=== PATIENT | male | born 1940 | race American Indian/Alaskan Native ===

== ENCOUNTER 2016-09-14 21:02 | Emergency (ER) | payer MEDICARE, MEDICAID, SELFPAY ==
[2016-09-14 21:27] VITALS: BP 178/99
[2016-09-14] MEDS ORDERED: Sodium Chloride 0.9% 10 ML Syringe FLUSH PRN (22:35)
--- NOTE | 2016-09-14 22:39 | EDM.PDOC ---
ED HPI Trauma - General Chief Complaint: Upper Extremity Injury/Pain Stated Complaint: HURT HAND Time Seen by Provider: 09/14/16 22:30 Source: Reports: Patient History Limitations: Reports: No limitations - History of Present Illness INITIAL COMMENTS - FREE TEXT/NARRATIVE: This 76 yo male patient reports to the ED with right hand swelling. The patient reports she hit his hand on a drawer this past Wednesday (4 days ago) and has noticed increased swelling and pain in his right hand since that time. The patient finally came in today due to his family forcing him to come in. Symptom Onset Date: 09/11/16 Occurred Where: home Method of Injury: direct blow Severity: moderate Pain/Injury Location: Reports: upper extremity, right Consciousness: Reports: no loss of consciousness Associated Symptoms: Reports: no other symptoms Allergies/ADRs: Allergies No Known Allergies Allergy (Verified 09/14/16 21:19) Home Medications: Ambulatory Orders Atenolol [Atenolol] 50 mg PO BID 07/09/15 [Confirmed 06/06/16] Gabapentin [Gabapentin] 900 mg PO TID 07/09/15 [Confirmed 06/06/16] Lisinopril 20 mg PO BID 07/09/15 [Confirmed 06/06/16] Tamsulosin [Flomax] 0.4 mg PO DAILY 07/09/15 [Confirmed 06/06/16] Fluticasone Propionate [Flonase] 1 spray INH BID PRN 08/08/15 [Confirmed ] amLODIPine [Norvasc] 5 mg PO DAILY 08/08/15 [Confirmed 06/06/16] oxyCODONE HCl/Acetaminophen [Percocet 5-325 mg Tablet] 1 tab PO BID PRN [Confirmed 06/06/16] Warfarin [Coumadin] 5 mg PO DAILY 03/17/16 [Confirmed 06/06/16] oxyCODONE ER [OxyCONTIN] 20 mg PO Q12HR 03/17/16 [Confirmed 06/06/16] Past Medical History HEENT History: Reports: Impaired vision Other HEENT History: Wears glasses. 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 Other Oncologic History: left arm Dermatologic History: Reports: Other (see below) Other Dermatologic History: Open wound both lower legs - Infectious Disease History Infectious Disease History: Reports: Other (see below) Other Infectious Disease History: Hepatitis when he was 13yrs old - Past Surgical History Cardiovascular Surgical History: Reports: AAA repair, Vascular surgery GI Surgical History: Reports: None Musculoskeletal Surgical History: Reports: Arthroscopic procedure, Shoulder surgery Social & Family History - Family History Family Medical History: Noncontributory - Tobacco Use Smoking Status *Q: Current Every Day Smoker Years of Tobacco use: 68 Packs/Tins Daily: 1 Used Tobacco, but Quit: No Second Hand Smoke Exposure: Yes - Caffeine Use Caffeine Use: Reports: Coffee - Recreational Drug Use Recreational Drug Use: No - Living Situation & Occupation Living situation: Reports: , with spouse Occupation: retired Review of Systems - Review of Systems Review Of Systems: ROS reveals no pertinent complaints other than HPI. Trauma Exam - Physical Exam Exam: See Below Exam Limited By: No limitations General Appearance: Reports: alert, WD/WN, mild distress Head: Reports: atraumatic, normocephalic Eyes: bilateral eye: EOMI, normal inspection, PERRL Ears: Reports: normal external exam, normal canal, hearing grossly normal, normal TMs Nose: Reports: normal inspection, normal mucousa, no blood Throat/Mouth: Reports: Normal inspection, Normal lips, Normal teeth, Normal gums , Normal oropharynx, Normal voice, No airway compromise Neck: Reports: non-tender, full range of motion, normal alignment, normal inspection Respiratory Exam: Reports: no respiratory distress, lungs clear, normal breath sounds Cardiovascular: Reports: normal peripheral pulses, regular rate, rhythm, no edema, no gallop, no JVD, no murmur, no rub GI/Abdominal: Reports: normal bowel sounds, soft, non tender, no organomegaly, no distention, no abnormal bruit, no mass (Male) Exam: Deferred Rectal (Males) Exam: Deferred Back: Reports: full range of motion, normal inspection, non-tender Extremities: Reports: pain with movement, tenderness (right forearm and hand) 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 ) - Nicole Coma Score Best Eye Response (Nicole): (4) open spontaneously Best Verbal Response (Nicole): (5) oriented Best Motor Response (Nicole): (6) obeys commands [place] Total: 15 Course - Vital Signs Last Recorded V/S: Last Vital Signs Temp 36.8 C 09/14/16 21:22 Pulse 72 09/14/16 21:22 Resp 18 09/14/16 21:22 BP 178/99 H 09/14/16 21:22 Pulse Ox 95 09/14/16 21:22 - Orders/Labs/Meds Orders: Active Orders 24 hr Category Date Time Status CULTURE BLOOD [BC] Stat Lab 09/14/16 22:43 Received CULTURE BLOOD [BC] Stat Lab 09/14/16 23:00 Results Sodium Chloride 0.9% [Saline Flush] Med 09/14/16 22:35 Active 10 ml FLUSH ASDIRECTED PRN Vancomycin 1.5 gm Med 09/14/16 22:41 Active Sodium Chloride 0.9% [Normal Saline] 500 ml IV ONETIME Blood Culture x2 Reflex Set [OM.PC] Stat Oth 09/14/16 22:29 Ordered Saline Lock Insert [OM.PC] Routine Oth 09/14/16 22:35 Ordered Medication Orders Vancomycin HCl 1.5 gm/ Sodium (Chloride) 500 mls @ 334 mls/hr IV ONETIME ONE Stop: 09/15/16 00:10 Last Admin: 09/14/16 23:11 Dose: 334 mls/hr Sodium Chloride (Saline Flush) 10 ml FLUSH ASDIRECTED PRN PRN Reason: Keep Vein Open Labs: Laboratory Tests 09/14/16 09/14/16 09/14/16 Range/Units 22:43 22:43 22:43 WBC 12.9 H (5.0-10.0) 10^3/uL RBC 3.84 L (4.6-6.2) 10^6/uL Hgb 11.4 L (14.0-18.0) g/dL Hct 35.3 L (40.0-54.0) % MCV 91.9 (80-100) fL MCH 29.7 (27.0-34.0) pg MCHC 32.3 L (33.0-35.0) g/dL Plt Count 187 (150-450) 10^3/uL Neut % (Auto) 79.7 H (42.2-75.2) % Lymph % (Auto) 9.0 L (20.5-50.1) % [place] % (Auto) 9.8 H (2-8) % Eos % (Auto) 1.3 (1.0-3.0) % Baso % (Auto) 0.2 (0.0-1.0) % Add Manual Diff Yes Neutrophils % (Manual) 80 % Band Neutrophils % 3 % Lymphocytes % (Manual) 11 % Monocytes % (Manual) 6 % Sodium 132 L (135-145) mmol/L Potassium 4.9 (3.6-5.0) mmol/L Chloride 101 (101-111) mmol/L Carbon Dioxide 20.0 L (21.0-31.0) mmol/L Anion Gap 15.9 BUN 39 H (7-18) mg/dL Creatinine 2.2 H (0.6-1.3) mg/dL Est Cr Clr Drug Dosing 29.96 mL/min Estimated GFR (MDRD) 29 BUN/Creatinine Ratio 17.72 Glucose 106 H (74-105) mg/dL Lactic Acid 1.5 (0.5-2.2) mmol/L Calcium 8.3 L (8.4-10.2) mg/dl Total Bilirubin 0.8 (0.2-1.0) mg/dL AST 37 (10-42) IU/L ALT 34 (10-60) IU/L Alkaline Phosphatase 129 H (42-121) IU/L Total Protein 8.3 H (6.7-8.2) g/dl Albumin 3.2 (3.2-5.5) g/dl Globulin 5.1 Albumin/Globulin Ratio 0.63 Meds: Medications Generic Name Dose Route Start Last Admin Trade Name Freq PRN Reason Stop Dose Admin Vancomycin HCl 1.5 gm/ Sodium 500 mls @ 334 mls/hr 09/14/16 22:41 09/14/16 23 :11 Chloride IV 09/15/16 00:10 334 mls/hr ONETIME ONE Administration Sodium Chloride 10 ml 09/14/16 22:35 Saline Flush FLUSH ASDIRECTED PRN Keep Vein Open Discontinued Medications Generic Name Dose Route Start Last Admin Trade Name Freq PRN Reason Stop Dose Admin Amoxicillin/Clavulanate Potassium 1 tab 09/15/16 00:03 Augmentin 500 Mg\125 Mg PO 09/15/16 00:04 ONETIME ONE - Re-Assessments/Exams Free Text/Narrative Re-Assessment/Exam: 09/14/16 23:30 Discussed the history, examination, x-ray, and lab results with Dr. Gong ( Hospitalist with [facility] Dr. Gong did visit the patient in the ED, offered the patient admission, and advised to start the patient on oral antibiotics (Augmentin and Bactrim) and follow-up with his clinic provider by the end of the week. 09/15/16 00:06 Departure - Departure Time of Disposition: 23:39 Disposition: Home, Self-Care 01 Condition: fair Clinical Impression: Cellulitis of right upper extremity Instructions: Cellulitis, Adult, [id number] Forms: ED Department Discharge Care Plan Goals: The patient was advised of the examination, x-ray and lab results during the visit. The patient was given an IV dose of Vancomycin in the ED. The patient was discharged with a script for Augmentin (500/125) to take 1 by mouth 2 times per day for 10 days and Bactrim (400/80) to take 1 by mouth 2 times per day for 10 days. The patient's arm was placed in a sling for support. If the patient has any additional symptoms or concerns, the patient should follow-up with his primary care facility or return to the emergency department. - My Orders Last 24 Hours: My Active Orders 09/14/16 22:29 Blood Culture x2 Reflex Set [OM.PC] Stat 09/14/16 22:35 Sodium Chloride 0.9% [Saline Flush] 10 ml FLUSH ASDIRECTED PRN Saline Lock Insert [OM.PC] Routine 09/14/16 22:41 Vancomycin 1.5 gm Sodium Chloride 0.9% [Normal Saline] 500 ml IV ONETIME 09/14/16 22:43 CULTURE BLOOD [BC] Stat 09/14/16 23:00 CULTURE BLOOD [BC] Stat - Assessment/Plan Last 24 Hours: My Active Orders 09/14/16 22:29 Blood Culture x2 Reflex Set [OM.PC] Stat 09/14/16 22:35 Sodium Chloride 0.9% [Saline Flush] 10 ml FLUSH ASDIRECTED PRN Saline Lock Insert [OM.PC] Routine 09/14/16 22:41 Vancomycin 1.5 gm Sodium Chloride 0.9% [Normal Saline] 500 ml IV ONETIME 09/14/16 22:43 CULTURE BLOOD [BC] Stat 09/14/16 23:00 CULTURE BLOOD [BC] Stat
[2016-09-14] MEDS ORDERED: Vancomycin 1.5 GM in Sodium Chloride 0.9% 500 ML IV ONE (22:41)
[2016-09-15] MEDS ORDERED: Amoxicillin/Clavulanate K 500-125 MG Tab PO ONE (00:03)
== END 2016-09-15 00:50 | disposition home or self-care (01) ==
LOC: DL.ED 21:02
DX: L03.113 Cellulitis of right upper limb (principal); I10 Essential (primary) hypertension; M19.90 Unspecified osteoarthritis, unspecified site; F17.210 Nicotine dependence, cigarettes, uncomplicated; Z86.2 Personal history of diseases of the blood and blood-forming organs and certain disorders involving the immune mechanism; Z95.1 Presence of aortocoronary bypass graft
CPT/HCPCS: 36415; 73060; 73090; 73120; 80053; 83605; 85025; 87040; 96365; 96366; 99284; A9270; J3370; J7040

== ENCOUNTER 2017-04-05 12:52 | Emergency (ER) | payer MEDICARE, MEDICAID ==
--- NOTE | 2017-04-05 12:51 | EDM.PDOC ---
ED HPI GENERAL MEDICAL PROBLEM - General Chief Complaint: Neuro Symptoms/Deficits Stated Complaint: IN BY AMBULANCE Time Seen by Provider: 04/05/17 12:49 Source of Information: Reports: Patient, EMS, EMS Notes Reviewed, RN, RN Notes Reviewed - History of Present Illness INITIAL COMMENTS - FREE TEXT/NARRATIVE: Pt presents to ER per [facility] with c/o left sided weakness. Patient states he began feeling weak and numb on the left side of his body around 1130 this morning. He states he had a feeling of weakness and heaviness of the entire left side. He states he has some weakness of the left arm from a previous surgery for cancer. He denies chest pain, sob, fever, chills, N/V/D. He states he has been out of his medications for some time, and has an appointment in the clinic with Dr. Laws tomorrow to have medications refilled. Onset: Today, Sudden Location: Reports: Upper Extremity, Left, Lower Extremity, Left Generalized Pain Score (Numeric/FACES): 5 - Related Data Allergies Allergy/AdvReac Type Severity Reaction Status Date / Time No Known Allergies Allergy Verified 04/05/17 12:57 Home Meds: Home Meds Atenolol [Atenolol] 50 mg PO BID 07/09/15 [History] Gabapentin [Gabapentin] 900 mg PO TID 07/09/15 [History] Lisinopril 20 mg PO BID 07/09/15 [History] Tamsulosin [Flomax] 0.4 mg PO DAILY 07/09/15 [History] Fluticasone Propionate [Flonase] 1 spray INH BID PRN 08/08/15 [History] amLODIPine [Norvasc] 5 mg PO DAILY 08/08/15 [History] oxyCODONE HCl/Acetaminophen [Percocet 5-325 mg Tablet] 1 tab PO BID PRN [History] Warfarin [Coumadin] 5 mg PO DAILY 03/17/16 [History] oxyCODONE ER [OxyCONTIN] 20 mg PO Q12HR 03/17/16 [History] Past Medical History HEENT History: Reports: Impaired Vision Other HEENT History: Wears glasses. 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 Other Oncologic History: left arm Dermatologic History: Reports: Other (See Below) Other Dermatologic History: Open wound both lower legs - Infectious Disease History Infectious Disease History: Reports: Other (See Below) Other Infectious Disease History: Hepatitis when he was 13yrs old - Past Surgical History Cardiovascular Surgical History: Reports: AAA Repair, Vascular Surgery Social & Family History - Family History Family Medical History: Noncontributory - Tobacco Use Smoking Status *Q: Current Every Day Smoker Years of Tobacco use: 68 Packs/Tins Daily: 1 Used Tobacco, but Quit: No Second Hand Smoke Exposure: Yes - Caffeine Use Caffeine Use: Reports: Coffee - Recreational Drug Use Recreational Drug Use: No - Living Situation & Occupation Living situation: Reports: , with Spouse Occupation: Retired ED ROS GENERAL - Review of Systems Review Of Systems: ROS reveals no pertinent complaints other than HPI. ED EXAM, NEURO - Physical Exam Exam: See Below Exam Limited By: No Limitations General Appearance: Alert, WD/WN, No Apparent Distress Eye Exam: Bilateral Eye: Normal Inspection Ears: Normal External Exam Nose: Normal Inspection Throat/Mouth: Normal Inspection, Normal Voice, No Airway Compromise Head Exam: Atraumatic, Normocephalic Neck: Normal Inspection, Supple, Non-Tender, Full Range of Motion Respiratory/Chest: No Respiratory Distress, Crackles (RLB) Cardiovascular: Normal Peripheral Pulses, Regular Rate, Rhythm, No Edema, No Gallop, No JVD, No Murmur, No Rub GI/Abdominal: Normal Bowel Sounds, Soft, Non-Tender, No Organomegaly, No Distention, No Abnormal Bruit, No Mass (Male) Exam: Deferred Rectal (Males) Exam: Deferred Neurological: Alert, Normal Mood/Affect, Normal Dorsiflexion, CN II-XII Intact, Normal Plantar Flexion, Normal Gait, No Motor/Sensory Deficits, Oriented x 3 Back Exam: Normal Inspection, Full Range of Motion Extremities: Normal Inspection, Normal Range of Motion, Non-Tender, No Pedal Edema, Normal Capillary Refill Psychiatric: Normal Affect, Normal Mood Skin Exam: Warm, Dry, Intact, Normal Color, No Rash EKG INTERPRETATION EKG Date: 04/05/17 Time: 13:01 Rhythm: Other (sinus bradycardia) Rate (Beats/Min): 51 [place]: Normal P-Wave: Present QRS: Normal ST-T: Normal QT: Normal Comparison: No Change EKG Interpretation Comments: PVC's noted Course - Vital Signs Last Recorded V/S: Last Vital Signs Temp 97.4 F 04/05/17 13:01 Pulse 50 L 04/05/17 13:01 Resp 16 04/05/17 13:01 BP 187/94 H 04/05/17 13:01 Pulse Ox 99 04/05/17 13:01 - Orders/Labs/Meds Orders: Active Orders 24 hr Category Date Time Status EKG Documentation Completion [] STAT Care 04/05/17 12:46 Active Peripheral IV Care [RC] . DIRECTED Care 04/05/17 12:46 Active Sodium Chloride 0.9% [Saline Flush] Med 04/05/17 12:45 Active 10 ml FLUSH ASDIRECTED PRN Peripheral IV Insertion Adult [OM.PC] Stat Oth 04/05/17 12:45 Ordered Medication Orders Sodium Chloride (Saline Flush) 10 ml FLUSH ASDIRECTED PRN PRN Reason: Keep Vein Open Last Admin: 04/05/17 13:18 Dose: 10 ml Labs: Laboratory Tests 04/05/17 04/05/17 04/05/17 Range/Units 12:57 12:57 12:57 WBC 6.5 (5.0-10.0) 10^3/uL RBC 4.29 L (4.6-6.2) 10^6/uL Hgb 13.3 L D (14.0-18.0) g/dL Hct 40.5 (40.0-54.0) % MCV 94.4 (80-100) fL MCH 31.0 (27.0-34.0) pg MCHC 32.8 L (33.0-35.0) g/dL Plt Count 149 L (150-450) 10^3/uL Neut % (Auto) 66.1 (42.2-75.2) % Lymph % (Auto) 19.3 L (20.5-50.1) % [place] % (Auto) 9.2 H (2-8) % Eos % (Auto) 4.8 H (1.0-3.0) % Baso % (Auto) 0.6 (0.0-1.0) % PT 12.6 H D (9.0-12.0) SEC INR 1.3 H (0.9-1.2) Sodium 137 (135-145) mmol/L Potassium 4.6 (3.6-5.0) mmol/L Chloride 104 (101-111) mmol/L Carbon Dioxide 23.0 (21.0-31.0) mmol/L Anion Gap 14.6 BUN 32 H (7-18) mg/dL Creatinine 2.1 H (0.6-1.3) mg/dL Est Cr Clr Drug Dosing 31.38 mL/min Estimated GFR (MDRD) 31 BUN/Creatinine Ratio 15.23 Glucose 108 H (74-105) mg/dL Calcium 8.5 (8.4-10.2) mg/dl Total Bilirubin 1.0 (0.2-1.0) mg/dL AST 20 (10-42) IU/L ALT 13 (10-60) IU/L Alkaline Phosphatase 86 (42-121) IU/L Troponin I < 0.02 (0.00-0.02) ng/ml Total Protein 7.7 (6.7-8.2) g/dl Albumin 4.0 (3.2-5.5) g/dl Globulin 3.7 Albumin/Globulin Ratio 1.08 Urine Color (YELLOW) Urine Appearance (CLEAR) Urine pH (5.0-9.0) Ur Specific [place] (1.005-1.030) Urine Protein (NEGATIVE) Urine Glucose (UA) (NEGATIVE) Urine Ketones (NEGATIVE) Urine Occult Blood (NEGATIVE) Urine Nitrite (NEGATIVE) Urine Bilirubin (NEGATIVE) Urine Urobilinogen (0.2-1.0) mg/dL Ur Leukocyte Esterase (NEGATIVE) Urine RBC /HPF Urine WBC (0-5/HPF) /HPF Ur Epithelial Cells /HPF Urine Bacteria (0-FEW/HPF) /HPF 04/05/17 Range/Units 13:13 WBC (5.0-10.0) 10^3/uL RBC (4.6-6.2) 10^6/uL Hgb (14.0-18.0) g/dL Hct (40.0-54.0) % MCV (80-100) fL MCH (27.0-34.0) pg MCHC (33.0-35.0) g/dL Plt Count (150-450) 10^3/uL Neut % (Auto) (42.2-75.2) % Lymph % (Auto) (20.5-50.1) % [place] % (Auto) (2-8) % Eos % (Auto) (1.0-3.0) % Baso % (Auto) (0.0-1.0) % PT (9.0-12.0) SEC INR (0.9-1.2) Sodium (135-145) mmol/L Potassium (3.6-5.0) mmol/L Chloride (101-111) mmol/L Carbon Dioxide (21.0-31.0) mmol/L Anion Gap BUN (7-18) mg/dL Creatinine (0.6-1.3) mg/dL Est Cr Clr Drug Dosing mL/min Estimated GFR (MDRD) BUN/Creatinine Ratio Glucose (74-105) mg/dL Calcium (8.4-10.2) mg/dl Total Bilirubin (0.2-1.0) mg/dL AST (10-42) IU/L ALT (10-60) IU/L Alkaline Phosphatase (42-121) IU/L Troponin I (0.00-0.02) ng/ml Total Protein (6.7-8.2) g/dl Albumin (3.2-5.5) g/dl Globulin Albumin/Globulin Ratio Urine Color Yellow (YELLOW) Urine Appearance Clear (CLEAR) Urine pH 6.5 (5.0-9.0) Ur Specific [place] 1.015 (1.005-1.030) Urine Protein 100 H (NEGATIVE) Urine Glucose (UA) Negative (NEGATIVE) Urine Ketones Negative (NEGATIVE) Urine Occult Blood Large H (NEGATIVE) Urine Nitrite Negative (NEGATIVE) Urine Bilirubin Negative (NEGATIVE) Urine Urobilinogen 0.2 (0.2-1.0) mg/dL Ur Leukocyte Esterase Negative (NEGATIVE) Urine RBC 10-20 H /HPF Urine WBC 0-5 (0-5/HPF) /HPF Ur Epithelial Cells Few /HPF Urine Bacteria Few (0-FEW/HPF) /HPF Meds: Medications Generic Name Dose Route Start Last Admin Trade Name Freq PRN Reason Stop Dose Admin Sodium Chloride 10 ml 04/05/17 12:45 04/05/17 13:18 Saline Flush FLUSH 10 ml ASDIRECTED PRN Administration Keep Vein Open Discontinued Medications Generic Name Dose Route Start Last Admin Trade Name Leny PRN Reason Stop Dose Admin Amlodipine Besylate 5 mg 04/05/17 13:52 Norvasc PO 04/05/17 13:53 ONETIME ONE Lisinopril 20 mg 04/05/17 13:43 Prinivil PO 04/05/17 13:44 ONETIME ONE - Radiology Interpretation Free Text/Narrative:: CT head w/o contrast: No acute findings See rad report CT Results Date: 04/05/17 - Re-Assessments/Exams Free Text/Narrative Re-Assessment/Exam: 04/05/17 12:50 [id number] call taken from [facility] regarding patient with left sided weakness, last noted to be normal at 1130. Pt was taken straight to CT upon arrival Departure - Departure Time of Disposition: 13:44 Disposition: Home, Self-Care 01 Condition: Fair Clinical Impression: Hypertension Qualifiers: Hypertension type: essential hypertension Qualified Code(s): I10 - Essential ( primary) hypertension - Discharge Information Instructions: Hypertension, [id number] Forms: ED Department Discharge Additional Instructions: Follow up with your primary care facility. You need to have your blood pressure medications refilled and begin taking. - My Orders Last 24 Hours: My Active Orders 04/05/17 12:45 Sodium Chloride 0.9% [Saline Flush] 10 ml FLUSH ASDIRECTED PRN Peripheral IV Insertion Adult [OM.PC] Stat 04/05/17 12:46 EKG Documentation Completion [RC] STAT Peripheral IV Care [RC] . DIRECTED - Assessment/Plan Last 24 Hours: My Active Orders 04/05/17 12:45 Sodium Chloride 0.9% [Saline Flush] 10 ml FLUSH ASDIRECTED PRN Peripheral IV Insertion Adult [OM.PC] Stat 04/05/17 12:46 EKG Documentation Completion [RC] STAT Peripheral IV Care [RC] . DIRECTED
[~2017-04-05 12:52] MED LIST: Sodium Chloride 0.9% 10 ML Syringe FLUSH PRN
--- NOTE | 2017-04-05 13:19 | CT ---
Clinical history: 76-year-old male acute stroke clinically. Scan technique: Volume acquisition of data emergency unenhanced CT scan of the head and brain obtaine d with the patient lying supine on the Siemens multi slice scanner [place], [place]. All data archived in the PAC system for storage and study (bone/brain windows). Interpretation: Abnormal. Severe but symmetric age-related cerebral cortical atrophy. *Multiple areas of decreased brain attenuation involving the periventricular white matter both cerebr al hemispheres i.e. multi-infarct ischemic disease (particular severe involvement left frontal and ri ght parietal lobes). No comparison studies. Note: No sign of acute intracerebral/intraventricular or subarachnoid bleed. No abnormal extracerebra l/and cranial epidural or subdural hematomas. Uniformly thick bony calvarium without sign of skull fr acture or underlying brain contusion. Symmetric clear pneumatization of the paranasal and mastoid sinuses. Nasal septum is straight in the midline. No supratentorial or posterior fossa mass lesion and no sign of hydrocephalus. Cerebellum and brainstem unremarkable for age.
[2017-04-05 13:25] LABS: CHLORIDE,CL 104 mmol/L (101-111); SODIUM,NA 137 mmol/L (135-145)
[2017-04-05] MEDS ORDERED: Lisinopril 20 MG Tab PO ONE (13:43)
[2017-04-05] MEDS ORDERED: amLODIPine 5 MG Tab PO ONE (13:52)
[2017-04-05 14:02] VITALS: BP 181/96
--- NOTE | 2017-04-06 11:13 | EKG ---
04/05/2017 - TIMUR GONZALEZ - TIME: 1301 hours. FINDINGS: EKG shows sinus bradycardia. There are multiple premature ventricular complexes. Borderline T-wave abnormality. [facility] /[id number]
== END 2017-04-05 14:07 | disposition home or self-care (01) ==
LOC: DL.ED 12:52
DX: I10 Essential (primary) hypertension (principal); F17.210 Nicotine dependence, cigarettes, uncomplicated; Z79.01 Long term (current) use of anticoagulants
CPT/HCPCS: 36415; 70450; 80053; 81001; 84484; 85025; 85610; 93005; 93010; 99285; A9270; J7050; 99284

== ENCOUNTER 2017-12-30 16:24 | Emergency (ER) | payer MEDICARE, MEDICAID ==
[2017-12-30 16:44] VITALS: BP 97/61
[2017-12-30] MEDS ORDERED: Sodium Chloride 0.9% 1,000 ML IV ONE (16:44)
[2017-12-30 17:22] LABS: ANION GAP 14.4; CHLORIDE,CL 109 mmol/L (101-111); SODIUM,NA 137 mmol/L (135-145)
[2017-12-30] MEDS ORDERED: HYDROmorphone 0.5 MG/0.5 ML Syringe IVPUSH ONE (17:45)
[2017-12-30] MEDS ORDERED: Ondansetron 4 MG/2 ML SDV IV ONE (17:48)
[2017-12-30] MEDS ORDERED: Piperacillin/Tazobactam 3.375 GM in Sodium Chloride 0.9% 100 ML IV ONE (17:48)
[2017-12-30] MEDS ORDERED: Ondansetron 4 MG/2 ML SDV ONE (17:49)
--- NOTE | 2017-12-30 17:58 | EDM.PDOC ---
ED HPI GENERAL MEDICAL PROBLEM - General Chief Complaint: Abdominal Pain Stated Complaint: [id number] SICK COLD Time Seen by Provider: 12/30/17 17:35 Source of Information: Reports: Patient History Limitations: Reports: No Limitations - History of Present Illness INITIAL COMMENTS - FREE TEXT/NARRATIVE: This 77 yo male patient was brought to the ED by his family due to a 2 day history of upper abdominal pain. The patient reports he was walking in [facility] prior to coming to the ED when he felt light headed. The patient reports his pain has gotten progressively worse over the past 2 days. The patient reports he has a history of hypertension. The patient reports he had a bypass about 1 year ago, but he quit his anticoagulants on his own. The patient has not taken anything to make his pain better or worse. Onset Date: 12/29/17 Duration: Constant, Getting Worse Location: Reports: Abdomen (upper abdomen) Quality: Reports: Ache, Sharp, Stabbing Severity: Moderate Improves with: Reports: None Worsens with: Reports: None Context: Reports: Other Associated Symptoms: Reports: No Other Symptoms Epigastric Pain Score (Numeric/FACES): 10 - Related Data Allergies Allergy/AdvReac Type Severity Reaction Status Date / Time No Known Allergies Allergy Verified 04/05/17 12:57 Home Meds: Home Meds Atenolol 50 mg PO BID 07/09/15 [History] Lisinopril 20 mg PO BID 07/09/15 [History] Tamsulosin [Flomax] 0.4 mg PO DAILY 07/09/15 [History] traMADol HCl [Tramadol HCl] 50 mg PO BID 12/30/17 [History] Past Medical History HEENT History: Reports: Impaired Vision Other HEENT History: Wears glasses. 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 Other Oncologic History: left arm Dermatologic History: Reports: Other (See Below) Other Dermatologic History: Open wound both lower legs - Infectious Disease History Infectious Disease History: Reports: Other (See Below) Other Infectious Disease History: Hepatitis when he was 13yrs old - Past Surgical History Cardiovascular Surgical History: Reports: AAA Repair, Vascular Surgery Social & Family History - Family History Family Medical History: Noncontributory - Tobacco Use Smoking Status *Q: Current Every Day Smoker Years of Tobacco use: 60 Packs/Tins Daily: 1 - Caffeine Use Caffeine Use: Reports: Coffee - Recreational Drug Use Recreational Drug Use: No - Living Situation & Occupation Living situation: Reports: , with Spouse Occupation: Retired ED ROS GENERAL - Review of Systems Review Of Systems: ROS reveals no pertinent complaints other than HPI. ED EXAM, GI/ABD - Physical Exam Exam: See Below Exam Limited By: No Limitations General Appearance: Alert, WD/WN, Severe Distress, Thin Eyes: Bilateral: Normal Appearance, EOMI Ears: Normal External Exam, Normal Canal, Hearing Grossly Normal, Normal TMs Nose: Normal Inspection, Normal Mucosa, No Blood Throat/Mouth: Normal Inspection, Normal Lips, Normal Teeth, Normal Gums, Normal Oropharynx, Normal Voice, No Airway Compromise Head: Atraumatic, Normocephalic Neck: Normal Inspection, Supple, Non-Tender, Full Range of Motion Respiratory/Chest: No Respiratory Distress, Lungs Clear, Normal Breath Sounds, No Accessory Muscle Use, Chest Non-Tender Cardiovascular: Normal Peripheral Pulses, Regular Rate, Rhythm, No Edema, No Gallop, No JVD, No Murmur, No Rub GI/Abdominal Exam: Guarding, Rigid, Tender (upper abdomen ) (Male) Exam: Deferred Rectal (Males) Exam: Deferred Back Exam: Normal Inspection, Full Range of Motion, NT Extremities: Normal Inspection, Normal Range of Motion, Non-Tender, Normal Capillary Refill, No Pedal Edema Neurological: Alert, Oriented, CN II-XII Intact, Normal Cognition, Normal Gait, Normal Reflexes, No Motor/Sensory Deficits Psychiatric: Normal Affect, Normal Mood Skin Exam: Warm, Dry, Intact, Normal Color, No Rash Lymphatic: No Adenopathy Course - Vital Signs Last Recorded V/S: Last Vital Signs Temp 36.4 C 12/30/17 16:42 Pulse 46 L 12/30/17 16:42 Resp 16 12/30/17 16:42 BP 97/61 12/30/17 16:42 Pulse Ox 97 12/30/17 16:42 - Orders/Labs/Meds Orders: Active Orders 24 hr Category Date Time Status EKG Documentation Completion [RC] URGENT Care 12/30/17 16:43 Ordered UA W/MICROSCOPIC [URIN] Stat Lab 12/30/17 16:43 Ordered Piperacillin/Tazobactam [Zosyn] 3.375 gm Med 12/30/17 17:48 Ordered Sodium Chloride 0.9% [Normal Saline] 100 ml IV ONETIME Sodium Chloride 0.9% [Normal Saline] 1,000 ml Med 12/30/17 16:44 Ordered IV .BOLUS Medication Orders Sodium Chloride (Normal Saline) 1,000 mls @ 250 mls/hr IV .BOLUS ONE Stop: 12/30/17 20:43 Last Admin: 12/30/17 17:10 Dose: 250 mls/hr Piperacillin Sod/Tazobactam (Sod 3.375 gm/ Sodium Chloride) 100 mls @ 200 mls/ hr IV ONETIME ONE Stop: 12/30/17 18:17 Labs: Laboratory Tests 12/30/17 12/30/17 12/30/17 Range/Units 16:39 16:40 16:40 WBC 11.7 H (5.0-10.0) 10^3/uL RBC 4.51 L (4.6-6.2) 10^6/uL Hgb 14.2 (14.0-18.0) g/dL Hct 43.1 (40.0-54.0) % MCV 95.6 (80-100) fL MCH 31.5 (27.0-34.0) pg MCHC 32.9 L (33.0-35.0) g/dL Plt Count 167 (150-450) 10^3/uL Neut % (Auto) 59.4 (42.2-75.2) % Lymph % (Auto) 33.1 (20.5-50.1) % [place] % (Auto) 5.1 (2-8) % Eos % (Auto) 2.3 (1.0-3.0) % Baso % (Auto) 0.1 (0.0-1.0) % PT (9.0-12.0) SEC INR (0.9-1.2) D-Dimer, Quantitative (0-400) ng/mL Sodium (135-145) mmol/L Potassium (3.6-5.0) mmol/L Chloride (101-111) mmol/L Carbon Dioxide (21.0-31.0) mmol/L Anion Gap BUN (7-18) mg/dL Creatinine (0.6-1.3) mg/dL Est Cr Clr Drug Dosing mL/min Estimated GFR (MDRD) BUN/Creatinine Ratio Glucose (74-105) mg/dL POC Glucose 128 H (83-110) mg/dl Lactic Acid (0.5-2.2) mmol/L Calcium (8.4-10.2) mg/dl Magnesium 2.2 (1.8-2.5) mg/dL Total Bilirubin (0.2-1.0) mg/dL AST (10-42) IU/L ALT (10-60) IU/L Alkaline Phosphatase (42-121) IU/L Ammonia (11-35) umol/L Troponin I (0.00-0.02) ng/ml Total Protein (6.7-8.2) g/dl Albumin (3.2-5.5) g/dl Globulin Albumin/Globulin Ratio Amylase 1008 H (28-100) U/L Lipase > 400 H (22-51) U/L 12/30/17 12/30/17 12/30/17 Range/Units 16:40 16:40 16:50 WBC (5.0-10.0) 10^3/uL RBC (4.6-6.2) 10^6/uL Hgb (14.0-18.0) g/dL Hct (40.0-54.0) % MCV (80-100) fL MCH (27.0-34.0) pg MCHC (33.0-35.0) g/dL Plt Count (150-450) 10^3/uL Neut % (Auto) (42.2-75.2) % Lymph % (Auto) (20.5-50.1) % [place] % (Auto) (2-8) % Eos % (Auto) (1.0-3.0) % Baso % (Auto) (0.0-1.0) % PT 10.3 (9.0-12.0) SEC INR 1.0 (0.9-1.2) D-Dimer, Quantitative > 5000 H (0-400) ng/mL Sodium 137 (135-145) mmol/L Potassium 4.4 (3.6-5.0) mmol/L Chloride 109 (101-111) mmol/L Carbon Dioxide 18.0 L (21.0-31.0) mmol/L Anion Gap 14.4 BUN 37 H (7-18) mg/dL Creatinine 2.4 H (0.6-1.3) mg/dL Est Cr Clr Drug Dosing 27.46 mL/min Estimated GFR (MDRD) 26 BUN/Creatinine Ratio 15.41 Glucose 151 H (74-105) mg/dL POC Glucose (83-110) mg/dl Lactic Acid (0.5-2.2) mmol/L Calcium 8.9 (8.4-10.2) mg/dl Magnesium (1.8-2.5) mg/dL Total Bilirubin 1.8 H (0.2-1.0) mg/dL AST 56 H (10-42) IU/L ALT 27 (10-60) IU/L Alkaline Phosphatase 94 (42-121) IU/L Ammonia 16 (11-35) umol/L Troponin I < 0.02 (0.00-0.02) ng/ml Total Protein 8.4 H (6.7-8.2) g/dl Albumin 4.4 (3.2-5.5) g/dl Globulin 4.0 Albumin/Globulin Ratio 1.10 Amylase (28-100) U/L Lipase (22-51) U/L 07/19/18 Range/Units 16:50 WBC (5.0-10.0) 10^3/uL RBC (4.6-6.2) 10^6/uL Hgb (14.0-18.0) g/dL Hct (40.0-54.0) % MCV (80-100) fL MCH (27.0-34.0) pg MCHC (33.0-35.0) g/dL Plt Count (150-450) 10^3/uL Neut % (Auto) (42.2-75.2) % Lymph % (Auto) (20.5-50.1) % [place] % (Auto) (2-8) % Eos % (Auto) (1.0-3.0) % Baso % (Auto) (0.0-1.0) % PT (9.0-12.0) SEC INR (0.9-1.2) D-Dimer, Quantitative (0-400) ng/mL Sodium (135-145) mmol/L Potassium (3.6-5.0) mmol/L Chloride (101-111) mmol/L Carbon Dioxide (21.0-31.0) mmol/L Anion Gap BUN (7-18) mg/dL Creatinine (0.6-1.3) mg/dL Est Cr Clr Drug Dosing mL/min Estimated GFR (MDRD) BUN/Creatinine Ratio Glucose (74-105) mg/dL POC Glucose (83-110) mg/dl Lactic Acid 1.5 (0.5-2.2) mmol/L Calcium (8.4-10.2) mg/dl Magnesium (1.8-2.5) mg/dL Total Bilirubin (0.2-1.0) mg/dL AST (10-42) IU/L ALT (10-60) IU/L Alkaline Phosphatase (42-121) IU/L Ammonia (11-35) umol/L Troponin I (0.00-0.02) ng/ml Total Protein (6.7-8.2) g/dl Albumin (3.2-5.5) g/dl Globulin Albumin/Globulin Ratio Amylase (28-100) U/L Lipase (22-51) U/L Meds: Medications Generic Name Dose Route Start Last Admin Trade Name Freq PRN Reason Stop Dose Admin Sodium Chloride 1,000 mls @ 250 mls/hr 12/30/17 16:44 12/30/17 17:10 Normal Saline IV 12/30/17 20:43 250 mls/hr .BOLUS ONE Administration Piperacillin Sod/Tazobactam 100 mls @ 200 mls/hr 12/30/17 17:48 Sod 3.375 gm/ Sodium Chloride IV 12/30/17 18:17 ONETIME ONE Discontinued Medications Generic Name Dose Route Start Last Admin Trade Name Freq PRN Reason Stop Dose Admin Hydromorphone HCl 0.5 mg 12/30/17 17:45 Dilaudid IVPUSH 12/30/17 17:46 ONETIME ONE Ondansetron HCl 4 mg 12/30/17 17:48 Zofran IV 12/30/17 17:49 ONETIME ONE Ondansetron HCl Confirm 12/30/17 17:49 Zofran Administered 12/30/17 17:50 Dose 4 mg .ROUTE .STK-MED ONE Departure - Departure Time of Disposition: 17:59 Disposition: DC/Tfer to Acute Hospital 02 Condition: Serious Clinical Impression: Elevated d-dimer, Elevated amylase and lipase Abdominal pain Qualifiers: Abdominal location: upper abdomen, unspecified Qualified Code(s): R10.10 - Upper abdominal pain, unspecified - Discharge Information *PRESCRIPTION DRUG MONITORING PROGRAM REVIEWED*: Not Applicable *COPY OF PRESCRIPTION DRUG MONITORING REPORT IN PATIENT [place]: Not Applicable Forms: Interfacility Transfer EMTALA Care Plan Goals: Discussed the examination, history and lab results with Dr. Ibanez (Hospitalist with [facility] in [place]). Dr. Ibanez accepted the patient for continued evaluation and further management. The patient will be transported by [facility]. - My Orders Last 24 Hours: My Active Orders 12/30/17 16:43 EKG Documentation Completion [RC] URGENT UA W/MICROSCOPIC [URIN] Stat 12/30/17 16:44 Sodium Chloride 0.9% [Normal Saline] 1,000 ml IV .BOLUS 12/30/17 17:48 Piperacillin/Tazobactam [Zosyn] 3.375 gm Sodium Chloride 0.9% [Normal Saline] 100 ml IV ONETIME - Assessment/Plan Last 24 Hours: My Active Orders 12/30/17 16:43 EKG Documentation Completion [RC] URGENT UA W/MICROSCOPIC [URIN] Stat 12/30/17 16:44 Sodium Chloride 0.9% [Normal Saline] 1,000 ml IV .BOLUS 12/30/17 17:48 Piperacillin/Tazobactam [Zosyn] 3.375 gm Sodium Chloride 0.9% [Normal Saline] 100 ml IV ONETIME
== END 2017-12-30 18:40 ==
LOC: DL.ED 16:24
DX: R10.10 Upper abdominal pain, unspecified (principal); R79.1 Abnormal coagulation profile; I25.810 Atherosclerosis of coronary artery bypass graft(s) without angina pectoris; I10 Essential (primary) hypertension; F17.210 Nicotine dependence, cigarettes, uncomplicated; R74.8 Abnormal levels of other serum enzymes; Z79.899 Other long term (current) drug therapy
CPT/HCPCS: 36415; 80053; 82140; 82150; 82962; 83605; 83690; 83735; 84484; 85025; 85379; 85610; 93005; 93010; 96361; 96365; 96375; 99285; J1170; J2405; J2543; J7030; J7050

== ENCOUNTER 2018-08-02 17:26 | Emergency (ER) | payer MEDICARE, MEDICAID ==
[2018-08-02 17:34] VITALS: BP 171/80
[2018-08-02] MEDS ORDERED: LORazepam 0.5 MG Tab PO ONE (17:43)
[2018-08-02 18:23] LABS: ANION GAP 13.2
[2018-08-02] MEDS ORDERED: methylPREDNISolone Sodium Succinate 125 MG/2 ML SDV IVPUSH ONE (19:07)
[2018-08-02] MEDS ORDERED: Doxycycline 100 MG Cap PO ONE (19:09)
--- NOTE | 2018-08-02 19:12 | EDM.PDOC ---
Scribed by Monik Addison 08/02/18 [id number] for Veronica Martínez NP ED HPI GENERAL MEDICAL PROBLEM - General Chief Complaint: Respiratory Problem Stated Complaint: ambulance Time Seen by Provider: 08/02/18 17:35 Source of Information: Reports: Patient, EMS, EMS Notes Reviewed, RN, RN Notes Reviewed History Limitations: Reports: No Limitations - History of Present Illness INITIAL COMMENTS - FREE TEXT/NARRATIVE: Patient presents to ER by [facility] with complaint of shortness of breath at rest. He has orthopnea toward afternoon when it begins. Tis started about 1 week ago. He gets anxious at those times. Denies chest pain. States chest feels tight right now. He has had no fever, chills, nausea, vomiting, diarrhea, weakness and body aches. Onset Date: 07/26/18 Duration: Constant Location: Reports: Chest Quality: Reports: Ache Severity: Moderate Improves with: Reports: None Worsens with: Reports: None Associated Symptoms: Reports: No Other Symptoms - Related Data Allergies Allergy/AdvReac Type Severity Reaction Status Date / Time No Known Allergies Allergy Verified 08/02/18 17:36 Home Meds: Home Meds Atenolol 50 mg PO BID 07/09/15 [History] Lisinopril 20 mg PO BID 07/09/15 [History] Tamsulosin [Flomax] 0.4 mg PO DAILY 07/09/15 [History] traMADol HCl [Tramadol HCl] 50 mg PO BID 12/30/17 [History] Past Medical History HEENT History: Reports: Impaired Vision Other HEENT History: Wears glasses. 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 Other Oncologic History: left arm Dermatologic History: Reports: Other (See Below) Other Dermatologic History: Open wound both lower legs - Infectious Disease History Infectious Disease History: Reports: Other (See Below) Other Infectious Disease History: Hepatitis when he was 13yrs old - Past Surgical History Cardiovascular Surgical History: Reports: AAA Repair, Vascular Surgery Social & Family History - Family History Family Medical History: Noncontributory - Caffeine Use Caffeine Use: Reports: Coffee - Living Situation & Occupation Living situation: Reports: , with Spouse Occupation: Retired ED ROS GENERAL - Review of Systems Review Of Systems: ROS reveals no pertinent complaints other than HPI. ED EXAM, GENERAL - Physical Exam Exam: See Below Exam Limited By: No Limitations General Appearance: Alert, WD/WN, No Apparent Distress Eye Exam: Bilateral Eye: EOMI, Normal Inspection, PERRL Ears: Normal External Exam, Normal Canal, Hearing Grossly Normal, Normal TMs Nose: Normal Inspection, Normal Mucosa, No Blood Throat/Mouth: Normal Inspection, Normal Lips, Normal Teeth, Normal Gums, Normal Oropharynx, Normal Voice, No Airway Compromise Head: Atraumatic, Normocephalic Neck: Normal Inspection, Supple, Non-Tender, Full Range of Motion Respiratory/Chest: Decreased Breath Sounds, Crackles (throughout) Cardiovascular: Normal Peripheral Pulses, Regular Rate, Rhythm, No Edema, No Gallop, No JVD, No Murmur, No Rub GI/Abdominal: Normal Bowel Sounds, Soft, Non-Tender, No Organomegaly, No Distention, No Abnormal Bruit, No Mass (Male) Exam: Deferred Rectal (Males) Exam: Deferred Back Exam: Normal Inspection, Full Range of Motion, NT Extremities: Normal Inspection, Normal Range of Motion, Non-Tender, Normal Capillary Refill, No Pedal Edema Neurological: Alert, Oriented, CN II-XII Intact, Normal Cognition, Normal Gait, Normal Reflexes, No Motor/Sensory Deficits Psychiatric: Normal Affect, Normal Mood Skin Exam: Warm, Dry, Intact, Normal Color, No Rash Lymphatic: No Adenopathy EKG INTERPRETATION EKG Date: 08/02/18 Time: 18:07 Rhythm: Other (sinus bradycardia) Rate (Beats/Min): 50 EKG Interpretation Comments: EKG shows nonspecific intraventricular conduction delay. Course - Vital Signs Last Recorded V/S: Last Vital Signs Temp 98.3 F 08/02/18 17:15 Pulse 56 L 08/02/18 17:15 Resp 16 08/02/18 17:15 BP 171/80 H 08/02/18 17:15 Pulse Ox 100 08/02/18 17:15 - Orders/Labs/Meds Orders: Active Orders 24 hr Category Date Time Status EKG Documentation Completion [RC] STAT Care 08/02/18 17:43 Active Chest 2V [CR] Urgent Exams 08/02/18 17:43 Taken B-TYPE NATRIURETIC PEPTIDE,BNP [CHEM] Stat Lab 08/02/18 17:52 Received Labs: Laboratory Tests 08/02/18 08/02/18 Range/Units 17:52 17:52 WBC 6.2 (5.0-10.0) 10^3/uL RBC 3.76 L (4.6-6.2) 10^6/uL Hgb 11.6 L D (14.0-18.0) g/dL Hct 36.3 L (40.0-54.0) % MCV 96.5 (80-100) fL MCH 30.9 (27.0-34.0) pg MCHC 32.0 L (33.0-35.0) g/dL Plt Count 122 L (150-450) 10^3/uL Neut % (Auto) 60.5 (42.2-75.2) % Lymph % (Auto) 25.3 (20.5-50.1) % [place] % (Auto) 9.5 H (2-8) % Eos % (Auto) 4.2 H (1.0-3.0) % Baso % (Auto) 0.5 (0.0-1.0) % Sodium 131 L (135-145) mmol/L Potassium 5.2 H (3.6-5.0) mmol/L Chloride 103 (101-111) mmol/L Carbon Dioxide 20.0 L (21.0-31.0) mmol/L Anion Gap 13.2 BUN 34 H (7-18) mg/dL Creatinine 1.8 H (0.6-1.3) mg/dL Est Cr Clr Drug Dosing 36.60 mL/min Estimated GFR (MDRD) 37 BUN/Creatinine Ratio 18.88 Glucose 109 H (74-105) mg/dL Calcium 8.5 (8.4-10.2) mg/dl Total Bilirubin 1.2 H (0.2-1.0) mg/dL AST 16 (10-42) IU/L ALT 7 L (10-60) IU/L Alkaline Phosphatase 66 (42-121) IU/L Total Protein 7.5 (6.7-8.2) g/dl Albumin 3.9 (3.2-5.5) g/dl Globulin 3.6 Albumin/Globulin Ratio 1.08 Meds: Medications Discontinued Medications Generic Name Dose Route Start Last Admin Trade Name Leny PRN Reason Stop Dose Admin Doxycycline Hyclate 100 mg 08/02/18 19:09 Vibramycin PO 08/02/18 19:10 ONETIME ONE Lorazepam 0.5 mg 08/02/18 17:43 08/02/18 18:04 Ativan PO 08/02/18 17:44 0.5 mg ONETIME ONE Administration Methylprednisolone Sodium Succinate 125 mg 08/02/18 19:07 Solu-Medrol IVPUSH 08/02/18 19:08 ONETIME ONE - Radiology Interpretation Free Text/Narrative:: Chest xray: FINDINGS: Lungs: Atelectatic changes within the lung bases. Pleural space: No pleural effusions or pneumothorax. Heart/Mediastinum: Unremarkable. No cardiomegaly. Vasculature: Ectatic changes/tortuosity of the thoracic aorta present. Bones/joints: Postoperative changes of the right shoulder. Chronic changes of the distal left clavicle present. The thoracic spine demonstrates mild degenerative changes at multiple levels. IMPRESSION: 1. No pleural effusions or pneumothorax. 2. Atelectatic changes within the lung bases. Thank you for allowing us to participate in the care of your patient. Dictated and Authenticated by: Navarro Tran DO See rad report Departure - Departure Time of Disposition: 19:04 Disposition: Home, Self-Care 01 Condition: Fair Clinical Impression: COPD exacerbation - Discharge Information *PRESCRIPTION DRUG MONITORING PROGRAM REVIEWED*: No *COPY OF PRESCRIPTION DRUG MONITORING REPORT IN PATIENT [place]: No Instructions: Chronic Obstructive Pulmonary Disease Exacerbation, [id number] , Steps to Quit Smoking, [id number], Shortness of Breath, Adult, [id number] , Cough, Adult, [id number], Chronic Obstructive Pulmonary Disease, Easy-to- Read, Upper Respiratory Infection, Adult, [id number] Forms: ED Department Discharge Additional Instructions: RX: Doxycycline, Prednisone Follow up with your primary care facility - My Orders Last 24 Hours: My Active Orders 08/02/18 17:43 EKG Documentation Completion [RC] STAT Chest 2V [CR] Urgent 08/02/18 17:52 B-TYPE NATRIURETIC PEPTIDE,BNP [CHEM] Stat - Assessment/Plan Last 24 Hours: My Active Orders 08/02/18 17:43 EKG Documentation Completion [RC] STAT Chest 2V [CR] Urgent 08/02/18 17:52 B-TYPE NATRIURETIC PEPTIDE,BNP [CHEM] Stat I have read and agree with the documentation that has been completed regarding this visit. By signing this record, I attest that the documentation was completed in my physical presence and is an accurate record of the encounter.
== END 2018-08-02 19:26 | disposition home or self-care (01) ==
LOC: DL.ED 17:26
DX: J44.1 Chronic obstructive pulmonary disease with (acute) exacerbation (principal); I12.9 Hypertensive chronic kidney disease with stage 1 through stage 4 chronic kidney disease, or unspecified chronic kidney disease; N18.9 Chronic kidney disease, unspecified; D50.9 Iron deficiency anemia, unspecified; Z79.899 Other long term (current) drug therapy
CPT/HCPCS: 36415; 71046; 80053; 83880; 85025; 93005; 96374; 99285; A9270-GY; J2930

== ENCOUNTER 2019-07-15 11:04 | Inpatient (IN) | payer MEDICARE, MEDICAID ==
[2019-07-15] MEDS ORDERED: Albuterol/Ipratropium 3.0-0.5 MG/3 ML Neb Soln ONE (11:22)
[2019-07-15] MEDS: Sodium Chloride 0.9% 10 ML Syringe FLUSH PRN (11:24)
[2019-07-15] MEDS ORDERED: methylPREDNISolone Sodium Succinate 125 MG/2 ML SDV IVPUSH ONE (11:32)
[2019-07-15] MEDS ORDERED: Albuterol/Ipratropium 3.0-0.5 MG/3 ML Neb Soln NEB ONE (11:32)
[2019-07-15] MEDS ORDERED: Piperacillin/Tazobactam 3.375 GM in Sodium Chloride 0.9% 100 ML IV ONE (11:34)
[2019-07-15] MEDS ORDERED: Sodium Chloride 0.9% 500 ML IV SCH (11:45)
[2019-07-15] MEDS ORDERED: Oseltamivir 75 MG Cap PO ONE (11:59)
--- NOTE | 2019-07-15 12:05 | EDM.PDOC ---
Scribed by Monik Addison 07/15/19 1114 for Gary Escalera MD ED HPI GENERAL MEDICAL PROBLEM - General Chief Complaint: General Stated Complaint: GENERAL Time Seen by Provider: 07/15/19 11:07 Source of Information: Reports: Patient, EMS, EMS Notes Reviewed, RN, RN Notes Reviewed History Limitations: Reports: No Limitations - History of Present Illness INITIAL COMMENTS - FREE TEXT/NARRATIVE: Patient presents to ER by [facility] with complaint of shortness of breath at home. Patient reports that he became ill about 2 days ago with fever, cough and shortness of breath. He states that the cough is productive of thick sputum but he does not know what color. He denies nausea, vomiting, chest pain or edema. He is a mcfp smoker with COPD. Onset: Sudden Duration: Day(s): (3) Location: Reports: Chest, Generalized Quality: Reports: Other (Denies pain) Severity: Severe Improves with: Reports: None Worsens with: Reports: Other (Coughing) Associated Symptoms: Reports: No Other Symptoms Right Leg Pain Score (Numeric/FACES): 5 - Related Data Allergies Allergy/AdvReac Type Severity Reaction Status Date / Time No Known Allergies Allergy Verified 05/29/19 15:25 Home Meds: Home Meds Lisinopril 20 mg PO DAILY 07/09/15 [History] atenoloL [Atenolol] 50 mg PO BID 07/09/15 [History] traMADol HCl [Tramadol HCl] 50 mg PO BID 12/30/17 [History] Finasteride 5 mg PO DAILY 12/28/18 [History] Gabapentin [Neurontin] 900 mg PO TID 12/28/18 [History] Tamsulosin [Flomax] 0.4 mg PO DAILY 12/28/18 [History] amLODIPine [Norvasc] 5 mg PO DAILY 12/28/18 [History] Apixaban [Eliquis] 5 mg PO BID 05/29/19 [History] Past Medical History HEENT History: Reports: Impaired Vision Other HEENT History: Wears glasses. 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 Dermatologic History: Reports: Other (See Below) Other Dermatologic History: Scarring to RLE - Infectious Disease History Infectious Disease History: Reports: Other (See Below) Other Infectious Disease History: Reports hepatitis as a child - Past Surgical History Cardiovascular Surgical History: Reports: AAA Repair, Vascular Surgery GI Surgical History: Reports: None Male Surgical History: Reports: None Social & Family History - Family History Family Medical History: Noncontributory - Tobacco Use Smoking Status *Q: Current Every Day Smoker Tobacco Use Within Last Twelve Months: Cigarettes - Caffeine Use Caffeine Use: Reports: Coffee - Living Situation & Occupation Living situation: Reports: , with Spouse Occupation: Retired ED ROS GENERAL - Review of Systems Review Of Systems: Comprehensive ROS is negative, except as noted in HPI. ED EXAM, GENERAL - Physical Exam Exam: See Below Exam Limited By: No Limitations General Appearance: Alert, No Apparent Distress, Other (Ill but non-toxic appearing) Eye Exam: Bilateral Eye: Normal Inspection Nose: Nasal Drainage (mild, clear) Throat/Mouth: Normal Lips, Normal Teeth, Normal Gums, Normal Oropharynx, Normal Voice, No Airway Compromise, Other (Dry oral mucosa) Head: Atraumatic, Normocephalic Neck: Normal Inspection, Supple, Non-Tender, Full Range of Motion. No: Lymphadenopathy (L), Lymphadenopathy (R) Respiratory/Chest: No Respiratory Distress, No Accessory Muscle Use, Decreased Breath Sounds, Crackles (Coarse breath sounds), Rhonchi (Rt base), Wheezing Cardiovascular: Regular Rate, Rhythm, Tachycardia GI/Abdominal: Normal Bowel Sounds, Soft, Non-Tender, No Organomegaly, No Distention, No Abnormal Bruit, No Mass Back Exam: Normal Inspection Extremities: Normal Inspection, Normal Range of Motion, Non-Tender Neurological: Alert, Oriented, CN II-XII Intact, Normal Cognition, No Motor/ Sensory Deficits Psychiatric: Anxious Skin Exam: Warm, Dry, Intact, No Rash Course - Vital Signs Last Recorded V/S: Last Vital Signs Temp 101.5 F H 07/15/19 11:10 Pulse 96 07/15/19 11:30 Resp 19 07/15/19 11:10 BP 152/83 H 07/15/19 11:10 Pulse Ox 94 L 07/15/19 11:10 - Orders/Labs/Meds Orders: Active Orders 24 hr Category Date Time Status Peripheral IV Care [RC] . DIRECTED Care 07/15/19 11:08 Active RT Aerosol Therapy [RC] ASDIRECTED Care 07/15/19 11:29 Active RT Aerosol Therapy [RC] ASDIRECTED Care 07/15/19 11:33 Active Chest 1V Frontal [CR] Stat Exams 07/15/19 11:07 Taken CULTURE BLOOD [BC] Stat Lab 07/15/19 11:14 Received CULTURE BLOOD [BC] Stat Lab 07/15/19 11:21 Received CULTURE STREP A CONFIRMATION [] Stat Lab 07/15/19 11:04 Results STREP SCRN A RAPID W CULT CONF [] Stat Lab 07/15/19 11:04 Results UA RFX MATEUSZ AND CULT IF INDIC [URIN] Stat Lab 07/15/19 11:08 Ordered Sodium Chloride 0.9% [Normal Saline] 500 ml Med 07/15/19 11:45 Active IV .BOLUS Sodium Chloride 0.9% [Saline Flush] Med 07/15/19 11:07 Active 10 ml FLUSH ASDIRECTED PRN Blood Culture x2 Reflex Set [OM.PC] Stat Oth 07/15/19 11:08 Ordered Peripheral IV Insertion Adult [OM.PC] Stat Oth 07/15/19 11:07 Ordered Medication Orders Sodium Chloride (Normal Saline) 500 mls @ 999 mls/hr IV .BOLUS SUZAN Sodium Chloride (Saline Flush) 10 ml FLUSH ASDIRECTED PRN PRN Reason: Keep Vein Open Last Admin: 07/15/19 11:24 Dose: 10 ml Labs: Laboratory Tests 07/15/19 07/15/19 07/15/19 Range/Units 11:14 11:14 11:14 WBC 9.0 (5.0-10.0) 10^3/uL RBC 4.02 L (4.6-6.2) 10^6/uL Hgb 12.3 L D (14.0-18.0) g/dL Hct 37.5 L (40.0-54.0) % MCV 93.3 D (80-100) fL MCH 30.6 (27.0-34.0) pg MCHC 32.8 L (33.0-35.0) g/dL Plt Count 126 L (150-450) 10^3/uL Neut % (Auto) 79.4 H (42.2-75.2) % Lymph % (Auto) 12.9 L (20.5-50.1) % [place] % (Auto) 6.6 (2-8) % Eos % (Auto) 1.0 (1.0-3.0) % Baso % (Auto) 0.1 (0.0-1.0) % Sodium 135 (135-145) mmol/L Potassium 4.0 (3.6-5.0) mmol/L Chloride 105 (101-111) mmol/L Carbon Dioxide 19.0 L (21.0-31.0) mmol/L Anion Gap 15.0 BUN 32 H (7-18) mg/dL Creatinine 2.4 H (0.6-1.3) mg/dL Est Cr Clr Drug Dosing 26.19 mL/min Estimated GFR (MDRD) 26 BUN/Creatinine Ratio 13.33 Glucose 120 H (74-105) mg/dL Lactic Acid 1.6 (0.5-2.0) mmol/L Calcium 7.9 L (8.4-10.2) mg/dl Total Bilirubin 1.4 H (0.2-1.0) mg/dL AST 17 (10-42) IU/L ALT 13 (10-60) IU/L Alkaline Phosphatase 95 (42-121) IU/L B-Natriuretic Peptide 99 (0-100) pg/ml Total Protein 8.1 (6.7-8.2) g/dl Albumin 3.6 (3.2-5.5) g/dl Globulin 4.5 Albumin/Globulin Ratio 0.80 Influenza B: POSITIVE. Influenza A: Negative. Rapid strep: Negative. Meds: Medications Generic Name Dose Route Start Last Admin Trade Name Freq PRN Reason Stop Dose Admin Sodium Chloride 500 mls @ 999 mls/hr 07/15/19 11:45 Normal Saline IV .BOLUS SUZAN Sodium Chloride 10 ml 07/15/19 11:07 07/15/19 11:24 Saline Flush FLUSH 10 ml ASDIRECTED PRN Administration Keep Vein Open Discontinued Medications Generic Name Dose Route Start Last Admin Trade Name Freq PRN Reason Stop Dose Admin Albuterol/Ipratropium Confirm 07/15/19 11:22 07/15/19 11:25 Duoneb 3.0-0.5 Mg/3 Ml Administered 07/15/19 11:23 3 ml Dose Administration 3 ml .ROUTE .STK-MED ONE Albuterol/Ipratropium 3 ml 07/15/19 11:32 Duoneb 3.0-0.5 Mg/3 Ml NEB 07/15/19 11:33 ONETIME ONE Piperacillin Sod/Tazobactam 100 mls @ 200 mls/hr 07/15/19 11:34 Sod 3.375 gm/ Sodium Chloride IV 07/15/19 12:03 ONETIME ONE Methylprednisolone Sodium Succinate 125 mg 07/15/19 11:32 Solu-Medrol IVPUSH 07/15/19 11:33 ONETIME ONE Oseltamivir Phosphate 75 mg 07/15/19 11:59 Tamiflu PO 07/15/19 12:00 ONETIME ONE - Radiology Interpretation Free Text/Narrative:: XR Chest: RLL infiltrate Departure - Departure Time of Disposition: 12:04 (admitted to Dr. Franks) Disposition: Admitted As Inpatient 67 Condition: Fair Clinical Impression: Influenza B, Acute exacerbation of chronic obstructive pulmonary disease (COPD) - Discharge Information *PRESCRIPTION DRUG MONITORING PROGRAM REVIEWED*: Not Applicable *COPY OF PRESCRIPTION DRUG MONITORING REPORT IN PATIENT [place]: Not Applicable Forms: ED Department Discharge Sepsis Event Note - Focused Exam Vital Signs: Vital Signs Temp Pulse Resp BP Pulse Ox 07/15/19 11:30 96 07/15/19 11:10 101.5 F H 100 19 152/83 H 94 L Date Exam was Performed: 07/15/19 Time Exam was Performed: 12:03 - My Orders Last 24 Hours: My Active Orders 07/15/19 11:04 CULTURE STREP A CONFIRMATION [RM] Stat STREP SCRN A RAPID W CULT CONF [RM] Stat 07/15/19 11:07 Chest 1V Frontal [CR] Stat Sodium Chloride 0.9% [Saline Flush] 10 ml FLUSH ASDIRECTED PRN Peripheral IV Insertion Adult [OM.PC] Stat 07/15/19 11:08 Peripheral IV Care [RC] . DIRECTED UA RFX MATEUSZ AND CULT IF INDIC [URIN] Stat Blood Culture x2 Reflex Set [OM.PC] Stat 07/15/19 11:14 CULTURE BLOOD [BC] Stat 07/15/19 11:21 CULTURE BLOOD [BC] Stat 07/15/19 11:29 RT Aerosol Therapy [RC] ASDIRECTED 07/15/19 11:33 RT Aerosol Therapy [RC] ASDIRECTED 07/15/19 11:45 Sodium Chloride 0.9% [Normal Saline] 500 ml IV .BOLUS - Assessment/Plan Last 24 Hours: My Active Orders 07/15/19 11:04 CULTURE STREP A CONFIRMATION [RM] Stat STREP SCRN A RAPID W CULT CONF [RM] Stat 07/15/19 11:07 Chest 1V Frontal [CR] Stat Sodium Chloride 0.9% [Saline Flush] 10 ml FLUSH ASDIRECTED PRN Peripheral IV Insertion Adult [OM.PC] Stat 07/15/19 11:08 Peripheral IV Care [RC] . DIRECTED UA RFX MATEUSZ AND CULT IF INDIC [URIN] Stat Blood Culture x2 Reflex Set [OM.PC] Stat 07/15/19 11:14 CULTURE BLOOD [BC] Stat 07/15/19 11:21 CULTURE BLOOD [BC] Stat 07/15/19 11:29 RT Aerosol Therapy [RC] ASDIRECTED 07/15/19 11:33 RT Aerosol Therapy [RC] ASDIRECTED 07/15/19 11:45 Sodium Chloride 0.9% [Normal Saline] 500 ml IV .BOLUS I have read and agree with the documentation that has been completed regarding this visit. By signing this record, I attest that the documentation was completed in my physical presence and is an accurate record of the encounter.
[2019-07-15] MEDS ORDERED: Acetaminophen 325 MG Tab PO PRN (12:42)
[2019-07-15] MEDS ORDERED: Ondansetron 4 MG Tab.DIS PO PRN (12:42)
[2019-07-15] MEDS ORDERED: Docusate Sodium 100 MG Cap PO PRN (12:42)
[2019-07-15] MEDS ORDERED: Sodium Chloride 0.9% 10 ML Syringe FLUSH PRN (12:42)
[2019-07-15] MEDS ORDERED: Albuterol 0.083% 2.5 MG/3 ML Neb Soln NEB PRN (13:03)
--- NOTE | 2019-07-15 13:05 | PCM.HP ---
H&P History of Present Illness - General Date of Service: 07/15/19 Admit Problem/Dx: Admission Diagnosis/Problem Admission Diagnosis/Problem Respiratory failure with hypoxia Source of Information: Patient History Limitations: Reports: No Limitations - History of Present Illness Initial Comments - Free Text/Narative: Leroy Greer is a 79y.o male with a medical history of tobacco use disorder, hypertension, BPH, anemia of chronic kidney disease, CKD stage III, chronic back pain, and peripheral artery disease, critical limb ischemia of RLE , who presented with shortness of breath, cough and fever. Patient developed cough productive of sputum associated with shortness of breath about 2 days ago. Since then, his breathing has progressively worsened and he is has also developed fever. He denies chest pain, nausea, emesis, abdominal pain. He presented to ED and was found to have fever of 101.5, tachycardia of 100, RR 22. He required up to 3L of O2 by NC. Labs were significant for Cr of 2.4, bicarb of 19. Influenza B PCR was positive. CXR showed new minimal bilateral infrahilar atelectasis vs pneumonia. Right Leg Pain Score (Numeric/FACES): 5 - Related Data Allergies/Adverse Reactions: Allergies Allergy/AdvReac Type Severity Reaction Status Date / Time No Known Allergies Allergy Verified 07/15/19 13:06 Home Medications: Home Meds Lisinopril 20 mg PO DAILY 07/09/15 [History] atenoloL [Atenolol] 50 mg PO BID 07/09/15 [History] traMADol HCl [Tramadol HCl] 50 mg PO BID PRN 12/30/17 [History] Finasteride 5 mg PO DAILY 12/28/18 [History] Gabapentin [Neurontin] 900 mg PO TID 12/28/18 [History] Tamsulosin [Flomax] 0.4 mg PO BID 12/28/18 [History] amLODIPine [Norvasc] 5 mg PO DAILY 12/28/18 [History] Apixaban [Eliquis] 5 mg PO BID 05/29/19 [History] Past Medical History HEENT History: Reports: Impaired Vision Other HEENT History: Wears glasses. Cardiovascular History: Reports: Aneurysm, Bypass, Hypertension, Stents Respiratory History: Reports: None Gastrointestinal History: Reports: Pancreatitis Genitourinary History: Reports: Prostate Disorder, Other (See Below) Other Genitourinary History: chronic kidney disease. 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 Dermatologic History: Reports: Other (See Below) Other Dermatologic History: Scarring to RLE - Infectious Disease History Infectious Disease History: Reports: Other (See Below) Other Infectious Disease History: Reports hepatitis as a child - Past Surgical History Cardiovascular Surgical History: Reports: AAA Repair, Vascular Surgery GI Surgical History: Reports: None Male Surgical History: Reports: None Social & Family History - Family History Family Medical History: Noncontributory - Tobacco Use Smoking Status *Q: Current Every Day Smoker Years of Tobacco use: 65 Packs/Tins Daily: 1 - Caffeine Use Caffeine Use: Reports: Coffee - Recreational Drug Use Recreational Drug Use: No - Living Situation & Occupation Living situation: Reports: , with Spouse Occupation: Retired H&P Review of Systems - Review of Systems: Review Of Systems: See Below General: Reports: Fever, Chills, Weakness HEENT: Reports: No Symptoms Pulmonary: Reports: Shortness of Breath, Wheezing, Cough, Sputum Cardiovascular: Reports: No Symptoms Gastrointestinal: Reports: No Symptoms Genitourinary: Reports: No Symptoms Musculoskeletal: Reports: No Symptoms Skin: Reports: No Symptoms Psychiatric: Reports: No Symptoms Exam - Exam Exam: See Below - Vital Signs Vital Signs: Last Vital Signs Temp 101.5 F H 07/15/19 11:10 Pulse 96 07/15/19 11:30 Resp 19 07/15/19 11:10 BP 152/83 H 07/15/19 11:10 Pulse Ox 94 L 07/15/19 11:10 Weight: 192 lb 4.8 oz - Exam Quality Assessment: Supplemental Oxygen General: Alert, Oriented, 4 HEENT: PERRLA, Hearing Intact, Mucosa Moist & [place], Nares Patent, Normal Nasal Septum, Posterior Pharynx Clear, Conjunctiva Clear, EOMI, EACs Clear, TMs Clear Neck: Supple, Trachea Midline, 2 Lungs: Crackles, Rhonchi, Wheezing Cardiovascular: Regular Rate, Regular Rhythm GI/Abdominal Exam: Normal Bowel Sounds, Soft, Non-Tender, No Organomegaly, No Distention, No Abnormal Bruit, No Mass, Pelvis Stable (Male) Exam: Deferred Rectal (Males) Exam: Deferred Back Exam: Normal Inspection, Full Range of Motion, NT Extremities: Normal Range of Motion, Non-Tender, No Pedal Edema Skin: Warm, Dry, Intact Neurological: Cranial Nerves Intact, Reflexes Equal Bilateral Neuro Extensive - Mental Status: Alert, Oriented x3, Normal Mood/Affect, Normal Cognition Neuro Extensive - Motor, Sensory, Reflexes: CN II-XII Intact Psychiatric: Alert, Normal Affect, Normal Mood - Patient Data Lab Results Last 24 hrs: Laboratory Results - last 24 hr 07/15/19 07/15/19 07/15/19 Range/Units 11:14 11:14 11:14 WBC 9.0 (5.0-10.0) 10^3/uL RBC 4.02 L (4.6-6.2) 10^6/uL Hgb 12.3 L D (14.0-18.0) g/dL Hct 37.5 L (40.0-54.0) % MCV 93.3 D (80-100) fL MCH 30.6 (27.0-34.0) pg MCHC 32.8 L (33.0-35.0) g/dL Plt Count 126 L (150-450) 10^3/uL Neut % (Auto) 79.4 H (42.2-75.2) % Lymph % (Auto) 12.9 L (20.5-50.1) % [place] % (Auto) 6.6 (2-8) % Eos % (Auto) 1.0 (1.0-3.0) % Baso % (Auto) 0.1 (0.0-1.0) % Sodium 135 (135-145) mmol/L Potassium 4.0 (3.6-5.0) mmol/L Chloride 105 (101-111) mmol/L Carbon Dioxide 19.0 L (21.0-31.0) mmol/L Anion Gap 15.0 BUN 32 H (7-18) mg/dL Creatinine 2.4 H (0.6-1.3) mg/dL Est Cr Clr Drug Dosing 26.19 mL/min Estimated GFR (MDRD) 26 BUN/Creatinine Ratio 13.33 Glucose 120 H (74-105) mg/dL Lactic Acid 1.6 (0.5-2.0) mmol/L Calcium 7.9 L (8.4-10.2) mg/dl Total Bilirubin 1.4 H (0.2-1.0) mg/dL AST 17 (10-42) IU/L ALT 13 (10-60) IU/L Alkaline Phosphatase 95 (42-121) IU/L B-Natriuretic Peptide 99 (0-100) pg/ml Total Protein 8.1 (6.7-8.2) g/dl Albumin 3.6 (3.2-5.5) g/dl Globulin 4.5 Albumin/Globulin Ratio 0.80 Result Diagrams: 07/15/19 11:14 07/15/19 11:14 Antoni Results Last 24 hrs: Microbiology 07/15/19 11:04 Influenza Type A Antigen Screen - Final Nasal, Unspecified NEGATIVE INFLUENZA A VIRUS AG REFERENCE RANGE: NEGATIVE Influenza Type B Antigen Screen - Final Positive Influenza B Ag 07/15/19 11:04 Group A Streptococcus Rapid Screen - Final Throat NEGATIVE STREP A SCREEN REFERENCE RANGE: NEGATIVE Problem List Initiated/Reviewed/Updated: Yes Orders Last 24hrs: Active Orders 24 hr Category Date Time Status Admission Diagnosis [ADT] Routine ADT 07/15/19 12:44 Ordered Patient Status [ADT] Routine ADT 07/15/19 12:42 Ordered Patient Status [ADT] Routine ADT 07/15/19 12:44 Active Bedrest Bathroom Privileges [RC] ASDIRECTED Care 07/15/19 12:42 Ordered Oxygen Therapy [RC] PRN Care 07/15/19 12:42 Ordered Peripheral IV Care [RC] . DIRECTED Care 07/15/19 11:08 Active RT Aerosol Therapy [RC] ASDIRECTED Care 07/15/19 11:29 Active RT Aerosol Therapy [RC] ASDIRECTED Care 07/15/19 11:33 Active RT Aerosol Therapy [RC] ASDIRECTED Care 07/15/19 13:01 Ordered RT Aerosol Therapy [RC] ASDIRECTED Care 07/15/19 13:04 Ordered Up ad Juliet [RC] ASDIRECTED Care 07/15/19 12:42 Ordered VTE/DVT Education [RC] PER UNIT ROUTINE Care 07/15/19 12:42 Ordered Vital Signs [RC] Q4H Care 07/15/19 12:42 Ordered Regular Diet [DIET] Diet 07/15/19 Lunch Ordered Chest 1V Frontal [CR] Stat Exams 07/15/19 11:07 Taken CULTURE BLOOD [BC] Stat Lab 07/15/19 11:14 Received CULTURE BLOOD [] Stat Lab 07/15/19 11:21 Received CULTURE STREP A CONFIRMATION [] Stat Lab 07/15/19 11:04 Results STREP SCRN A RAPID W CULT CONF [] Stat Lab 07/15/19 11:04 Results UA RFX ANTONI AND CULT IF INDIC [URIN] Stat Lab 07/15/19 11:08 Ordered Acetaminophen [Tylenol] Med 07/15/19 12:42 Ordered 650 mg PO Q4H PRN Acetaminophen/HYDROcodone [White 325-10 MG] Med 07/15/19 12:42 Ordered 0.5 tab PO Q4H PRN Albuterol [Proventil Neb Soln] Med 07/15/19 13:03 Ordered 2.5 mg NEB Q4HRRT PRN Albuterol/Ipratropium [DuoNeb 3.0-0.5 MG/3 ML] Med 07/15/19 15:00 Ordered 3 ml NEB Q4HRRT Apixaban [Eliquis] Med 07/15/19 21:00 Ordered 5 mg PO BID Azithromycin [Zithromax] 500 mg Med 07/15/19 13:00 Ordered Sodium Chloride 0.9% [Normal Saline (AdvBag)] 250 ml IV Q24H Docusate Sodium [Colace] Med 07/15/19 12:42 Ordered 100 mg PO BID PRN Finasteride [Proscar] Med 07/16/19 09:00 Ordered 5 mg PO DAILY Gabapentin [Neurontin] Med 07/15/19 14:00 Ordered 900 mg PO TID Ondansetron [Zofran ODT] Med 07/15/19 12:42 Ordered 4 mg PO Q4H PRN Oseltamivir [Tamiflu] Med 07/15/19 21:00 Ordered 75 mg PO BID Sodium Chloride 0.9% [Normal Saline] 500 ml Med 07/15/19 11:45 Active IV .BOLUS Sodium Chloride 0.9% [Saline Flush] Med 07/15/19 11:07 Active 10 ml FLUSH ASDIRECTED PRN Sodium Chloride 0.9% [Saline Flush] Med 07/15/19 12:42 Ordered 10 ml FLUSH ASDIRECTED PRN Tamsulosin [Flomax] Med 07/16/19 09:00 Ordered 0.4 mg PO DAILY Zolpidem [Ambien] Med 07/15/19 12:42 Ordered 5 mg PO BEDTIME PRN atenoloL [Tenormin] Med 07/15/19 21:00 Ordered 50 mg PO BID cefTRIAXone [Rocephin] 1 gm Med 07/15/19 13:15 Ordered Sodium Chloride 0.9% [Normal Saline] 50 ml IV Q24H methylPREDNISolone Sod Succ [Solu-MEDROL] Med 07/15/19 13:15 Ordered 125 mg IVPUSH Q6H traMADol [Ultram] Med 07/15/19 21:00 Ordered 50 mg PO BID Blood Culture x2 Reflex Set [OM.PC] Stat Oth 07/15/19 11:08 Ordered Peripheral IV Insertion Adult [OM.PC] Stat Oth 07/15/19 11:07 Ordered Saline Lock Insert [OM.PC] Routine Oth 07/15/19 12:42 Ordered Resuscitation Status Routine Resus Stat 07/15/19 12:42 Ordered Medication Orders Acetaminophen (Tylenol) 650 mg PO Q4H PRN PRN Reason: Pain (Mild 1-3)/fever Hydrocodone Bitart/Acetaminophen (White 325-10 Mg) 0.5 tab PO Q4H PRN PRN Reason: Pain (moderate 4-6) Albuterol (Proventil Neb Soln) 2.5 mg NEB Q4HRRT PRN PRN Reason: Shortness of Breath Albuterol/Ipratropium (Duoneb 3.0-0.5 Mg/3 Ml) 3 ml NEB Q4HRRT SUZAN Apixaban (Eliquis) 5 mg PO BID SUZAN Atenolol (Tenormin) 50 mg PO BID SUZAN Docusate Sodium (Colace) 100 mg PO BID PRN PRN Reason: Constipation Finasteride (Proscar) 5 mg PO DAILY SUZAN Gabapentin (Neurontin) 900 mg PO TID SUZAN Sodium Chloride (Normal Saline) 500 mls @ 999 mls/hr IV .BOLUS SUZAN Last Admin: 07/15/19 12:16 Dose: 999 mls/hr Azithromycin 500 mg/ Sodium (Chloride) 250 mls @ 250 mls/hr IV Q24H SUZAN Stop: 07/19/19 13:59 Ceftriaxone Sodium 1 gm/ (Sodium Chloride) 50 mls @ 50 mls/hr IV Q24H SUAZN Stop: 07/20/19 13:16 Methylprednisolone Sodium Succinate (Solu-Medrol) 125 mg IVPUSH Q6H SUZAN Ondansetron HCl (Zofran Odt) 4 mg PO Q4H PRN PRN Reason: nausea, able to take PO Oseltamivir Phosphate (Tamiflu) 75 mg PO BID SUZAN Stop: 07/20/19 21:01 Sodium Chloride (Saline Flush) 10 ml FLUSH ASDIRECTED PRN PRN Reason: Keep Vein Open Last Admin: 07/15/19 11:24 Dose: 10 ml Sodium Chloride (Saline Flush) 10 ml FLUSH ASDIRECTED PRN PRN Reason: Keep Vein Open Tamsulosin HCl (Flomax) 0.4 mg PO DAILY SUZAN Tramadol HCl (Ultram) 50 mg PO BID SUZAN Zolpidem Tartrate (Ambien) 5 mg PO BEDTIME PRN PRN Reason: Sleep Assessment/Plan Comment:: Acute hypoxic respiratory failure Influenza B virus pneumonia Probable bacterial pneumonia Patient presented with cough productive of sputum, shortness of breath, fever up to 101.5, tachycardia of 100, RR 22, hypoxia requiring 3L of O2 by NC. Influenza B PCR was positive. CXR showed new minimal bilateral infrahilar atelectasis vs pneumonia. - Tamiflu 75 mg BID x 5 days - Ceftriaxone and Azithromycin - Blood cultures pending - Sputum cultures pending - Droplet isolation Probable COPD exacerbation Patient having Sob, wheezing, cough and sputum production. - Start Solumedrol 125 mg QID - DuoNeb QID - Albuterol prn JILLIAN on CKD Cr 2.4 is up from baseline of 1.8-2.0. Likely due to ATN vs pre-renal. - Monitor with IVF Metabolic acidosis Bicarb of 19. - Monitor Hypertension - Resume home antihypertensives BPH - Resume home finasteride and tamsulosin PVD H/o Critical limb ischemia H/o DVT - Resume home Apixaban
[2019-07-15] MEDS ORDERED: Heparin Sodium 5,000 Units/ML Vial SUBCUT SCH (14:00)
[2019-07-15] MEDS: Gabapentin 300 MG Cap PO SCH ×2 (14:28→21:34)
[2019-07-15] MEDS: Azithromycin 500 MG in Sodium Chloride 0.9% 250 ML IV SCH (15:04)
[2019-07-15] MEDS: Albuterol/Ipratropium 3.0-0.5 MG/3 ML Neb Soln NEB SCH ×2 (15:18→20:42)
[2019-07-15] MEDS: cefTRIAXone 1 GM in Sodium Chloride 0.9% 50 ML IV SCH (17:04)
[2019-07-15] MEDS: methylPREDNISolone Sodium Succinate 125 MG/2 ML SDV IVPUSH SCH (18:02)
[2019-07-15] MEDS: Sodium Chloride 0.9% 1,000 ML IV SCH (21:00)
[2019-07-15] MEDS: Apixaban 5 MG Tab PO SCH (21:34)
[2019-07-15] MEDS: Atenolol 50 MG Tab PO SCH (21:35)
[2019-07-15] MEDS: Oseltamivir 30 MG Cap PO SCH (21:35)
[2019-07-15] MEDS: traMADol 50 MG Tab PO SCH (21:36)
[2019-07-16] MEDS: methylPREDNISolone Sodium Succinate 125 MG/2 ML SDV IVPUSH SCH ×6 (00:10→23:14)
[2019-07-16] MEDS: Albuterol/Ipratropium 3.0-0.5 MG/3 ML Neb Soln NEB SCH ×7 (00:14→23:13)
[2019-07-16] MEDS: Sodium Chloride 0.9% 1,000 ML IV SCH ×2 (05:41→15:29)
[2019-07-16] MEDS ORDERED: amLODIPine 5 MG Tab PO SCH (09:00)
[2019-07-16] MEDS ORDERED: Lisinopril 20 MG Tab PO SCH (09:00)
[2019-07-16] MEDS: Gabapentin 300 MG Cap PO SCH ×3 (09:00→20:51)
[2019-07-16] MEDS: Apixaban 5 MG Tab PO SCH ×2 (09:00→20:51)
[2019-07-16] MEDS: Tamsulosin 0.4 MG Cap.ER PO SCH (09:00)
[2019-07-16] MEDS: Atenolol 50 MG Tab PO SCH ×2 (09:01→20:52)
[2019-07-16] MEDS: traMADol 50 MG Tab PO SCH ×2 (09:01→20:52)
[2019-07-16] MEDS: Finasteride 5 MG Tab PO SCH (09:02)
[2019-07-16] MEDS: Azithromycin 500 MG in Sodium Chloride 0.9% 250 ML IV SCH (13:24)
[2019-07-16] MEDS: cefTRIAXone 1 GM in Sodium Chloride 0.9% 50 ML IV SCH (13:24)
[2019-07-16] MEDS: Acetaminophen/HYDROcodone 325-10 MG Tab PO PRN (17:15)
--- NOTE | 2019-07-16 17:35 | PCM.PN ---
- General Info Date of Service: 07/16/19 Admission Dx/Problem (Free Text): Admission Diagnosis/Problem Admission Diagnosis/Problem Respiratory failure with hypoxia Subjective Update: Patient seen and examined today. Still short of breath and coughing. Afebrile overnight. - Review of Systems General: Reports: No Symptoms HEENT: Reports: No Symptoms Pulmonary: Reports: Shortness of Breath, Cough, Sputum, Wheezing Cardiovascular: Reports: No Symptoms Gastrointestinal: Reports: No Symptoms Genitourinary: Reports: No Symptoms Musculoskeletal: Reports: No Symptoms Skin: Reports: No Symptoms Neurological: Reports: No Symptoms Psychiatric: Reports: No Symptoms - Patient Data Vitals - Most Recent: Last Vital Signs Temp 98.4 F 07/16/19 16:00 Pulse 91 07/16/19 16:00 Resp 20 07/16/19 16:00 BP 153/83 H 07/16/19 16:00 Pulse Ox 94 L 07/16/19 16:00 Weight - Most Recent: 192 lb 4.8 oz I&O - Last 24 Hours: Intake & Output 07/16/19 07/16/19 07/16/19 06:59 14:59 22:59 Intake Total 1100 1150 Balance 1100 1150 Lab Results Last 24 Hours: Laboratory Results - last 24 hr 07/16/19 07/16/19 07/16/19 Range/Units 06:14 06:14 11:00 WBC 9.3 (5.0-10.0) 10^3/uL RBC 3.46 L (4.6-6.2) 10^6/uL Hgb 10.5 L D (14.0-18.0) g/dL Hct 31.9 L (40.0-54.0) % MCV 92.2 (80-100) fL MCH 30.3 (27.0-34.0) pg MCHC 32.9 L (33.0-35.0) g/dL Plt Count 123 L (150-450) 10^3/uL Sodium 137 (135-145) mmol/L Potassium 4.0 (3.6-5.0) mmol/L Chloride 110 (101-111) mmol/L Carbon Dioxide 18.0 L (21.0-31.0) mmol/L Anion Gap 13.0 BUN 34 H (7-18) mg/dL Creatinine 1.8 H (0.6-1.3) mg/dL Est Cr Clr Drug Dosing 35.47 mL/min Estimated GFR (MDRD) 37 Glucose 225 H (74-105) mg/dL Calcium 7.8 L (8.4-10.2) mg/dl Urine Color Yellow (YELLOW) Urine Appearance Clear (CLEAR) Urine pH 5.5 (5.0-9.0) Ur Specific [place] 1.020 (1.005-1.030) Urine Protein 100 H (NEGATIVE) Urine Glucose (UA) 100 H (NEGATIVE) Urine Ketones Negative (NEGATIVE) Urine Occult Blood Moderate H (NEGATIVE) Urine Nitrite Negative (NEGATIVE) Urine Bilirubin Negative (NEGATIVE) Urine Urobilinogen 0.2 (0.2-1.0) mg/dL Ur Leukocyte Esterase Trace H (NEGATIVE) Urine RBC 5-10 H /HPF Urine WBC 0-5 (0-5/HPF) /HPF Ur Epithelial Cells Few (NOT SEEN) /HPF Amorphous Sediment Few (NOT SEEN) /HPF Urine Bacteria Few (0-FEW/HPF) /HPF Fine Granular Casts Rare H (NOT SEEN) /LPF Antoni Results Last 24 Hours: Microbiology 07/15/19 11:21 Aerobic Blood Culture - Preliminary Blood - Venous - Lab Draw NO GROWTH AFTER 1 DAY Anaerobic Blood Culture - Preliminary NO GROWTH AFTER 1 DAY 07/15/19 11:14 Aerobic Blood Culture - Preliminary Blood - Venous NO GROWTH AFTER 1 DAY Anaerobic Blood Culture - Preliminary NO GROWTH AFTER 1 DAY 07/15/19 11:04 Quick Strep Confirmation Culture - Final Throat NO GROUP A STREP ISOLATED REFERENCE RANGE: NEGATIVE Group A Streptococcus Rapid Screen - Final NEGATIVE STREP A SCREEN REFERENCE RANGE: NEGATIVE 07/15/19 11:04 Influenza Type A Antigen Screen - Final Nasal, Unspecified NEGATIVE INFLUENZA A VIRUS AG REFERENCE RANGE: NEGATIVE Influenza Type B Antigen Screen - Final Positive Influenza B Ag Med Orders - Current: Current Medications Acetaminophen (Tylenol) 650 mg PO Q4H PRN PRN Reason: Pain (Mild 1-3)/fever Last Admin: 07/15/19 14:28 Dose: 650 mg Hydrocodone Bitart/Acetaminophen ([place] 325-10 Mg) 0.5 tab PO Q4H PRN PRN Reason: Pain (moderate 4-6) Last Admin: 07/16/19 17:15 Dose: 0.5 tab Albuterol (Proventil Neb Soln) 2.5 mg NEB Q4HRRT PRN PRN Reason: Shortness of Breath Albuterol/Ipratropium (Duoneb 3.0-0.5 Mg/3 Ml) 3 ml NEB Q4HRRT [facility] Last Admin: 07/16/19 15:29 Dose: 3 ml Apixaban (Eliquis) 5 mg PO BID [facility] Last Admin: 07/16/19 09:00 Dose: 5 mg Atenolol (Tenormin) 50 mg PO BID [facility] Last Admin: 07/16/19 09:01 Dose: 50 mg Docusate Sodium (Colace) 100 mg PO BID PRN PRN Reason: Constipation Finasteride (Proscar) 5 mg PO DAILY [facility] Last Admin: 07/16/19 09:02 Dose: 5 mg Gabapentin (Neurontin) 900 mg PO TID [facility] Last Admin: 07/16/19 13:23 Dose: 900 mg Sodium Chloride (Normal Saline) 500 mls @ 999 mls/hr IV .BOLUS [facility] Last Admin: 07/15/19 12:16 Dose: 999 mls/hr Azithromycin 500 mg/ Sodium (Chloride) 250 mls @ 250 mls/hr IV Q24H [facility] Stop: 07/19/19 13:59 Last Infusion: 07/16/19 17:22 Dose: Infused Ceftriaxone Sodium 1 gm/ (Sodium Chloride) 50 mls @ 50 mls/hr IV Q24H [facility] Stop: 07/20/19 14:01 Last Admin: 07/16/19 13:24 Dose: 50 mls/hr Sodium Chloride (Normal Saline) 1,000 mls @ 125 mls/hr IV ASDIRECTED [facility] Last Admin: 07/16/19 15:29 Dose: 125 mls/hr Methylprednisolone Sodium Succinate (Solu-Medrol) 125 mg IVPUSH Q6H [facility] Last Admin: 07/16/19 17:16 Dose: 125 mg Ondansetron HCl (Zofran Odt) 4 mg PO Q4H PRN PRN Reason: nausea, able to take PO Oseltamivir Phosphate (Tamiflu) 30 mg PO BEDTIME [facility] Stop: 07/19/19 21:01 Last Admin: 07/15/19 21:35 Dose: 30 mg Sodium Chloride (Saline Flush) 10 ml FLUSH ASDIRECTED PRN PRN Reason: Keep Vein Open Last Admin: 07/15/19 11:24 Dose: 10 ml Sodium Chloride (Saline Flush) 10 ml FLUSH ASDIRECTED PRN PRN Reason: Keep Vein Open Tamsulosin HCl (Flomax) 0.4 mg PO DAILY [facility] Last Admin: 07/16/19 09:00 Dose: 0.4 mg Tramadol HCl (Ultram) 50 mg PO BID [facility] Last Admin: 07/16/19 09:01 Dose: 50 mg Zolpidem Tartrate (Ambien) 5 mg PO BEDTIME PRN PRN Reason: Sleep Discontinued Medications Albuterol/Ipratropium (Duoneb 3.0-0.5 Mg/3 Ml) Confirm Administered Dose 3 ml .ROUTE .STK-MED ONE Stop: 07/15/19 11:23 Last Admin: 07/15/19 11:25 Dose: 3 ml Albuterol/Ipratropium (Duoneb 3.0-0.5 Mg/3 Ml) 3 ml NEB ONETIME ONE Stop: 07/15/19 11:33 Last Admin: 07/15/19 12:16 Dose: 3 ml Amlodipine Besylate (Norvasc) 5 mg PO DAILY [facility] Heparin Sodium (Porcine) (Heparin Sodium) 5,000 units SUBCUT Q8HR [facility] Piperacillin Sod/Tazobactam (Sod 3.375 gm/ Sodium Chloride) 100 mls @ 200 mls/ hr IV ONETIME ONE Stop: 07/15/19 12:03 Last Admin: 07/15/19 12:16 Dose: 200 mls/hr Lisinopril (Prinivil) 20 mg PO DAILY [facility] Methylprednisolone Sodium Succinate (Solu-Medrol) 125 mg IVPUSH ONETIME ONE Stop: 07/15/19 11:33 Last Admin: 07/15/19 12:16 Dose: 125 mg Oseltamivir Phosphate (Tamiflu) 75 mg PO ONETIME ONE Stop: 07/15/19 12:00 Last Admin: 07/15/19 12:17 Dose: 75 mg Piperacillin Sod/Tazobactam Sod (Zosyn) Confirm Administered Dose 3.375 gm .ROUTE .STK-MED ONE Stop: 07/15/19 12:06 Last Admin: 07/15/19 12:21 Dose: Not Given - Exam General: Alert, Oriented HEENT: Pupils Equal, Pupils Reactive, EOMI, Mucous Membr. Moist/[place] Neck: Supple Lungs: Crackles, Wheezing Cardiovascular: Regular Rate, Regular Rhythm GI/Abdominal Exam: Normal Bowel Sounds, Soft, Non-Tender, No Organomegaly, No Distention, No Abnormal Bruit, No Mass, Pelvis Stable (Male) Exam: Deferred Back Exam: Normal Inspection, Full Range of Motion Extremities: Normal Inspection, Normal Range of Motion, Non-Tender, No Pedal Edema, Normal Capillary Refill Skin: Warm, Dry, Intact Neurological: No New Focal Deficit Psy/Mental Status: Alert, Normal Affect, Normal Mood Sepsis Event Note - Evaluation Sepsis Screening Result: No Definite Risk - Focused Exam Vital Signs: Vital Signs Temp Pulse Pulse Resp BP BP Pulse Ox 07/16/19 16:00 98.4 F 91 20 153/83 H 94 L 07/16/19 15:31 86 07/16/19 11:52 80 07/16/19 11:30 98.9 F 112 H 20 152/74 H 97 07/16/19 09:05 102 H 07/16/19 09:01 73 144/80 H 07/16/19 07:59 98.3 F 73 20 144/80 H 99 Pulse Ox Pulse Ox 07/16/19 16:00 07/16/19 15:31 97 07/16/19 11:52 07/16/19 11:30 07/16/19 09:05 98 07/16/19 09:01 07/16/19 07:59 Date Exam was Performed: 07/16/19 Time Exam was Performed: 17:31 - Problem List Review Problem List Initiated/Reviewed/Updated: Yes - My Orders Last 24 Hours: My Active Orders 07/15/19 18:00 methylPREDNISolone Sod Succ [Solu-MEDROL] 125 mg IVPUSH Q6H 07/15/19 20:30 Sodium Chloride 0.9% [Normal Saline] 1,000 ml IV ASDIRECTED 07/15/19 21:00 Apixaban [Eliquis] 5 mg PO BID Oseltamivir [Tamiflu] 30 mg PO BEDTIME atenoloL [Tenormin] 50 mg PO BID traMADol [Ultram] 50 mg PO BID 07/16/19 09:00 Finasteride [Proscar] 5 mg PO DAILY Tamsulosin [Flomax] 0.4 mg PO DAILY 07/16/19 11:48 Flutter Valve Therapy [RT Chest Physiotherapy] [RC] ASDIRECTED IS (RT) [RT Incentive Spirometry] [RC] ASDIRECTED - Plan Plan:: Acute hypoxic respiratory failure Influenza B virus pneumonia Probable bacterial pneumonia Patient presented with cough productive of sputum, shortness of breath, fever up to 101.5, tachycardia of 100, RR 22, hypoxia requiring 3L of O2 by NC. Influenza B PCR was positive. CXR showed new minimal bilateral infrahilar atelectasis vs pneumonia. - Continue Tamiflu 75 mg BID x 5 days - Continue Ceftriaxone and Azithromycin - Blood cultures pending - Sputum cultures pending - Continue droplet isolation Probable COPD exacerbation Patient having Sob, wheezing, cough and sputum production. - Continue Solumedrol 125 mg QID - Continue DuoNeb QID - Continue Albuterol prn JILLIAN on CKD Cr 2.4 is up from baseline of 1.8-2.0. Likely due to ATN vs pre-renal. - Creatinine returned to baseline of 1.8 with IVF Metabolic acidosis Bicarb of 18. - Monitor Hypertension - Continue home antihypertensives BPH - Continue home finasteride and tamsulosin PVD H/o Critical limb ischemia H/o DVT - Continue home Apixaban
[2019-07-16] MEDS: Oseltamivir 30 MG Cap PO SCH (20:52)
[2019-07-16] MEDS: Zolpidem 5 MG Tab PO PRN (23:29)
[2019-07-17] MEDS: Albuterol/Ipratropium 3.0-0.5 MG/3 ML Neb Soln NEB SCH ×6 (03:22→23:17)
[2019-07-17] MEDS: Sodium Chloride 0.9% 1,000 ML IV SCH (03:23)
[2019-07-17] MEDS: methylPREDNISolone Sodium Succinate 125 MG/2 ML SDV IVPUSH SCH ×5 (04:37→23:17)
[2019-07-17 06:56] LABS: ANION GAP 14.3
[2019-07-17] MEDS: Apixaban 5 MG Tab PO SCH ×2 (09:05→20:48)
[2019-07-17] MEDS: Gabapentin 300 MG Cap PO SCH ×3 (09:05→20:48)
[2019-07-17] MEDS: Finasteride 5 MG Tab PO SCH (09:05)
[2019-07-17] MEDS: traMADol 50 MG Tab PO SCH ×2 (09:05→20:48)
[2019-07-17] MEDS: Tamsulosin 0.4 MG Cap.ER PO SCH (09:07)
[2019-07-17] MEDS: Atenolol 50 MG Tab PO SCH ×2 (09:07→20:47)
[2019-07-17] MEDS: amLODIPine 5 MG Tab PO SCH (10:09)
[2019-07-17] MEDS ORDERED: Furosemide 20 MG/2 ML VIAL IVPUSH ONE (13:11)
--- NOTE | 2019-07-17 13:14 | PCM.PN ---
- General Info Date of Service: 07/17/19 Admission Dx/Problem (Free Text): Admission Diagnosis/Problem Admission Diagnosis/Problem Respiratory failure with hypoxia Subjective Update: Patient seen and examined today. Still, wheezy, short of breath and coughing. Afebrile overnight. - Review of Systems General: Reports: No Symptoms HEENT: Reports: No Symptoms Pulmonary: Reports: Shortness of Breath, Cough, Wheezing Cardiovascular: Reports: No Symptoms Gastrointestinal: Reports: No Symptoms Genitourinary: Reports: No Symptoms Musculoskeletal: Reports: Leg Pain Skin: Reports: No Symptoms Neurological: Reports: No Symptoms Psychiatric: Reports: No Symptoms - Patient Data Vitals - Most Recent: Last Vital Signs Temp 98.1 F 07/17/19 11:54 Pulse 89 07/17/19 11:54 Resp 18 07/17/19 11:54 BP 154/70 H 07/17/19 11:54 Pulse Ox 95 07/17/19 11:54 Weight - Most Recent: 192 lb 4.8 oz I&O - Last 24 Hours: Intake & Output 07/16/19 07/17/19 07/17/19 22:59 06:59 14:59 Intake Total 1150 2500 574 Output Total 850 Balance 1150 1650 574 Lab Results Last 24 Hours: Laboratory Results - last 24 hr 07/17/19 07/17/19 Range/Units 06:00 06:00 WBC 11.5 H (5.0-10.0) 10^3/uL RBC 3.34 L (4.6-6.2) 10^6/uL Hgb 10.0 L (14.0-18.0) g/dL Hct 30.9 L (40.0-54.0) % MCV 92.5 (80-100) fL MCH 29.9 (27.0-34.0) pg MCHC 32.4 L (33.0-35.0) g/dL Plt Count 142 L (150-450) 10^3/uL Neut % (Auto) 89.9 H (42.2-75.2) % Lymph % (Auto) 4.9 L (20.5-50.1) % [place] % (Auto) 5.1 (2-8) % Eos % (Auto) 0.0 L (1.0-3.0) % Baso % (Auto) 0.1 (0.0-1.0) % Sodium 135 (135-145) mmol/L Potassium 4.3 (3.6-5.0) mmol/L Chloride 107 (101-111) mmol/L Carbon Dioxide 18.0 L (21.0-31.0) mmol/L Anion Gap 14.3 BUN 40 H (7-18) mg/dL Creatinine 1.5 H (0.6-1.3) mg/dL Est Cr Clr Drug Dosing 42.57 mL/min Estimated GFR (MDRD) 45 Glucose 199 H (74-105) mg/dL Calcium 7.7 L (8.4-10.2) mg/dl Antoni Results Last 24 Hours: Microbiology 07/15/19 11:21 Aerobic Blood Culture - Preliminary Blood - Venous - Lab Draw NO GROWTH AFTER 2 DAYS Anaerobic Blood Culture - Preliminary NO GROWTH AFTER 2 DAYS 07/15/19 11:14 Aerobic Blood Culture - Preliminary Blood - Venous NO GROWTH AFTER 2 DAYS Anaerobic Blood Culture - Preliminary NO GROWTH AFTER 2 DAYS 07/16/19 11:00 Urine Culture - Preliminary Urine, Voided NO GROWTH AFTER 1 DAY 07/15/19 11:04 Quick Strep Confirmation Culture - Final Throat NO GROUP A STREP ISOLATED REFERENCE RANGE: NEGATIVE Group A Streptococcus Rapid Screen - Final NEGATIVE STREP A SCREEN REFERENCE RANGE: NEGATIVE Med Orders - Current: Current Medications Acetaminophen (Tylenol) 650 mg PO Q4H PRN PRN Reason: Pain (Mild 1-3)/fever Last Admin: 07/15/19 14:28 Dose: 650 mg Hydrocodone Bitart/Acetaminophen ([place] 325-10 Mg) 0.5 tab PO Q4H PRN PRN Reason: Pain (moderate 4-6) Last Admin: 07/16/19 17:15 Dose: 0.5 tab Albuterol (Proventil Neb Soln) 2.5 mg NEB Q4HRRT PRN PRN Reason: Shortness of Breath Albuterol/Ipratropium (Duoneb 3.0-0.5 Mg/3 Ml) 3 ml NEB Q4HRRT [facility] Last Admin: 07/17/19 07:25 Dose: 3 ml Amlodipine Besylate (Norvasc) 5 mg PO DAILY [facility] Last Admin: 07/17/19 10:09 Dose: 5 mg Apixaban (Eliquis) 5 mg PO BID [facility] Last Admin: 07/17/19 09:05 Dose: 5 mg Atenolol (Tenormin) 50 mg PO BID [facility] Last Admin: 07/17/19 09:07 Dose: 50 mg Docusate Sodium (Colace) 100 mg PO BID PRN PRN Reason: Constipation Finasteride (Proscar) 5 mg PO DAILY [facility] Last Admin: 07/17/19 09:05 Dose: 5 mg Gabapentin (Neurontin) 900 mg PO TID [facility] Last Admin: 07/17/19 09:05 Dose: 900 mg Sodium Chloride (Normal Saline) 500 mls @ 999 mls/hr IV .BOLUS [facility] Last Admin: 07/15/19 12:16 Dose: 999 mls/hr Azithromycin 500 mg/ Sodium (Chloride) 250 mls @ 250 mls/hr IV Q24H [facility] Stop: 07/19/19 13:59 Last Infusion: 07/16/19 17:22 Dose: Infused Sodium Chloride (Normal Saline) 1,000 mls @ 125 mls/hr IV ASDIRECTED [facility] Last Admin: 07/17/19 03:23 Dose: 125 mls/hr Ceftriaxone Sodium 1 gm/ (Sodium Chloride) 50 mls @ 50 mls/hr IV Q24H [facility] Stop: 07/20/19 14:01 Methylprednisolone Sodium Succinate (Solu-Medrol) 125 mg IVPUSH Q6H [facility] Last Admin: 07/17/19 05:31 Dose: 125 mg Ondansetron HCl (Zofran Odt) 4 mg PO Q4H PRN PRN Reason: nausea, able to take PO Oseltamivir Phosphate (Tamiflu) 30 mg PO BEDTIME [facility] Stop: 07/19/19 21:01 Last Admin: 07/16/19 20:52 Dose: 30 mg Sodium Chloride (Saline Flush) 10 ml FLUSH ASDIRECTED PRN PRN Reason: Keep Vein Open Last Admin: 07/15/19 11:24 Dose: 10 ml Sodium Chloride (Saline Flush) 10 ml FLUSH ASDIRECTED PRN PRN Reason: Keep Vein Open Tamsulosin HCl (Flomax) 0.4 mg PO DAILY [facility] Last Admin: 07/17/19 09:07 Dose: 0.4 mg Tramadol HCl (Ultram) 50 mg PO BID [facility] Last Admin: 07/17/19 09:05 Dose: 50 mg Zolpidem Tartrate (Ambien) 5 mg PO BEDTIME PRN PRN Reason: Sleep Last Admin: 07/16/19 23:29 Dose: 5 mg Discontinued Medications Albuterol/Ipratropium (Duoneb 3.0-0.5 Mg/3 Ml) Confirm Administered Dose 3 ml .ROUTE .STK-MED ONE Stop: 07/15/19 11:23 Last Admin: 07/15/19 11:25 Dose: 3 ml Albuterol/Ipratropium (Duoneb 3.0-0.5 Mg/3 Ml) 3 ml NEB ONETIME ONE Stop: 07/15/19 11:33 Last Admin: 07/15/19 12:16 Dose: 3 ml Amlodipine Besylate (Norvasc) 5 mg PO DAILY [facility] Heparin Sodium (Porcine) (Heparin Sodium) 5,000 units SUBCUT Q8HR [facility] Piperacillin Sod/Tazobactam (Sod 3.375 gm/ Sodium Chloride) 100 mls @ 200 mls/ hr IV ONETIME ONE Stop: 07/15/19 12:03 Last Admin: 07/15/19 12:16 Dose: 200 mls/hr Ceftriaxone Sodium 1 gm/ (Sodium Chloride) 50 mls @ 50 mls/hr IV Q24H [facility] Stop: 07/20/19 14:01 Last Admin: 07/16/19 13:24 Dose: 50 mls/hr Ceftriaxone Sodium 1 gm/ (Sodium Chloride) 50 mls @ 50 mls/hr IV Q24H [facility] Stop: 07/20/19 14:01 Lisinopril (Prinivil) 20 mg PO DAILY [facility] Methylprednisolone Sodium Succinate (Solu-Medrol) 125 mg IVPUSH ONETIME ONE Stop: 07/15/19 11:33 Last Admin: 07/15/19 12:16 Dose: 125 mg Oseltamivir Phosphate (Tamiflu) 75 mg PO ONETIME ONE Stop: 07/15/19 12:00 Last Admin: 07/15/19 12:17 Dose: 75 mg Piperacillin Sod/Tazobactam Sod (Zosyn) Confirm Administered Dose 3.375 gm .ROUTE .STK-MED ONE Stop: 07/15/19 12:06 Last Admin: 07/15/19 12:21 Dose: Not Given - Exam Quality Assessment: Supplemental Oxygen General: Alert, Oriented HEENT: Pupils Equal, Pupils Reactive, EOMI, Mucous Membr. Moist/[place] Neck: Supple Lungs: Crackles, Wheezing Cardiovascular: Regular Rate, Regular Rhythm GI/Abdominal Exam: Normal Bowel Sounds, Soft, Non-Tender, No Organomegaly, No Distention, No Abnormal Bruit, No Mass, Pelvis Stable (Male) Exam: Deferred Back Exam: Normal Inspection, Full Range of Motion Extremities: Normal Inspection, Normal Range of Motion, Non-Tender, No Pedal Edema, Normal Capillary Refill Skin: Warm, Dry, Intact Neurological: No New Focal Deficit Psy/Mental Status: Alert, Normal Affect, Normal Mood Sepsis Event Note - Evaluation Sepsis Screening Result: No Definite Risk - Focused Exam Vital Signs: Vital Signs Temp Pulse Pulse Resp BP BP Pulse Ox 07/17/19 11:54 98.1 F 89 18 154/70 H 95 07/17/19 10:09 147/84 H 07/17/19 09:07 76 169/90 H 07/17/19 07:46 97.9 F 76 18 169/90 H 96 07/17/19 07:25 67 07/17/19 03:27 98.1 F 76 20 153/93 H 100 Date Exam was Performed: 07/17/19 Time Exam was Performed: 13:11 - Problem List Review Problem List Initiated/Reviewed/Updated: Yes - My Orders Last 24 Hours: My Active Orders 07/17/19 09:15 amLODIPine [Norvasc] 5 mg PO DAILY 07/17/19 13:11 Furosemide [Lasix] 20 mg IVPUSH ONETIME ONE 07/17/19 14:00 cefTRIAXone [Rocephin] 1 gm Sodium Chloride 0.9% [Normal Saline] 50 ml IV Q24H - Plan Plan:: Acute hypoxic respiratory failure Influenza B virus pneumonia Probable bacterial pneumonia Patient presented with cough productive of sputum, shortness of breath, fever up to 101.5, tachycardia of 100, RR 22, hypoxia requiring 3L of O2 by NC. Influenza B PCR was positive. CXR showed new minimal bilateral infrahilar atelectasis vs pneumonia. - Continue Tamiflu 75 mg BID x 5 days - Continue Ceftriaxone and Azithromycin - Blood cultures NGTD - Sputum cultures pending - Continue droplet isolation Probable COPD exacerbation Patient having Sob, wheezing, cough and sputum production. - Continue Solumedrol 125 mg QID - Continue DuoNeb QID - Continue Albuterol prn JILLIAN on CKD Cr 2.4 is up from baseline of 1.8-2.0. Likely pre-renal. - Creatinine returned to baseline of 1.8 with IVF Metabolic acidosis Bicarb of 18. - Monitor Hypertension - Continue home antihypertensives BPH - Continue home finasteride and tamsulosin PVD H/o Critical limb ischemia H/o DVT - Continue home Apixaban
[2019-07-17] MEDS: Azithromycin 500 MG in Sodium Chloride 0.9% 250 ML IV SCH (13:44)
[2019-07-17] MEDS ORDERED: cefTRIAXone 1 GM in Sodium Chloride 0.9% 50 ML IV SCH ×4 (14:00)
[2019-07-17] MEDS: Oseltamivir 30 MG Cap PO SCH (20:47)
[2019-07-17] MEDS: Sodium Chloride 0.9% 10 ML Syringe FLUSH PRN ×2 (20:51→23:16)
[2019-07-17] MEDS: Zolpidem 5 MG Tab PO PRN (20:56)
[2019-07-18] MEDS: Albuterol/Ipratropium 3.0-0.5 MG/3 ML Neb Soln NEB SCH ×3 (03:24→12:59)
[2019-07-18] MEDS: Acetaminophen/HYDROcodone 325-10 MG Tab PO PRN ×2 (03:38→11:01)
[2019-07-18] MEDS: Sodium Chloride 0.9% 10 ML Syringe FLUSH PRN (06:03)
[2019-07-18] MEDS: methylPREDNISolone Sodium Succinate 125 MG/2 ML SDV IVPUSH SCH ×2 (06:04→12:59)
[2019-07-18 07:38] VITALS: BP 146/97; PULSE 76
[2019-07-18] MEDS: Tamsulosin 0.4 MG Cap.ER PO SCH (08:11)
[2019-07-18] MEDS: Gabapentin 300 MG Cap PO SCH (08:11)
[2019-07-18] MEDS: Apixaban 5 MG Tab PO SCH (08:11)
[2019-07-18] MEDS: Finasteride 5 MG Tab PO SCH (08:12)
[2019-07-18] MEDS: amLODIPine 5 MG Tab PO SCH (08:12)
[2019-07-18] MEDS: traMADol 50 MG Tab PO SCH (08:13)
[2019-07-18] MEDS: Atenolol 50 MG Tab PO SCH (08:13)
--- NOTE | 2019-07-18 10:50 | PCM.DCSUM1 ---
Discharge Summary - Hospital Course Free Text/Narrative:: Leroy Greer is a 79y.o male with a medical history of tobacco use disorder, hypertension, BPH, anemia of chronic kidney disease, CKD stage III, chronic back pain, COPD, and peripheral artery disease, critical limb ischemia of RLE, presented with cough productive of sputum, shortness of breath, and fever. He was found to have fever of 101.5, tachycardia of 100, RR 22. He required up to 3L of O2 by NC. Labs were significant for Cr of 2.4, bicarb of 19. Influenza B PCR was positive. CXR showed new minimal bilateral infrahilar atelectasis vs pneumonia. Patient received treatment with Tamiflu, Ceftriaxone, Azithromycin, Solumedrol and and Nebs with improvement of his respiratory status. His creatinine returned to baseline of 1.8 with IVF. Discharge diagnoses Acute hypoxic respiratory failure Influenza B virus pneumonia Probable bacterial pneumonia Probable COPD exacerbation JILLIAN on CKD Metabolic acidosis Hypertension BPH PVD H/o Critical limb ischemia H/o DVT - Discharge Data Discharge Date: 07/18/19 Discharge Disposition: Home, Self-Care 01 Condition: Good - Referral to Home Health Primary Care Physician: Mary Ames MD - Discharge Plan *PRESCRIPTION DRUG MONITORING PROGRAM REVIEWED*: Not Applicable *COPY OF PRESCRIPTION DRUG MONITORING REPORT IN PATIENT BH[place]AR: Not Applicable Prescriptions/Med Rec: Albuterol/Ipratropium [DuoNeb 3.0-0.5 MG/3 ML] 3 ml .XX QID PRN #3 neb PRN Reason: Shortness Of Breath amLODIPine [Norvasc] 5 mg PO DAILY #90 tablet levoFLOXacin [Levaquin] 500 mg PO DAILY 5 Days tab Oseltamivir Phosphate 30 mg PO BID #3 capsule predniSONE [Prednisone] 40 mg PO DAILY 3 Days #3 tablet Home Medications: Home Meds Lisinopril 20 mg PO DAILY 07/09/15 [History] atenoloL [Atenolol] 50 mg PO BID 07/09/15 [History] traMADol HCl [Tramadol HCl] 50 mg PO BID PRN 12/30/17 [History] Finasteride 5 mg PO DAILY 12/28/18 [History] Gabapentin [Neurontin] 900 mg PO TID 12/28/18 [History] Tamsulosin [Flomax] 0.4 mg PO BID 12/28/18 [History] amLODIPine [Norvasc] 5 mg PO DAILY 12/28/18 [History] Apixaban [Eliquis] 5 mg PO BID 05/29/19 [History] Albuterol/Ipratropium [DuoNeb 3.0-0.5 MG/3 ML] 3 ml .XX QID PRN #3 neb 07/18/19 [Rx] Oseltamivir Phosphate 30 mg PO BID #3 capsule 07/18/19 [Rx] amLODIPine [Norvasc] 5 mg PO DAILY #90 tablet 07/18/19 [Rx] levoFLOXacin [Levaquin] 500 mg PO DAILY 5 Days tab 07/18/19 [Rx] predniSONE [Prednisone] 40 mg PO DAILY 3 Days #3 tablet 07/18/19 [Rx] Patient Handouts: Influenza, Adult, [id number], Community-Acquired Pneumonia , Adult, [id number] Referrals: Mary Maza MD [Primary Care Provider] - - Discharge Summary/Plan Comment DC Time >30 min.: No - General Info Date of Service: 07/18/19 Admission Dx/Problem (Free Text: Admission Diagnosis/Problem Admission Diagnosis/Problem Respiratory failure with hypoxia Functional Status: Reports: Tolerating Diet, Ambulating - Review of Systems General: Reports: No Symptoms HEENT: Reports: No Symptoms Pulmonary: Reports: Cough. Denies: Shortness of Breath Cardiovascular: Reports: No Symptoms Gastrointestinal: Reports: No Symptoms Genitourinary: Reports: No Symptoms Musculoskeletal: Reports: No Symptoms Skin: Reports: No Symptoms Neurological: Reports: No Symptoms Psychiatric: Reports: No Symptoms - Patient Data Vitals - Most Recent: Last Vital Signs Temp 98.6 F 07/18/19 07:37 Pulse 76 07/18/19 08:13 Resp 20 07/18/19 07:37 BP 146/97 H 07/18/19 08:13 Pulse Ox 95 07/18/19 07:37 Weight - Most Recent: 192 lb 4.8 oz I&O - Last 24 hours: Intake & Output 07/17/19 07/18/19 07/18/19 22:59 06:59 14:59 Intake Total 0 650 Output Total 350 Balance 0 300 Lab Results - Last 24 hrs: Laboratory Results - last 24 hr 07/18/19 Range/Units 06:10 WBC 11.4 H (5.0-10.0) 10^3/uL RBC 3.47 L (4.6-6.2) 10^6/uL Hgb 10.5 L (14.0-18.0) g/dL Hct 31.7 L (40.0-54.0) % MCV 91.4 (80-100) fL MCH 30.3 (27.0-34.0) pg MCHC 33.1 (33.0-35.0) g/dL Plt Count 159 (150-450) 10^3/uL [id number] Results - Last 24 hrs: Microbiology 07/16/19 11:00 Urine Culture - Final Urine, Voided NO GROWTH AFTER 2 DAYS 07/15/19 11:21 Aerobic Blood Culture - Preliminary Blood - Venous - Lab Draw NO GROWTH AFTER 2 DAYS Anaerobic Blood Culture - Preliminary NO GROWTH AFTER 2 DAYS 07/15/19 11:14 Aerobic Blood Culture - Preliminary Blood - Venous NO GROWTH AFTER 2 DAYS Anaerobic Blood Culture - Preliminary NO GROWTH AFTER 2 DAYS Med Orders - Current: Current Medications Acetaminophen (Tylenol) 650 mg PO Q4H PRN PRN Reason: Pain (Mild 1-3)/fever Last Admin: 07/15/19 14:28 Dose: 650 mg Hydrocodone Bitart/Acetaminophen ([place] 325-10 Mg) 0.5 tab PO Q4H PRN PRN Reason: Pain (moderate 4-6) Last Admin: 07/18/19 03:38 Dose: 0.5 tab Albuterol (Proventil Neb Soln) 2.5 mg NEB Q4HRRT PRN PRN Reason: Shortness of Breath Albuterol/Ipratropium (Duoneb 3.0-0.5 Mg/3 Ml) 3 ml NEB Q4HRRT [facility] Last Admin: 07/18/19 08:11 Dose: 3 ml Amlodipine Besylate (Norvasc) 5 mg PO DAILY [facility] Last Admin: 07/18/19 08:12 Dose: 5 mg Apixaban (Eliquis) 5 mg PO BID [facility] Last Admin: 07/18/19 08:11 Dose: 5 mg Atenolol (Tenormin) 50 mg PO BID [facility] Last Admin: 07/18/19 08:13 Dose: 50 mg Docusate Sodium (Colace) 100 mg PO BID PRN PRN Reason: Constipation Finasteride (Proscar) 5 mg PO DAILY [facility] Last Admin: 07/18/19 08:12 Dose: 5 mg Gabapentin (Neurontin) 900 mg PO TID [facility] Last Admin: 07/18/19 08:11 Dose: 900 mg Azithromycin 500 mg/ Sodium (Chloride) 250 mls @ 250 mls/hr IV Q24H [facility] Stop: 07/19/19 13:59 Last Admin: 07/17/19 13:44 Dose: 125 mls/hr Ceftriaxone Sodium 1 gm/ (Sodium Chloride) 50 mls @ 50 mls/hr IV Q24H [facility] Stop: 07/20/19 14:01 Last Admin: 07/17/19 16:02 Dose: 50 mls/hr Methylprednisolone Sodium Succinate (Solu-Medrol) 125 mg IVPUSH Q6H [facility] Last Admin: 07/18/19 06:04 Dose: 125 mg Ondansetron HCl (Zofran Odt) 4 mg PO Q4H PRN PRN Reason: nausea, able to take PO Oseltamivir Phosphate (Tamiflu) 30 mg PO BEDTIME [facility] Stop: 07/19/19 21:01 Last Admin: 07/17/19 20:47 Dose: 30 mg Sodium Chloride (Saline Flush) 10 ml FLUSH ASDIRECTED PRN PRN Reason: Keep Vein Open Last Admin: 07/18/19 06:03 Dose: 10 ml Sodium Chloride (Saline Flush) 10 ml FLUSH ASDIRECTED PRN PRN Reason: Keep Vein Open Tamsulosin HCl (Flomax) 0.4 mg PO DAILY [facility] Last Admin: 07/18/19 08:11 Dose: 0.4 mg Tramadol HCl (Ultram) 50 mg PO BID [facility] Last Admin: 07/18/19 08:13 Dose: 50 mg Zolpidem Tartrate (Ambien) 5 mg PO BEDTIME PRN PRN Reason: Sleep Last Admin: 07/17/19 20:56 Dose: 5 mg Discontinued Medications Albuterol/Ipratropium (Duoneb 3.0-0.5 Mg/3 Ml) Confirm Administered Dose 3 ml .ROUTE .STK-MED ONE Stop: 07/15/19 11:23 Last Admin: 07/15/19 11:25 Dose: 3 ml Albuterol/Ipratropium (Duoneb 3.0-0.5 Mg/3 Ml) 3 ml NEB ONETIME ONE Stop: 07/15/19 11:33 Last Admin: 07/15/19 12:16 Dose: 3 ml Amlodipine Besylate (Norvasc) 5 mg PO DAILY [facility] Furosemide (Lasix) 20 mg IVPUSH ONETIME ONE Stop: 07/17/19 13:12 Last Admin: 07/17/19 13:44 Dose: 20 mg Heparin Sodium (Porcine) (Heparin Sodium) 5,000 units SUBCUT Q8HR [facility] Sodium Chloride (Normal Saline) 500 mls @ 999 mls/hr IV .BOLUS [facility] Last Admin: 07/15/19 12:16 Dose: 999 mls/hr Piperacillin Sod/Tazobactam (Sod 3.375 gm/ Sodium Chloride) 100 mls @ 200 mls/ hr IV ONETIME ONE Stop: 07/15/19 12:03 Last Admin: 07/15/19 12:16 Dose: 200 mls/hr Ceftriaxone Sodium 1 gm/ (Sodium Chloride) 50 mls @ 50 mls/hr IV Q24H [facility] Stop: 07/20/19 14:01 Last Admin: 07/16/19 13:24 Dose: 50 mls/hr Sodium Chloride (Normal Saline) 1,000 mls @ 125 mls/hr IV ASDIRECTED [facility] Last Admin: 07/17/19 03:23 Dose: 125 mls/hr Ceftriaxone Sodium 1 gm/ (Sodium Chloride) 50 mls @ 50 mls/hr IV Q24H [facility] Stop: 07/20/19 14:01 Lisinopril (Prinivil) 20 mg PO DAILY [facility] Methylprednisolone Sodium Succinate (Solu-Medrol) 125 mg IVPUSH ONETIME ONE Stop: 07/15/19 11:33 Last Admin: 07/15/19 12:16 Dose: 125 mg Oseltamivir Phosphate (Tamiflu) 75 mg PO ONETIME ONE Stop: 07/15/19 12:00 Last Admin: 07/15/19 12:17 Dose: 75 mg Piperacillin Sod/Tazobactam Sod (Zosyn) Confirm Administered Dose 3.375 gm .ROUTE .STK-MED ONE Stop: 07/15/19 12:06 Last Admin: 07/15/19 12:21 Dose: Not Given - Exam General: Reports: Alert, Oriented HEENT: Reports: Pupils Equal, Pupils Reactive, EOMI, Mucous Membr. Moist/[place] Neck: Reports: Supple Lungs: Reports: Clear to Auscultation, Normal Respiratory Effort Cardiovascular: Reports: Regular Rate, Regular Rhythm GI/Abdominal Exam: Normal Bowel Sounds, Soft, Non-Tender, No Organomegaly, No Distention, No Abnormal Bruit, No Mass, Pelvis Stable (Male) Exam: Deferred Rectal (Males) Exam: Deferred Back Exam: Reports: Normal Inspection, Full Range of Motion Extremities: Normal Inspection, Normal Range of Motion, Non-Tender, No Pedal Edema, Normal Capillary Refill Skin: Reports: Warm, Dry, Intact Neurological: Reports: No New Focal Deficit Psy/Mental Status: Reports: Alert, Normal Affect, Normal Mood
[2019-07-18] MEDS: Azithromycin 500 MG in Sodium Chloride 0.9% 250 ML IV SCH (12:59)
== END 2019-07-18 12:50 | disposition home or self-care (01) | DRG 193 ==
LOC: DL.ED 11:04 → UNDOADMIN 12:40 → DL.MS 12:40 → UNDOADMIN 12:44 → DL.MS 12:44
PROVIDERS: ADMIT Internal Medicine; ATTEND Internal Medicine
DX: J10.08 Influenza due to other identified influenza virus with other specified pneumonia (principal); J10.1 Influenza due to other identified influenza virus with other respiratory manifestations; J96.01 Acute respiratory failure with hypoxia; N17.9 Acute kidney failure, unspecified; E87.2 Acidosis; J44.1 Chronic obstructive pulmonary disease with (acute) exacerbation; N18.9 Chronic kidney disease, unspecified; J15.9 Unspecified bacterial pneumonia; F32.9 Major depressive disorder, single episode, unspecified; N40.0 Benign prostatic hyperplasia without lower urinary tract symptoms; Z85.830 Personal history of malignant neoplasm of bone; I73.9 Peripheral vascular disease, unspecified; G89.29 Other chronic pain; M54.9 Dorsalgia, unspecified; D63.1 Anemia in chronic kidney disease; H54.7 Unspecified visual loss; M19.90 Unspecified osteoarthritis, unspecified site; I12.9 Hypertensive chronic kidney disease with stage 1 through stage 4 chronic kidney disease, or unspecified chronic kidney disease; N18.3 Chronic kidney disease, stage 3 (moderate); F41.9 Anxiety disorder, unspecified; D50.9 Iron deficiency anemia, unspecified; F17.210 Nicotine dependence, cigarettes, uncomplicated; Z86.718 Personal history of other venous thrombosis and embolism; Z79.01 Long term (current) use of anticoagulants; Z79.899 Other long term (current) drug therapy; Z79.52 Long term (current) use of systemic steroids; Z79.890 Hormone replacement therapy; Z95.1 Presence of aortocoronary bypass graft; Z95.5 Presence of coronary angioplasty implant and graft
CPT/HCPCS: 36415; 71045; 80053; 83605; 83880; 85025; 87040 ×2; 87081; 87430; 87804 ×2; 94640; 96365; 96375; 99285; A9270; J2543; J2930; J7040; J7050; 80048; 81001; 85027; 87086; 94010; 94667; 99284; J0456; J0696; J1940; J7030; J7620-GY

== ENCOUNTER 2019-10-09 16:57 | Emergency (ER) | payer MEDICARE, MEDICAID ==
--- NOTE | 2019-10-09 17:45 | EDM.PDOC ---
<GriffinMayo Hieu - Last Filed: 10/09/19 17:41> ED HPI GENERAL MEDICAL PROBLEM - General Stated Complaint: AMBULANCE Time Seen by Provider: 10/09/19 19:10 Source of Information: Reports: EMS History Limitations: Reports: No Limitations - History of Present Illness INITIAL COMMENTS - FREE TEXT/NARRATIVE: This 79 yo male patient was brought to the ED by [facility] due to a cough, fever, shortness of breath and exhaustion. The patient reports his symptoms started about 1 week ago and have been getting worse. The patient has not been to the clinic for his current symptoms. EMS reports the patient's fever was 103 upon their arrival. The patient had a temp of 100.6 upon arrival in the ED. Onset Date: 10/02/19 Duration: Constant, Getting Worse Location: Reports: Chest Quality: Reports: Other Severity: Moderate Improves with: Reports: None Worsens with: Reports: None Context: Reports: Other Associated Symptoms: Reports: cough w sputum, Fever/Chills - Related Data Allergies Allergy/AdvReac Type Severity Reaction Status Date / Time No Known Allergies Allergy Verified 10/09/19 17:53 Home Meds: Home Meds Lisinopril 20 mg PO DAILY 07/09/15 [History] atenoloL [Atenolol] 50 mg PO BID 07/09/15 [History] traMADol HCl [Tramadol HCl] 50 mg PO BID PRN 12/30/17 [History] Finasteride 5 mg PO DAILY 12/28/18 [History] Gabapentin [Neurontin] 900 mg PO TID 12/28/18 [History] Tamsulosin [Flomax] 0.4 mg PO BID 12/28/18 [History] amLODIPine [Norvasc] 5 mg PO DAILY 12/28/18 [History] Apixaban [Eliquis] 5 mg PO BID 05/29/19 [History] Albuterol/Ipratropium [DuoNeb 3.0-0.5 MG/3 ML] 3 ml .XX QID PRN #3 neb 07/18/19 [Rx] Oseltamivir Phosphate 30 mg PO BID #3 capsule 07/18/19 [Rx] amLODIPine [Norvasc] 5 mg PO DAILY #90 tablet 07/18/19 [Rx] levoFLOXacin [Levaquin] 500 mg PO DAILY 5 Days tab 07/18/19 [Rx] predniSONE [Prednisone] 40 mg PO DAILY 3 Days #3 tablet 07/18/19 [Rx] Past Medical History HEENT History: Reports: Impaired Vision Other HEENT History: Wears glasses. Cardiovascular History: Reports: Aneurysm, Bypass, Hypertension, Stents Respiratory History: Reports: None Gastrointestinal History: Reports: Pancreatitis Genitourinary History: Reports: Prostate Disorder, Other (See Below) Other Genitourinary History: chronic kidney disease. 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 Dermatologic History: Reports: Other (See Below) Other Dermatologic History: Scarring to RLE - Infectious Disease History Infectious Disease History: Reports: Other (See Below) Other Infectious Disease History: Reports hepatitis as a child - Past Surgical History Cardiovascular Surgical History: Reports: AAA Repair, Vascular Surgery GI Surgical History: Reports: None Male Surgical History: Reports: None Social & Family History - Family History Family Medical History: Noncontributory - Caffeine Use Caffeine Use: Reports: Coffee - Living Situation & Occupation Living situation: Reports: , with Spouse Occupation: Retired ED ROS GENERAL - Review of Systems Review Of Systems: Comprehensive ROS is negative, except as noted in HPI. Course - Vital Signs Last Recorded V/S: Last Vital Signs Temp 100.6 F 10/09/19 17:50 Pulse 82 10/09/19 17:50 Resp 24 H 10/09/19 17:50 BP 148/75 H 10/09/19 17:50 Pulse Ox 95 10/09/19 17:50 - Orders/Labs/Meds Orders: Active Orders 24 hr Category Date Time Status Chest 2V [CR] Urgent Exams 10/09/19 17:15 Taken CULTURE STREP A CONFIRMATION [RM] Stat Lab 10/09/19 17:23 Results STREP SCRN A RAPID W CULT CONF [RM] Stat Lab 10/09/19 17:23 Results Isolation [COMM] Routine Oth 10/09/19 17:16 Active Labs: Laboratory Tests 10/09/19 10/09/19 10/09/19 Range/Units 17:23 17:23 17:23 WBC 10.1 H (5.0-10.0) 10^3/uL RBC 3.64 L (4.6-6.2) 10^6/uL Hgb 11.0 L (14.0-18.0) g/dL Hct 34.1 L (40.0-54.0) % MCV 93.7 (80-100) fL MCH 30.2 (27.0-34.0) pg MCHC 32.3 L (33.0-35.0) g/dL Plt Count 145 L (150-450) 10^3/uL Neut % (Auto) 77.0 H (42.2-75.2) % Lymph % (Auto) 11.8 L (20.5-50.1) % [place] % (Auto) 9.3 H (2-8) % Eos % (Auto) 1.7 (1.0-3.0) % Baso % (Auto) 0.2 (0.0-1.0) % Sodium 138 (136-145) mmol/L Potassium 4.6 (3.5-5.1) mmol/L Chloride 104 (98-107) mmol/L Carbon Dioxide 23 (21-32) mmol/L Anion Gap 15.6 H (7-13) mEq/L BUN 36 H (7-18) mg/dL Creatinine 2.06 H (0.70-1.30) mg/dL Est Cr Clr Drug Dosing 24.75 mL/min Estimated GFR (MDRD) 31 BUN/Creatinine Ratio 17.5 (No establ ref range) Glucose 126 H (74-99) mg/dL Lactic Acid 1.6 (0.4-2.0) mmol/L Calcium 7.6 L (8.5-10.1) mg/dL Total Bilirubin 0.6 (0.2-1.0) mg/dL AST 29 (15-37) U/L ALT 18 (16-63) U/L Alkaline Phosphatase 83 (46-116) U/L Total Protein 7.0 (6.4-8.2) g/dL Albumin 3.0 L (3.4-5.0) g/dL Globulin 4.0 Albumin/Globulin Ratio 0.75 SARS-CoV-2 RNA (RT-PCR) (NEGATIVE) 10/09/19 Range/Units 17:23 WBC (5.0-10.0) 10^3/uL RBC (4.6-6.2) 10^6/uL Hgb (14.0-18.0) g/dL Hct (40.0-54.0) % MCV (80-100) fL MCH (27.0-34.0) pg MCHC (33.0-35.0) g/dL Plt Count (150-450) 10^3/uL Neut % (Auto) (42.2-75.2) % Lymph % (Auto) (20.5-50.1) % [place] % (Auto) (2-8) % Eos % (Auto) (1.0-3.0) % Baso % (Auto) (0.0-1.0) % Sodium (136-145) mmol/L Potassium (3.5-5.1) mmol/L Chloride (98-107) mmol/L Carbon Dioxide (21-32) mmol/L Anion Gap (7-13) mEq/L BUN (7-18) mg/dL Creatinine (0.70-1.30) mg/dL Est Cr Clr Drug Dosing mL/min Estimated GFR (MDRD) BUN/Creatinine Ratio (No establ ref range) Glucose (74-99) mg/dL Lactic Acid (0.4-2.0) mmol/L Calcium (8.5-10.1) mg/dL Total Bilirubin (0.2-1.0) mg/dL AST (15-37) U/L ALT (16-63) U/L Alkaline Phosphatase (46-116) U/L Total Protein (6.4-8.2) g/dL Albumin (3.4-5.0) g/dL Globulin Albumin/Globulin Ratio SARS-CoV-2 RNA (RT-PCR) Negative (NEGATIVE) Meds: Medications Discontinued Medications Generic Name Dose Route Start Last Admin Trade Name Freq PRN Reason Stop Dose Admin Acetaminophen 650 mg 10/09/19 19:27 10/09/19 19:31 Tylenol PO 10/09/19 19:28 650 mg NOW ONE Administration Departure - Departure Disposition: Home, Self-Care 01 Clinical Impression: Influenza A - Discharge Information Instructions: Influenza, Adult, [id number] Forms: ED Department Discharge Additional Instructions: encourage fluids tylenol 650mg every 4-6 hours as needed for fever/ discomfort over counter cold medicine, per label instructions . If high blood pressure issues look for cold medications specifically "HB" for high blood pressure patients humidifier follow up if symptoms worsen Sepsis Event Note - Focused Exam Vital Signs: Vital Signs Temp Pulse Resp BP Pulse Ox 10/09/19 17:50 100.6 F 82 24 H 148/75 H 95 <Vandana Borrego - Last Filed: 10/09/19 23:50> ED EXAM, GENERAL - Physical Exam Exam: See Below Exam Limited By: No Limitations General Appearance: Alert, Lethargic (arouses easily to voice), Mild Distress Eye Exam: Bilateral Eye: EOMI Ears: Normal External Exam, Hearing Grossly Normal Nose: Normal Inspection Throat/Mouth: Normal Inspection Head: Atraumatic, Normocephalic Neck: Normal Inspection Respiratory/Chest: No Respiratory Distress, Lungs Clear, Wheezing (rare clears with cough or deep breathing) Cardiovascular: Normal Peripheral Pulses, Regular Rate, Rhythm GI/Abdominal: Normal Bowel Sounds Back Exam: Normal Inspection, Full Range of Motion Extremities: Normal Inspection, Normal Range of Motion Neurological: Alert, Oriented, CN II-XII Intact, Normal Cognition, Normal Gait, Normal Reflexes, No Motor/Sensory Deficits Psychiatric: Normal Affect Skin Exam: Warm, Dry, Intact Course - Orders/Labs/Meds Meds: Medications Discontinued Medications Generic Name Dose Route Start Last Admin Trade Name Leny PRN Reason Stop Dose Admin Acetaminophen 650 mg 10/09/19 19:27 10/09/19 19:31 Tylenol PO 10/09/19 19:28 650 mg NOW ONE Administration Departure - Departure Time of Disposition: 19:27 Condition: Good - Discharge Information *PRESCRIPTION DRUG MONITORING PROGRAM REVIEWED*: No *COPY OF PRESCRIPTION DRUG MONITORING REPORT IN PATIENT [place]: No Sepsis Event Note - Focused Exam Date Exam was Performed: 10/09/19 Time Exam was Performed: 23:48
[2019-10-09 17:53] VITALS: BP 148/75; PULSE 82
[2019-10-09 18:22] LABS: ANION GAP 15.6 mEq/L (7-13)
[2019-10-09] MEDS ORDERED: Acetaminophen 325 MG Tab PO ONE (19:27)
== END 2019-10-09 19:39 | disposition home or self-care (01) ==
LOC: DL.ED 16:57
DX: J10.1 Influenza due to other identified influenza virus with other respiratory manifestations (principal); F41.9 Anxiety disorder, unspecified; I12.9 Hypertensive chronic kidney disease with stage 1 through stage 4 chronic kidney disease, or unspecified chronic kidney disease; N18.9 Chronic kidney disease, unspecified; Z79.01 Long term (current) use of anticoagulants; Z79.899 Other long term (current) drug therapy
CPT/HCPCS: 36415; 71046; 80053; 83605; 85025; 87081; 87430; 87804; 99282; 99285; A9270; U0002

== ENCOUNTER 2020-01-19 19:58 | Emergency (ER) | payer MEDICARE, MEDICAID, OTHER ==
--- NOTE | 2020-01-19 20:22 | EDM.PDOC ---
ED HPI GENERAL MEDICAL PROBLEM - General Chief Complaint: Neuro Symptoms/Deficits Stated Complaint: [facility] Time Seen by Provider: 01/19/20 20:10 Source of Information: Reports: Patient History Limitations: Reports: No Limitations - History of Present Illness INITIAL COMMENTS - FREE TEXT/NARRATIVE: ED via [facility] with altered mental status last known well 1829. found by family, lethargic and confused, sppech seemed slurred on arrival, does not follow command, , had been last seen in area of bedroom near medications. Patient responds to pain - Related Data Allergies Allergy/AdvReac Type Severity Reaction Status Date / Time No Known Allergies Allergy Verified 01/19/20 20:07 Home Meds: Home Meds atenoloL [Atenolol] 50 mg PO DAILY 07/09/15 [History] Finasteride 5 mg PO DAILY 12/28/18 [History] Tamsulosin [Flomax] 0.4 mg PO BID 12/28/18 [History] Apixaban [Eliquis] 5 mg PO BID 05/29/19 [History] Albuterol/Ipratropium [DuoNeb 3.0-0.5 MG/3 ML] 3 ml .XX QID PRN #3 neb 07/18/19 [Rx] amLODIPine [Norvasc] 5 mg PO DAILY #90 tablet 07/18/19 [Rx] Clopidogrel Bisulfate [Clopidogrel] 75 mg PO DAILY 01/19/20 [History] DULoxetine [Cymbalta] 40 mg PO DAILY 01/19/20 [History] diphenhydrAMINE HCL [Benadryl Allergy] 25 mg PO Q6H PRN 01/19/20 [History] hydrALAZINE [Apresoline] 50 mg PO QID 01/19/20 [History] Past Medical History HEENT History: Reports: Impaired Vision Other HEENT History: Wears glasses. Cardiovascular History: Reports: Aneurysm, Bypass, Hypertension, Stents Respiratory History: Reports: None Gastrointestinal History: Reports: Pancreatitis Genitourinary History: Reports: Prostate Disorder, Other (See Below) Other Genitourinary History: chronic kidney disease. 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 Dermatologic History: Reports: Other (See Below) Other Dermatologic History: Scarring to RLE - Infectious Disease History Infectious Disease History: Reports: Other (See Below) Other Infectious Disease History: Reports hepatitis as a child - Past Surgical History Cardiovascular Surgical History: Reports: AAA Repair, Vascular Surgery GI Surgical History: Reports: None Male Surgical History: Reports: None Social & Family History - Family History Family Medical History: Noncontributory - Caffeine Use Caffeine Use: Reports: Coffee - Living Situation & Occupation Living situation: Reports: , with Spouse Occupation: Retired ED ROS GENERAL - Review of Systems Review Of Systems: Comprehensive ROS is negative, except as noted in HPI. ED EXAM, NEURO - Physical Exam Exam: See Below Exam Limited By: Altered Mental Status General Appearance: Obtunded Eye Exam: Bilateral Eye: EOMI Ears: Normal External Exam Throat/Mouth: Normal Inspection Head Exam: Atraumatic, Normocephalic Neck: Normal Inspection Respiratory/Chest: No Respiratory Distress, Lungs Clear, Normal Breath Sounds Cardiovascular: Normal Peripheral Pulses, Regular Rate, Rhythm, Other (rare PVS) GI/Abdominal: Normal Bowel Sounds, Soft Neurological: Withdraws to Pain. No: Tremor Extremities: Pedal Edema Skin Exam: Warm, Dry, Intact, Normal Color Course - Vital Signs Last Recorded V/S: Last Vital Signs Temp 97.1 F 01/19/20 20:09 Pulse 56 L 01/19/20 20:25 Resp 15 01/19/20 20:09 BP 115/69 01/19/20 20:25 Pulse Ox 97 01/19/20 20:25 - Orders/Labs/Meds Orders: Active Orders 24 hr Category Date Time Status Blood Glucose Check, Bedside [RC] ONETIME Care 01/19/20 20:30 Active EKG 12 Lead [EKG Documentation Completion] [RC] URGENT Care 01/19/20 20:12 Active Labs: Laboratory Tests 01/19/20 01/19/20 01/19/20 Range/Units 20:04 20:05 20:05 WBC 6.7 (5.0-10.0) 10^3/uL RBC 3.29 L (4.6-6.2) 10^6/uL Hgb 9.7 L (14.0-18.0) g/dL Hct 30.4 L (40.0-54.0) % MCV 92.4 (80-100) fL MCH 29.5 (27.0-34.0) pg MCHC 31.9 L (33.0-35.0) g/dL Plt Count 127 L (150-450) 10^3/uL Neut % (Auto) 61.4 (42.2-75.2) % Lymph % (Auto) 22.4 (20.5-50.1) % [place] % (Auto) 11.9 H (2-8) % Eos % (Auto) 3.8 H (1.0-3.0) % Baso % (Auto) 0.5 (0.0-1.0) % PT 10.4 (9.0-12.0) SEC INR 1.1 (0.9-1.2) Sodium (136-145) mmol/L Potassium (3.5-5.1) mmol/L Chloride (98-107) mmol/L Carbon Dioxide (21-32) mmol/L Anion Gap (7-13) mEq/L BUN (7-18) mg/dL Creatinine (0.70-1.30) mg/dL Est Cr Clr Drug Dosing mL/min Estimated GFR (MDRD) BUN/Creatinine Ratio (No establ ref range) Glucose (74-99) mg/dL POC Glucose 91 (83-110) mg/dl Lactic Acid (0.4-2.0) mmol/L Calcium (8.5-10.1) mg/dL Total Bilirubin (0.2-1.0) mg/dL AST (15-37) U/L ALT (16-63) U/L Alkaline Phosphatase (46-116) U/L Troponin I (0.000-0.056) ng/mL C-Reactive Protein (0.0-0.9) mg/dL B-Natriuretic Peptide (0-100) pg/ml Total Protein (6.4-8.2) g/dL Albumin (3.4-5.0) g/dL Globulin Albumin/Globulin Ratio Ethyl Alcohol (0) mg/dL COVID-19 (NEY) (NEGATIVE) 01/19/20 01/19/20 01/19/20 Range/Units 20:05 20:05 20:05 WBC (5.0-10.0) 10^3/uL RBC (4.6-6.2) 10^6/uL Hgb (14.0-18.0) g/dL Hct (40.0-54.0) % MCV (80-100) fL MCH (27.0-34.0) pg MCHC (33.0-35.0) g/dL Plt Count (150-450) 10^3/uL Neut % (Auto) (42.2-75.2) % Lymph % (Auto) (20.5-50.1) % [place] % (Auto) (2-8) % Eos % (Auto) (1.0-3.0) % Baso % (Auto) (0.0-1.0) % PT (9.0-12.0) SEC INR (0.9-1.2) Sodium 131 L (136-145) mmol/L Potassium 4.8 (3.5-5.1) mmol/L Chloride 98 (98-107) mmol/L Carbon Dioxide 21 (21-32) mmol/L Anion Gap 16.8 H (7-13) mEq/L BUN 30 H (7-18) mg/dL Creatinine 2.62 H (0.70-1.30) mg/dL Est Cr Clr Drug Dosing 25.50 mL/min Estimated GFR (MDRD) 24 BUN/Creatinine Ratio 11.5 (No establ ref range) Glucose 92 (74-99) mg/dL POC Glucose (83-110) mg/dl Lactic Acid 1.2 (0.4-2.0) mmol/L Calcium 7.3 L (8.5-10.1) mg/dL Total Bilirubin 0.7 (0.2-1.0) mg/dL AST 18 (15-37) U/L ALT 15 L (16-63) U/L Alkaline Phosphatase 89 (46-116) U/L Troponin I < 0.017 (0.000-0.056) ng/mL C-Reactive Protein 1.1 H (0.0-0.9) mg/dL B-Natriuretic Peptide 85 (0-100) pg/ml Total Protein 6.5 (6.4-8.2) g/dL Albumin 3.1 L (3.4-5.0) g/dL Globulin 3.4 Albumin/Globulin Ratio 0.91 Ethyl Alcohol < 3 (0) mg/dL COVID-19 (NEY) (NEGATIVE) 01/19/20 Range/Units 20:35 WBC (5.0-10.0) 10^3/uL RBC (4.6-6.2) 10^6/uL Hgb (14.0-18.0) g/dL Hct (40.0-54.0) % MCV (80-100) fL MCH (27.0-34.0) pg MCHC (33.0-35.0) g/dL Plt Count (150-450) 10^3/uL Neut % (Auto) (42.2-75.2) % Lymph % (Auto) (20.5-50.1) % [place] % (Auto) (2-8) % Eos % (Auto) (1.0-3.0) % Baso % (Auto) (0.0-1.0) % PT (9.0-12.0) SEC INR (0.9-1.2) Sodium (136-145) mmol/L Potassium (3.5-5.1) mmol/L Chloride (98-107) mmol/L Carbon Dioxide (21-32) mmol/L Anion Gap (7-13) mEq/L BUN (7-18) mg/dL Creatinine (0.70-1.30) mg/dL Est Cr Clr Drug Dosing mL/min Estimated GFR (MDRD) BUN/Creatinine Ratio (No establ ref range) Glucose (74-99) mg/dL POC Glucose (83-110) mg/dl Lactic Acid (0.4-2.0) mmol/L Calcium (8.5-10.1) mg/dL Total Bilirubin (0.2-1.0) mg/dL AST (15-37) U/L ALT (16-63) U/L Alkaline Phosphatase (46-116) U/L Troponin I (0.000-0.056) ng/mL C-Reactive Protein (0.0-0.9) mg/dL B-Natriuretic Peptide (0-100) pg/ml Total Protein (6.4-8.2) g/dL Albumin (3.4-5.0) g/dL Globulin Albumin/Globulin Ratio Ethyl Alcohol (0) mg/dL COVID-19 (NEY) Negative (NEGATIVE) - Re-Assessments/Exams Free Text/Narrative Re-Assessment/Exam: JOHN [facility] accepting patient in tx further evaluation altered mental status, Tx Via [facility]. . Departure - Departure Time of Disposition: 21:10 Disposition: DC/Tfer to Acute Hospital 02 Condition: Undetermined Clinical Impression: Altered mental status, unspecified Qualifiers: Altered mental status type: stupor Qualified Code(s): R40.1 - Stupor - Discharge Information *PRESCRIPTION DRUG MONITORING PROGRAM REVIEWED*: No *COPY OF PRESCRIPTION DRUG MONITORING REPORT IN PATIENT [place]: No Referrals: PCP,None [Primary Care Provider] - Forms: ED Department Discharge Sepsis Event Note (ED) - Focused Exam Vital Signs: Vital Signs Temp Pulse Resp BP Pulse Ox 01/19/20 20:25 56 L 115/69 97 01/19/20 20:09 97.1 F 63 15 98/59 L 96 - My Orders Last 24 Hours: My Active Orders 01/19/20 20:12 EKG 12 Lead [EKG Documentation Completion] [RC] URGENT 01/19/20 20:30 Blood Glucose Check, Bedside [RC] ONETIME - Assessment/Plan Last 24 Hours: My Active Orders 01/19/20 20:12 EKG 12 Lead [EKG Documentation Completion] [RC] URGENT 01/19/20 20:30 Blood Glucose Check, Bedside [RC] ONETIME
--- NOTE | 2020-01-19 20:23 | CT ---
PROCEDURE INFORMATION: Exam: CT Head Without Contrast Exam date and time: 01/19/2020 8:15 PM Age: 79 years old Clinical indication: Other: Altered mentation; Additional info: Slurred speech, weakness TECHNIQUE: Imaging protocol: Computed tomography of the head without contrast. Radiation optimization: All CT scans at this facility use at least one of these dose optimization techniques: automated exposure control; mA and/or kV adjustment per patient size (includes targeted exams where dose is matched to clinical indication); or iterative reconstruction. Other technique: STROKE PROTOCOL was implemented. COMPARISON: CT Head wo Cont 04/05/2017 12:40 PM FINDINGS: Brain: Age-related atrophy and chronic white matter ischemic changes, with no evidence of an acute intracranial abnormality. No hemorrhage, mass effect or midline shift. 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 Ventricles: Normal. No ventriculomegaly. Bones/joints: No acute fracture. Sinuses: Visualized sinuses are unremarkable. No fluid levels. Mastoid air cells: Visualized mastoid air cells are well aerated. Soft tissues: No acute changes IMPRESSION: 1. Age-related atrophy and chronic white matter ischemic changes, with no evidence of an acute intracranial abnormality. 2. No hemorrhage, mass effect or midline shift. ASSESSMENT: ASPECTS ([place] Stroke Program Early CT Score) is 10.
[2020-01-19 20:26] VITALS: BP 115/69; PULSE 56
--- NOTE | 2020-01-19 20:45 | CR ---
PROCEDURE INFORMATION: Exam: XR Chest, 1 View Exam date and time: 01/19/2020 8:25 PM Age: 79 years old Clinical indication: Other: Altered mentation TECHNIQUE: Imaging protocol: XR of the chest Views: 1 view. COMPARISON: CR Chest 2V 10/09/2019 5:40 PM FINDINGS: Lungs: Nonspecific bibasilar consolidation is present, consistent with atelectasis, edema, or pneumonia. Pleural space: Left pleural effusion. Heart/Mediastinum: The heart demonstrates moderate diffuse enlargement. Vasculature: Tortuosity of the thoracic aorta present. Bones/joints: Right shoulder arthroplasty. IMPRESSION: 1. The heart demonstrates moderate diffuse enlargement. 2. Nonspecific bibasilar consolidation is present, consistent with atelectasis, edema, or pneumonia. 3. Left pleural effusion.
[2020-01-19 20:47] LABS: ANION GAP 16.8 mEq/L (7-13); CHLORIDE,CL 98 mmol/L (98-107); SODIUM,NA 131 mmol/L (136-145)
== END 2020-01-19 21:09 ==
LOC: DL.ED 19:58
DX: R40.1 Stupor (principal); I12.9 Hypertensive chronic kidney disease with stage 1 through stage 4 chronic kidney disease, or unspecified chronic kidney disease; N18.9 Chronic kidney disease, unspecified; F41.9 Anxiety disorder, unspecified; Z95.1 Presence of aortocoronary bypass graft; Z79.02 Long term (current) use of antithrombotics/antiplatelets; Z79.01 Long term (current) use of anticoagulants; Z79.899 Other long term (current) drug therapy; Z20.828 Contact with and (suspected) exposure to other viral communicable diseases
CPT/HCPCS: 36415; 70450; 71045; 80053; 80307; 82962; 83605; 83880; 84484; 85025; 85610; 86140; 93005; 99283; 99285; U0002

== ENCOUNTER 2020-04-26 09:48 | Inpatient (IN) | payer MEDICARE, MEDICAID ==
--- NOTE | 2020-04-26 09:57 | EDM.PDOC ---
<Thalia Mendez - Last Filed: 04/26/20 10:00> ED HPI GENERAL MEDICAL PROBLEM - General Chief Complaint: Lower Extremity Injury/Pain Stated Complaint: [facility] Time Seen by Provider: 04/26/20 09:48 Source of Information: Reports: Patient, EMS, EMS Notes Reviewed, RN, RN Notes Reviewed - History of Present Illness INITIAL COMMENTS - FREE TEXT/NARRATIVE: pt to ED per [facility] with c/o weakness/legpain. pt states his is hospitalized here @ this time and is COVID +. pt states he began not feeling well "this week." states his lef has been red and painful for "months." states hes been to the clinic and nothing has been done. denies hx of DM. admits to fever/chills. denies n/v, SOB or CP. hx of hip replacements cancer, HTN, reports diarrhea this am. - Related Data Allergies Allergy/AdvReac Type Severity Reaction Status Date / Time No Known Allergies Allergy Verified 01/19/20 20:07 Home Meds: Home Meds atenoloL [Atenolol] 50 mg PO DAILY 07/09/15 [History] Finasteride 5 mg PO DAILY 12/28/18 [History] Tamsulosin [Flomax] 0.4 mg PO BID 12/28/18 [History] Apixaban [Eliquis] 5 mg PO BID 05/29/19 [History] Albuterol/Ipratropium [DuoNeb 3.0-0.5 MG/3 ML] 3 ml .XX QID PRN #3 neb 07/18/19 [Rx] amLODIPine [Norvasc] 5 mg PO DAILY #90 tablet 07/18/19 [Rx] Clopidogrel Bisulfate [Clopidogrel] 75 mg PO DAILY 01/19/20 [History] DULoxetine [Cymbalta] 40 mg PO DAILY 01/19/20 [History] diphenhydrAMINE HCL [Benadryl Allergy] 25 mg PO Q6H PRN 01/19/20 [History] hydrALAZINE [Apresoline] 50 mg PO QID 01/19/20 [History] Past Medical History HEENT History: Reports: Impaired Vision Other HEENT History: Wears glasses. Cardiovascular History: Reports: Aneurysm, Bypass, Hypertension, Stents Respiratory History: Reports: None Gastrointestinal History: Reports: Pancreatitis Genitourinary History: Reports: Prostate Disorder, Other (See Below) Other Genitourinary History: chronic kidney disease. 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 Dermatologic History: Reports: Other (See Below) Other Dermatologic History: Scarring to RLE - Infectious Disease History Infectious Disease History: Reports: Other (See Below) Other Infectious Disease History: Reports hepatitis as a child - Past Surgical History Cardiovascular Surgical History: Reports: AAA Repair, Vascular Surgery GI Surgical History: Reports: None Male Surgical History: Reports: None Social & Family History - Family History Family Medical History: No Pertinent Family History - Caffeine Use Caffeine Use: Reports: Coffee - Living Situation & Occupation Living situation: Reports: , with Spouse Occupation: Retired Review of Systems - Review of Systems Review Of Systems: Comprehensive ROS is negative, except as noted in HPI. ED EXAM, GENERAL - Physical Exam Exam: See Below Exam Limited By: No Limitations General Appearance: Alert, WD/WN, No Apparent Distress Eye Exam: Bilateral Eye: EOMI, Normal Inspection Ears: Normal External Exam, Hearing Grossly Normal Nose: Normal Inspection, Normal Mucosa, No Blood Throat/Mouth: Normal Inspection, Normal Lips, Normal Teeth, Normal Gums, Normal Oropharynx, Normal Voice, No Airway Compromise Head: Atraumatic, Normocephalic Neck: Normal Inspection, Supple, Non-Tender, Full Range of Motion Respiratory/Chest: No Respiratory Distress, Decreased Breath Sounds Cardiovascular: Normal Peripheral Pulses, Regular Rate, Rhythm, No Edema, No Gallop, No JVD, No Murmur, No Rub GI/Abdominal: Normal Bowel Sounds, Soft, Non-Tender, No Organomegaly, No Distention, No Abnormal Bruit, No Mass (Male) Exam: Deferred Rectal (Males) Exam: Deferred Back Exam: Normal Inspection, Full Range of Motion, NT Extremities: Increased Warmth, Redness, Other Neurological: Alert, Oriented, CN II-XII Intact, Normal Cognition, Normal Gait Psychiatric: Normal Affect, Normal Mood Skin Exam: Erythema, Increased Warmth (see skin exam), Other (legs red, swollen bilateralltL>R, erythema +3 pitting edema, cellulitis L lower leg with erythema up psoterior left thigh.) Departure - Departure Disposition: Admitted As Inpatient 67 Clinical Impression: COVID-19 Cellulitis Qualifiers: Site of cellulitis: extremity Site of cellulitis of extremity: lower extremity Laterality: left Qualified Code(s): L03.116 - Cellulitis of left lower limb - Discharge Information <Veronica Martínez - Last Filed: 04/26/20 14:16> ED HPI GENERAL MEDICAL PROBLEM - History of Present Illness Onset: Gradual Course - Vital Signs Last Recorded V/S: Last Vital Signs Temp 98.6 F 04/26/20 12:11 Pulse 130 H 04/26/20 12:11 Resp 16 04/26/20 12:11 BP 73/55 L 04/26/20 12:11 Pulse Ox 98 04/26/20 12:11 - Orders/Labs/Meds Orders: Active Orders 24 hr Category Date Time Status CULTURE BLOOD [BC] Routine Lab 04/26/20 09:51 Received CULTURE BLOOD [BC] Stat Lab 04/26/20 09:45 Results Blood Culture x2 Reflex Set [OM.PC] Stat Oth 04/26/20 09:32 Ordered Medication Orders Albuterol (Proventil Hfa) 0 gm INH Q4HR PRN PRN Reason: Wheezing Apixaban (Eliquis) 5 mg PO BID [facility] Clopidogrel Bisulfate (Plavix) 75 mg PO DAILY [facility] Finasteride (Proscar) 5 mg PO DAILY [facility] Ceftriaxone Sodium 1 gm/ (Sodium Chloride) 50 mls @ 100 mls/hr IV Q24H [facility] Last Admin: 04/26/20 14:07 Dose: Not Given Documented by: FABILAU Sodium Chloride (Normal Saline) 1,000 mls @ 100 mls/hr IV ASDIRECTED [facility] Non-Formulary Medication (Duloxetine [Cymbalta]) 40 mg PO DAILY [facility] Tamsulosin HCl (Flomax) 0.4 mg PO BID [facility] Vancomycin HCl (Pharmacy To Dose - Vancomycin) 1 dose .XX ASDIRECTED [facility] Labs: Laboratory Tests 04/26/20 04/26/20 04/26/20 Range/Units 09:45 09:45 09:45 WBC 8.5 (5.0-10.0) 10^3/uL RBC 4.00 L (4.6-6.2) 10^6/uL Hgb 12.1 L D (14.0-18.0) g/dL Hct 36.7 L (40.0-54.0) % MCV 91.8 (80-100) fL MCH 30.3 (27.0-34.0) pg MCHC 33.0 (33.0-35.0) g/dL Plt Count 96 L (150-450) 10^3/uL Neut % (Auto) 90.5 H (42.2-75.2) % Lymph % (Auto) 5.5 L (20.5-50.1) % [place] % (Auto) 3.8 (2-8) % Eos % (Auto) 0.1 L (1.0-3.0) % Baso % (Auto) 0.1 (0.0-1.0) % Add Manual Diff Yes Neutrophils % (Manual) 77 H (42-75) % Band Neutrophils % 12 % Lymphocytes % (Manual) 9 L (20-50) % Monocytes % (Manual) 2 (2-8) % Sodium 131 L (136-145) mmol/L Potassium 4.3 (3.5-5.1) mmol/L Chloride 95 L (98-107) mmol/L Carbon Dioxide 22 (21-32) mmol/L Anion Gap 18.3 H (7-13) mEq/L BUN 46 H (7-18) mg/dL Creatinine 3.01 H (0.70-1.30) mg/dL Est Cr Clr Drug Dosing TNP Estimated GFR (MDRD) 20 BUN/Creatinine Ratio 15.3 (No establ ref range) Glucose 106 H (74-99) mg/dL Lactic Acid 3.0 H* (0.4-2.0) mmol/L Calcium 8.0 L (8.5-10.1) mg/dL Total Bilirubin 1.1 H (0.2-1.0) mg/dL AST 50 H (15-37) U/L ALT 22 (16-63) U/L Alkaline Phosphatase 81 (46-116) U/L Lactate Dehydrogenase 339 H (85-227) U/L C-Reactive Protein 40.7 H (0.0-0.9) mg/dL Total Protein 7.7 (6.4-8.2) g/dL Albumin 2.9 L (3.4-5.0) g/dL Globulin 4.8 Albumin/Globulin Ratio 0.60 SARS CoV-2 RNA Rapid NEY (NEGATIVE) 04/26/20 Range/Units 09:53 WBC (5.0-10.0) 10^3/uL RBC (4.6-6.2) 10^6/uL Hgb (14.0-18.0) g/dL Hct (40.0-54.0) % MCV (80-100) fL MCH (27.0-34.0) pg MCHC (33.0-35.0) g/dL Plt Count (150-450) 10^3/uL Neut % (Auto) (42.2-75.2) % Lymph % (Auto) (20.5-50.1) % [place] % (Auto) (2-8) % Eos % (Auto) (1.0-3.0) % Baso % (Auto) (0.0-1.0) % Add Manual Diff Neutrophils % (Manual) (42-75) % Band Neutrophils % % Lymphocytes % (Manual) (20-50) % Monocytes % (Manual) (2-8) % Sodium (136-145) mmol/L Potassium (3.5-5.1) mmol/L Chloride (98-107) mmol/L Carbon Dioxide (21-32) mmol/L Anion Gap (7-13) mEq/L BUN (7-18) mg/dL Creatinine (0.70-1.30) mg/dL Est Cr Clr Drug Dosing Estimated GFR (MDRD) BUN/Creatinine Ratio (No establ ref range) Glucose (74-99) mg/dL Lactic Acid (0.4-2.0) mmol/L Calcium (8.5-10.1) mg/dL Total Bilirubin (0.2-1.0) mg/dL AST (15-37) U/L ALT (16-63) U/L Alkaline Phosphatase (46-116) U/L Lactate Dehydrogenase (85-227) U/L C-Reactive Protein (0.0-0.9) mg/dL Total Protein (6.4-8.2) g/dL Albumin (3.4-5.0) g/dL Globulin Albumin/Globulin Ratio SARS CoV-2 RNA Rapid NEY Positive H (NEGATIVE) Meds: Medications Generic Name Dose Route Start Last Admin Trade Name Freq PRN Reason Stop Dose Admin Albuterol 0 gm 04/26/20 13:41 Proventil Hfa INH Q4HR PRN Wheezing Apixaban 5 mg 04/26/20 21:00 Eliquis PO BID [facility] Clopidogrel Bisulfate 75 mg 04/27/20 09:00 Plavix PO DAILY [facility] Finasteride 5 mg 04/27/20 09:00 Proscar PO DAILY [facility] Ceftriaxone Sodium 1 gm/ 50 mls @ 100 mls/hr 04/26/20 14:00 04/26/20 14:07 Sodium Chloride IV Not Given Q24H [facility] Sodium Chloride 1,000 mls @ 100 mls/hr 04/26/20 13:15 Normal Saline IV ASDIRECTED [facility] Non-Formulary Medication 40 mg 04/27/20 09:00 Duloxetine [Cymbalta] PO DAILY [facility] Tamsulosin HCl 0.4 mg 04/26/20 21:00 Flomax PO BID [facility] Vancomycin HCl 1 dose 04/26/20 13:15 Pharmacy To Dose - Vancomycin .XX ASDIRECTED [facility] Discontinued Medications Generic Name Dose Route Start Last Admin Trade Name Freq PRN Reason Stop Dose Admin Hydrocodone Bitart/Acetaminophen 1 tab 04/26/20 11:20 04/26/20 11:26 Lannon 325-10 Mg PO 04/26/20 11:21 1 tab ONETIME ONE Administration Ceftriaxone Sodium 1 gm/ 50 mls @ 100 mls/hr 04/26/20 11:08 04/26/20 11:18 Sodium Chloride IV 04/26/20 11:37 100 mls/hr ONETIME ONE Administration Sodium Chloride 1,000 mls @ 999 mls/hr 04/26/20 13:09 Normal Saline IV 04/26/20 14:09 .BOLUS ONE - Re-Assessments/Exams Free Text/Narrative Re-Assessment/Exam: 04/26/20 11:29 Patient case discussed with Dr. Alba who agreed to accept the patient for inpatient admission. Departure - Departure Time of Disposition: 12:00 Condition: Fair - Discharge Information *PRESCRIPTION DRUG MONITORING PROGRAM REVIEWED*: No *COPY OF PRESCRIPTION DRUG MONITORING REPORT IN PATIENT [place]: No - My Orders Last 24 Hours: My Active Orders 04/26/20 09:51 CULTURE BLOOD [BC] Routine - Assessment/Plan Last 24 Hours: My Active Orders 04/26/20 09:51 CULTURE BLOOD [BC] Routine
[2020-04-26] MEDS ORDERED: fentaNYL 100 MCG/2 ML SDV IVPUSH ONE (10:21)
[2020-04-26 10:32] LABS: ANION GAP 18.3 mEq/L (7-13); CHLORIDE,CL 95 mmol/L (98-107); SODIUM,NA 131 mmol/L (136-145)
[2020-04-26] MEDS ORDERED: cefTRIAXone 1 GM in Sodium Chloride 0.9% 50 ML IV ONE (11:08)
[2020-04-26] MEDS ORDERED: Acetaminophen/HYDROcodone 325-10 MG Tab PO ONE (11:20)
--- NOTE | 2020-04-26 12:02 | CR ---
EXAMINATION: Chest 1V Frontal SEX: Male AGE: 79 years CLINICAL HISTORY: 79-year-old male complaining of chest pain. INTERPRETATION: Negative. 1. Normal cardiac silhouette (size and configuration) and no new pulmonary vascular congestion, cephalization of flow, alveolar edema or dependent effusion compared to and February 01, 2020 exam. 2. No new lung mass or hilar lymphadenopathy. 3. No new focal lobar infiltrate or atelectasis. Specifically, no peripheral "groundglass" lung densities. 4. No pneumothorax or pneumomediastinum (previous surgery distal left clavicle/acromion process)
[2020-04-26] MEDS ORDERED: Sodium Chloride 0.9% 1,000 ML IV ONE (13:09)
--- NOTE | 2020-04-26 13:37 | PCM.HP ---
H&P History of Present Illness - General Date of Service: 04/26/20 Admit Problem/Dx: Admission Diagnosis/Problem Admission Diagnosis/Problem Cellulitis Source of Information: Patient - History of Present Illness Initial Comments - Free Text/Narative: 79-year-old gentleman with a history of hypertension, chronic kidney disease stage III, anemia of chronic kidney disease, peripheral artery disease, COPD The patient presented with the lower extremity swelling. Has redness in both legs but more pronounced in the left lower extremity. This has been present for 1 week according to the patient. Associated with tenderness. Has chills but did not check temperature He has exposure to Covid positive . No complains of shortness of breath, cough. - Related Data Allergies/Adverse Reactions: Allergies Allergy/AdvReac Type Severity Reaction Status Date / Time No Known Allergies Allergy Verified 01/19/20 20:07 Home Medications: Home Meds atenoloL [Atenolol] 50 mg PO DAILY 07/09/15 [History] Finasteride 5 mg PO DAILY 12/28/18 [History] Tamsulosin [Flomax] 0.4 mg PO BID 12/28/18 [History] Apixaban [Eliquis] 5 mg PO BID 05/29/19 [History] Albuterol/Ipratropium [DuoNeb 3.0-0.5 MG/3 ML] 3 ml .XX QID PRN #3 neb 07/18/19 [Rx] amLODIPine [Norvasc] 5 mg PO DAILY #90 tablet 07/18/19 [Rx] Clopidogrel Bisulfate [Clopidogrel] 75 mg PO DAILY 01/19/20 [History] DULoxetine [Cymbalta] 40 mg PO DAILY 01/19/20 [History] diphenhydrAMINE HCL [Benadryl Allergy] 25 mg PO Q6H PRN 01/19/20 [History] hydrALAZINE [Apresoline] 50 mg PO QID 01/19/20 [History] Past Medical History HEENT History: Reports: Impaired Vision Other HEENT History: Wears glasses. Cardiovascular History: Reports: Aneurysm, Bypass, Hypertension, Stents Respiratory History: Reports: None Gastrointestinal History: Reports: Pancreatitis Genitourinary History: Reports: Prostate Disorder, Other (See Below) Other Genitourinary History: chronic kidney disease. 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 Dermatologic History: Reports: Other (See Below) Other Dermatologic History: Scarring to RLE - Infectious Disease History Infectious Disease History: Reports: Other (See Below) Other Infectious Disease History: Reports hepatitis as a child - Past Surgical History Cardiovascular Surgical History: Reports: AAA Repair, Vascular Surgery GI Surgical History: Reports: None Male Surgical History: Reports: None Social & Family History - Family History Family Medical History: No Pertinent Family History - Caffeine Use Caffeine Use: Reports: Coffee - Living Situation & Occupation Living situation: Reports: , with Spouse Occupation: Retired H&P Review of Systems - Review of Systems: Review Of Systems: See Below General: Reports: Chills, Malaise. Denies: Fever Pulmonary: Denies: Shortness of Breath, Cough Cardiovascular: Denies: Chest Pain Gastrointestinal: Denies: Abdominal Pain Genitourinary: Denies: Dysuria Skin: Reports: Other (bilateral lower extremity swelling and redness of the left leg) Neurological: Denies: Confusion Exam - Exam Exam: See Below - Vital Signs Vital Signs: Last Vital Signs Temp 98.6 F 04/26/20 12:11 Pulse 130 H 04/26/20 12:11 Resp 16 04/26/20 12:11 BP 73/55 L 04/26/20 12:11 Pulse Ox 98 04/26/20 12:11 - Exam General: Alert, Oriented Neck: Supple Lungs: Clear to Auscultation, Normal Respiratory Effort Cardiovascular: Regular Rate, Regular Rhythm, Tachycardia GI/Abdominal Exam: Normal Bowel Sounds, Soft, Non-Tender Extremities: Pedal Edema (3+ b/l ) Skin: Warm, Other (bilateral chronic venous stasis dark discoloration, erythema of r. leg, extensive left leg erythema upto thigh,) - Patient Data Lab Results Last 24 hrs: Laboratory Results - last 24 hr 04/26/20 04/26/20 04/26/20 Range/Units 09:45 09:45 09:45 WBC 8.5 (5.0-10.0) 10^3/uL RBC 4.00 L (4.6-6.2) 10^6/uL Hgb 12.1 L D (14.0-18.0) g/dL Hct 36.7 L (40.0-54.0) % MCV 91.8 (80-100) fL MCH 30.3 (27.0-34.0) pg MCHC 33.0 (33.0-35.0) g/dL Plt Count 96 L (150-450) 10^3/uL Neut % (Auto) 90.5 H (42.2-75.2) % Lymph % (Auto) 5.5 L (20.5-50.1) % [place] % (Auto) 3.8 (2-8) % Eos % (Auto) 0.1 L (1.0-3.0) % Baso % (Auto) 0.1 (0.0-1.0) % Add Manual Diff Yes Neutrophils % (Manual) 77 H (42-75) % Band Neutrophils % 12 % Lymphocytes % (Manual) 9 L (20-50) % Monocytes % (Manual) 2 (2-8) % Sodium 131 L (136-145) mmol/L Potassium 4.3 (3.5-5.1) mmol/L Chloride 95 L (98-107) mmol/L Carbon Dioxide 22 (21-32) mmol/L Anion Gap 18.3 H (7-13) mEq/L BUN 46 H (7-18) mg/dL Creatinine 3.01 H (0.70-1.30) mg/dL Est Cr Clr Drug Dosing TNP Estimated GFR (MDRD) 20 BUN/Creatinine Ratio 15.3 (No establ ref range) Glucose 106 H (74-99) mg/dL Lactic Acid 3.0 H* (0.4-2.0) mmol/L Calcium 8.0 L (8.5-10.1) mg/dL Total Bilirubin 1.1 H (0.2-1.0) mg/dL AST 50 H (15-37) U/L ALT 22 (16-63) U/L Alkaline Phosphatase 81 (46-116) U/L Lactate Dehydrogenase 339 H (85-227) U/L C-Reactive Protein 40.7 H (0.0-0.9) mg/dL Total Protein 7.7 (6.4-8.2) g/dL Albumin 2.9 L (3.4-5.0) g/dL Globulin 4.8 Albumin/Globulin Ratio 0.60 SARS CoV-2 RNA Rapid NEY (NEGATIVE) 04/26/20 Range/Units 09:53 WBC (5.0-10.0) 10^3/uL RBC (4.6-6.2) 10^6/uL Hgb (14.0-18.0) g/dL Hct (40.0-54.0) % MCV (80-100) fL MCH (27.0-34.0) pg MCHC (33.0-35.0) g/dL Plt Count (150-450) 10^3/uL Neut % (Auto) (42.2-75.2) % Lymph % (Auto) (20.5-50.1) % [place]ock[place] % (Auto) (2-8) % Eos % (Auto) (1.0-3.0) % Baso % (Auto) (0.0-1.0) % Add Manual Diff Neutrophils % (Manual) (42-75) % Band Neutrophils % % Lymphocytes % (Manual) (20-50) % Monocytes % (Manual) (2-8) % Sodium (136-145) mmol/L Potassium (3.5-5.1) mmol/L Chloride (98-107) mmol/L Carbon Dioxide (21-32) mmol/L Anion Gap (7-13) mEq/L BUN (7-18) mg/dL Creatinine (0.70-1.30) mg/dL Est Cr Clr Drug Dosing Estimated GFR (MDRD) BUN/Creatinine Ratio (No establ ref range) Glucose (74-99) mg/dL Lactic Acid (0.4-2.0) mmol/L Calcium (8.5-10.1) mg/dL Total Bilirubin (0.2-1.0) mg/dL AST (15-37) U/L ALT (16-63) U/L Alkaline Phosphatase (46-116) U/L Lactate Dehydrogenase (85-227) U/L C-Reactive Protein (0.0-0.9) mg/dL Total Protein (6.4-8.2) g/dL Albumin (3.4-5.0) g/dL Globulin Albumin/Globulin Ratio SARS CoV-2 RNA Rapid NEY Positive H (NEGATIVE) Result Diagrams: 04/26/20 09:45 11/13/20 09:45 Antoni Results Last 24 hrs: Microbiology 04/26/20 09:45 Anaerobic Blood Culture - Final Blood - Arm, Left - Problem List (1) Cellulitis SNOMED Code(s): 839987402 ICD Code: L03.90 - CELLULITIS, UNSPECIFIED Status: Acute Current Visit: Yes (2) Sepsis SNOMED Code(s): 47625967 ICD Code: A41.9 - SEPSIS, UNSPECIFIED ORGANISM Status: Acute Current Visit: Yes (3) Hypotension SNOMED Code(s): 43271673 ICD Code: I95.9 - HYPOTENSION, UNSPECIFIED Status: Acute Current Visit: Yes (4) PAD (peripheral artery disease) SNOMED Code(s): 919552381 ICD Code: I73.9 - PERIPHERAL VASCULAR DISEASE, UNSPECIFIED Status: Acute Current Visit: Yes (5) JILLIAN (acute kidney injury) SNOMED Code(s): 08354486, 39655517 ICD Code: N17.9 - ACUTE KIDNEY FAILURE, UNSPECIFIED Status: Acute Priority: High Current Visit: No (6) COVID-19 SNOMED Code(s): 074865223 ICD Code: U07.1 - COVID-19 Status: Acute Current Visit: No Problem List Initiated/Reviewed/Updated: Yes Orders Last 24hrs: Active Orders 24 hr Category Date Time Status Admission Diagnosis [ADT] Stat ADT 04/26/20 11:09 Ordered Patient Status [ADT] Routine ADT 04/26/20 11:09 Active CULTURE BLOOD [BC] Routine Lab 04/26/20 09:51 Received CULTURE BLOOD [BC] Stat Lab 04/26/20 09:45 Results LACTIC ACID [CHEM] Timed Lab 04/26/20 13:45 Ordered LACTIC ACID [CHEM] Timed Lab 04/26/20 17:45 Ordered Apixaban [Eliquis] Med 04/26/20 21:00 Ordered 5 mg PO BID Clopidogrel [Plavix] Med 04/27/20 09:00 Ordered 75 mg PO DAILY DULoxetine [Cymbalta] Med 04/27/20 09:00 Ordered 40 mg PO DAILY Finasteride [Proscar] Med 04/27/20 09:00 Ordered 5 mg PO DAILY Pharmacy to Dose - Vancomycin Med 04/26/20 13:15 Ordered 1 dose .XX ASDIRECTED Sodium Chloride 0.9% [Normal Saline] 1,000 ml Med 04/26/20 13:09 Ordered IV .BOLUS Sodium Chloride 0.9% [Normal Saline] 1,000 ml Med 04/26/20 13:15 Ordered IV ASDIRECTED Tamsulosin [Flomax] Med 04/26/20 21:00 Ordered 0.4 mg PO BID cefTRIAXone [Rocephin] 1 gm Med 04/26/20 13:15 Ordered Sodium Chloride 0.9% [Normal Saline] 50 ml IV Q24H Blood Culture x2 Reflex Set [OM.PC] Stat Oth 04/26/20 09:32 Ordered Medication Orders Apixaban (Eliquis) 5 mg PO BID SUZAN Clopidogrel Bisulfate (Plavix) 75 mg PO DAILY SUZAN Finasteride (Proscar) 5 mg PO DAILY [facility] Ceftriaxone Sodium 1 gm/ (Sodium Chloride) 50 mls @ 100 mls/hr IV Q24H SUZAN Sodium Chloride (Normal Saline) 1,000 mls @ 999 mls/hr IV .BOLUS ONE Stop: 04/26/20 14:09 Sodium Chloride (Normal Saline) 1,000 mls @ 100 mls/hr IV ASDIRECTED [facility] Non-Formulary Medication (Duloxetine [Cymbalta]) 40 mg PO DAILY SUZAN Tamsulosin HCl (Flomax) 0.4 mg PO BID SUZAN Vancomycin HCl (Pharmacy To Dose - Vancomycin) 1 dose .XX ASDIRECTED [facility] Assessment/Plan Comment:: 79-year-old gentleman with a history of hypertension, chronic kidney disease stage III, anemia of chronic kidney disease, peripheral artery disease, COPD The patient presented with the lower extremity swelling. Has redness in both legs but more pronounced in the left lower extremity. This has been present for 1 week according to the patient. Associated with tenderness. Has chills but did not check temperature He has exposure to Covid positive . No complains of shortness of breath, cough. Cellulitis with sepsis Obtain blood culture Start empirical treatment with ceftriaxone, vancomycin Sepsis Elevated lactic acid, hypotension, tachycardia Well follow lactic acid Give IV fluid bolus Covid 19 infection This appears to be asymptomatic The patient has a no chest x-ray changes Well monitor For now hold steroids, plasma Contraindication to Remdesivir would be renal failure Respiratory isolation Hyponatremia Will hydrate the patient Hypotension Likely secondary to sepsis Hold Norvasc, hydralazine, atenolol Acute renal failure With a history of chronic kidney disease stage III Will give IV fluid bolus Hydrate well Follow Electrolytes and renal function Peripheral artery disease Continue Plavix, apixaban Hold atenolol h/o copd no apparent acute exacerbation Use albuterol as needed DVT prophylaxis Continue apixaban
[2020-04-26] MEDS ORDERED: Albuterol 6.7 GM Inhaler INH PRN (13:41)
[2020-04-26] MEDS ORDERED: cefTRIAXone 1 GM in Sodium Chloride 0.9% 50 ML IV SCH (14:00)
[2020-04-26] MEDS: Sodium Chloride 0.9% 1,000 ML IV SCH (15:38)
[2020-04-26] MEDS: Acetaminophen/HYDROcodone 325-10 MG Tab PO PRN (22:39)
[2020-04-26] MEDS: Tamsulosin 0.4 MG Cap.ER PO SCH (22:39)
[2020-04-26] MEDS: Apixaban 5 MG Tab PO SCH (22:40)
[2020-04-27] MEDS: Sodium Chloride 0.9% 1,000 ML IV SCH (02:43)
[2020-04-27] MEDS: Acetaminophen/HYDROcodone 325-10 MG Tab PO PRN ×3 (04:42→19:28)
[2020-04-27] MEDS: Clopidogrel 75 MG Tab PO SCH (09:56)
[2020-04-27] MEDS: Finasteride 5 MG Tab PO SCH (09:56)
[2020-04-27] MEDS: Apixaban 5 MG Tab PO SCH ×2 (09:56→20:21)
[2020-04-27] MEDS: Tamsulosin 0.4 MG Cap.ER PO SCH ×2 (09:56→20:21)
[2020-04-27] MEDS ORDERED: Piperacillin/Tazobactam 3.375 GM in Sodium Chloride 0.9% 100 ML IV SCH (12:45)
[2020-04-27] MEDS: Acetaminophen 325 MG Tab PO PRN (13:01)
--- NOTE | 2020-04-27 14:21 | PCM.PN ---
- General Info Date of Service: 04/27/20 Admission Dx/Problem (Free Text): Admission Diagnosis/Problem Admission Diagnosis/Problem Cellulitis Functional Status: Reports: Pain Controlled, Tolerating Diet, Ambulating, Urinating - Review of Systems General: Reports: Weakness, Malaise, Appetite (good). Denies: Fever HEENT: Denies: Headaches, Sinus Congestion, Visual Changes Pulmonary: Denies: Shortness of Breath, Cough, Sputum, Wheezing Cardiovascular: Denies: Chest Pain, Dyspnea on Exertion, Edema Gastrointestinal: Denies: Abdominal Pain, Nausea, Vomiting Genitourinary: Denies: Dysuria, Burning, Flank Pain Musculoskeletal: Reports: Leg Pain. Denies: Shoulder Pain, Back Pain Skin: Denies: Cyanosis, Jaundice, Bruising, Rash Neurological: Reports: Weakness. Denies: Confusion, Dizziness, Tremors Psychiatric: Denies: Confusion, Anxiety - Patient Data Vitals - Most Recent: Last Vital Signs Temp 37.4 C 04/27/20 03:25 Pulse 91 04/27/20 03:25 Resp 20 04/27/20 03:25 BP 120/74 04/27/20 03:25 Pulse Ox 97 04/27/20 03:25 Weight - Most Recent: 84.096 kg I&O - Last 24 Hours: Intake & Output 04/26/20 04/27/20 04/27/20 22:59 06:59 14:59 Intake Total 1250 1565 Output Total 175 Balance 1250 1390 Lab Results Last 24 Hours: Laboratory Results - last 24 hr 04/26/20 04/26/20 Range/Units 13:50 18:10 Lactic Acid 1.6 1.9 (0.4-2.0) mmol/L Antoni Results Last 24 Hours: Microbiology 04/26/20 09:51 Aerobic Blood Culture - Preliminary Blood - Arm, Right NO GROWTH AFTER 1 DAY Anaerobic Blood Culture - Preliminary NO GROWTH AFTER 1 DAY 04/26/20 09:45 Aerobic Blood Culture - Preliminary Blood - Arm, Left NO GROWTH AFTER 1 DAY Anaerobic Blood Culture - Final Med Orders - Current: Current Medications Acetaminophen (Tylenol) 650 mg PO Q6H PRN PRN Reason: pain (mild) Last Admin: 04/27/20 13:01 Dose: 650 mg Documented by: Hydrocodone Bitart/Acetaminophen (Hudson 325-10 Mg) 1 tab PO Q6H PRN PRN Reason: mod pain Last Admin: 04/27/20 13:01 Dose: 1 tab Documented by: Albuterol (Proventil Hfa) 0 gm INH Q4HR PRN PRN Reason: Wheezing Apixaban (Eliquis) 5 mg PO BID [facility] Last Admin: 04/27/20 09:56 Dose: 5 mg Documented by: Clopidogrel Bisulfate (Plavix) 75 mg PO DAILY [facility] Last Admin: 04/27/20 09:56 Dose: 75 mg Documented by: Finasteride (Proscar) 5 mg PO DAILY [facility] Last Admin: 04/27/20 09:56 Dose: 5 mg Documented by: Vancomycin HCl 1.25 gm/ Sodium (Chloride) 250 mls @ 166.667 mls/hr IV Q48H [facility] Last Infusion: 04/26/20 17:15 Dose: Infused Documented by: Piperacillin Sod/Tazobactam (Sod 2.25 gm/ Sodium Chloride) 50 mls @ 100 mls/hr IV Q6H [facility] Influenza Virus Vaccine (Pharmacy To Dose - Influenza Vaccine) 1 each IM DAILY [facility] Non-Formulary Medication (Duloxetine [Cymbalta]) 40 mg PO DAILY [facility] Tamsulosin HCl (Flomax) 0.4 mg PO BID [facility] Last Admin: 04/27/20 09:56 Dose: 0.4 mg Documented by: Vancomycin HCl (Pharmacy To Dose - Vancomycin) 1 dose .XX ASDIRECTED [facility] Discontinued Medications Hydrocodone Bitart/Acetaminophen (Hudson 325-10 Mg) 1 tab PO ONETIME ONE Stop: 04/26/20 11:21 Last Admin: 04/26/20 11:26 Dose: 1 tab Documented by: Ceftriaxone Sodium 1 gm/ (Sodium Chloride) 50 mls @ 100 mls/hr IV ONETIME ONE Stop: 04/26/20 11:37 Last Admin: 04/26/20 11:18 Dose: 100 mls/hr Documented by: Ceftriaxone Sodium 1 gm/ (Sodium Chloride) 50 mls @ 100 mls/hr IV Q24H [facility] Last Admin: 04/26/20 14:07 Dose: Not Given Documented by: Sodium Chloride (Normal Saline) 1,000 mls @ 999 mls/hr IV .BOLUS ONE Stop: 04/26/20 14:09 Last Infusion: 04/26/20 15:36 Dose: Infused Documented by: Sodium Chloride (Normal Saline) 1,000 mls @ 100 mls/hr IV ASDIRECTED [facility] Last Admin: 04/27/20 02:43 Dose: 100 mls/hr Documented by: Piperacillin Sod/Tazobactam (Sod 3.375 gm/ Sodium Chloride) 100 mls @ 200 mls/hr IV Q6H SUZAN - Exam Quality Assessment: DVT Prophylaxis. No: Supplemental Oxygen, Urine Catheter General: Alert, Oriented, Cooperative, No Acute Distress HEENT: Pupils Equal, Pupils Reactive, EOMI, Mucous Membr. Moist/Ammon Neck: Supple, No JVD, No Thyromegaly Lungs: Clear to Auscultation, Normal Respiratory Effort Cardiovascular: Regular Rate, Regular Rhythm, Murmurs GI/Abdominal Exam: Normal Bowel Sounds, Non-Tender. No: Guarding, Rebound (Male) Exam: Deferred Back Exam: Normal Inspection Extremities: Normal Inspection, Increased Warmth, Pallor Skin: Warm, Dry, Intact Neurological: No New Focal Deficit Psy/Mental Status: Alert, Normal Affect, Normal Mood Sepsis Event Note - Evaluation Sepsis Screening Result: No Definite Risk - Focused Exam Vital Signs: Vital Signs Temp Pulse Resp BP Pulse Ox 04/27/20 03:25 37.4 C 91 20 120/74 97 - Problem List Review Problem List Initiated/Reviewed/Updated: Yes - My Orders Last 24 Hours: My Active Orders 04/27/20 12:42 VANCOMYCIN TROUGH [CHEM] Routine 04/27/20 14:00 Piperacillin/Tazobactam [Zosyn] 2.25 gm Sodium Chloride 0.9% [Normal Saline] 50 ml IV Q6H - Plan Plan:: This is a 79-year-old gentleman with a history of hypertension, chronic kidney disease stage III, anemia of chronic kidney disease, peripheral artery disease, COPD The patient presented with the lower extremity swelling, erythema and tender to touch extremity He has redness in both legs but more pronounced in the left lower extremity. This has been present for 1 week according to the patient. Associated with tenderness. He has exposure to Covid positive . No complains of shortness of breath, cough. Impression and Plan: 1. Cellulitis with sepsis -Follow blood culture ( No growth yet) - Will continue treatment with vancomycin, will stop ceftriaxone and start Zosyn ( no improvement in erythema) 2 , Sepsis Elevated lactic acid, hypotension, tachycardia Well follow lactic acid Has received IV fluid bolus and will not start continuos IV fluids 3. Covid 19 infection This appears to be asymptomatic The patient has a no chest x-ray changes Well continue to monitor -He has not placed on steroids or plasma - Not candidate for Remdesivir because of renal failure Respiratory isolation 3. Hyponatremia: Likely from CKD and Infection and it is improving 4. Hypotension" This is Likely secondary to sepsis - Will Hold Norvasc, hydralazine, atenolol -BP better with Fluid bolus 5. Acute Kidney Injury: With a history of chronic kidney disease stage III -Has received IV fluid bolus - Follow renal function ( labs tomorrow) 6. Peripheral artery disease: Continue Plavix, apixaban 7. h/o copd: this is no apparent sign ofacute exacerbation Use albuterol as needed DVT prophylaxis: Continue apixaban
[2020-04-27] MEDS: Piperacillin/Tazobactam 2.25 GM in Sodium Chloride 0.9% 50 ML IV SCH ×2 (15:11→19:30)
[2020-04-28] MEDS: Acetaminophen/HYDROcodone 325-10 MG Tab PO PRN ×4 (02:10→21:18)
[2020-04-28] MEDS: Piperacillin/Tazobactam 2.25 GM in Sodium Chloride 0.9% 50 ML IV SCH ×4 (02:15→21:16)
[2020-04-28] MEDS: Finasteride 5 MG Tab PO SCH (09:33)
[2020-04-28] MEDS: Tamsulosin 0.4 MG Cap.ER PO SCH ×2 (09:33→21:18)
[2020-04-28] MEDS: Clopidogrel 75 MG Tab PO SCH (09:34)
[2020-04-28] MEDS: Apixaban 5 MG Tab PO SCH ×2 (09:36→21:18)
--- NOTE | 2020-04-28 13:43 | PCM.PN ---
- General Info Date of Service: 04/28/20 Admission Dx/Problem (Free Text): Admission Diagnosis/Problem Admission Diagnosis/Problem Cellulitis Subjective Update: Pt was seen in isolation room , he is not on oxygen, has no nausea or Vomiting, his B/L still warm to touch and tender to touch Functional Status: Reports: Pain Controlled, Tolerating Diet, Urinating - Review of Systems General: Reports: Weakness, Appetite (good). Denies: Fever, Chills HEENT: Denies: Headaches, Sinus Congestion, Sore Throat, Visual Changes Pulmonary: Denies: Shortness of Breath, Cough, Sputum, Wheezing Cardiovascular: Denies: Chest Pain, Edema, Lightheadedness Gastrointestinal: Denies: Abdominal Pain, Difficulty Swallowing, Nausea, Vomiting Genitourinary: Denies: Dysuria, Burning, Flank Pain Musculoskeletal: Reports: Leg Pain (B/L LE). Denies: Neck Pain, Back Pain, Joint Swelling Skin: Denies: Cyanosis, Jaundice, Bruising, Pruritis, Rash Neurological: Denies: Confusion, Numbness, Tremors Psychiatric: Denies: Confusion, Anxiety - Patient Data Vitals - Most Recent: Last Vital Signs Temp 36.8 C 04/28/20 09:40 Pulse 104 H 04/28/20 09:40 Resp 20 04/28/20 09:40 BP 125/80 04/28/20 09:40 Pulse Ox 98 04/28/20 09:40 Weight - Most Recent: 84.096 kg I&O - Last 24 Hours: Intake & Output 04/27/20 04/28/20 04/28/20 22:59 06:59 14:59 Intake Total 290 50 Output Total 300 350 Balance -10 -300 Antoni Results Last 24 Hours: Microbiology 04/26/20 09:51 Aerobic Blood Culture - Preliminary Blood - Arm, Right NO GROWTH AFTER 2 DAYS Anaerobic Blood Culture - Preliminary NO GROWTH AFTER 2 DAYS 04/26/20 09:45 Aerobic Blood Culture - Preliminary Blood - Arm, Left NO GROWTH AFTER 2 DAYS Anaerobic Blood Culture - Final Med Orders - Current: Current Medications Acetaminophen (Tylenol) 650 mg PO Q6H PRN PRN Reason: pain (mild) Last Admin: 04/27/20 13:01 Dose: 650 mg Documented by: Hydrocodone Bitart/Acetaminophen ([place] 325-10 Mg) 1 tab PO Q6H PRN PRN Reason: mod pain Last Admin: 04/28/20 09:33 Dose: 1 tab Documented by: Albuterol (Proventil Hfa) 0 gm INH Q4HR PRN PRN Reason: Wheezing Apixaban (Eliquis) 5 mg PO BID [facility] Last Admin: 04/28/20 09:36 Dose: 5 mg Documented by: Clopidogrel Bisulfate (Plavix) 75 mg PO DAILY [facility] Last Admin: 04/28/20 09:34 Dose: 75 mg Documented by: Finasteride (Proscar) 5 mg PO DAILY [facility] Last Admin: 04/28/20 09:33 Dose: 5 mg Documented by: Vancomycin HCl 1.25 gm/ Sodium (Chloride) 250 mls @ 166.667 mls/hr IV Q48H [facility] Last Infusion: 04/26/20 17:15 Dose: Infused Documented by: Piperacillin Sod/Tazobactam (Sod 2.25 gm/ Sodium Chloride) 50 mls @ 100 mls/hr IV Q6H [facility] Last Admin: 04/28/20 09:35 Dose: 100 mls/hr Documented by: Influenza Virus Vaccine (Pharmacy To Dose - Influenza Vaccine) 1 each IM DAILY [facility] Last Admin: 04/28/20 09:35 Dose: Not Given Documented by: Non-Formulary Medication (Duloxetine [Cymbalta]) 40 mg PO DAILY [facility] Sodium Chloride (Saline Flush) 10 ml FLUSH ASDIRECTED PRN PRN Reason: IV Use Tamsulosin HCl (Flomax) 0.4 mg PO BID [facility] Last Admin: 04/28/20 09:33 Dose: 0.4 mg Documented by: Vancomycin HCl (Pharmacy To Dose - Vancomycin) 1 dose .XX ASDIRECTED [facility] Discontinued Medications Hydrocodone Bitart/Acetaminophen ([place] 325-10 Mg) 1 tab PO ONETIME ONE Stop: 04/26/20 11:21 Last Admin: 04/26/20 11:26 Dose: 1 tab Documented by: Ceftriaxone Sodium 1 gm/ (Sodium Chloride) 50 mls @ 100 mls/hr IV ONETIME ONE Stop: 04/26/20 11:37 Last Admin: 04/26/20 11:18 Dose: 100 mls/hr Documented by: Ceftriaxone Sodium 1 gm/ (Sodium Chloride) 50 mls @ 100 mls/hr IV Q24H [facility] Last Admin: 04/26/20 14:07 Dose: Not Given Documented by: Sodium Chloride (Normal Saline) 1,000 mls @ 999 mls/hr IV .BOLUS ONE Stop: 04/26/20 14:09 Last Infusion: 04/26/20 15:36 Dose: Infused Documented by: Sodium Chloride (Normal Saline) 1,000 mls @ 100 mls/hr IV ASDIRECTED [facility] Last Admin: 04/27/20 02:43 Dose: 100 mls/hr Documented by: Piperacillin Sod/Tazobactam (Sod 3.375 gm/ Sodium Chloride) 100 mls @ 200 mls/hr IV Q6H [facility] Last Admin: 04/27/20 15:15 Dose: Not Given Documented by: - Exam Quality Assessment: DVT Prophylaxis. No: Supplemental Oxygen, Central Line/PICC, Urine Catheter General: Alert, Oriented, Cooperative, No Acute Distress HEENT: Pupils Equal, Pupils Reactive, EOMI, Mucous Membr. Moist/[place] Neck: Supple, No JVD, No Thyromegaly Lungs: Clear to Auscultation, Normal Respiratory Effort. No: Crackles, Wheezing Cardiovascular: Regular Rate, Regular Rhythm, Murmurs GI/Abdominal Exam: Normal Bowel Sounds, Non-Tender, No Distention. No: Guarding, Rebound (Male) Exam: Deferred Back Exam: Normal Inspection Extremities: Normal Inspection, No Pedal Edema, Increased Warmth (to b/l LE) Skin: Warm, Dry, Intact Neurological: No New Focal Deficit Psy/Mental Status: Alert, Normal Affect, Normal Mood Sepsis Event Note - Evaluation Sepsis Screening Result: No Definite Risk - Focused Exam Vital Signs: Vital Signs Temp Pulse Resp BP Pulse Ox 04/28/20 09:40 36.8 C 104 H 20 125/80 98 04/28/20 03:54 37.2 C 92 20 98 - Problem List Review Problem List Initiated/Reviewed/Updated: Yes - My Orders Last 24 Hours: My Active Orders 04/27/20 14:00 Piperacillin/Tazobactam [Zosyn] 2.25 gm Sodium Chloride 0.9% [Normal Saline] 50 ml IV Q6H 04/28/20 02:14 Sodium Chloride 0.9% [Saline Flush] 10 ml FLUSH ASDIRECTED PRN - Plan Plan:: This is a 79-year-old gentleman with a history of hypertension, chronic kidney disease stage III, anemia of chronic kidney disease, peripheral artery disease, COPD The patient presented with the lower extremity swelling, erythema and tender to touch extremity He has redness in both legs but more pronounced in the left lower extremity. This has been present for 1 week according to the patient. Associated with tenderness. He has exposure to Covid positive . No complains of shortness of breath, cough. Impression and Plan: 1. Cellulitis with sepsis -Follow blood culture ( No growth yet) - Will continue treatment with vancomycin, and Zosyn 2 , Sepsis Elevated lactic acid, hypotension, tachycardia Well follow lactic acid Has received IV fluid bolus and will not need continuos IV fluids ( appetite is good) 3. Covid 19 infection This appears to be asymptomatic The patient has a no chest x-ray changes Well continue to monitor -He has not placed on steroids or plasma - Not candidate for Remdesivir because of renal failure -continue Respiratory isolation 3. Hyponatremia: Likely from CKD and Infection and it is improving 4. Hypotension" This is Likely secondary to sepsis - Will Hold Norvasc, hydralazine, atenolol -BP better with Fluid bolus 5. Acute Kidney Injury: With a history of chronic kidney disease stage III -Has received IV fluid bolus - Follow renal function ( labs tomorrow) ( ordered) 6. Peripheral artery disease: Continue Plavix, apixaban 7. h/o copd: There is no apparent sign of acute exacerbation Use albuterol as needed DVT prophylaxis: Continue apixaban
[2020-04-28] MEDS: Acetaminophen 325 MG Tab PO PRN (21:16)
[2020-04-29] MEDS: Piperacillin/Tazobactam 2.25 GM in Sodium Chloride 0.9% 50 ML IV SCH ×4 (02:22→20:57)
[2020-04-29] MEDS: Acetaminophen/HYDROcodone 325-10 MG Tab PO PRN (06:31)
[2020-04-29] MEDS: Acetaminophen 325 MG Tab PO PRN (06:31)
[2020-04-29] MEDS: Apixaban 5 MG Tab PO SCH ×2 (08:40→20:57)
[2020-04-29] MEDS: Tamsulosin 0.4 MG Cap.ER PO SCH ×2 (08:40→21:04)
[2020-04-29] MEDS: Clopidogrel 75 MG Tab PO SCH (08:40)
[2020-04-29] MEDS: Finasteride 5 MG Tab PO SCH (08:40)
--- NOTE | 2020-04-29 17:23 | PCM.PN ---
- General Info Date of Service: 04/29/20 Admission Dx/Problem (Free Text): Admission Diagnosis/Problem Admission Diagnosis/Problem Cellulitis Subjective Update: Patien continues to have bilateral leg pain with swelling in left leg. Afebrile overnight. Functional Status: Reports: Pain Controlled - Review of Systems General: Reports: No Symptoms HEENT: Reports: No Symptoms Pulmonary: Reports: No Symptoms Cardiovascular: Reports: Edema Gastrointestinal: Reports: No Symptoms Genitourinary: Reports: No Symptoms Musculoskeletal: Reports: Leg Pain Skin: Reports: Rash Neurological: Reports: No Symptoms Psychiatric: Reports: No Symptoms - Patient Data Vitals - Most Recent: Last Vital Signs Temp 98.9 F 04/29/20 15:54 Pulse 98 04/29/20 15:54 Resp 20 04/29/20 15:54 BP 138/82 04/29/20 15:54 Pulse Ox 98 04/29/20 15:54 Weight - Most Recent: 185 lb 6.4 oz I&O - Last 24 Hours: Intake & Output 04/29/20 04/29/20 04/29/20 06:59 14:59 22:59 Intake Total 240 520 Output Total 400 Balance -160 520 Lab Results Last 24 Hours: Laboratory Results - last 24 hr 04/29/20 04/29/20 04/29/20 Range/Units 05:40 05:40 05:40 WBC 10.7 H (5.0-10.0) 10^3/uL RBC 3.16 L (4.6-6.2) 10^6/uL Hgb 9.5 L D (14.0-18.0) g/dL Hct 28.5 L (40.0-54.0) % MCV 90.2 (80-100) fL MCH 30.1 (27.0-34.0) pg MCHC 33.3 (33.0-35.0) g/dL Plt Count 118 L (150-450) 10^3/uL D-Dimer, Quantitative 3370 H (0-400) ng/mL Sodium 135 L (136-145) mmol/L Potassium 4.0 (3.5-5.1) mmol/L Chloride 102 (98-107) mmol/L Carbon Dioxide 20 L (21-32) mmol/L Anion Gap 17.0 H (7-13) mEq/L BUN 57 H (7-18) mg/dL Creatinine 2.52 H (0.70-1.30) mg/dL Est Cr Clr Drug Dosing 24.94 mL/min Estimated GFR (MDRD) 25 Glucose 99 (74-99) mg/dL Calcium 7.8 L (8.5-10.1) mg/dL Lactate Dehydrogenase 213 (85-227) U/L Antoni Results Last 24 Hours: Microbiology 04/26/20 09:51 Aerobic Blood Culture - Preliminary Blood - Arm, Right NO GROWTH AFTER 3 DAYS Anaerobic Blood Culture - Preliminary NO GROWTH AFTER 3 DAYS 04/26/20 09:45 Aerobic Blood Culture - Preliminary Blood - Arm, Left NO GROWTH AFTER 3 DAYS Anaerobic Blood Culture - Final Med Orders - Current: Current Medications Acetaminophen (Tylenol) 650 mg PO Q6H PRN PRN Reason: pain (mild) Last Admin: 04/29/20 06:31 Dose: 650 mg Documented by: Hydrocodone Bitart/Acetaminophen ([place] 325-10 Mg) 1 tab PO Q6H PRN PRN Reason: mod pain Last Admin: 04/29/20 06:31 Dose: 1 tab Documented by: Albuterol (Proventil Hfa) 0 gm INH Q4HR PRN PRN Reason: Wheezing Apixaban (Eliquis) 5 mg PO BID [facility] Last Admin: 04/29/20 08:40 Dose: 5 mg Documented by: Clopidogrel Bisulfate (Plavix) 75 mg PO DAILY [facility] Last Admin: 04/29/20 08:40 Dose: 75 mg Documented by: Finasteride (Proscar) 5 mg PO DAILY [facility] Last Admin: 04/29/20 08:40 Dose: 5 mg Documented by: Vancomycin HCl 1.25 gm/ Sodium (Chloride) 250 mls @ 166.667 mls/hr IV Q48H [facility] Last Admin: 04/28/20 15:11 Dose: 167 mls/hr Documented by: Piperacillin Sod/Tazobactam (Sod 2.25 gm/ Sodium Chloride) 50 mls @ 100 mls/hr IV Q6H [facility] Last Admin: 04/29/20 14:15 Dose: 100 mls/hr Documented by: Influenza Virus Vaccine (Pharmacy To Dose - Influenza Vaccine) 1 each IM DAILY [facility] Last Admin: 04/29/20 08:41 Dose: Not Given Documented by: Non-Formulary Medication (Duloxetine [Cymbalta]) 40 mg PO DAILY [facility] Sodium Chloride (Saline Flush) 10 ml FLUSH ASDIRECTED PRN PRN Reason: IV Use Tamsulosin HCl (Flomax) 0.4 mg PO BID [facility] Last Admin: 04/29/20 08:40 Dose: 0.4 mg Documented by: Vancomycin HCl (Pharmacy To Dose - Vancomycin) 1 dose .XX ASDIRECTED [facility] Discontinued Medications Hydrocodone Bitart/Acetaminophen ([place] 325-10 Mg) 1 tab PO ONETIME ONE Stop: 04/26/20 11:21 Last Admin: 04/26/20 11:26 Dose: 1 tab Documented by: Ceftriaxone Sodium 1 gm/ (Sodium Chloride) 50 mls @ 100 mls/hr IV ONETIME ONE Stop: 04/26/20 11:37 Last Admin: 04/26/20 11:18 Dose: 100 mls/hr Documented by: Ceftriaxone Sodium 1 gm/ (Sodium Chloride) 50 mls @ 100 mls/hr IV Q24H [facility] Last Admin: 04/26/20 14:07 Dose: Not Given Documented by: Sodium Chloride (Normal Saline) 1,000 mls @ 999 mls/hr IV .BOLUS ONE Stop: 04/26/20 14:09 Last Infusion: 04/26/20 15:36 Dose: Infused Documented by: Sodium Chloride (Normal Saline) 1,000 mls @ 100 mls/hr IV ASDIRECTED [facility] Last Admin: 04/27/20 02:43 Dose: 100 mls/hr Documented by: Piperacillin Sod/Tazobactam (Sod 3.375 gm/ Sodium Chloride) 100 mls @ 200 mls/hr IV Q6H [facility] Last Admin: 04/27/20 15:15 Dose: Not Given Documented by: - Exam General: Alert, Oriented HEENT: Pupils Equal, Pupils Reactive, EOMI, Mucous Membr. Moist/[place] Neck: Supple Lungs: Clear to Auscultation, Normal Respiratory Effort Cardiovascular: Regular Rate, Regular Rhythm GI/Abdominal Exam: Normal Bowel Sounds, Soft, Non-Tender, No Organomegaly, No Distention, No Abnormal Bruit, No Mass, Pelvis Stable Back Exam: Normal Inspection, Full Range of Motion Extremities: Pedal Edema, Leg Pain Skin: Rash Neurological: No New Focal Deficit Psy/Mental Status: Alert, Normal Affect, Normal Mood Sepsis Event Note - Evaluation Sepsis Screening Result: No Definite Risk - Focused Exam Vital Signs: Vital Signs Temp Pulse Resp BP Pulse Ox 04/29/20 15:54 98.9 F 98 20 138/82 98 04/29/20 12:00 97.9 F 86 18 130/75 98 04/29/20 08:00 97.1 F 74 18 116/64 98 - Problem List Review Problem List Initiated/Reviewed/Updated: Yes - My Orders Last 24 Hours: My Active Orders 04/29/20 08:44 Isolation [COMM] Routine - Plan Plan:: 79-year-old gentleman with a history of hypertension, chronic kidney disease stage III, anemia of chronic kidney disease, peripheral artery disease, COPD who presented with lower extremity swelling, erythema and pain worse in left leg. Impression and Plan: 1. Cellulitis with sepsis -Follow blood culture ( No growth yet) - Will continue treatment with vancomycin, and Zosyn 2 Sepsis Elevated lactic acid, hypotension, tachycardia Well follow lactic acid Has received IV fluid bolus and will not need continuos IV fluids ( appetite is good) 3. Covid 19 infection This appears to be asymptomatic The patient has a no chest x-ray changes Well continue to monitor -He has not placed on steroids or plasma - Not candidate for Remdesivir because of renal failure -continue Respiratory isolation 3. Hyponatremia: Likely from CKD and Infection and it is improving 4. Hypotension" This is Likely secondary to sepsis - Will Hold Norvasc, hydralazine, atenolol -BP better with Fluid bolus 5. Acute Kidney Injury: With a history of chronic kidney disease stage III -Has received IV fluid bolus - Follow renal function ( labs tomorrow) ( ordered) 6. Peripheral artery disease: Continue Plavix, apixaban 7. h/o copd: There is no apparent sign of acute exacerbation Use albuterol as needed DVT prophylaxis: Continue apixaban
[2020-04-30] MEDS ORDERED: Metoprolol Tartrate 25 MG Tab PO ONE (00:34)
[2020-04-30] MEDS: Acetaminophen 325 MG Tab PO PRN (02:48)
[2020-04-30] MEDS: Piperacillin/Tazobactam 2.25 GM in Sodium Chloride 0.9% 50 ML IV SCH ×4 (02:48→21:18)
[2020-04-30] MEDS: Sodium Chloride 0.9% 10 ML Syringe FLUSH PRN ×5 (02:51→21:51)
[2020-04-30 08:09] LABS: ANION GAP 16.6 mEq/L (7-13)
[2020-04-30] MEDS: Apixaban 5 MG Tab PO SCH ×2 (08:34→21:19)
[2020-04-30] MEDS: Tamsulosin 0.4 MG Cap.ER PO SCH ×2 (08:34→21:20)
[2020-04-30] MEDS: Finasteride 5 MG Tab PO SCH (08:34)
[2020-04-30] MEDS: Clopidogrel 75 MG Tab PO SCH (08:34)
--- NOTE | 2020-04-30 10:54 | US ---
PROCEDURE INFORMATION: Exam: US Duplex Lower Extremity Veins, Bilateral Exam date and time: 04/30/2020 9:33 AM Age: 79 years old Clinical indication: Screening exam; Evaluate for dvt; Prior surgery; Surgery date: 6+ months; Surgery type: Arterial graft in RT leg TECHNIQUE: Imaging protocol: Real-time duplex ultrasound of the extremities with 2-D syed scale, color Doppler flow and spectral waveform analysis with image documentation. Complete exam focused on the bilateral lower extremity veins. COMPARISON: No relevant prior studies available. FINDINGS: Right deep veins: Right calf veins were unable to be evaluated. The common femoral, femoral, proximal profunda femoral and popliteal veins are patent without thrombus. Normal Doppler waveforms. Normal compressibility and/or augmentation response. Right superficial veins: Saphenofemoral junction is patent without thrombus. Right common femoral artery: Incidental note is made of no flow within the right common femoral artery. By report patient states he has a graft a few years ago in the right leg. Left deep veins: The left popliteal vein was not evaluated secondary to patient discomfort. Left veins were also not evaluated. The common femoral, femoral, proximal profunda femoral and popliteal veins are patent without thrombus. Normal Doppler waveforms. Normal compressibility and/or augmentation response. Left superficial veins: Saphenofemoral junction is patent without thrombus. Soft tissues: Unremarkable. IMPRESSION: 1. Incidental note is made of no flow within the right common femoral artery. By report patient states he has a graft a few years ago in the right leg. 2. No evidence of DVT in bilateral lower extremities in the visualized vessels. The left popliteal vein was not evaluated secondary to patient discomfort. Remainder of findings as described above.
--- NOTE | 2020-04-30 14:15 | PCM.PN ---
- General Info Date of Service: 04/30/20 Admission Dx/Problem (Free Text): Admission Diagnosis/Problem Admission Diagnosis/Problem Cellulitis Subjective Update: Patient seen and examined today. He continues to have bilateral leg pain with swelling in left leg. Erythema stable to improving. Afebrile overnight. Functional Status: Reports: Pain Controlled - Review of Systems General: Reports: No Symptoms HEENT: Reports: No Symptoms Pulmonary: Reports: No Symptoms Cardiovascular: Reports: Edema. Denies: Chest Pain, Palpitations Gastrointestinal: Reports: No Symptoms Genitourinary: Reports: No Symptoms Musculoskeletal: Reports: Leg Pain Skin: Reports: Rash Neurological: Reports: No Symptoms Psychiatric: Reports: No Symptoms - Patient Data Vitals - Most Recent: Last Vital Signs Temp 98.7 F 04/30/20 12:15 Pulse 96 04/30/20 12:15 Resp 20 04/30/20 12:15 BP 145/92 H 04/30/20 12:15 Pulse Ox 99 04/30/20 12:15 Weight - Most Recent: 185 lb 6.4 oz I&O - Last 24 Hours: Intake & Output 04/29/20 04/30/20 04/30/20 22:59 06:59 14:59 Intake Total 230 250 Balance 230 250 Lab Results Last 24 Hours: Laboratory Results - last 24 hr 04/29/20 04/30/20 04/30/20 Range/Units 21:00 07:45 07:45 WBC 11.4 H (5.0-10.0) 10^3/uL RBC 3.46 L (4.6-6.2) 10^6/uL Hgb 10.3 L (14.0-18.0) g/dL Hct 30.6 L (40.0-54.0) % MCV 88.4 (80-100) fL MCH 29.8 (27.0-34.0) pg MCHC 33.7 (33.0-35.0) g/dL Plt Count 180 (150-450) 10^3/uL D-Dimer, Quantitative 3680 H (0-400) ng/mL Sodium (136-145) mmol/L Potassium (3.5-5.1) mmol/L Chloride (98-107) mmol/L Carbon Dioxide (21-32) mmol/L Anion Gap (7-13) mEq/L BUN (7-18) mg/dL Creatinine (0.70-1.30) mg/dL Est Cr Clr Drug Dosing mL/min Estimated GFR (MDRD) Glucose (74-99) mg/dL POC Glucose 123 H (83-110) mg/dl Calcium (8.5-10.1) mg/dL 04/30/20 04/30/20 Range/Units 07:45 08:33 WBC (5.0-10.0) 10^3/uL RBC (4.6-6.2) 10^6/uL Hgb (14.0-18.0) g/dL Hct (40.0-54.0) % MCV (80-100) fL MCH (27.0-34.0) pg MCHC (33.0-35.0) g/dL Plt Count (150-450) 10^3/uL D-Dimer, Quantitative (0-400) ng/mL Sodium 135 L (136-145) mmol/L Potassium 3.6 (3.5-5.1) mmol/L Chloride 103 (98-107) mmol/L Carbon Dioxide 19 L (21-32) mmol/L Anion Gap 16.6 H (7-13) mEq/L BUN 52 H (7-18) mg/dL Creatinine 2.22 H (0.70-1.30) mg/dL Est Cr Clr Drug Dosing 28.32 mL/min Estimated GFR (MDRD) 29 Glucose 104 H (74-99) mg/dL POC Glucose 96 (83-110) mg/dl Calcium 7.7 L (8.5-10.1) mg/dL Antoni Results Last 24 Hours: Microbiology 04/26/20 09:51 Aerobic Blood Culture - Preliminary Blood - Arm, Right NO GROWTH AFTER 4 DAYS Anaerobic Blood Culture - Preliminary NO GROWTH AFTER 4 DAYS 04/26/20 09:45 Aerobic Blood Culture - Preliminary Blood - Arm, Left NO GROWTH AFTER 4 DAYS Anaerobic Blood Culture - Final Med Orders - Current: Current Medications Acetaminophen (Tylenol) 650 mg PO Q6H PRN PRN Reason: pain (mild) Last Admin: 04/30/20 02:48 Dose: 650 mg Documented by: Hydrocodone Bitart/Acetaminophen ([place] 325-10 Mg) 1 tab PO Q6H PRN PRN Reason: mod pain Last Admin: 04/29/20 06:31 Dose: 1 tab Documented by: Albuterol (Proventil Hfa) 0 gm INH Q4HR PRN PRN Reason: Wheezing Apixaban (Eliquis) 5 mg PO BID [facility] Last Admin: 04/30/20 08:34 Dose: 5 mg Documented by: Clopidogrel Bisulfate (Plavix) 75 mg PO DAILY [facility] Last Admin: 04/30/20 08:34 Dose: 75 mg Documented by: Finasteride (Proscar) 5 mg PO DAILY [facility] Last Admin: 04/30/20 08:34 Dose: 5 mg Documented by: Vancomycin HCl 1.25 gm/ Sodium (Chloride) 250 mls @ 166.667 mls/hr IV Q48H [facility] Last Admin: 04/28/20 15:11 Dose: 167 mls/hr Documented by: Piperacillin Sod/Tazobactam (Sod 2.25 gm/ Sodium Chloride) 50 mls @ 100 mls/hr IV Q6H [facility] Last Admin: 04/30/20 13:56 Dose: 100 mls/hr Documented by: Influenza Virus Vaccine (Pharmacy To Dose - Influenza Vaccine) 1 each IM DAILY [facility] Last Admin: 04/30/20 08:34 Dose: Not Given Documented by: Non-Formulary Medication (Duloxetine [Cymbalta]) 40 mg PO DAILY [facility] Sodium Chloride (Saline Flush) 10 ml FLUSH ASDIRECTED PRN PRN Reason: IV Use Last Admin: 04/30/20 08:31 Dose: 10 ml Documented by: Tamsulosin HCl (Flomax) 0.4 mg PO BID [facility] Last Admin: 04/30/20 08:34 Dose: 0.4 mg Documented by: Vancomycin HCl (Pharmacy To Dose - Vancomycin) 1 dose .XX ASDIRECTED [facility] Discontinued Medications Hydrocodone Bitart/Acetaminophen ([place] 325-10 Mg) 1 tab PO ONETIME ONE Stop: 04/26/20 11:21 Last Admin: 04/26/20 11:26 Dose: 1 tab Documented by: Ceftriaxone Sodium 1 gm/ (Sodium Chloride) 50 mls @ 100 mls/hr IV ONETIME ONE Stop: 04/26/20 11:37 Last Admin: 04/26/20 11:18 Dose: 100 mls/hr Documented by: Ceftriaxone Sodium 1 gm/ (Sodium Chloride) 50 mls @ 100 mls/hr IV Q24H [facility] Last Admin: 04/26/20 14:07 Dose: Not Given Documented by: Sodium Chloride (Normal Saline) 1,000 mls @ 999 mls/hr IV .BOLUS ONE Stop: 04/26/20 14:09 Last Infusion: 04/26/20 15:36 Dose: Infused Documented by: Sodium Chloride (Normal Saline) 1,000 mls @ 100 mls/hr IV ASDIRECTED [facility] Last Admin: 04/27/20 02:43 Dose: 100 mls/hr Documented by: Piperacillin Sod/Tazobactam (Sod 3.375 gm/ Sodium Chloride) 100 mls @ 200 mls /hr IV Q6H [facility] Last Admin: 04/27/20 15:15 Dose: Not Given Documented by: Metoprolol Tartrate (Lopressor) 25 mg PO ONETIME ONE Stop: 04/30/20 00:35 Last Admin: 04/30/20 01:00 Dose: 25 mg Documented by: - Exam General: Alert, Oriented HEENT: Pupils Equal, Pupils Reactive, EOMI, Mucous Membr. Moist/[place] Neck: Supple Lungs: Clear to Auscultation, Normal Respiratory Effort Cardiovascular: Regular Rate, Regular Rhythm GI/Abdominal Exam: Normal Bowel Sounds, Soft, Non-Tender, No Organomegaly, No Distention, No Abnormal Bruit, No Mass, Pelvis Stable Back Exam: Normal Inspection, Full Range of Motion Extremities: Other (Significant swelling and erythema of left lower extremity. Has some weeping areas.) Skin: Rash Wound/Incisions: Healing Well Neurological: No New Focal Deficit Psy/Mental Status: Alert, Normal Affect, Normal Mood Sepsis Event Note - Evaluation Sepsis Screening Result: No Definite Risk - Focused Exam Vital Signs: Vital Signs Temp Pulse Resp BP BP Pulse Ox 04/30/20 12:15 98.7 F 96 20 145/92 H 99 04/30/20 08:30 97.8 F 126 H 18 151/99 H 98 04/30/20 03:05 97.8 F 92 20 151/86 H 89 L - Problem List Review Problem List Initiated/Reviewed/Updated: Yes - Plan Plan:: 79-year-old gentleman with a history of hypertension, chronic kidney disease stage III, anemia of chronic kidney disease, peripheral artery disease, COPD who presented with lower extremity swelling, erythema and pain worse in left leg. Impression and Plan: Cellulitis with sepsis -Follow blood culture ( No growth yet) - Will continue treatment with vancomycin, and Zosyn Obtain ultrasound of extremities which did not show any DVT but demonstrates hi s known arterial occlusions Sepsis Elevated lactic acid, hypotension, tachycardia Lactic acidosis resolved with IV fluids Covid 19 infection This appears to be asymptomatic The patient has a no chest x-ray changes Well continue to monitor -He has not placed on steroids or plasma - Not candidate for Remdesivir because of renal failure -continue Respiratory isolation Hyponatremia: Likely from CKD and Infection and it is improving Hypotension" This is Likely secondary to sepsis - Will Hold Norvasc and hydralazine - Resume atenolol -BP better Acute Kidney Injury: With a history of chronic kidney disease stage III -Has received IV fluid bolus - Follow renal function Peripheral artery disease: Continue Plavix, apixaban h/o copd: There is no apparent sign of acute exacerbation Use albuterol as needed DVT prophylaxis: Continue apixaban
[2020-04-30] MEDS: Acetaminophen/HYDROcodone 325-10 MG Tab PO PRN (18:34)
[2020-04-30] MEDS: Atenolol 50 MG Tab PO SCH (18:34)
[2020-05-01] MEDS: Sodium Chloride 0.9% 10 ML Syringe FLUSH PRN ×5 (02:23→21:24)
[2020-05-01] MEDS: Piperacillin/Tazobactam 2.25 GM in Sodium Chloride 0.9% 50 ML IV SCH ×4 (02:27→20:57)
[2020-05-01] MEDS: Acetaminophen/HYDROcodone 325-10 MG Tab PO PRN ×4 (03:08→23:34)
[2020-05-01] MEDS: Apixaban 5 MG Tab PO SCH ×2 (08:54→21:03)
[2020-05-01] MEDS: Clopidogrel 75 MG Tab PO SCH (08:55)
[2020-05-01] MEDS: Finasteride 5 MG Tab PO SCH (08:55)
[2020-05-01] MEDS: Tamsulosin 0.4 MG Cap.ER PO SCH ×2 (08:55→21:03)
[2020-05-01] MEDS: Atenolol 50 MG Tab PO SCH (08:55)
--- NOTE | 2020-05-01 11:23 | PCM.PN ---
- General Info Date of Service: 05/01/20 Admission Dx/Problem (Free Text): Admission Diagnosis/Problem Admission Diagnosis/Problem Cellulitis Subjective Update: Patient seen and examined today. Patient doing okay today. Bilateral lower extremity still looks red. Pain is better. Remains afebrile. Cultures negative. WBC trending down. Functional Status: Reports: Pain Controlled - Review of Systems General: Reports: No Symptoms HEENT: Reports: No Symptoms Pulmonary: Reports: No Symptoms Cardiovascular: Reports: No Symptoms Gastrointestinal: Reports: No Symptoms Genitourinary: Reports: No Symptoms Musculoskeletal: Reports: No Symptoms Skin: Reports: No Symptoms Neurological: Reports: No Symptoms Psychiatric: Reports: No Symptoms - Patient Data Vitals - Most Recent: Last Vital Signs Temp 98.3 F 05/01/20 08:49 Pulse 78 05/01/20 08:55 Resp 20 05/01/20 08:49 BP 119/70 05/01/20 08:55 Pulse Ox 96 05/01/20 08:49 Weight - Most Recent: 185 lb 6.4 oz I&O - Last 24 Hours: Intake & Output 04/30/20 05/01/20 05/01/20 22:59 06:59 14:59 Intake Total 43 253 Output Total 100 270 Balance -57 -17 Lab Results Last 24 Hours: Laboratory Results - last 24 hr 05/01/20 Range/Units 09:42 WBC 9.4 (5.0-10.0) 10^3/uL RBC 3.22 L (4.6-6.2) 10^6/uL Hgb 9.7 L (14.0-18.0) g/dL Hct 28.3 L (40.0-54.0) % MCV 87.9 (80-100) fL MCH 30.1 (27.0-34.0) pg MCHC 34.3 (33.0-35.0) g/dL Plt Count 206 (150-450) 10^3/uL Antoni Results Last 24 Hours: Microbiology 04/26/20 09:51 Aerobic Blood Culture - Final Blood - Arm, Right NO GROWTH AFTER 5 DAYS Anaerobic Blood Culture - Final NO GROWTH AFTER 5 DAYS 04/26/20 09:45 Aerobic Blood Culture - Final Blood - Arm, Left NO GROWTH AFTER 5 DAYS Anaerobic Blood Culture - Final Med Orders - Current: Current Medications Acetaminophen (Tylenol) 650 mg PO Q6H PRN PRN Reason: pain (mild) Last Admin: 04/30/20 02:48 Dose: 650 mg Documented by: Hydrocodone Bitart/Acetaminophen ([place] 325-10 Mg) 1 tab PO Q6H PRN PRN Reason: mod pain Last Admin: 05/01/20 08:54 Dose: 1 tab Documented by: Albuterol (Proventil Hfa) 0 gm INH Q4HR PRN PRN Reason: Wheezing Apixaban (Eliquis) 5 mg PO BID [facility] Last Admin: 05/01/20 08:54 Dose: 5 mg Documented by: Atenolol (Tenormin) 50 mg PO DAILY [facility] Last Admin: 05/01/20 08:55 Dose: 50 mg Documented by: Clopidogrel Bisulfate (Plavix) 75 mg PO DAILY [facility] Last Admin: 05/01/20 08:55 Dose: 75 mg Documented by: Finasteride (Proscar) 5 mg PO DAILY [facility] Last Admin: 05/01/20 08:55 Dose: 5 mg Documented by: Vancomycin HCl 1.25 gm/ Sodium (Chloride) 250 mls @ 166.667 mls/hr IV Q48H [facility] Last Infusion: 05/01/20 07:21 Dose: Infused Documented by: Piperacillin Sod/Tazobactam (Sod 2.25 gm/ Sodium Chloride) 50 mls @ 100 mls/hr IV Q6H [facility] Last Infusion: 05/01/20 10:25 Dose: Infused Documented by: Influenza Virus Vaccine (Pharmacy To Dose - Influenza Vaccine) 1 each IM DAILY [facility] Last Admin: 05/01/20 08:55 Dose: Not Given Documented by: Non-Formulary Medication (Duloxetine [Cymbalta]) 40 mg PO DAILY [facility] Sodium Chloride (Saline Flush) 10 ml FLUSH ASDIRECTED PRN PRN Reason: IV Use Last Admin: 05/01/20 03:07 Dose: 10 ml Documented by: Tamsulosin HCl (Flomax) 0.4 mg PO BID [facility] Last Admin: 05/01/20 08:55 Dose: 0.4 mg Documented by: Vancomycin HCl (Pharmacy To Dose - Vancomycin) 1 dose .XX ASDIRECTED [facility] Discontinued Medications Hydrocodone Bitart/Acetaminophen ([place] 325-10 Mg) 1 tab PO ONETIME ONE Stop: 04/26/20 11:21 Last Admin: 04/26/20 11:26 Dose: 1 tab Documented by: Ceftriaxone Sodium 1 gm/ (Sodium Chloride) 50 mls @ 100 mls/hr IV ONETIME ONE Stop: 04/26/20 11:37 Last Admin: 04/26/20 11:18 Dose: 100 mls/hr Documented by: Ceftriaxone Sodium 1 gm/ (Sodium Chloride) 50 mls @ 100 mls/hr IV Q24H [facility] Last Admin: 04/26/20 14:07 Dose: Not Given Documented by: Sodium Chloride (Normal Saline) 1,000 mls @ 999 mls/hr IV .BOLUS ONE Stop: 04/26/20 14:09 Last Infusion: 04/26/20 15:36 Dose: Infused Documented by: Sodium Chloride (Normal Saline) 1,000 mls @ 100 mls/hr IV ASDIRECTED [facility] Last Admin: 04/27/20 02:43 Dose: 100 mls/hr Documented by: Piperacillin Sod/Tazobactam (Sod 3.375 gm/ Sodium Chloride) 100 mls @ 200 mls/hr IV Q6H [facility] Last Admin: 04/27/20 15:15 Dose: Not Given Documented by: Metoprolol Tartrate (Lopressor) 25 mg PO ONETIME ONE Stop: 04/30/20 00:35 Last Admin: 04/30/20 01:00 Dose: 25 mg Documented by: - Exam Quality Assessment: DVT Prophylaxis General: Alert, Oriented HEENT: Pupils Equal, Pupils Reactive, EOMI, Mucous Membr. Moist/[place] Neck: Supple Lungs: Clear to Auscultation, Normal Respiratory Effort Cardiovascular: Regular Rate, Regular Rhythm GI/Abdominal Exam: Normal Bowel Sounds, Soft, Non-Tender, No Organomegaly, No Distention, No Abnormal Bruit, No Mass, Pelvis Stable (Male) Exam: No Hernia, Normal Inspection, Normal Prostate, Circumcised Back Exam: Normal Inspection, Full Range of Motion Extremities: Normal Inspection, Normal Range of Motion, Non-Tender, No Pedal Edema, Normal Capillary Refill Skin: Warm, Dry, Intact Wound/Incisions: Healing Well Neurological: No New Focal Deficit Psy/Mental Status: Alert, Normal Affect, Normal Mood Sepsis Event Note - Evaluation Sepsis Screening Result: No Definite Risk - Focused Exam Vital Signs: Vital Signs Temp Pulse Pulse Resp BP BP BP 05/01/20 08:55 78 119/70 05/01/20 08:49 98.3 F 76 20 119/70 05/01/20 02:30 98.2 F 81 20 151/92 H Pulse Ox 05/01/20 08:55 05/01/20 08:49 96 05/01/20 02:30 94 L - Problem List & Annotations (1) COVID-19 SNOMED Code(s): 548670462 Code(s): U07.1 - COVID-19 Status: Acute Current Visit: Yes - Problem List Review Problem List Initiated/Reviewed/Updated: Yes - Plan Plan:: 79-year-old gentleman with a history of hypertension, chronic kidney disease stage III, anemia of chronic kidney disease, peripheral artery disease, COPD who presented with lower extremity swelling, erythema and pain worse in left leg. Impression and Plan: Bilateral lower extremity cellulitis with sepsis -Cultures negative to date -Continue treatment with vancomycin, and Zosyn -Obtain ultrasound of extremities which did not show any DVT but demonstrates his known arterial occlusions Sepsis Elevated lactic acid, hypotension, tachycardia Resolving Covid 19 infection This appears to be asymptomatic The patient has a no chest x-ray changes Well continue to monitor -He has not placed on steroids or plasma - Not candidate for Remdesivir because of renal failure -continue Respiratory isolation Hyponatremia: Likely from CKD and Infection Improving Hypotension" This is Likely secondary to sepsis - Will Hold Norvasc and hydralazine - Resume atenolol -BP better Acute Kidney Injury: With a history of chronic kidney disease stage III -Has received IV fluid bolus - Follow renal function Peripheral artery disease: Continue Plavix, apixaban h/o copd: There is no apparent sign of acute exacerbation Use albuterol as needed DVT prophylaxis: Continue apixaban
[2020-05-01] MEDS: DULOXETINE 40 MG PO SCH ×2 (14:31→14:59)
[2020-05-01] MEDS: Acetaminophen 325 MG Tab PO PRN (21:29)
[2020-05-02] MEDS: Piperacillin/Tazobactam 2.25 GM in Sodium Chloride 0.9% 50 ML IV SCH ×4 (02:20→19:54)
[2020-05-02] MEDS: Sodium Chloride 0.9% 10 ML Syringe FLUSH PRN ×4 (02:20→20:23)
[2020-05-02] MEDS: Acetaminophen/HYDROcodone 325-10 MG Tab PO PRN ×3 (05:20→20:24)
[2020-05-02] MEDS: Clopidogrel 75 MG Tab PO SCH (08:57)
[2020-05-02] MEDS: Tamsulosin 0.4 MG Cap.ER PO SCH ×2 (08:57→20:01)
[2020-05-02] MEDS: Finasteride 5 MG Tab PO SCH (08:57)
[2020-05-02] MEDS: Atenolol 50 MG Tab PO SCH (08:58)
[2020-05-02] MEDS: Apixaban 5 MG Tab PO SCH ×2 (08:58→20:01)
[2020-05-02 11:23] LABS: ANION GAP 16.8 mEq/L (7-13)
--- NOTE | 2020-05-02 11:59 | PCM.PN ---
- General Info Date of Service: 05/02/20 Admission Dx/Problem (Free Text): Admission Diagnosis/Problem Admission Diagnosis/Problem Cellulitis Subjective Update: Patient seen and examined today. Patient doing okay today. Bilateral lower extremity still looks red but significantly improved. Remains afebrile. Cultures negative. WBC trended down. Functional Status: Reports: Pain Controlled - Review of Systems General: Reports: No Symptoms HEENT: Reports: No Symptoms Pulmonary: Reports: No Symptoms Cardiovascular: Reports: No Symptoms Gastrointestinal: Reports: No Symptoms Genitourinary: Reports: No Symptoms Musculoskeletal: Reports: No Symptoms Skin: Reports: No Symptoms Neurological: Reports: No Symptoms Psychiatric: Reports: No Symptoms - Patient Data Vitals - Most Recent: Last Vital Signs Temp 99.5 F 05/02/20 08:58 Pulse 73 05/02/20 08:58 Resp 20 05/02/20 08:58 BP 141/76 H 05/02/20 08:58 Pulse Ox 93 L 05/02/20 08:58 Weight - Most Recent: 185 lb 6.4 oz I&O - Last 24 Hours: Intake & Output 05/01/20 05/02/20 05/02/20 22:59 06:59 14:59 Intake Total 250 250 400 Output Total 225 325 Balance 25 -75 400 Lab Results Last 24 Hours: Laboratory Results - last 24 hr 05/02/20 05/02/20 05/02/20 Range/Units 10:50 10:50 10:50 WBC 8.4 (5.0-10.0) 10^3/uL RBC 3.48 L (4.6-6.2) 10^6/uL Hgb 10.4 L (14.0-18.0) g/dL Hct 31.0 L (40.0-54.0) % MCV 89.1 (80-100) fL MCH 29.9 (27.0-34.0) pg MCHC 33.5 (33.0-35.0) g/dL Plt Count 249 (150-450) 10^3/uL D-Dimer, Quantitative 3600 H (0-400) ng/mL Sodium (136-145) mmol/L Potassium (3.5-5.1) mmol/L Chloride (98-107) mmol/L Carbon Dioxide (21-32) mmol/L Anion Gap (7-13) mEq/L BUN (7-18) mg/dL Creatinine (0.70-1.30) mg/dL Est Cr Clr Drug Dosing mL/min Estimated GFR (MDRD) BUN/Creatinine Ratio (No establ ref range) Glucose (74-99) mg/dL Calcium (8.5-10.1) mg/dL Ferritin (26-388) mg/mL Total Bilirubin (0.2-1.0) mg/dL AST (15-37) U/L ALT (16-63) U/L Alkaline Phosphatase (46-116) U/L Total Protein (6.4-8.2) g/dL Albumin (3.4-5.0) g/dL Globulin Albumin/Globulin Ratio Vancomycin Trough 15.6 (10.0-20.0) ug/mL 05/02/20 05/02/20 Range/Units 10:50 10:50 WBC (5.0-10.0) 10^3/uL RBC (4.6-6.2) 10^6/uL Hgb (14.0-18.0) g/dL Hct (40.0-54.0) % MCV (80-100) fL MCH (27.0-34.0) pg MCHC (33.0-35.0) g/dL Plt Count (150-450) 10^3/uL D-Dimer, Quantitative (0-400) ng/mL Sodium 135 L (136-145) mmol/L Potassium 3.8 (3.5-5.1) mmol/L Chloride 102 (98-107) mmol/L Carbon Dioxide 20 L (21-32) mmol/L Anion Gap 16.8 H (7-13) mEq/L BUN 38 H (7-18) mg/dL Creatinine 2.15 H (0.70-1.30) mg/dL Est Cr Clr Drug Dosing 29.24 mL/min Estimated GFR (MDRD) 30 BUN/Creatinine Ratio 17.7 (No establ ref range) Glucose 118 H (74-99) mg/dL Calcium 7.3 L (8.5-10.1) mg/dL Ferritin 514 H (26-388) mg/mL Total Bilirubin 0.9 (0.2-1.0) mg/dL AST 75 H (15-37) U/L ALT 40 (16-63) U/L Alkaline Phosphatase 221 H (46-116) U/L Total Protein 6.4 (6.4-8.2) g/dL Albumin 1.6 L (3.4-5.0) g/dL Globulin 4.8 Albumin/Globulin Ratio 0.33 Vancomycin Trough (10.0-20.0) ug/mL Antoni Results Last 24 Hours: Microbiology 04/26/20 09:51 Aerobic Blood Culture - Final Blood - Arm, Right NO GROWTH AFTER 5 DAYS Anaerobic Blood Culture - Final NO GROWTH AFTER 5 DAYS 04/26/20 09:45 Aerobic Blood Culture - Final Blood - Arm, Left NO GROWTH AFTER 5 DAYS Anaerobic Blood Culture - Final Med Orders - Current: Current Medications Acetaminophen (Tylenol) 650 mg PO Q6H PRN PRN Reason: pain (mild) Last Admin: 05/01/20 21:29 Dose: 650 mg Documented by: Hydrocodone Bitart/Acetaminophen ([place] 325-10 Mg) 1 tab PO Q6H PRN PRN Reason: mod pain Last Admin: 05/02/20 05:20 Dose: 1 tab Documented by: Albuterol (Proventil Hfa) 0 gm INH Q4HR PRN PRN Reason: Wheezing Apixaban (Eliquis) 5 mg PO BID [facility] Last Admin: 05/02/20 08:58 Dose: 5 mg Documented by: Atenolol (Tenormin) 50 mg PO DAILY [facility] Last Admin: 05/02/20 08:58 Dose: 50 mg Documented by: Clopidogrel Bisulfate (Plavix) 75 mg PO DAILY [facility] Last Admin: 05/02/20 08:57 Dose: 75 mg Documented by: Finasteride (Proscar) 5 mg PO DAILY [facility] Last Admin: 05/02/20 08:57 Dose: 5 mg Documented by: Vancomycin HCl 1.25 gm/ Sodium (Chloride) 250 mls @ 166.667 mls/hr IV Q48H [facility] Last Infusion: 05/01/20 07:21 Dose: Infused Documented by: Piperacillin Sod/Tazobactam (Sod 2.25 gm/ Sodium Chloride) 50 mls @ 100 mls/hr IV Q6H [facility] Last Admin: 05/02/20 08:54 Dose: 100 mls/hr Documented by: Influenza Virus Vaccine (Pharmacy To Dose - Influenza Vaccine) 1 each IM DAILY [facility] Last Admin: 05/02/20 08:58 Dose: Not Given Documented by: Sodium Chloride (Saline Flush) 10 ml FLUSH ASDIRECTED PRN PRN Reason: IV Use Last Admin: 05/02/20 02:58 Dose: 10 ml Documented by: Tamsulosin HCl (Flomax) 0.4 mg PO BID [facility] Last Admin: 05/02/20 08:57 Dose: 0.4 mg Documented by: Vancomycin HCl (Pharmacy To Dose - Vancomycin) 1 dose .XX ASDIRECTED [facility] Discontinued Medications Hydrocodone Bitart/Acetaminophen ([place] 325-10 Mg) 1 tab PO ONETIME ONE Stop: 04/26/20 11:21 Last Admin: 04/26/20 11:26 Dose: 1 tab Documented by: Ceftriaxone Sodium 1 gm/ (Sodium Chloride) 50 mls @ 100 mls/hr IV ONETIME ONE Stop: 04/26/20 11:37 Last Admin: 04/26/20 11:18 Dose: 100 mls/hr Documented by: Ceftriaxone Sodium 1 gm/ (Sodium Chloride) 50 mls @ 100 mls/hr IV Q24H [facility] Last Admin: 04/26/20 14:07 Dose: Not Given Documented by: Sodium Chloride (Normal Saline) 1,000 mls @ 999 mls/hr IV .BOLUS ONE Stop: 04/26/20 14:09 Last Infusion: 04/26/20 15:36 Dose: Infused Documented by: Sodium Chloride (Normal Saline) 1,000 mls @ 100 mls/hr IV ASDIRECTED [facility] Last Admin: 04/27/20 02:43 Dose: 100 mls/hr Documented by: Piperacillin Sod/Tazobactam (Sod 3.375 gm/ Sodium Chloride) 100 mls @ 200 mls/hr IV Q6H [facility] Last Admin: 04/27/20 15:15 Dose: Not Given Documented by: Metoprolol Tartrate (Lopressor) 25 mg PO ONETIME ONE Stop: 04/30/20 00:35 Last Admin: 04/30/20 01:00 Dose: 25 mg Documented by: Non-Formulary Medication (Duloxetine [Cymbalta]) 40 mg PO DAILY [facility] Last Admin: 05/01/20 14:59 Dose: Not Given Documented by: - Exam Quality Assessment: DVT Prophylaxis General: Alert, Oriented HEENT: Pupils Equal, Pupils Reactive, EOMI, Mucous Membr. Moist/[place] Neck: Supple Lungs: Clear to Auscultation, Normal Respiratory Effort Cardiovascular: Regular Rate, Regular Rhythm GI/Abdominal Exam: Normal Bowel Sounds, Soft, Non-Tender, No Organomegaly, No Distention, No Abnormal Bruit, No Mass, Pelvis Stable (Male) Exam: No Hernia, Normal Inspection, Normal Prostate, Circumcised Back Exam: Normal Inspection, Full Range of Motion Extremities: Normal Inspection, Normal Range of Motion, Non-Tender, No Pedal Edema, Normal Capillary Refill Skin: Warm, Dry, Intact Wound/Incisions: Healing Well Neurological: No New Focal Deficit Psy/Mental Status: Alert, Normal Affect, Normal Mood Sepsis Event Note - Evaluation Sepsis Screening Result: No Definite Risk - Focused Exam Vital Signs: Vital Signs Temp Pulse Pulse Resp BP BP Pulse Ox 05/02/20 08:58 99.5 F 73 73 20 141/76 H 141/76 H 93 L 05/02/20 05:17 98.4 F 67 20 141/89 H 95 - Problem List & Annotations (1) COVID-19 SNOMED Code(s): 019865625 Code(s): U07.1 - COVID-19 Status: Acute Current Visit: Yes - Problem List Review Problem List Initiated/Reviewed/Updated: Yes - My Orders Last 24 Hours: My Active Orders 05/01/20 15:52 Up With Assistance [RC] ASDIRECTED - Plan Plan:: 79-year-old gentleman with a history of hypertension, chronic kidney disease stage III, anemia of chronic kidney disease, peripheral artery disease, COPD who presented with lower extremity swelling, erythema and pain worse in left leg. 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 -Continue treatment with vancomycin, and Zosyn Sepsis Resolving Continue antibiotics Covid 19 infection -Patient asymptomatic -The patient has a no chest x-ray changes -Patient with notes required steroids or plasma -Not candidate for Remdesivir because of renal failure -D-dimer elevated 3660 -Unable to do CT chest PE protocol due to elevated creatinine -Had bilateral lower extremity ultrasound that was negative for DVT -Continue apixaban for DVT prophylaxis -Continue with isolation measures Hyponatremia: Likely from CKD and Infection Resolved Hypotension" This is Likely secondary to sepsis - Will Hold Norvasc and hydralazine - Resume atenolol -BP better Acute Kidney Injury: With a history of chronic kidney disease stage III -Has received IV fluid bolus - Follow renal function Peripheral artery disease: Continue Plavix, apixaban h/o copd: There is no apparent sign of acute exacerbation Use albuterol as needed DVT prophylaxis: Continue apixaban
[2020-05-02] MEDS: Acetaminophen 325 MG Tab PO PRN (18:18)
[2020-05-03] MEDS: rOPINIRole 0.25 MG Tab PO SCH ×4 (01:12→21:49)
[2020-05-03] MEDS: Melatonin 3 MG Tab PO PRN ×2 (01:12→21:49)
[2020-05-03] MEDS: Piperacillin/Tazobactam 2.25 GM in Sodium Chloride 0.9% 50 ML IV SCH ×4 (01:17→20:10)
[2020-05-03] MEDS: Sodium Chloride 0.9% 10 ML Syringe FLUSH PRN ×2 (01:17→07:59)
[2020-05-03] MEDS: Acetaminophen/HYDROcodone 325-10 MG Tab PO PRN ×4 (02:23→21:52)
[2020-05-03 07:28] LABS: ANION GAP 16.7 mEq/L (7-13)
[2020-05-03] MEDS: Apixaban 5 MG Tab PO SCH ×2 (08:19→21:49)
[2020-05-03] MEDS: Atenolol 50 MG Tab PO SCH (08:20)
[2020-05-03] MEDS: Finasteride 5 MG Tab PO SCH (08:20)
[2020-05-03] MEDS: Tamsulosin 0.4 MG Cap.ER PO SCH ×2 (08:20→21:49)
[2020-05-03] MEDS: Clopidogrel 75 MG Tab PO SCH (08:20)
--- NOTE | 2020-05-03 11:14 | PCM.PN ---
- General Info Date of Service: 05/03/20 Admission Dx/Problem (Free Text): Admission Diagnosis/Problem Admission Diagnosis/Problem Cellulitis Subjective Update: Patient seen and examined today. Patient doing okay today. Bilateral lower extremity continue to improve, Remains afebrile. Cultures negative. WBC trended down. Creatinine 2.2. Functional Status: Reports: Pain Controlled - Review of Systems General: Reports: No Symptoms HEENT: Reports: No Symptoms Pulmonary: Reports: No Symptoms Cardiovascular: Reports: No Symptoms Gastrointestinal: Reports: No Symptoms Genitourinary: Reports: No Symptoms Musculoskeletal: Reports: No Symptoms Skin: Reports: No Symptoms Neurological: Reports: No Symptoms Psychiatric: Reports: No Symptoms - Patient Data Vitals - Most Recent: Last Vital Signs Temp 97.3 F 05/03/20 08:00 Pulse 60 05/03/20 08:20 Resp 18 05/03/20 08:00 BP 159/74 H 05/03/20 08:20 Pulse Ox 93 L 05/03/20 08:00 Weight - Most Recent: 185 lb 6.4 oz I&O - Last 24 Hours: Intake & Output 05/02/20 05/03/20 05/03/20 22:59 06:59 14:59 Intake Total 1160 450 606 Output Total 425 300 100 Balance 735 150 506 Lab Results Last 24 Hours: Laboratory Results - last 24 hr 05/02/20 05/02/20 05/02/20 Range/Units 10:50 10:50 10:50 WBC (5.0-10.0) 10^3/uL RBC (4.6-6.2) 10^6/uL Hgb (14.0-18.0) g/dL Hct (40.0-54.0) % MCV (80-100) fL MCH (27.0-34.0) pg MCHC (33.0-35.0) g/dL Plt Count (150-450) 10^3/uL PT (9.0-12.0) SEC INR (0.9-1.2) D-Dimer, Quantitative 3600 H (0-400) ng/mL Sodium 135 L (136-145) mmol/L Potassium 3.8 (3.5-5.1) mmol/L Chloride 102 (98-107) mmol/L Carbon Dioxide 20 L (21-32) mmol/L Anion Gap 16.8 H (7-13) mEq/L BUN 38 H (7-18) mg/dL Creatinine 2.15 H (0.70-1.30) mg/dL Est Cr Clr Drug Dosing 29.24 mL/min Estimated GFR (MDRD) 30 BUN/Creatinine Ratio 17.7 (No establ ref range) Glucose 118 H (74-99) mg/dL Calcium 7.3 L (8.5-10.1) mg/dL Ferritin (26-388) mg/mL Total Bilirubin 0.9 (0.2-1.0) mg/dL AST 75 H (15-37) U/L ALT 40 (16-63) U/L Alkaline Phosphatase 221 H (46-116) U/L Troponin I (0.000-0.056) ng/mL Total Protein 6.4 (6.4-8.2) g/dL Albumin 1.6 L (3.4-5.0) g/dL Globulin 4.8 Albumin/Globulin Ratio 0.33 Vancomycin Trough 15.6 (10.0-20.0) ug/mL 05/02/20 05/03/20 05/03/20 Range/Units 10:50 06:49 06:49 WBC 8.5 (5.0-10.0) 10^3/uL RBC 3.08 L (4.6-6.2) 10^6/uL Hgb 9.3 L (14.0-18.0) g/dL Hct 27.3 L (40.0-54.0) % MCV 88.6 (80-100) fL MCH 30.2 (27.0-34.0) pg MCHC 34.1 (33.0-35.0) g/dL Plt Count 234 (150-450) 10^3/uL PT 11.9 (9.0-12.0) SEC INR 1.3 H (0.9-1.2) D-Dimer, Quantitative 3100 H (0-400) ng/mL Sodium (136-145) mmol/L Potassium (3.5-5.1) mmol/L Chloride (98-107) mmol/L Carbon Dioxide (21-32) mmol/L Anion Gap (7-13) mEq/L BUN (7-18) mg/dL Creatinine (0.70-1.30) mg/dL Est Cr Clr Drug Dosing mL/min Estimated GFR (MDRD) BUN/Creatinine Ratio (No establ ref range) Glucose (74-99) mg/dL Calcium (8.5-10.1) mg/dL Ferritin 514 H (26-388) mg/mL Total Bilirubin (0.2-1.0) mg/dL AST (15-37) U/L ALT (16-63) U/L Alkaline Phosphatase (46-116) U/L Troponin I (0.000-0.056) ng/mL Total Protein (6.4-8.2) g/dL Albumin (3.4-5.0) g/dL Globulin Albumin/Globulin Ratio Vancomycin Trough (10.0-20.0) ug/mL 05/03/20 Range/Units 06:49 WBC (5.0-10.0) 10^3/uL RBC (4.6-6.2) 10^6/uL Hgb (14.0-18.0) g/dL Hct (40.0-54.0) % MCV (80-100) fL MCH (27.0-34.0) pg MCHC (33.0-35.0) g/dL Plt Count (150-450) 10^3/uL PT (9.0-12.0) SEC INR (0.9-1.2) D-Dimer, Quantitative (0-400) ng/mL Sodium 134 L (136-145) mmol/L Potassium 3.7 (3.5-5.1) mmol/L Chloride 103 (98-107) mmol/L Carbon Dioxide 18 L (21-32) mmol/L Anion Gap 16.7 H (7-13) mEq/L BUN 37 H (7-18) mg/dL Creatinine 2.11 H (0.70-1.30) mg/dL Est Cr Clr Drug Dosing 29.79 mL/min Estimated GFR (MDRD) 31 BUN/Creatinine Ratio 17.5 (No establ ref range) Glucose 98 (74-99) mg/dL Calcium 7.2 L (8.5-10.1) mg/dL Ferritin (26-388) mg/mL Total Bilirubin 0.9 (0.2-1.0) mg/dL AST 66 H (15-37) U/L ALT 34 (16-63) U/L Alkaline Phosphatase 181 H (46-116) U/L Troponin I 0.032 (0.000-0.056) ng/mL Total Protein 5.8 L (6.4-8.2) g/dL Albumin 1.4 L (3.4-5.0) g/dL Globulin 4.4 Albumin/Globulin Ratio 0.32 Vancomycin Trough (10.0-20.0) ug/mL Med Orders - Current: Current Medications Acetaminophen (Tylenol) 650 mg PO Q6H PRN PRN Reason: pain (mild) Last Admin: 05/02/20 18:18 Dose: 650 mg Documented by: Hydrocodone Bitart/Acetaminophen ([place] 325-10 Mg) 1 tab PO Q6H PRN PRN Reason: mod pain Last Admin: 05/03/20 08:21 Dose: 1 tab Documented by: Albuterol (Proventil Hfa) 0 gm INH Q4HR PRN PRN Reason: Wheezing Apixaban (Eliquis) 5 mg PO BID [facility] Last Admin: 05/03/20 08:19 Dose: 5 mg Documented by: Atenolol (Tenormin) 50 mg PO DAILY [facility] Last Admin: 05/03/20 08:20 Dose: 50 mg Documented by: Clopidogrel Bisulfate (Plavix) 75 mg PO DAILY [facility] Last Admin: 05/03/20 08:20 Dose: 75 mg Documented by: Finasteride (Proscar) 5 mg PO DAILY [facility] Last Admin: 05/03/20 08:20 Dose: 5 mg Documented by: Vancomycin HCl 1.25 gm/ Sodium (Chloride) 250 mls @ 166.667 mls/hr IV Q48H [facility] Last Infusion: 05/02/20 17:12 Dose: Infused Documented by: Piperacillin Sod/Tazobactam (Sod 2.25 gm/ Sodium Chloride) 50 mls @ 100 mls/hr IV Q6H [facility] Last Infusion: 05/03/20 08:30 Dose: Infused Documented by: Influenza Virus Vaccine (Pharmacy To Dose - Influenza Vaccine) 1 each IM DAILY [facility] Last Admin: 05/03/20 08:23 Dose: Not Given Documented by: Melatonin (Melatonin) 3 mg PO BEDTIME PRN PRN Reason: Insomnia Last Admin: 05/03/20 01:12 Dose: 3 mg Documented by: Ropinirole HCl (Requip) 0.25 mg PO TID [facility] Last Admin: 05/03/20 08:19 Dose: 0.25 mg Documented by: Sodium Chloride (Saline Flush) 10 ml FLUSH ASDIRECTED PRN PRN Reason: IV Use Last Admin: 05/03/20 07:59 Dose: 10 ml Documented by: Tamsulosin HCl (Flomax) 0.4 mg PO BID [facility] Last Admin: 05/03/20 08:20 Dose: 0.4 mg Documented by: Vancomycin HCl (Pharmacy To Dose - Vancomycin) 1 dose .XX ASDIRECTED [facility] Discontinued Medications Hydrocodone Bitart/Acetaminophen ([place] 325-10 Mg) 1 tab PO ONETIME ONE Stop: 04/26/20 11:21 Last Admin: 04/26/20 11:26 Dose: 1 tab Documented by: Ceftriaxone Sodium 1 gm/ (Sodium Chloride) 50 mls @ 100 mls/hr IV ONETIME ONE Stop: 04/26/20 11:37 Last Admin: 04/26/20 11:18 Dose: 100 mls/hr Documented by: Ceftriaxone Sodium 1 gm/ (Sodium Chloride) 50 mls @ 100 mls/hr IV Q24H [facility] Last Admin: 04/26/20 14:07 Dose: Not Given Documented by: Sodium Chloride (Normal Saline) 1,000 mls @ 999 mls/hr IV .BOLUS ONE Stop: 04/26/20 14:09 Last Infusion: 04/26/20 15:36 Dose: Infused Documented by: Sodium Chloride (Normal Saline) 1,000 mls @ 100 mls/hr IV ASDIRECTED [facility] Last Admin: 04/27/20 02:43 Dose: 100 mls/hr Documented by: Piperacillin Sod/Tazobactam (Sod 3.375 gm/ Sodium Chloride) 100 mls @ 200 mls/hr IV Q6H [facility] Last Admin: 04/27/20 15:15 Dose: Not Given Documented by: Metoprolol Tartrate (Lopressor) 25 mg PO ONETIME ONE Stop: 04/30/20 00:35 Last Admin: 04/30/20 01:00 Dose: 25 mg Documented by: Non-Formulary Medication (Duloxetine [Cymbalta]) 40 mg PO DAILY [facility] Last Admin: 05/01/20 14:59 Dose: Not Given Documented by: - Exam Quality Assessment: DVT Prophylaxis General: Alert, Oriented HEENT: Pupils Equal, Pupils Reactive, EOMI, Mucous Membr. Moist/[place] Neck: Supple Lungs: Clear to Auscultation, Normal Respiratory Effort Cardiovascular: Regular Rate, Regular Rhythm GI/Abdominal Exam: Normal Bowel Sounds, Soft, Non-Tender, No Organomegaly, No Distention, No Abnormal Bruit, No Mass, Pelvis Stable (Male) Exam: No Hernia, Normal Inspection, Normal Prostate, Circumcised Back Exam: Normal Inspection, Full Range of Motion Extremities: Normal Inspection, Normal Range of Motion, Non-Tender, No Pedal Edema, Normal Capillary Refill Skin: Warm, Dry, Intact Wound/Incisions: Healing Well Neurological: No New Focal Deficit Psy/Mental Status: Alert, Normal Affect, Normal Mood Sepsis Event Note - Evaluation Sepsis Screening Result: No Definite Risk - Focused Exam Vital Signs: Vital Signs Temp Pulse Pulse Resp BP BP Pulse Ox 05/03/20 08:20 60 159/74 H 05/03/20 08:00 97.3 F 66 18 159/74 H 93 L 05/03/20 03:15 98.4 F 67 20 152/80 H 95 05/02/20 23:50 98.5 F 72 20 144/80 H 95 - Problem List & Annotations (1) COVID-19 SNOMED Code(s): 208000257 Code(s): U07.1 - COVID-19 Status: Acute Current Visit: Yes - Problem List Review Problem List Initiated/Reviewed/Updated: Yes - My Orders Last 24 Hours: My Active Orders 05/02/20 13:45 OT Evaluation and Treatment [CONS] Routine 05/03/20 00:53 Melatonin 3 mg PO BEDTIME PRN 05/03/20 01:00 rOPINIRole [Requip] 0.25 mg PO TID 05/04/20 07:00 CBC W/O DIFF,HEMOGRAM [HEME] DAILY COMPREHENSIVE METABOLIC PN,CMP [CHEM] DAILY D-DIMER QUANTITATIVE [COAG] DAILY INR,PT,PROTHROMBIN TIME [COAG] DAILY TROPONIN I [CHEM] DAILY 05/05/20 07:00 CBC W/O DIFF,HEMOGRAM [HEME] DAILY COMPREHENSIVE METABOLIC PN,CMP [CHEM] DAILY D-DIMER QUANTITATIVE [COAG] DAILY INR,PT,PROTHROMBIN TIME [COAG] DAILY TROPONIN I [CHEM] DAILY 05/06/20 07:00 CBC W/O DIFF,HEMOGRAM [HEME] DAILY COMPREHENSIVE METABOLIC PN,CMP [CHEM] DAILY D-DIMER QUANTITATIVE [COAG] DAILY INR,PT,PROTHROMBIN TIME [COAG] DAILY TROPONIN I [CHEM] DAILY 05/07/20 07:00 CBC W/O DIFF,HEMOGRAM [HEME] DAILY COMPREHENSIVE METABOLIC PN,CMP [CHEM] DAILY D-DIMER QUANTITATIVE [COAG] DAILY INR,PT,PROTHROMBIN TIME [COAG] DAILY TROPONIN I [CHEM] DAILY - Plan Plan:: 79-year-old gentleman with a history of hypertension, chronic kidney disease stage III, anemia of chronic kidney disease, peripheral artery disease, COPD who presented with lower extremity swelling, erythema and pain worse in left leg. 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 -Continue treatment with vancomycin, and Zosyn Sepsis Resolving Continue antibiotics Covid 19 infection -Patient asymptomatic -The patient has a no chest x-ray changes -Patient with notes required steroids or plasma -Not candidate for Remdesivir because of renal failure -D-dimer elevated 3660 -Unable to do CT chest PE protocol due to elevated creatinine -Had bilateral lower extremity ultrasound that was negative for DVT -Continue apixaban for DVT prophylaxis -Continue with isolation measures Hyponatremia: Likely from CKD and Infection Resolved Hypotension" This is Likely secondary to sepsis -Now resolved -Continue hold Norvasc and hydralazine. Will resume as needed -Continue atenolol Acute Kidney Injury: With a history of chronic kidney disease stage III -Gentle IF hydration -BMP daily Peripheral artery disease On Plavix, apixaban h/o copd: There is no apparent sign of acute exacerbation Use albuterol as needed
[2020-05-03] MEDS: Sodium Chloride 0.9% 1,000 ML IV SCH ×2 (12:09→21:55)
[2020-05-04] MEDS: Piperacillin/Tazobactam 2.25 GM in Sodium Chloride 0.9% 50 ML IV SCH ×2 (02:08→08:01)
[2020-05-04] MEDS: Acetaminophen 325 MG Tab PO PRN ×3 (02:08→20:38)
[2020-05-04] MEDS: Acetaminophen/HYDROcodone 325-10 MG Tab PO PRN ×4 (03:49→22:33)
[2020-05-04 07:13] LABS: ANION GAP 15.3 mEq/L (7-13)
[2020-05-04] MEDS: rOPINIRole 0.25 MG Tab PO SCH ×3 (08:06→20:34)
[2020-05-04] MEDS: Apixaban 5 MG Tab PO SCH ×2 (08:06→20:35)
[2020-05-04] MEDS: Tamsulosin 0.4 MG Cap.ER PO SCH ×2 (08:06→20:34)
[2020-05-04] MEDS: Finasteride 5 MG Tab PO SCH (08:06)
[2020-05-04] MEDS: Atenolol 50 MG Tab PO SCH (08:07)
[2020-05-04] MEDS: Clopidogrel 75 MG Tab PO SCH (08:07)
[2020-05-04] MEDS ORDERED: diphenhydrAMINE 25 MG Tab PO PRN (10:42)
--- NOTE | 2020-05-04 10:51 | PCM.PN ---
- General Info Date of Service: 05/04/20 Admission Dx/Problem (Free Text): Admission Diagnosis/Problem Admission Diagnosis/Problem bilateral lower extremity cellulitis Subjective Update: Patient seen and examined today. Patient continued to improve clinically. Bilateral lower extremity redness and swelling significantly improved. Remains afebrile. Patient still requiring assist of 2. Cultures negative. WBC trended down. Creatinine trending down. Functional Status: Reports: Pain Controlled - Review of Systems General: Reports: No Symptoms HEENT: Reports: No Symptoms Pulmonary: Reports: No Symptoms Cardiovascular: Reports: No Symptoms Gastrointestinal: Reports: No Symptoms Genitourinary: Reports: No Symptoms Musculoskeletal: Reports: No Symptoms Skin: Reports: No Symptoms Neurological: Reports: No Symptoms Psychiatric: Reports: No Symptoms - Patient Data Vitals - Most Recent: Last Vital Signs Temp 98.0 F 05/04/20 08:00 Pulse 73 05/04/20 08:07 Resp 18 05/04/20 08:00 BP 164/95 H 05/04/20 08:07 Pulse Ox 93 L 05/04/20 08:00 Weight - Most Recent: 185 lb 6.4 oz I&O - Last 24 Hours: Intake & Output 05/03/20 05/04/20 05/04/20 22:59 06:59 14:59 Intake Total 200 1600 200 Output Total 200 300 Balance 0 1300 200 Lab Results Last 24 Hours: Laboratory Results - last 24 hr 05/04/20 05/04/20 05/04/20 Range/Units 06:31 06:31 06:31 WBC 9.3 (5.0-10.0) 10^3/uL RBC 3.18 L (4.6-6.2) 10^6/uL Hgb 9.5 L (14.0-18.0) g/dL Hct 28.5 L (40.0-54.0) % MCV 89.6 (80-100) fL MCH 29.9 (27.0-34.0) pg MCHC 33.3 (33.0-35.0) g/dL Plt Count 261 (150-450) 10^3/uL PT 12.5 H (9.0-12.0) SEC INR 1.3 H (0.9-1.2) D-Dimer, Quantitative 3780 H (0-400) ng/mL Sodium 137 (136-145) mmol/L Potassium 4.3 (3.5-5.1) mmol/L Chloride 106 (98-107) mmol/L Carbon Dioxide 20 L (21-32) mmol/L Anion Gap 15.3 H (7-13) mEq/L BUN 30 H (7-18) mg/dL Creatinine 1.97 H (0.70-1.30) mg/dL Est Cr Clr Drug Dosing 31.91 mL/min Estimated GFR (MDRD) 33 BUN/Creatinine Ratio 15.2 (No establ ref range) Glucose 106 H (74-99) mg/dL Calcium 7.0 L (8.5-10.1) mg/dL Total Bilirubin 0.8 (0.2-1.0) mg/dL AST 51 H (15-37) U/L ALT 30 (16-63) U/L Alkaline Phosphatase 160 H (46-116) U/L Troponin I 0.018 (0.000-0.056) ng/mL Total Protein 6.1 L (6.4-8.2) g/dL Albumin 1.4 L (3.4-5.0) g/dL Globulin 4.7 Albumin/Globulin Ratio 0.30 Med Orders - Current: Current Medications Acetaminophen (Tylenol) 650 mg PO Q6H PRN PRN Reason: pain (mild) Last Admin: 05/04/20 08:08 Dose: 650 mg Documented by: Hydrocodone Bitart/Acetaminophen ([place] 325-10 Mg) 1 tab PO Q6H PRN PRN Reason: mod pain Last Admin: 05/04/20 09:40 Dose: 1 tab Documented by: Albuterol (Proventil Hfa) 0 gm INH Q4HR PRN PRN Reason: Wheezing Apixaban (Eliquis) 5 mg PO BID [facility] Last Admin: 05/04/20 08:06 Dose: 5 mg Documented by: Atenolol (Tenormin) 50 mg PO DAILY [facility] Last Admin: 05/04/20 08:07 Dose: 50 mg Documented by: Clopidogrel Bisulfate (Plavix) 75 mg PO DAILY [facility] Last Admin: 05/04/20 08:07 Dose: 75 mg Documented by: Diphenhydramine HCl (Benadryl) 25 mg PO BEDTIME PRN PRN Reason: Insomnia Finasteride (Proscar) 5 mg PO DAILY [facility] Last Admin: 05/04/20 08:06 Dose: 5 mg Documented by: Vancomycin HCl 1.25 gm/ Sodium (Chloride) 250 mls @ 166.667 mls/hr IV Q48H [facility] Last Infusion: 05/02/20 17:12 Dose: Infused Documented by: Piperacillin Sod/Tazobactam (Sod 2.25 gm/ Sodium Chloride) 50 mls @ 100 mls/hr IV Q6H [facility] Last Infusion: 05/04/20 08:35 Dose: Infused Documented by: Sodium Chloride (Normal Saline) 1,000 mls @ 75 mls/hr IV ASDIRECTED [facility] Last Admin: 05/03/20 21:55 Dose: 75 mls/hr Documented by: Influenza Virus Vaccine (Pharmacy To Dose - Influenza Vaccine) 1 each IM DAILY [facility] Last Admin: 05/04/20 10:15 Dose: Not Given Documented by: Melatonin (Melatonin) 3 mg PO BEDTIME PRN PRN Reason: Insomnia Last Admin: 05/03/20 21:49 Dose: 3 mg Documented by: Ropinirole HCl (Requip) 0.25 mg PO TID [facility] Last Admin: 05/04/20 08:06 Dose: 0.25 mg Documented by: Sodium Chloride (Saline Flush) 10 ml FLUSH ASDIRECTED PRN PRN Reason: IV Use Last Admin: 05/03/20 07:59 Dose: 10 ml Documented by: Tamsulosin HCl (Flomax) 0.4 mg PO BID [facility] Last Admin: 05/04/20 08:06 Dose: 0.4 mg Documented by: Vancomycin HCl (Pharmacy To Dose - Vancomycin) 1 dose .XX ASDIRECTED [facility] Discontinued Medications Hydrocodone Bitart/Acetaminophen ([place] 325-10 Mg) 1 tab PO ONETIME ONE Stop: 04/26/20 11:21 Last Admin: 04/26/20 11:26 Dose: 1 tab Documented by: Ceftriaxone Sodium 1 gm/ (Sodium Chloride) 50 mls @ 100 mls/hr IV ONETIME ONE Stop: 04/26/20 11:37 Last Admin: 04/26/20 11:18 Dose: 100 mls/hr Documented by: Ceftriaxone Sodium 1 gm/ (Sodium Chloride) 50 mls @ 100 mls/hr IV Q24H [facility] Last Admin: 04/26/20 14:07 Dose: Not Given Documented by: Sodium Chloride (Normal Saline) 1,000 mls @ 999 mls/hr IV .BOLUS ONE Stop: 04/26/20 14:09 Last Infusion: 04/26/20 15:36 Dose: Infused Documented by: Sodium Chloride (Normal Saline) 1,000 mls @ 100 mls/hr IV ASDIRECTED [facility] Last Admin: 04/27/20 02:43 Dose: 100 mls/hr Documented by: Piperacillin Sod/Tazobactam (Sod 3.375 gm/ Sodium Chloride) 100 mls @ 200 mls/hr IV Q6H [facility] Last Admin: 04/27/20 15:15 Dose: Not Given Documented by: Metoprolol Tartrate (Lopressor) 25 mg PO ONETIME ONE Stop: 04/30/20 00:35 Last Admin: 04/30/20 01:00 Dose: 25 mg Documented by: Non-Formulary Medication (Duloxetine [Cymbalta]) 40 mg PO DAILY [facility] Last Admin: 05/01/20 14:59 Dose: Not Given Documented by: - Exam Quality Assessment: DVT Prophylaxis General: Alert, Oriented HEENT: Pupils Equal, Pupils Reactive, EOMI, Mucous Membr. Moist/[place] Neck: Supple Lungs: Clear to Auscultation, Normal Respiratory Effort Cardiovascular: Regular Rate, Regular Rhythm GI/Abdominal Exam: Normal Bowel Sounds, Soft, Non-Tender, No Organomegaly, No Distention, No Abnormal Bruit, No Mass, Pelvis Stable (Male) Exam: No Hernia, Normal Inspection, Normal Prostate, Circumcised Back Exam: Normal Inspection, Full Range of Motion Extremities: Normal Inspection, Normal Range of Motion, Non-Tender, No Pedal Edema, Normal Capillary Refill Skin: Warm, Dry, Intact Wound/Incisions: Healing Well Neurological: No New Focal Deficit Psy/Mental Status: Alert, Normal Affect, Normal Mood Sepsis Event Note - Evaluation Sepsis Screening Result: No Definite Risk - Focused Exam Vital Signs: Vital Signs Temp Pulse Pulse Resp BP BP Pulse Ox 05/04/20 08:07 73 164/95 H 05/04/20 08:00 98.0 F 73 18 164/95 H 93 L 05/04/20 04:00 97.2 F 76 20 149/88 H 94 L 05/04/20 01:24 97.6 F 80 22 H 151/86 H 95 - Problem List & Annotations (1) COVID-19 SNOMED Code(s): 852593976 Code(s): U07.1 - COVID-19 Status: Acute Current Visit: Yes (2) Anemia in chronic kidney disease (CKD) SNOMED Code(s): 192323633 Code(s): N18.9 - CHRONIC KIDNEY DISEASE, UNSPECIFIED; D63.1 - ANEMIA IN CHRONIC KIDNEY DISEASE Status: Acute Current Visit: Yes (3) High anion gap metabolic acidosis SNOMED Code(s): 22564019 Code(s): E87.2 - ACIDOSIS Status: Acute Current Visit: Yes - Problem List Review Problem List Initiated/Reviewed/Updated: Yes - My Orders Last 24 Hours: My Active Orders 05/03/20 11:30 Sodium Chloride 0.9% [Normal Saline] 1,000 ml IV ASDIRECTED 05/04/20 10:42 diphenhydrAMINE [Benadryl] 25 mg PO BEDTIME PRN 05/05/20 07:00 CBC W/O DIFF,HEMOGRAM [HEME] DAILY COMPREHENSIVE METABOLIC PN,CMP [CHEM] DAILY D-DIMER QUANTITATIVE [COAG] DAILY INR,PT,PROTHROMBIN TIME [COAG] DAILY TROPONIN I [CHEM] DAILY 05/06/20 07:00 CBC W/O DIFF,HEMOGRAM [HEME] DAILY COMPREHENSIVE METABOLIC PN,CMP [CHEM] DAILY D-DIMER QUANTITATIVE [COAG] DAILY INR,PT,PROTHROMBIN TIME [COAG] DAILY TROPONIN I [CHEM] DAILY 05/07/20 07:00 CBC W/O DIFF,HEMOGRAM [HEME] DAILY COMPREHENSIVE METABOLIC PN,CMP [CHEM] DAILY D-DIMER QUANTITATIVE [COAG] DAILY INR,PT,PROTHROMBIN TIME [COAG] DAILY TROPONIN I [CHEM] DAILY - Plan Plan:: 79-year-old gentleman with a history of hypertension, chronic kidney disease stage III, anemia of chronic kidney disease, peripheral artery disease, COPD who presented with lower extremity swelling, erythema and pain worse in left leg. 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 -Continue treatment with vancomycin, and Zosyn Sepsis Resolved Covid 19 infection -Patient asymptomatic -The patient has a no chest x-ray changes -Patient with notes required steroids or plasma -Not candidate for Remdesivir because of renal failure -D-dimer elevated 3660 -Unable to do CT chest PE protocol due to elevated creatinine -Had bilateral lower extremity ultrasound that was negative for DVT -Continue apixaban for DVT prophylaxis -Continue with isolation measures Hyponatremia: Likely from CKD and Infection Resolved Hypotension" This is Likely secondary to sepsis -Now resolved -Continue hold Norvasc and hydralazine. Will resume as needed -Continue atenolol Acute Kidney Injury: With a history of chronic kidney disease stage III -Creatinine trending down -Continue gentle IVF hydration -BMP daily Peripheral artery disease On Plavix, apixaban h/o copd: There is no apparent sign of acute exacerbation Use albuterol as needed Physical debility Continue physical therapy and Occupational Therapy
[2020-05-04] MEDS: Sodium Chloride 0.9% 1,000 ML IV SCH (12:19)
[2020-05-04] MEDS: Doxycycline Monohydrate 100 MG Cap PO SCH (20:35)
[2020-05-04] MEDS: Melatonin 3 MG Tab PO PRN (22:33)
[2020-05-05] MEDS: Acetaminophen/HYDROcodone 325-10 MG Tab PO PRN ×3 (05:20→20:52)
[2020-05-05 07:29] LABS: ANION GAP 18.2 mEq/L (7-13)
[2020-05-05] MEDS: Clopidogrel 75 MG Tab PO SCH (08:50)
[2020-05-05] MEDS: Tamsulosin 0.4 MG Cap.ER PO SCH ×2 (08:50→20:51)
[2020-05-05] MEDS: Doxycycline Monohydrate 100 MG Cap PO SCH ×2 (08:50→20:51)
[2020-05-05] MEDS: Apixaban 5 MG Tab PO SCH ×2 (08:50→20:51)
[2020-05-05] MEDS: rOPINIRole 0.25 MG Tab PO SCH ×3 (08:51→20:51)
[2020-05-05] MEDS: Finasteride 5 MG Tab PO SCH (08:51)
[2020-05-05] MEDS: Atenolol 50 MG Tab PO SCH (08:52)
[2020-05-05] MEDS: Acetaminophen 325 MG Tab PO PRN (08:52)
--- NOTE | 2020-05-05 10:18 | PCM.PN ---
- General Info Date of Service: 05/05/20 Admission Dx/Problem (Free Text): Admission Diagnosis/Problem Admission Diagnosis/Problem bilateral lower extremity cellulitis Subjective Update: Patient seen and examined today. Patient continued to improve clinically. Bilateral lower extremity redness and swelling improving. Remains afebrile. He had high diarrhea overnight. Hold for loose bowel movement overnight. One this morning. He denies abdominal pain, nausea, vomiting. Patient still requiring assist of 2. Cultures negative. WBC trended down. Creatinine trending down. Functional Status: Reports: Pain Controlled - Review of Systems General: Reports: No Symptoms HEENT: Reports: No Symptoms Pulmonary: Reports: No Symptoms Cardiovascular: Reports: No Symptoms Gastrointestinal: Reports: No Symptoms Genitourinary: Reports: No Symptoms Musculoskeletal: Reports: No Symptoms Skin: Reports: No Symptoms Neurological: Reports: No Symptoms Psychiatric: Reports: No Symptoms - Patient Data Vitals - Most Recent: Last Vital Signs Temp 98.2 F 05/05/20 08:00 Pulse 75 05/05/20 08:52 Resp 22 H 05/05/20 08:00 BP 156/85 H 05/05/20 08:52 Pulse Ox 95 05/05/20 08:00 Weight - Most Recent: 185 lb 6.4 oz I&O - Last 24 Hours: Intake & Output 05/04/20 05/05/20 05/05/20 22:59 06:59 14:59 Intake Total 150 240 Output Total 700 Balance 150 -700 240 Lab Results Last 24 Hours: Laboratory Results - last 24 hr 05/05/20 05/05/20 05/05/20 Range/Units 06:48 06:48 06:48 WBC 9.9 (5.0-10.0) 10^3/uL RBC 3.15 L (4.6-6.2) 10^6/uL Hgb 9.4 L (14.0-18.0) g/dL Hct 28.4 L (40.0-54.0) % MCV 90.2 (80-100) fL MCH 29.8 (27.0-34.0) pg MCHC 33.1 (33.0-35.0) g/dL Plt Count 283 (150-450) 10^3/uL PT 12.8 H (9.0-12.0) SEC INR 1.4 H (0.9-1.2) D-Dimer, Quantitative 3740 H (0-400) ng/mL Sodium 138 (136-145) mmol/L Potassium 4.2 (3.5-5.1) mmol/L Chloride 106 (98-107) mmol/L Carbon Dioxide 18 L (21-32) mmol/L Anion Gap 18.2 H (7-13) mEq/L BUN 27 H (7-18) mg/dL Creatinine 1.85 H (0.70-1.30) mg/dL Est Cr Clr Drug Dosing 33.98 mL/min Estimated GFR (MDRD) 36 BUN/Creatinine Ratio 14.6 (No establ ref range) Glucose 92 (74-99) mg/dL Calcium 7.1 L (8.5-10.1) mg/dL Total Bilirubin 0.8 (0.2-1.0) mg/dL AST 41 H (15-37) U/L ALT 26 (16-63) U/L Alkaline Phosphatase 144 H (46-116) U/L Troponin I 0.020 (0.000-0.056) ng/mL Total Protein 6.4 (6.4-8.2) g/dL Albumin 1.5 L (3.4-5.0) g/dL Globulin 4.9 Albumin/Globulin Ratio 0.31 Med Orders - Current: Current Medications Acetaminophen (Tylenol) 650 mg PO Q6H PRN PRN Reason: pain (mild) Last Admin: 05/05/20 08:52 Dose: 650 mg Documented by: Hydrocodone Bitart/Acetaminophen ([place] 325-10 Mg) 1 tab PO Q6H PRN PRN Reason: mod pain Last Admin: 05/05/20 05:20 Dose: 1 tab Documented by: Albuterol (Proventil Hfa) 0 gm INH Q4HR PRN PRN Reason: Wheezing Apixaban (Eliquis) 5 mg PO BID [facility] Last Admin: 05/05/20 08:50 Dose: 5 mg Documented by: Atenolol (Tenormin) 50 mg PO DAILY [facility] Last Admin: 05/05/20 08:52 Dose: 50 mg Documented by: Clopidogrel Bisulfate (Plavix) 75 mg PO DAILY [facility] Last Admin: 05/05/20 08:50 Dose: 75 mg Documented by: Diphenhydramine HCl (Benadryl) 25 mg PO BEDTIME PRN PRN Reason: Insomnia Doxycycline Monohydrate (Doxycycline Monohydrate) 100 mg PO BID [facility] Last Admin: 05/05/20 08:50 Dose: 100 mg Documented by: Finasteride (Proscar) 5 mg PO DAILY [facility] Last Admin: 05/05/20 08:51 Dose: 5 mg Documented by: Influenza Virus Vaccine (Pharmacy To Dose - Influenza Vaccine) 1 each IM DAILY [facility] Last Admin: 05/05/20 09:56 Dose: Not Given Documented by: Loperamide HCl (Imodium) 2 mg PO Q4H PRN PRN Reason: Diarrhea Melatonin (Melatonin) 3 mg PO BEDTIME PRN PRN Reason: Insomnia Last Admin: 05/04/20 22:33 Dose: 3 mg Documented by: Ropinirole HCl (Requip) 0.25 mg PO TID [facility] Last Admin: 05/05/20 08:51 Dose: 0.25 mg Documented by: Tamsulosin HCl (Flomax) 0.4 mg PO BID [facility] Last Admin: 05/05/20 08:50 Dose: 0.4 mg Documented by: Discontinued Medications Hydrocodone Bitart/Acetaminophen ([place] 325-10 Mg) 1 tab PO ONETIME ONE Stop: 04/26/20 11:21 Last Admin: 04/26/20 11:26 Dose: 1 tab Documented by: Ceftriaxone Sodium 1 gm/ (Sodium Chloride) 50 mls @ 100 mls/hr IV ONETIME ONE Stop: 04/26/20 11:37 Last Admin: 04/26/20 11:18 Dose: 100 mls/hr Documented by: Ceftriaxone Sodium 1 gm/ (Sodium Chloride) 50 mls @ 100 mls/hr IV Q24H [facility] Last Admin: 04/26/20 14:07 Dose: Not Given Documented by: Sodium Chloride (Normal Saline) 1,000 mls @ 999 mls/hr IV .BOLUS ONE Stop: 04/26/20 14:09 Last Infusion: 04/26/20 15:36 Dose: Infused Documented by: Sodium Chloride (Normal Saline) 1,000 mls @ 100 mls/hr IV ASDIRECTED [facility] Last Admin: 04/27/20 02:43 Dose: 100 mls/hr Documented by: Vancomycin HCl 1.25 gm/ Sodium (Chloride) 250 mls @ 166.667 mls/hr IV Q48H [facility] Last Infusion: 05/02/20 17:12 Dose: Infused Documented by: Piperacillin Sod/Tazobactam (Sod 3.375 gm/ Sodium Chloride) 100 mls @ 200 mls/hr IV Q6H [facility] Last Admin: 04/27/20 15:15 Dose: Not Given Documented by: Piperacillin Sod/Tazobactam (Sod 2.25 gm/ Sodium Chloride) 50 mls @ 100 mls/hr IV Q6H [facility] Last Infusion: 05/04/20 08:35 Dose: Infused Documented by: Sodium Chloride (Normal Saline) 1,000 mls @ 75 mls/hr IV ASDIRECTED [facility] Last Admin: 05/04/20 12:19 Dose: 75 mls/hr Documented by: Metoprolol Tartrate (Lopressor) 25 mg PO ONETIME ONE Stop: 04/30/20 00:35 Last Admin: 04/30/20 01:00 Dose: 25 mg Documented by: Non-Formulary Medication (Duloxetine [Cymbalta]) 40 mg PO DAILY [facility] Last Admin: 05/01/20 14:59 Dose: Not Given Documented by: Sodium Chloride (Saline Flush) 10 ml FLUSH ASDIRECTED PRN PRN Reason: IV Use Last Admin: 05/03/20 07:59 Dose: 10 ml Documented by: Vancomycin HCl (Pharmacy To Dose - Vancomycin) 1 dose .XX ASDIRECTED [facility] - Exam Quality Assessment: DVT Prophylaxis General: Alert, Oriented HEENT: Pupils Equal, Pupils Reactive, EOMI, Mucous Membr. Moist/[place] Neck: Supple Lungs: Clear to Auscultation, Normal Respiratory Effort Cardiovascular: Regular Rate, Regular Rhythm GI/Abdominal Exam: Normal Bowel Sounds, Soft, Non-Tender, No Organomegaly, No Distention, No Abnormal Bruit, No Mass, Pelvis Stable (Male) Exam: No Hernia, Normal Inspection, Normal Prostate, Circumcised Back Exam: Normal Inspection, Full Range of Motion Extremities: Normal Inspection, Normal Range of Motion, Non-Tender, No Pedal Edema, Normal Capillary Refill Skin: Warm, Dry, Intact Wound/Incisions: Healing Well Neurological: No New Focal Deficit Psy/Mental Status: Alert, Normal Affect, Normal Mood Sepsis Event Note - Evaluation Sepsis Screening Result: No Definite Risk - Focused Exam Vital Signs: Vital Signs Temp Pulse Pulse Resp BP BP BP 05/05/20 08:52 75 156/85 H 05/05/20 08:00 98.2 F 75 22 H 156/85 H 05/05/20 04:00 98.4 F 74 22 H 177/88 H 05/04/20 23:39 98.7 F 76 20 156/86 H Pulse Ox 05/05/20 08:52 05/05/20 08:00 95 05/05/20 04:00 94 L 05/04/20 23:39 93 L - Problem List & Annotations (1) COVID-19 SNOMED Code(s): 367036943 Code(s): U07.1 - COVID-19 Status: Acute Current Visit: Yes (2) Anemia in chronic kidney disease (CKD) SNOMED Code(s): 888866249 Code(s): N18.9 - CHRONIC KIDNEY DISEASE, UNSPECIFIED; D63.1 - ANEMIA IN CHRONIC KIDNEY DISEASE Status: Acute Current Visit: Yes (3) High anion gap metabolic acidosis SNOMED Code(s): 22799373 Code(s): E87.2 - ACIDOSIS Status: Acute Current Visit: Yes (4) Diarrhea SNOMED Code(s): 60531747 Code(s): R19.7 - DIARRHEA, UNSPECIFIED Status: Acute Current Visit: Yes - Problem List Review Problem List Initiated/Reviewed/Updated: Yes - My Orders Last 24 Hours: My Active Orders 05/04/20 10:42 diphenhydrAMINE [Benadryl] 25 mg PO BEDTIME PRN 05/04/20 21:00 Doxycycline Monohydrate 100 mg PO BID 05/05/20 10:02 Loperamide [Imodium] 2 mg PO Q4H PRN 05/06/20 07:00 CBC W/O DIFF,HEMOGRAM [HEME] DAILY COMPREHENSIVE METABOLIC PN,CMP [CHEM] DAILY D-DIMER QUANTITATIVE [COAG] DAILY INR,PT,PROTHROMBIN TIME [COAG] DAILY TROPONIN I [CHEM] DAILY 05/07/20 07:00 CBC W/O DIFF,HEMOGRAM [HEME] DAILY COMPREHENSIVE METABOLIC PN,CMP [CHEM] DAILY D-DIMER QUANTITATIVE [COAG] DAILY INR,PT,PROTHROMBIN TIME [COAG] DAILY TROPONIN I [CHEM] DAILY - Plan Plan:: 79-year-old gentleman with a history of hypertension, chronic kidney disease stage III, anemia of chronic kidney disease, peripheral artery disease, COPD who presented with lower extremity swelling, erythema and pain worse in left leg. 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 doxycycline Sepsis Resolved Covid 19 infection -Patient asymptomatic -The patient has a no chest x-ray changes -Patient with notes required steroids or plasma -Not candidate for Remdesivir because of renal failure -D-dimer elevated 3660 -Unable to do CT chest PE protocol due to elevated creatinine -Had bilateral lower extremity ultrasound that was negative for DVT -Continue apixaban for DVT prophylaxis -Continue with isolation measures Hyponatremia: Likely from CKD and Infection Resolved Hypotension" This is Likely secondary to sepsis -Now resolved -Continue hold Norvasc and hydralazine. Will resume as needed -Continue atenolol Acute Kidney Injury: With a history of chronic kidney disease stage III -Creatinine trending down Peripheral artery disease On Plavix, apixaban h/o copd: There is no apparent sign of acute exacerbation Use albuterol as needed Physical debility Continue physical therapy and Occupational Therapy
[2020-05-05] MEDS: Loperamide 2 MG Cap PO PRN ×2 (12:34→20:51)
[2020-05-06] MEDS: Acetaminophen/HYDROcodone 325-10 MG Tab PO PRN (04:10)
[2020-05-06 07:16] LABS: ANION GAP 16.9 mEq/L (7-13); CHLORIDE,CL 107 mmol/L (98-107); SODIUM,NA 137 mmol/L (136-145)
[2020-05-06 07:29] VITALS: PULSE 73
[2020-05-06] MEDS: Apixaban 5 MG Tab PO SCH ×2 (07:30→08:42)
[2020-05-06] MEDS: rOPINIRole 0.25 MG Tab PO SCH ×2 (07:30→08:42)
[2020-05-06] MEDS: Finasteride 5 MG Tab PO SCH ×2 (07:30→08:42)
[2020-05-06] MEDS: Atenolol 50 MG Tab PO SCH ×2 (07:30→08:42)
[2020-05-06] MEDS: Clopidogrel 75 MG Tab PO SCH ×2 (07:31→08:42)
[2020-05-06] MEDS: Tamsulosin 0.4 MG Cap.ER PO SCH ×2 (07:31→08:42)
[2020-05-06] MEDS: Doxycycline Monohydrate 100 MG Cap PO SCH ×2 (07:31→08:41)
[2020-05-06 07:33] VITALS: BP 167/87
[2020-05-06] MEDS: Loperamide 2 MG Cap PO PRN (07:48)
== END 2020-05-06 12:40 | disposition swing bed (61) | DRG 871 ==
LOC: DL.ED 09:48 → DL.MS 11:09
PROVIDERS: ADMIT Internal Medicine; ATTEND Student in an Organized Health Care Education/Training Program
PROC: 8E0ZXY6 Isolation (ICD-10-PCS; principal; 2020-04-26)
DX: A41.9 Sepsis, unspecified organism (principal); U07.1 COVID-19; N17.9 Acute kidney failure, unspecified; E87.1 Hypo-osmolality and hyponatremia; L03.115 Cellulitis of right lower limb; L03.116 Cellulitis of left lower limb; I12.9 Hypertensive chronic kidney disease with stage 1 through stage 4 chronic kidney disease, or unspecified chronic kidney disease; N18.9 Chronic kidney disease, unspecified; N18.30 Chronic kidney disease, stage 3 unspecified; D63.1 Anemia in chronic kidney disease; D50.9 Iron deficiency anemia, unspecified; I50.9 Heart failure, unspecified; Z79.01 Long term (current) use of anticoagulants; Z79.899 Other long term (current) drug therapy; I73.9 Peripheral vascular disease, unspecified; J44.9 Chronic obstructive pulmonary disease, unspecified; H54.7 Unspecified visual loss; N40.0 Benign prostatic hyperplasia without lower urinary tract symptoms; M19.90 Unspecified osteoarthritis, unspecified site; F41.9 Anxiety disorder, unspecified; Z95.5 Presence of coronary angioplasty implant and graft; Z95.1 Presence of aortocoronary bypass graft; Z98.890 Other specified postprocedural states
CPT/HCPCS: 36415; 80053; 83605; 83615; 85025; 86140; 87040 ×2; 99284; 99285; U0002; 71045; 80048; 80202; 82728; 82962; 84484; 85027; 85379; 85610; 93970; 97166-GO; 97530-GO; A9270-GY; J0696; J2543; J3370; J7030; J7050

== ENCOUNTER 2020-05-06 09:33 | Inpatient (IN) | payer MEDICARE, MEDICAID ==
[2020-05-06] MEDS ORDERED: diphenhydrAMINE 25 MG Tab PO PRN (12:14)
[2020-05-06] MEDS ORDERED: Loperamide 2 MG Cap PO PRN (12:14)
--- NOTE | 2020-05-06 12:31 | PCM.HP ---
H&P History of Present Illness - General Date of Service: 05/06/20 Admit Problem/Dx: Admission Diagnosis/Problem Admission Diagnosis/Problem Debility Source of Information: Patient History Limitations: Reports: No Limitations - History of Present Illness Initial Comments - Free Text/Narative: 79-year-old gentleman with a history of hypertension, chronic kidney disease stage III, anemia of chronic kidney disease, peripheral artery disease, COPD who presented with lower extremity swelling, erythema and pain worse in left leg. Patient was admitted bilateral lower extremity cellulitis. He also tested positive for COVID-19 on admit. He did not require supplemental oxygen, dexamethasone, plasma or remdesivir. Patient responded to antibiotics. Lower extremities swelling, redness and pain significantly improved. He was transitioned to doxycycline. Physical therapy and occupational therapy were consulted. Patient continued to require assist of 2. Decision was made to discharge patient to swing bed to continue physical therapy and Occupational Therapy. Patient currently doing okay. No new complaint. Patient requesting to go home. Improves with: Reports: None Worsens with: Reports: None Associated Symptoms: Reports: No Other Symptoms - Related Data Allergies/Adverse Reactions: Allergies Allergy/AdvReac Type Severity Reaction Status Date / Time No Known Allergies Allergy Verified 01/19/20 20:07 Home Medications: Home Meds atenoloL [Atenolol] 50 mg PO DAILY 07/09/15 [History] Finasteride 5 mg PO DAILY 12/28/18 [History] Tamsulosin [Flomax] 0.4 mg PO BID 12/28/18 [History] Apixaban [Eliquis] 5 mg PO BID 05/29/19 [History] Albuterol/Ipratropium [DuoNeb 3.0-0.5 MG/3 ML] 3 ml .XX QID PRN #3 neb 07/18/19 [Rx] amLODIPine [Norvasc] 5 mg PO DAILY #90 tablet 07/18/19 [Rx] Clopidogrel Bisulfate [Clopidogrel] 75 mg PO DAILY 01/19/20 [History] DULoxetine [Cymbalta] 40 mg PO DAILY 01/19/20 [History] diphenhydrAMINE HCL [Benadryl Allergy] 25 mg PO Q6H PRN 01/19/20 [History] hydrALAZINE [Apresoline] 50 mg PO QID 01/19/20 [History] Past Medical History HEENT History: Reports: Impaired Vision Other HEENT History: Wears glasses. Cardiovascular History: Reports: Aneurysm, Bypass, Hypertension, Stents Respiratory History: Reports: None Gastrointestinal History: Reports: Pancreatitis Genitourinary History: Reports: Prostate Disorder, Other (See Below) Other Genitourinary History: chronic kidney disease. 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 Dermatologic History: Reports: Other (See Below) Other Dermatologic History: Scarring to RLE - Infectious Disease History Infectious Disease History: Reports: Other (See Below) Other Infectious Disease History: Reports hepatitis as a child - Past Surgical History Cardiovascular Surgical History: Reports: AAA Repair, Vascular Surgery GI Surgical History: Reports: None Male Surgical History: Reports: None Social & Family History - Family History Family Medical History: No Pertinent Family History - Caffeine Use Caffeine Use: Reports: Coffee - Living Situation & Occupation Living situation: Reports: , with Spouse Occupation: Retired H&P Review of Systems - Review of Systems: Review Of Systems: See Below General: Reports: No Symptoms HEENT: Reports: No Symptoms Pulmonary: Reports: No Symptoms Cardiovascular: Reports: No Symptoms Gastrointestinal: Reports: No Symptoms Genitourinary: Reports: No Symptoms Musculoskeletal: Reports: No Symptoms Skin: Reports: No Symptoms Psychiatric: Reports: No Symptoms Neurological: Reports: No Symptoms Hematologic/Lymphatic: Reports: No Symptoms Immunologic: Reports: No Symptoms Exam - Exam Exam: See Below (As per HPI) - Exam Quality Assessment: DVT Prophylaxis General: Alert, Oriented, 4 HEENT: PERRLA, Hearing Intact, Mucosa Moist & Mucarabones, Nares Patent, Normal Nasal Septum, Posterior Pharynx Clear, Conjunctiva Clear, EOMI, EACs Clear, TMs Clear Neck: Supple, Trachea Midline, 2 Lungs: Clear to Auscultation, Normal Respiratory Effort Cardiovascular: Regular Rate, Regular Rhythm GI/Abdominal Exam: Normal Bowel Sounds, Soft, Non-Tender, No Organomegaly, No Distention, No Abnormal Bruit, No Mass, Pelvis Stable (Male) Exam: No Hernia, Normal Inspection, Normal Prostate, Circumcised Rectal (Males) Exam: Normal Exam, Normal Rectal Tone, Prostate Normal Back Exam: Normal Inspection, Full Range of Motion, NT Extremities: Normal Inspection, Normal Range of Motion, Non-Tender, No Pedal Edema, Normal Capillary Refill Skin: Warm, Dry, Intact Neurological: Cranial Nerves Intact, Reflexes Equal Bilateral Neuro Extensive - Mental Status: Alert, Oriented x3, Normal Mood/Affect, Normal Cognition Neuro Extensive - Motor, Sensory, Reflexes: CN II-XII Intact, Normal Gait, Normal Reflexes Psychiatric: Alert, Normal Affect, Normal Mood Problem List Initiated/Reviewed/Updated: Yes Orders Last 24hrs: Active Orders 24 hr Category Date Time Status Patient Status [ADT] Routine ADT 05/06/20 12:16 Active Up With Assistance [RC] ASDIRECTED Care 05/06/20 12:14 Active Vital Signs [RC] QSHIFT Care 05/06/20 12:17 Active OT Evaluation and Treatment [CONS] Routine Cons 05/06/20 12:14 Active Regular Diet [DIET] Diet 05/06/20 Dinner Active Acetaminophen [TylenoL] Med 05/06/20 12:14 Active 650 mg PO Q6H PRN Acetaminophen/HYDROcodone [[place] 325-10 MG] Med 05/06/20 12:14 Active 1 tab PO Q6H PRN Apixaban [Eliquis] Med 05/06/20 21:00 Active 5 mg PO BID Clopidogrel [Plavix] Med 05/07/20 09:00 Active 75 mg PO DAILY DULoxetine [Cymbalta] Med 05/07/20 09:00 Ordered 40 mg PO DAILY Doxycycline Monohydrate Med 05/06/20 21:00 Ordered 100 mg PO BID Finasteride [Proscar] Med 05/07/20 09:00 Ordered 5 mg PO DAILY Loperamide [Imodium] Med 05/06/20 12:14 Ordered 2 mg PO Q4H PRN Melatonin Med 05/06/20 12:14 Ordered 3 mg PO BEDTIME PRN Tamsulosin [Flomax] Med 05/06/20 21:00 Ordered 0.4 mg PO BID amLODIPine [Norvasc] Med 05/07/20 09:00 Ordered 5 mg PO DAILY atenoloL [Tenormin] Med 05/07/20 09:00 Active 50 mg PO DAILY atenoloL [Tenormin] Med 05/07/20 09:00 Ordered 50 mg PO DAILY diphenhydrAMINE [Benadryl] Med 05/06/20 12:14 Ordered 25 mg PO BEDTIME PRN hydrALAZINE [Apresoline] Med 05/06/20 13:00 Ordered 50 mg PO QID rOPINIRole [Requip] Med 05/06/20 14:00 Ordered 0.25 mg PO TID Code Status [Resuscitation Status] Routine Resus Stat 05/06/20 12:15 Ordered Medication Orders Acetaminophen (Tylenol) 650 mg PO Q6H PRN PRN Reason: pain (mild) Hydrocodone Bitart/Acetaminophen ([place] 325-10 Mg) 1 tab PO Q6H PRN PRN Reason: mod pain Amlodipine Besylate (Norvasc) 5 mg PO DAILY [facility] Apixaban (Eliquis) 5 mg PO BID [facility] Atenolol (Tenormin) 50 mg PO DAILY [facility] Atenolol (Tenormin) 50 mg PO DAILY [facility] Clopidogrel Bisulfate (Plavix) 75 mg PO DAILY [facility] Diphenhydramine HCl (Benadryl) 25 mg PO BEDTIME PRN PRN Reason: Insomnia Doxycycline Monohydrate (Doxycycline Monohydrate) 100 mg PO BID [facility] Finasteride (Proscar) 5 mg PO DAILY [facility] Loperamide HCl (Imodium) 2 mg PO Q4H PRN PRN Reason: Diarrhea Melatonin (Melatonin) 3 mg PO BEDTIME PRN PRN Reason: Insomnia Non-Formulary Medication (Duloxetine [Cymbalta]) 40 mg PO DAILY [facility] Non-Formulary Medication (Hydralazine [Apresoline]) 50 mg PO QID [facility] Ropinirole HCl (Requip) 0.25 mg PO TID [facility] Tamsulosin HCl (Flomax) 0.4 mg PO BID [facility] Assessment/Plan Comment:: Bilateral lower extremity cellulitis with sepsis Improved Ultrasound of lower extremities was negative for DVT but demonstrates his known arterial occlusions Cultures negative Continue doxycycline Covid 19 infection Patient asymptomatic D-dimer elevated [address] chest PE protocol due to elevated creatinine Had bilateral lower extremity ultrasound that was negative for DVT Patient on apixaban Patient out of isolation Hypertension Continue home medication Peripheral artery disease On Plavix, apixaban H/o COPD Not in exacerbation Continue home breathing treatment Physical debility Continue physical therapy and Occupational Therapy
[2020-05-06] MEDS: amLODIPine 5 MG Tab PO SCH (12:56)
[2020-05-06] MEDS: hydrALAZINE 25 MG Tab PO SCH ×3 (12:59→20:22)
[2020-05-06] MEDS: rOPINIRole 0.25 MG Tab PO SCH ×2 (12:59→20:22)
[2020-05-06] MEDS: Nicotine 21 MG/24 Hr Patch TRDERM SCH (13:34)
[2020-05-06] MEDS: Acetaminophen/HYDROcodone 325-10 MG Tab PO PRN ×2 (13:49→21:29)
[2020-05-06] MEDS: Acetaminophen 325 MG Tab PO PRN (19:55)
[2020-05-06] MEDS: Tamsulosin 0.4 MG Cap.ER PO SCH (20:22)
[2020-05-06] MEDS: Apixaban 5 MG Tab PO SCH (20:22)
[2020-05-06] MEDS: Doxycycline Monohydrate 100 MG Cap PO SCH (20:22)
[2020-05-06] MEDS ORDERED: ALPRAZolam 0.25 MG Tab PO ONE (21:00)
[2020-05-06] MEDS: Melatonin 3 MG Tab PO PRN (21:29)
[2020-05-07] MEDS: Acetaminophen/HYDROcodone 325-10 MG Tab PO PRN ×3 (04:04→20:32)
[2020-05-07] MEDS: Doxycycline Monohydrate 100 MG Cap PO SCH ×2 (08:42→20:32)
[2020-05-07] MEDS: Finasteride 5 MG Tab PO SCH (08:42)
[2020-05-07] MEDS: Tamsulosin 0.4 MG Cap.ER PO SCH ×2 (08:42→20:30)
[2020-05-07] MEDS: ALPRAZolam 0.5 MG Tab PO PRN (08:42)
[2020-05-07] MEDS: Atenolol 50 MG Tab PO SCH (08:42)
[2020-05-07] MEDS: Acetaminophen 325 MG Tab PO PRN ×2 (08:43→18:03)
[2020-05-07] MEDS: Apixaban 5 MG Tab PO SCH ×2 (08:43→20:31)
[2020-05-07] MEDS: amLODIPine 5 MG Tab PO SCH (08:43)
[2020-05-07] MEDS: hydrALAZINE 25 MG Tab PO SCH ×4 (08:43→20:31)
[2020-05-07] MEDS: Clopidogrel 75 MG Tab PO SCH (08:44)
[2020-05-07] MEDS: Nicotine 21 MG/24 Hr Patch TRDERM SCH (08:46)
[2020-05-07] MEDS ORDERED: DULOXETINE 40 MG PO SCH (09:00)
[2020-05-07] MEDS ORDERED: Atenolol 50 MG Tab PO SCH (09:00)
[2020-05-07] MEDS: rOPINIRole 0.25 MG Tab PO SCH ×3 (09:14→20:32)
[2020-05-07] MEDS: Melatonin 3 MG Tab PO PRN (20:31)
[2020-05-08] MEDS: Acetaminophen/HYDROcodone 325-10 MG Tab PO PRN ×3 (04:01→17:48)
[2020-05-08 08:20] VITALS: PULSE 77
[2020-05-08] MEDS: hydrALAZINE 25 MG Tab PO SCH ×3 (09:16→17:48)
[2020-05-08] MEDS: Doxycycline Monohydrate 100 MG Cap PO SCH (09:16)
[2020-05-08] MEDS: Finasteride 5 MG Tab PO SCH (09:16)
[2020-05-08] MEDS: rOPINIRole 0.25 MG Tab PO SCH ×2 (09:17→14:11)
[2020-05-08] MEDS: Clopidogrel 75 MG Tab PO SCH (09:17)
[2020-05-08] MEDS: Apixaban 5 MG Tab PO SCH (09:17)
[2020-05-08] MEDS: Atenolol 50 MG Tab PO SCH (09:17)
[2020-05-08] MEDS: amLODIPine 5 MG Tab PO SCH (09:17)
[2020-05-08] MEDS: ALPRAZolam 0.5 MG Tab PO PRN (09:17)
[2020-05-08] MEDS: Acetaminophen 325 MG Tab PO PRN ×2 (09:18→15:35)
[2020-05-08] MEDS: Nicotine 21 MG/24 Hr Patch TRDERM SCH (09:19)
[2020-05-08] MEDS: Tamsulosin 0.4 MG Cap.ER PO SCH (09:33)
[2020-05-08 17:52] VITALS: BP 146/76
--- NOTE | 2020-05-13 07:59 | DISCH ---
CONTINUATION: The patient while in swing bed, he was continued on his previous medication, and he was seen by PT and OT. PT and OT recommendation felt that the patient is still not ready for discharge, but family decided to sign out AMA. [facility] /[id number]
--- NOTE | 2020-05-13 07:59 | DISCH ---
FINAL DIAGNOSES: 1. Bilateral lower extremity cellulitis (improved). 2. Coronavirus disease-19 infection. 3. Hypertension. 4. Peripheral artery disease. 5. History of chronic obstructive pulmonary disease. 6. Physical debility. BRIEF HISTORY OF PRESENT ILLNESS: The patient is a 80-year-old gentleman with history of hypertension, chronic kidney disease stage 3, anemia of chronic disease, and peripheral artery disease, and chronic obstructive pulmonary disease. He was admitted to acute care for bilateral lower extremity cellulitis and he did respond to vancomycin and IV Zosyn. The patient was COVID positive on admission, but remained asymptomatic, and because of the patient's general debility, he was admitted to swing bed to continue with PT and OT. The patient while in swing bed was doing well, and he was continued on his previous medication and the patient was also being seen by PT and OT. Family has decided DICTATION ENDS HERE [facility] /[id number]
== END 2020-05-08 18:30 | disposition left against medical advice (07) | DRG 947 ==
LOC: DL.MS 12:16
PROVIDERS: ADMIT Student in an Organized Health Care Education/Training Program; ATTEND Internal Medicine
DX: R53.81 Other malaise (principal); U07.1 COVID-19; L03.115 Cellulitis of right lower limb; L03.116 Cellulitis of left lower limb; H54.7 Unspecified visual loss; I12.9 Hypertensive chronic kidney disease with stage 1 through stage 4 chronic kidney disease, or unspecified chronic kidney disease; M19.90 Unspecified osteoarthritis, unspecified site; D63.1 Anemia in chronic kidney disease; N18.30 Chronic kidney disease, stage 3 unspecified; I73.9 Peripheral vascular disease, unspecified; J44.9 Chronic obstructive pulmonary disease, unspecified; Z99.81 Dependence on supplemental oxygen; Z79.899 Other long term (current) drug therapy; Z23 Encounter for immunization
CPT/HCPCS: 90653; 97162-GP; 97166-GO; 97530-GO; A9270-GY; G0008

== ENCOUNTER 2020-05-14 12:27 | Observation (INO) | payer MEDICARE, MEDICAID ==
--- NOTE | 2020-05-14 12:34 | EDM.PDOC ---
ED HPI GENERAL MEDICAL PROBLEM - General Stated Complaint: AMBULANCE Time Seen by Provider: 05/14/20 12:41 Source of Information: Reports: Patient, EMS, EMS Notes Reviewed, RN, RN Notes Reviewed History Limitations: Reports: No Limitations - History of Present Illness INITIAL COMMENTS - FREE TEXT/NARRATIVE: Patient presents to the ED via EMS at the request of the home health nurse. The patient was recently released from this facility on 05/09/2020 following an inpatient admission for cellulitis of the bilateral lower extremities. The patient's admission was complicated by an asymptomatic COVID infection, therefore he was discharged to swing bed for PT/OT. The patient left from swing bed on 05/09/2020 AMA. The patient denies any health complaints today, but reports his home health nurse is concerned regarding the erythema, pain, and scabs to his left lower extremity. He states he is not currently on any antibiotics following discharge from the hospital, he does not remember the last time he took his apixaban. He denies fever, shaking chills, headache, vision changes, cough, sore throat, chest pain/pressure, shortness of breath, nausea, vomiting, abdominal pain, diarrhea, dysuria, hematuria, melena, or hematochezia. He states he feels "good" today. - Related Data Allergies Allergy/AdvReac Type Severity Reaction Status Date / Time No Known Allergies Allergy Verified 05/06/20 13:40 Home Meds: Home Meds atenoloL [Atenolol] 50 mg PO DAILY 07/09/15 [History] Finasteride 5 mg PO DAILY 12/28/18 [History] Tamsulosin [Flomax] 0.4 mg PO BID 12/28/18 [History] Apixaban [Eliquis] 5 mg PO BID 05/29/19 [History] Albuterol/Ipratropium [DuoNeb 3.0-0.5 MG/3 ML] 3 ml .XX QID PRN #3 neb 07/18/19 [Rx] amLODIPine [Norvasc] 5 mg PO DAILY #90 tablet 07/18/19 [Rx] Clopidogrel Bisulfate [Clopidogrel] 75 mg PO DAILY 01/19/20 [History] diphenhydrAMINE HCL [Benadryl Allergy] 25 mg PO Q6H PRN 01/19/20 [History] hydrALAZINE [Apresoline] 50 mg PO QID 01/19/20 [History] Past Medical History HEENT History: Reports: Impaired Vision Other HEENT History: Wears glasses. Cardiovascular History: Reports: Aneurysm, Bypass, Hypertension, Stents Respiratory History: Reports: None Gastrointestinal History: Reports: Pancreatitis Genitourinary History: Reports: Prostate Disorder, Other (See Below) Other Genitourinary History: chronic kidney disease. 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 Dermatologic History: Reports: Other (See Below) Other Dermatologic History: Scarring to RLE - Infectious Disease History Infectious Disease History: Reports: Other (See Below) Other Infectious Disease History: Reports hepatitis as a child - Past Surgical History Cardiovascular Surgical History: Reports: AAA Repair, Vascular Surgery GI Surgical History: Reports: None Male Surgical History: Reports: None Musculoskeletal Surgical History: Reports: Arthroscopic Procedure, Shoulder Surgery Other Musculoskeletal Surgeries/Procedures:: bilateral shoulder surgery and bilateral hip replacement Social & Family History - Family History Family Medical History: No Pertinent Family History - Caffeine Use Caffeine Use: Reports: Coffee - Living Situation & Occupation Living situation: Reports: , with Spouse Occupation: Retired ED ROS GENERAL - Review of Systems Review Of Systems: Comprehensive ROS is negative, except as noted in HPI. ED EXAM, GENERAL - Physical Exam Exam: See Below Exam Limited By: No Limitations General Appearance: Alert, WD/WN, Cachetic, Other (Unkept appearance; Old bandages in place to patient's skin) Eye Exam: Bilateral Eye: EOMI, Normal Inspection, PERRL Head: Atraumatic, Normocephalic Neck: Normal Inspection, Supple, Non-Tender, Full Range of Motion. No: Lymphadenopathy (L), Lymphadenopathy (R) Respiratory/Chest: No Accessory Muscle Use, Chest Non-Tender, Decreased Breath Sounds. No: Crackles, Rales, Rhonchi, Wheezing Cardiovascular: Normal Peripheral Pulses, Regular Rate, Rhythm, No Edema, No Gallop, No Murmur, No Rub, JVD Peripheral Pulses: 1+: Dorsalis Pedis (L), Dorsalis Pedis (R), 2+: Radial (L), Radial (R) GI/Abdominal: Soft, Non-Tender, No Distention, No Mass, Pelvis Stable, Abnormal Bowel Sounds (Hyperactive) (Male) Exam: Deferred Rectal (Males) Exam: Deferred Back Exam: Decreased Range of Motion Extremities: Leg Pain (To posterior LLE ), Limited Range of Motion, Redness Neurological: Alert, Oriented, No Motor/Sensory Deficits Psychiatric: Normal Affect, Normal Mood Skin Exam: Erythema (To LLE), Increased Warmth (To LLE), Wound/Incision (Large scattered abrasions to LLE) Course - Vital Signs Last Recorded V/S: Last Vital Signs Temp 97.1 F 05/14/20 12:40 Pulse 68 05/14/20 12:40 Resp 18 05/14/20 12:40 BP 140/80 05/14/20 12:40 Pulse Ox 99 05/14/20 12:40 - Orders/Labs/Meds Orders: Active Orders 24 hr Category Date Time Status Venous Doppler Lwr Ext Bi [US] Urgent Exams 05/14/20 12:48 Taken Labs: Laboratory Tests 05/14/20 05/14/20 05/14/20 Range/Units 12:58 12:58 12:58 WBC 6.7 (5.0-10.0) 10^3/uL RBC 3.19 L (4.6-6.2) 10^6/uL Hgb 9.5 L (14.0-18.0) g/dL Hct 30.1 L (40.0-54.0) % MCV 94.4 D (80-100) fL MCH 29.8 (27.0-34.0) pg MCHC 31.6 L (33.0-35.0) g/dL Plt Count 210 D (150-450) 10^3/uL Neut % (Auto) 70.4 (42.2-75.2) % Lymph % (Auto) 15.4 L (20.5-50.1) % Love % (Auto) 12.1 H (2-8) % Eos % (Auto) 1.8 (1.0-3.0) % Baso % (Auto) 0.3 (0.0-1.0) % PT (9.0-12.0) SEC INR (0.9-1.2) APTT (22.0-34.0) SEC D-Dimer, Quantitative > 5000 H (0-400) ng/mL Sodium 137 (136-145) mmol/L Potassium 4.4 (3.5-5.1) mmol/L Chloride 103 (98-107) mmol/L Carbon Dioxide 23 (21-32) mmol/L Anion Gap 15.4 H (7-13) mEq/L BUN 22 H (7-18) mg/dL Creatinine 1.86 H (0.70-1.30) mg/dL Est Cr Clr Drug Dosing 33.25 mL/min Estimated GFR (MDRD) 35 BUN/Creatinine Ratio 11.8 (No establ ref range) Glucose 112 H (74-99) mg/dL Calcium 7.8 L (8.5-10.1) mg/dL Total Bilirubin 0.4 (0.2-1.0) mg/dL AST 30 (15-37) U/L ALT 18 (16-63) U/L Alkaline Phosphatase 91 (46-116) U/L Total Protein 7.2 (6.4-8.2) g/dL Albumin 2.1 L (3.4-5.0) g/dL Globulin 5.1 Albumin/Globulin Ratio 0.41 05/14/20 Range/Units 12:58 WBC (5.0-10.0) 10^3/uL RBC (4.6-6.2) 10^6/uL Hgb (14.0-18.0) g/dL Hct (40.0-54.0) % MCV (80-100) fL MCH (27.0-34.0) pg MCHC (33.0-35.0) g/dL Plt Count (150-450) 10^3/uL Neut % (Auto) (42.2-75.2) % Lymph % (Auto) (20.5-50.1) % Love % (Auto) (2-8) % Eos % (Auto) (1.0-3.0) % Baso % (Auto) (0.0-1.0) % PT 12.2 H (9.0-12.0) SEC INR 1.3 H (0.9-1.2) APTT 28.5 (22.0-34.0) SEC D-Dimer, Quantitative (0-400) ng/mL Sodium (136-145) mmol/L Potassium (3.5-5.1) mmol/L Chloride (98-107) mmol/L Carbon Dioxide (21-32) mmol/L Anion Gap (7-13) mEq/L BUN (7-18) mg/dL Creatinine (0.70-1.30) mg/dL Est Cr Clr Drug Dosing mL/min Estimated GFR (MDRD) BUN/Creatinine Ratio (No establ ref range) Glucose (74-99) mg/dL Calcium (8.5-10.1) mg/dL Total Bilirubin (0.2-1.0) mg/dL AST (15-37) U/L ALT (16-63) U/L Alkaline Phosphatase (46-116) U/L Total Protein (6.4-8.2) g/dL Albumin (3.4-5.0) g/dL Globulin Albumin/Globulin Ratio - Re-Assessments/Exams Free Text/Narrative Re-Assessment/Exam: 05/14/20 Vulnerable adult paperwork filed with the State given patient's removal from swing bed last week and patient's unkept appearance - he states he has not showered/bathed since discharge from the hospital. D-Dimer elevated >5000, venous Doppler of bilateral lower extremities negative. Discussed case with Dr. English who kindly agreed to accept patient's case for observation. Departure - Departure Time of Disposition: 14:50 Disposition: Refer to Observation Condition: Good Clinical Impression: Weakness, Elevated d-dimer, Pain in left leg - Discharge Information Sepsis Event Note (ED) - Focused Exam Vital Signs: Vital Signs Temp Pulse Resp BP Pulse Ox 05/14/20 12:40 97.1 F 68 18 140/80 99 - My Orders Last 24 Hours: My Active Orders 05/14/20 12:48 Venous Doppler Lwr Ext Bi [US] Urgent - Assessment/Plan Last 24 Hours: My Active Orders 05/14/20 12:48 Venous Doppler Lwr Ext Bi [US] Urgent
[2020-05-14 13:27] LABS: ANION GAP 15.4 mEq/L (7-13)
[2020-05-14 13:47] LABS: PTT,PARTIAL THROMBOPLSTIN TIME 28.5 SEC (22.0-34.0)
[2020-05-14] MEDS ORDERED: Docusate Sodium 100 MG Cap PO PRN (14:55)
[2020-05-14] MEDS ORDERED: Acetaminophen 325 MG Tab PO PRN (14:55)
[2020-05-14] MEDS ORDERED: Sodium Chloride 0.9% 10 ML Syringe FLUSH PRN (14:55)
[2020-05-14] MEDS ORDERED: diphenhydrAMINE 25 MG Tab PO PRN (14:58)
--- NOTE | 2020-05-14 16:27 | HP ---
CHIEF COMPLAINT: Generalized weakness. HISTORY OF PRESENT ILLNESS: The patient is a 80-year-old male with past medical history of hypertension, chronic kidney disease, anemia of chronic kidney disease, peripheral artery disease, COPD, and history of recent cellulitis of the lower extremity and also was positive for COVID infection (asymptomatic), who was admitted here in [facility] to acute care last April and subsequently admitted to [facility] for continued PT and OT and signed out AMA from swing bed last May 09 and again admitted to the emergency room today because the home health nurse following the patient has noted that the patient has not been compliant with his medication and he has just been very weak and family unable to take care of him at home. The patient does not even remember the last time he took his apixaban and other medication. The patient denies though any headache, fever, chills, cough, shortness of breath, abdominal pain, or diarrhea. PAST MEDICAL HISTORY: As in HPI. FAMILY HISTORY: Noncontributory. HOME MEDICATIONS: Atenolol 50 mg daily, finasteride 5 mg daily, Flomax 0.4 mg b.i.d., apixaban 5 mg b.i.d., albuterol/ipratropium (DuoNeb), amlodipine 5 mg daily, Plavix 75 mg daily, Benadryl 25 mg q.6 p.r.n., and hydralazine 50 mg q.i.d. ALLERGIES: No known drug allergies. SOCIAL HISTORY: The patient is with his . non smoker,non alchohol drinker Review of System: as in HPI PHYSICAL EXAMINATION: General: The patient is alert and oriented. The patient is cachectic. Vital Signs: Blood pressure is 140/80, pulse of 68, respirations of 18, and temperature of 97.1. SHEENT: Normocephalic. Neck: Supple. No lymphadenopathy. Heart: Regular rate and rhythm. No gallops. No rubs. Lungs: Equal. No crackles. No wheezing. Abdomen: Soft, nontender. Bowel sounds positive. Extremities: Remarkable for some tenderness on the left lower extremity, but no significant pedal edema. LABORATORY DATA: CBC: WBC 6.7, hemoglobin is 9.5, hematocrit is 30.1, platelets 210. D-dimer is more than 5000. Comp panel remarkable for anion gap of 15.4, BUN is 22, creatinine is 1.86, glucose is 112, calcium 7.8, albumin is 2.1. The rest of the panel unremarkable. Protime is 12.2, INR is 1.3, PTT is 28.5. Venous Doppler of the lower extremity is negative for any acute DVT. ADMITTING DIAGNOSES: 1. Generalized weakness. 2. Medical noncompliance. 3. Recent asymptomatic coronavirus disease infection. 4. Chronic obstructive pulmonary disease. 5. Peripheral artery disease. 6. Chronic kidney disease. 7. Hypertension. 8. Recent cellulitis of the lower extremity. TREATMENT PLAN: The patient is going to be admitted to observation. PT and OT will be consulted, and he will be resumed on his home medication. Discharge planning will also be addressed. The patient is a full code. [facility] /[id number] MTDD
[2020-05-14] MEDS: HYDRALAZINE 50 MG PO SCH ×2 (17:11→21:38)
--- NOTE | 2020-05-14 18:35 | US ---
EXAMINATION: Venous Doppler Lwr Ext Bi SEX: Male AGE: 80 years CLINICAL HISTORY: 80-year-old male complaining of left lower extremity (LLE) erythema and pain. Patient with recent COVID 19 infection and patient has been at bed rest. Rule out DVT. Interpretation: Negative exam. No significant deep vein thrombosis either lower extremity. 1. No sign of intraluminal echogenic thrombus; normal compressibility deep veins of both groins, thighs and knees (satisfactory augmentation venous waveform demonstrated respectively in the popliteal vein behind both knees, femoral veins both thighs, and proximally in the common femoral veins, both lower extremities). Note: Deep veins within swollen left calf (peroneal/posterior tibial) not appreciated on today's exam. Significance? 2. Posterior tibial and peroneal veins of the contralateral right calf unremarkable, i.e. negative. 3. No sign of popliteal or Bass's cyst behind either knee.
[2020-05-14] MEDS ORDERED: traMADol 50 MG Tab PO PRN (21:00)
[2020-05-14] MEDS: TAMSULOSIN 0.4 MG PO SCH (21:38)
[2020-05-14] MEDS: Apixaban 5 MG Tab PO SCH (21:39)
[2020-05-14] MEDS: Gabapentin 300 MG Cap PO SCH (21:39)
[2020-05-14] MEDS: Nystatin Topical Powder 30 GM Bottle TOP SCH (21:40)
[2020-05-14] MEDS: ATENOLOL 50 MG PO SCH (21:41)
[2020-05-14] MEDS: Albuterol/Ipratropium 3.0-0.5 MG/3 ML Neb Soln INH PRN (21:51)
[2020-05-15] MEDS ORDERED: DULOXETINE 20 MG PO SCH (09:00)
[2020-05-15] MEDS ORDERED: CLOPIDOGREL 75 MG PO SCH (09:00)
[2020-05-15] MEDS ORDERED: Finasteride 5 MG Tab PO SCH (09:00)
[2020-05-15] MEDS ORDERED: Atenolol 50 MG Tab PO SCH (09:00)
[2020-05-15] MEDS ORDERED: AMLODIPINE 5 MG PO SCH (09:00)
[2020-05-15] MEDS: Apixaban 5 MG Tab PO SCH ×2 (09:46→20:21)
[2020-05-15] MEDS: Gabapentin 300 MG Cap PO SCH ×3 (09:46→20:21)
[2020-05-15] MEDS: Nystatin Topical Powder 30 GM Bottle TOP SCH ×2 (10:58→20:21)
[2020-05-15] MEDS: HYDRALAZINE 50 MG PO SCH ×4 (10:59→20:20)
[2020-05-15] MEDS: ATENOLOL 50 MG PO SCH ×2 (10:59→20:21)
[2020-05-15] MEDS: TAMSULOSIN 0.4 MG PO SCH ×2 (10:59→20:20)
[2020-05-15] MEDS ORDERED: traMADol 50 MG Tab PO PRN (11:26)
--- NOTE | 2020-05-15 11:39 | PCM.PN ---
- General Info Date of Service: 05/15/20 Admission Dx/Problem (Free Text): Generalized weakness Subjective Update: No acute events overnight. Reports weakness and left lower extremity pain. Denies fevers, chills, chest pain, n/v/d/c, or any new symptoms. - Patient Data Vitals - Most Recent: Last Vital Signs Temp 98.4 F 05/15/20 08:00 Pulse 69 05/15/20 10:59 Resp 18 05/15/20 08:00 BP 124/70 05/15/20 11:00 Pulse Ox 95 05/15/20 08:00 Weight - Most Recent: 162 lb 9.6 oz I&O - Last 24 Hours: Intake & Output 05/14/20 05/15/20 05/15/20 22:59 06:59 14:59 Intake Total 320 400 500 Output Total 350 200 Balance -30 200 500 Lab Results Last 24 Hours: Laboratory Results - last 24 hr 05/14/20 05/14/20 05/14/20 Range/Units 12:58 12:58 12:58 WBC 6.7 (5.0-10.0) 10^3/uL RBC 3.19 L (4.6-6.2) 10^6/uL Hgb 9.5 L (14.0-18.0) g/dL Hct 30.1 L (40.0-54.0) % MCV 94.4 D (80-100) fL MCH 29.8 (27.0-34.0) pg MCHC 31.6 L (33.0-35.0) g/dL Plt Count 210 D (150-450) 10^3/uL Neut % (Auto) 70.4 (42.2-75.2) % Lymph % (Auto) 15.4 L (20.5-50.1) % Will % (Auto) 12.1 H (2-8) % Eos % (Auto) 1.8 (1.0-3.0) % Baso % (Auto) 0.3 (0.0-1.0) % PT (9.0-12.0) SEC INR (0.9-1.2) APTT (22.0-34.0) SEC D-Dimer, Quantitative > 5000 H (0-400) ng/mL Sodium 137 (136-145) mmol/L Potassium 4.4 (3.5-5.1) mmol/L Chloride 103 (98-107) mmol/L Carbon Dioxide 23 (21-32) mmol/L Anion Gap 15.4 H (7-13) mEq/L BUN 22 H (7-18) mg/dL Creatinine 1.86 H (0.70-1.30) mg/dL Est Cr Clr Drug Dosing 33.25 mL/min Estimated GFR (MDRD) 35 BUN/Creatinine Ratio 11.8 (No establ ref range) Glucose 112 H (74-99) mg/dL Calcium 7.8 L (8.5-10.1) mg/dL Total Bilirubin 0.4 (0.2-1.0) mg/dL AST 30 (15-37) U/L ALT 18 (16-63) U/L Alkaline Phosphatase 91 (46-116) U/L Total Protein 7.2 (6.4-8.2) g/dL Albumin 2.1 L (3.4-5.0) g/dL Globulin 5.1 Albumin/Globulin Ratio 0.41 12 Range/Units 12:58 WBC (5.0-10.0) 10^3/uL RBC (4.6-6.2) 10^6/uL Hgb (14.0-18.0) g/dL Hct (40.0-54.0) % MCV (80-100) fL MCH (27.0-34.0) pg MCHC (33.0-35.0) g/dL Plt Count (150-450) 10^3/uL Neut % (Auto) (42.2-75.2) % Lymph % (Auto) (20.5-50.1) % Will % (Auto) (2-8) % Eos % (Auto) (1.0-3.0) % Baso % (Auto) (0.0-1.0) % PT 12.2 H (9.0-12.0) SEC INR 1.3 H (0.9-1.2) APTT 28.5 (22.0-34.0) SEC D-Dimer, Quantitative (0-400) ng/mL Sodium (136-145) mmol/L Potassium (3.5-5.1) mmol/L Chloride (98-107) mmol/L Carbon Dioxide (21-32) mmol/L Anion Gap (7-13) mEq/L BUN (7-18) mg/dL Creatinine (0.70-1.30) mg/dL Est Cr Clr Drug Dosing mL/min Estimated GFR (MDRD) BUN/Creatinine Ratio (No establ ref range) Glucose (74-99) mg/dL Calcium (8.5-10.1) mg/dL Total Bilirubin (0.2-1.0) mg/dL AST (15-37) U/L ALT (16-63) U/L Alkaline Phosphatase (46-116) U/L Total Protein (6.4-8.2) g/dL Albumin (3.4-5.0) g/dL Globulin Albumin/Globulin Ratio Med Orders - Current: Current Medications Acetaminophen (Tylenol) 650 mg PO Q4H PRN PRN Reason: Pain (Mild 1-3)/fever Last Admin: 05/15/20 11:04 Dose: 650 mg Documented by: Albuterol/Ipratropium (Duoneb 3.0-0.5 Mg/3 Ml) 3 ml INH QID PRN PRN Reason: Shortness of Breath Last Admin: 05/14/20 21:51 Dose: 3 ml Documented by: Amlodipine Besylate (Norvasc) 5 mg PO DAILY [facility] Last Admin: 05/15/20 11:00 Dose: 5 mg Documented by: Apixaban (Eliquis) 5 mg PO BID [facility] Last Admin: 05/15/20 09:46 Dose: 5 mg Documented by: Atenolol (Tenormin) 50 mg PO BID [facility] Last Admin: 05/15/20 10:59 Dose: 50 mg Documented by: Clopidogrel Bisulfate (Plavix) 75 mg PO DAILY [facility] Last Admin: 05/15/20 11:00 Dose: 75 mg Documented by: Diphenhydramine HCl (Benadryl) 25 mg PO Q6H PRN PRN Reason: Allergies Docusate Sodium (Colace) 100 mg PO BID PRN PRN Reason: Constipation Finasteride (Proscar) 5 mg PO DAILY [facility] Last Admin: 05/15/20 09:46 Dose: 5 mg Documented by: Furosemide (Lasix) 20 mg IVPUSH NOW ONE Stop: 05/15/20 11:31 Gabapentin (Neurontin) 900 mg PO TID [facility] Last Admin: 05/15/20 09:46 Dose: 900 mg Documented by: Ceftriaxone Sodium 2 gm/ (Sodium Chloride) 100 mls @ 200 mls/hr IV Q24H [facility] Hydralazine [ Apresoline] 50 Mg Tab *Own Med* 50 mg PO QID [facility] Last Admin: 05/15/20 10:59 Dose: 50 mg Documented by: Duloxetine 20 Mg Cap (*Own Med*) 0 each PO DAILY [facility] Last Admin: 05/15/20 11:00 Dose: 1 each Documented by: Nystatin (Nystop) 1 gm TOP BID [facility] Last Admin: 05/15/20 10:58 Dose: 1 applic Documented by: Sodium Chloride (Saline Flush) 10 ml FLUSH ASDIRECTED PRN PRN Reason: Keep Vein Open Last Admin: 05/14/20 21:48 Dose: 10 ml Documented by: Tamsulosin HCl (Flomax) 0.4 mg PO BID [facility] Last Admin: 05/15/20 10:59 Dose: 0.4 mg Documented by: Tramadol HCl (Ultram) 50 mg PO Q8H PRN PRN Reason: Pain Discontinued Medications Atenolol (Tenormin) 50 mg PO DAILY [facility] Tramadol HCl (Ultram) 50 mg PO BEDTIME PRN PRN Reason: Pain Last Admin: 05/14/20 22:02 Dose: 50 mg Documented by: - Exam General: Alert, Oriented, Cooperative, Moderate Distress HEENT: Pupils Equal, Pupils Reactive, Mucous Membr. Moist/[place] Neck: Supple Lungs: Clear to Auscultation, Normal Respiratory Effort Cardiovascular: Regular Rate, Regular Rhythm GI/Abdominal Exam: Normal Bowel Sounds, Soft, Non-Tender Extremities: Other (Bilateral lower extremity swelling, warmth and tenderness, worse on the left. Also with chronic stasis changes. Right lower extremity has an incision of the lower leg.) Neurological: No New Focal Deficit Psy/Mental Status: Alert, Normal Affect, Normal Mood Sepsis Event Note - Evaluation Sepsis Screening Result: No Definite Risk - Focused Exam Vital Signs: Vital Signs Temp Pulse Pulse Resp BP BP Pulse Ox 05/15/20 11:00 124/70 05/15/20 10:59 69 124/69 05/15/20 08:00 98.4 F 69 18 124/70 95 05/15/20 05:00 98.9 F 71 20 128/68 98 - Problem List & Annotations (1) Elevated d-dimer SNOMED Code(s): 704614912 Code(s): R79.89 - OTHER SPECIFIED ABNORMAL FINDINGS OF BLOOD CHEMISTRY Status: Acute Current Visit: Yes (2) Pain in left leg SNOMED Code(s): 550849635 Code(s): M79.605 - PAIN IN LEFT LEG Status: Acute Current Visit: Yes (3) Weakness SNOMED Code(s): 19798807 Code(s): R53.1 - WEAKNESS Status: Acute Current Visit: Yes (4) Anemia in chronic kidney disease (CKD) SNOMED Code(s): 909110046 Code(s): N18.9 - CHRONIC KIDNEY DISEASE, UNSPECIFIED; D63.1 - ANEMIA IN CHRONIC KIDNEY DISEASE Status: Acute Current Visit: No (5) Hypertension SNOMED Code(s): 95699868 Code(s): I10 - ESSENTIAL (PRIMARY) HYPERTENSION Status: Acute Priority: Medium Current Visit: No Onset Date: 07/09/15 Qualifiers: Hypertension type: essential hypertension Qualified Code(s): I10 - Essential (primary) hypertension (6) Neuropathy SNOMED Code(s): 155884235 Code(s): G62.9 - POLYNEUROPATHY, UNSPECIFIED Status: Acute Current Visit: No (7) PAD (peripheral artery disease) SNOMED Code(s): 790231928 Code(s): I73.9 - PERIPHERAL VASCULAR DISEASE, UNSPECIFIED Status: Acute Current Visit: No (8) Renal insufficiency SNOMED Code(s): 126577278, 926705815 Code(s): N28.9 - DISORDER OF KIDNEY AND URETER, UNSPECIFIED Status: Acute Current Visit: No - Problem List Review Problem List Initiated/Reviewed/Updated: Yes - My Orders Last 24 Hours: My Active Orders 05/15/20 11:26 traMADol [Ultram] 50 mg PO Q8H PRN 05/15/20 11:30 Furosemide [Lasix] 20 mg IVPUSH NOW ONE cefTRIAXone [Rocephin] 2 gm Sodium Chloride 0.9% [Normal Saline] 100 ml IV Q24H - Plan Plan:: Patient is a 71-year-old male with medical history significant for hypertension, chronic kidney disease stage IV, anemia of chronic disease, peripheral artery disease, recent COVID-19 infection, COPD, and history of present) the latest was admitted earlier last night and subsequently admitted to SNF for continued PT and OT. Patient signed out AGAINST MEDICAL ADVICE. He was brought to the ED yesterday because patient was found to be significantly weak and was unable to take off himself at home. #Generalized weakness: Appears to be a lot improved compared to presentation. PT and OT #Bilateral lower extremity cellulitis: Patient completed treatment last month. However, has red, warm, and tender bilateral lower extremities, worse on the left. Start Rocephin #COPD Continue home medications #CKD stage III Continue to monitor Avoid nephrotoxins Renal dosing of medications #Hypertension: Blood pressure is at goal Continue to monitor #Bilateral lower extremity. PT and OT As needed pain regimen #Recent COVID-19 infection with elevated D-dimer: Continue apixaban DVT prophylaxis: On apixaban GI prophylaxis: General diet CODE STATUS: Full code per patient preference
[2020-05-15] MEDS ORDERED: cefTRIAXone 2 GM in Sodium Chloride 0.9% 100 ML IV SCH (12:00)
[2020-05-15] MEDS ORDERED: Furosemide 20 MG/2 ML VIAL IVPUSH ONE (12:00)
[2020-05-15] MEDS: Albuterol/Ipratropium 3.0-0.5 MG/3 ML Neb Soln INH PRN (20:22)
[2020-05-15 20:23] VITALS: BP 129/74; PULSE 84
== END 2020-05-15 21:15 | disposition left against medical advice (07) ==
LOC: DL.ED 12:27 → DL.MS 14:45
PROVIDERS: ADMIT Internal Medicine; ATTEND Internal Medicine
DX: R53.1 Weakness (principal); R79.1 Abnormal coagulation profile; I12.9 Hypertensive chronic kidney disease with stage 1 through stage 4 chronic kidney disease, or unspecified chronic kidney disease; D63.1 Anemia in chronic kidney disease; I73.9 Peripheral vascular disease, unspecified; G62.9 Polyneuropathy, unspecified; N18.30 Chronic kidney disease, stage 3 unspecified; J44.9 Chronic obstructive pulmonary disease, unspecified; L03.116 Cellulitis of left lower limb; Z86.19 Personal history of other infectious and parasitic diseases; Z91.14 Patient's other noncompliance with medication regimen
CPT/HCPCS: 36415; 80053; 85025; 85379; 85610; 85730; 93970; 96374; 96375; 97162-GP; 97165-GO; 99285-25; A9270-GY; G0378; J0696; J1940; J7050; J7620-GY

== ENCOUNTER 2020-08-12 10:23 | Inpatient (IN) | payer MEDICARE, MEDICAID ==
--- NOTE | 2020-08-12 10:30 | EDM.PDOC ---
ED HPI GENERAL MEDICAL PROBLEM - General Chief Complaint: Respiratory Problem Stated Complaint: AMBULANCE Time Seen by Provider: 08/12/20 10:30 Source of Information: Reports: Patient, EMS, Old Records, RN, RN Notes Reviewed History Limitations: Reports: Other (Pt provides very limited history.) - History of Present Illness INITIAL COMMENTS - FREE TEXT/NARRATIVE: Pt arrives to ER from home by [facility] with c/o cough, wheezing, and shortness of breath which has become progressively worse over the past one week. Denies fever or chills, chest pain, abdominal pain, edema, or orthopnea. Admits to productive cough, but he doesn't know what color. Pt states he has COPD, and had COVID diagnosed on 04/26/20. Pt states he ran out of his nebulizer solution several days ago. He continues to smoke. Do not use supplemental home oxygen. Onset: Gradual Duration: Week(s): (1) Location: Reports: Chest Quality: Reports: Other (Denies pain.) Improves with: Reports: None Worsens with: Reports: None Associated Symptoms: Reports: No Other Symptoms - Related Data Allergies Allergy/AdvReac Type Severity Reaction Status Date / Time No Known Allergies Allergy Verified 08/12/20 10:55 Home Meds: Home Meds atenoloL [Atenolol] 50 mg PO BID 07/09/15 [History] Finasteride 5 mg PO DAILY 12/28/18 [History] Tamsulosin [Flomax] 0.4 mg PO BID 12/28/18 [History] Apixaban [Eliquis] 5 mg PO BID 05/29/19 [History] Albuterol/Ipratropium [DuoNeb 3.0-0.5 MG/3 ML] 3 ml .XX QID PRN #3 neb 07/18/19 [Rx] amLODIPine [Norvasc] 5 mg PO DAILY #90 tablet 07/18/19 [Rx] Clopidogrel Bisulfate [Clopidogrel] 75 mg PO DAILY 01/19/20 [History] diphenhydrAMINE HCL [Benadryl Allergy] 25 mg PO Q6H PRN 01/19/20 [History] hydrALAZINE [Apresoline] 50 mg PO QID 01/19/20 [History] DULoxetine [Cymbalta] 40 mg PO DAILY 05/14/20 [History] Gabapentin [Neurontin] 900 mg PO TID 05/14/20 [History] traMADol [Ultram] 50 mg PO BEDTIME PRN 05/14/20 [History] Ketorolac [Acular 0.5% Ophth Soln] 1 drop EYEBOTH ASDIRECTED 08/12/20 [History] Ofloxacin [Ocuflox 0.3% Ophth Soln] 1 drop EYEBOTH ASDIRECTED 08/12/20 [History] Prednisolone Acetate/Pf [Prednisolone Acet 1% Eye Drop] 1 drop EYEBOTH ASDIRECTED 08/12/20 [History] Past Medical History HEENT History: Reports: Impaired Vision Other HEENT History: Wears glasses. Cardiovascular History: Reports: Aneurysm, Bypass, Hypertension, Stents Respiratory History: Reports: None Gastrointestinal History: Reports: Pancreatitis Genitourinary History: Reports: Prostate Disorder, Other (See Below) Other Genitourinary History: chronic kidney disease. 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 Dermatologic History: Reports: Other (See Below) Other Dermatologic History: Scarring to RLE - Infectious Disease History Infectious Disease History: Reports: Other (See Below) Other Infectious Disease History: Reports hepatitis as a child; Covid 19 - Past Surgical History Cardiovascular Surgical History: Reports: AAA Repair, Vascular Surgery GI Surgical History: Reports: None Male Surgical History: Reports: None Musculoskeletal Surgical History: Reports: Arthroscopic Procedure, Shoulder Surgery Other Musculoskeletal Surgeries/Procedures:: bilateral shoulder surgery and bilateral hip replacement Social & Family History - Family History Family Medical History: No Pertinent Family History - Tobacco Use Tobacco Use Status *Q: Current Every Day Tobacco User Tobacco Use Within Last Twelve Months: Cigarettes Years of Tobacco use: 50 Smoking Cessation Information Provided To Patient: Patient Refused - Caffeine Use Caffeine Use: Reports: Coffee - Living Situation & Occupation Living situation: Reports: , with Spouse Occupation: Retired ED ROS GENERAL - Review of Systems Review Of Systems: Comprehensive ROS is negative, except as noted in HPI. ED EXAM, GENERAL - Physical Exam Exam: See Below Exam Limited By: No Limitations General Appearance: Alert, No Apparent Distress, Other (Chronically ill appearing) Eye Exam: Bilateral Eye: Normal Inspection (s/p eye surgery) Ears: Normal External Exam, Hearing Grossly Normal Nose: Normal Inspection, Normal Mucosa, No Blood Throat/Mouth: Normal Lips, Normal Voice, No Airway Compromise. No: Perioral Cyanosis Head: Atraumatic, Normocephalic Neck: Normal Inspection, Supple, Non-Tender, Full Range of Motion Respiratory/Chest: No Respiratory Distress, No Accessory Muscle Use, Chest Non-T garland, Decreased Breath Sounds, Crackles, Rhonchi (Right base and mid-lung), Wheezing, Prolonged Expiration Cardiovascular: Regular Rate, Rhythm, No Edema GI/Abdominal: Normal Bowel Sounds, Soft, Non-Tender Back Exam: Normal Inspection Extremities: Normal Inspection, Non-Tender, No Pedal Edema Neurological: Alert, Oriented, No Motor/Sensory Deficits Psychiatric: Normal Affect, Normal Mood Skin Exam: Warm, Dry, Intact, Normal Color, No Rash #1 Interpretation EKG Date: 08/12/20 Time: 11:00 Rhythm: Other (SR with PVCs) Rate (Beats/Min): 73 Hector: LAD-Left Hector Deviation P-Wave: Present QRS: Normal ST-T: Normal QT: Normal Comparison: No Change Course - Vital Signs Last Recorded V/S: Last Vital Signs Temp 98.8 F 08/12/20 10:30 Pulse 78 08/12/20 11:20 Resp 20 08/12/20 10:30 BP 146/83 H 08/12/20 10:30 Pulse Ox 94 L 08/12/20 10:30 - Orders/Labs/Meds Orders: Active Orders 24 hr Category Date Time Status EKG 12 Lead [EKG Documentation Completion] [RC] STAT Care 08/12/20 10:31 Active Peripheral IV Care [RC] . DIRECTED Care 08/12/20 10:32 Active RT Aerosol Therapy [RC] ASDIRECTED Care 08/12/20 10:37 Active CULTURE BLOOD [BC] Stat Lab 08/12/20 10:35 Received CULTURE BLOOD [BC] Stat Lab 08/12/20 10:41 Received UA RFX MATEUSZ AND CULT IF INDIC [URIN] Stat Lab 08/12/20 10:32 Ordered Sodium Chloride 0.9% [Saline Flush] Med 08/12/20 10:30 Active 10 ml FLUSH ASDIRECTED PRN Blood Culture x2 Reflex Set [OM.PC] Stat Oth 08/12/20 10:30 Ordered Peripheral IV Insertion Adult [OM.PC] Stat Ot 08/12/20 10:31 Ordered Medication Orders Sodium Chloride (Saline Flush) 10 ml FLUSH ASDIRECTED PRN PRN Reason: Keep Vein Open Last Admin: 08/12/20 10:48 Dose: 10 ml Documented by: MATTHEW Labs: Laboratory Tests 08/12/20 08/12/20 08/12/20 Range/Units 10:35 10:41 10:41 WBC 10.5 H (5.0-10.0) 10^3/uL RBC 3.42 L (4.6-6.2) 10^6/uL Hgb 10.1 L (14.0-18.0) g/dL Hct 31.6 L (40.0-54.0) % MCV 92.4 (80-100) fL MCH 29.5 (27.0-34.0) pg MCHC 32.0 L (33.0-35.0) g/dL Plt Count 188 (150-450) 10^3/uL Neut % (Auto) 77.3 H (42.2-75.2) % Lymph % (Auto) 9.7 L (20.5-50.1) % [place] % (Auto) 12.1 H (2-8) % Eos % (Auto) 0.7 L (1.0-3.0) % Baso % (Auto) 0.2 (0.0-1.0) % Sodium 132 L (136-145) mmol/L Potassium 4.5 (3.5-5.1) mmol/L Chloride 100 (98-107) mmol/L Carbon Dioxide 21 (21-32) mmol/L Anion Gap 15.5 H (7-13) mEq/L BUN 45 H (7-18) mg/dL Creatinine 2.17 H (0.70-1.30) mg/dL Est Cr Clr Drug Dosing 28.50 mL/min Estimated GFR (MDRD) 29 BUN/Creatinine Ratio 20.7 (No establ ref range) Glucose 150 H (74-99) mg/dL Lactic Acid (0.4-2.0) mmol/L Calcium 7.8 L (8.5-10.1) mg/dL Total Bilirubin 0.6 (0.2-1.0) mg/dL AST 30 (15-37) U/L ALT 31 (16-63) U/L Alkaline Phosphatase 135 H (46-116) U/L Troponin I < 0.017 (0.000-0.056) ng/mL B-Natriuretic Peptide 863 H (0-100) pg/ml Total Protein 7.4 (6.4-8.2) g/dL Albumin 2.8 L (3.4-5.0) g/dL Globulin 4.6 Albumin/Globulin Ratio 0.61 Ethyl Alcohol < 3 (0) mg/dL Influenza Type A RNA Negative (NEGATIVE) Influenza Type B RNA Negative (NEGATIVE) SARS-CoV-2 RNA (NEY) Negative (NEGATIVE) 08/12/20 Range/Units 10:41 WBC (5.0-10.0) 10^3/uL RBC (4.6-6.2) 10^6/uL Hgb (14.0-18.0) g/dL Hct (40.0-54.0) % MCV (80-100) fL MCH (27.0-34.0) pg MCHC (33.0-35.0) g/dL Plt Count (150-450) 10^3/uL Neut % (Auto) (42.2-75.2) % Lymph % (Auto) (20.5-50.1) % [place] % (Auto) (2-8) % Eos % (Auto) (1.0-3.0) % Baso % (Auto) (0.0-1.0) % Sodium (136-145) mmol/L Potassium (3.5-5.1) mmol/L Chloride (98-107) mmol/L Carbon Dioxide (21-32) mmol/L Anion Gap (7-13) mEq/L BUN (7-18) mg/dL Creatinine (0.70-1.30) mg/dL Est Cr Clr Drug Dosing mL/min Estimated GFR (MDRD) BUN/Creatinine Ratio (No establ ref range) Glucose (74-99) mg/dL Lactic Acid 0.5 (0.4-2.0) mmol/L Calcium (8.5-10.1) mg/dL Total Bilirubin (0.2-1.0) mg/dL AST (15-37) U/L ALT (16-63) U/L Alkaline Phosphatase (46-116) U/L Troponin I (0.000-0.056) ng/mL B-Natriuretic Peptide (0-100) pg/ml Total Protein (6.4-8.2) g/dL Albumin (3.4-5.0) g/dL Globulin Albumin/Globulin Ratio Ethyl Alcohol (0) mg/dL Influenza Type A RNA (NEGATIVE) Influenza Type B RNA (NEGATIVE) SARS-CoV-2 RNA (NEY) (NEGATIVE) Meds: Medications Generic Name Dose Route Start Last Admin Trade Name Freq PRN Reason Stop Dose Admin Sodium Chloride 10 ml 08/12/20 10:30 08/12/20 10:48 Saline Flush FLUSH 10 ml ASDIRECTED PRN Administration Keep Vein Open Discontinued Medications Generic Name Dose Route Start Last Admin Trade Name Freq PRN Reason Stop Dose Admin Albuterol/Ipratropium 3 ml 08/12/20 10:37 08/12/20 10:47 Duoneb 3.0-0.5 Mg/3 Ml NEB 08/12/20 10:38 3 ml ONETIME ONE Administration Furosemide 40 mg 08/12/20 11:24 08/12/20 11:50 Lasix IVPUSH 08/12/20 11:25 40 mg NOW ONE Administration Levofloxacin/Dextrose 750 mg/ 150 mls @ 100 mls/hr 08/12/20 10:49 08/12/20 11:08 Premix IV 08/12/20 12:18 100 mls/hr ONETIME ONE Administration Methylprednisolone Sodium Succinate 125 mg 08/12/20 10:37 08/12/20 10:47 Solu-Medrol IVPUSH 08/12/20 10:38 125 mg ONETIME ONE Administration - Radiology Interpretation Free Text/Narrative:: [facility] Final Radiology Report Call: [phone] assistance Online chat: [email or web address] Name: TIMUR GONZALEZ Age: 80Years M Date: 08/12/2020 SSN: -- : [id number] Study: CR CHEST 1V FRONTAL Requesting Physician: FINN MADRID Images: 1 Addl Studies: Provided Clinical History: cough, short or breath Contrast: Contrast Medium: Contrast Amount: Contrast Method: CONFIDENTIALITY STATEMENT This report is intended only for use by the referring physician, and only in accordance with law. If you received this in error, call [phone]. Page 1 of 1 PROCEDURE INFORMATION: Exam: XR Chest Exam date and time: 08/12/2020 10:46 AM Age: 80 years old Clinical indication: Shortness of breath; Additional info: Cough, short or breath TECHNIQUE: Imaging protocol: XR of the chest Views: 1 view. COMPARISON: CR Chest 1V Frontal 04/26/2020 11:48 AM FINDINGS: Lungs: Cardiomegaly with diffuse bilateral pulmonary interstitial prominence that could be due to edema or infiltrate. Pleural spaces: Unremarkable. No pleural effusion. No pneumothorax. Heart/Mediastinum: Cardiomegaly Vasculature: Aortic calcifications. Bones/joints: Right shoulder arthroplasty. IMPRESSION: Cardiomegaly with diffuse bilateral pulmonary interstitial prominence that could be due to edema or infiltrate Thank you for allowing us to participate in the care of your patient. Dictated and Authenticated by: Monisha Blevins MD 08/12/2020 10:54 AM Central Time ([place] & [place]) - Re-Assessments/Exams Free Text/Narrative Re-Assessment/Exam: 08/12/20 12:30 Pt's O2 sats drop to 89% with minimal effort (supine to sit, conversation). No edema, but chest x-ray appear "wet". Pt with COPD complicated by continued smoking and non-compliance with medications. Pt's daughter has been helping at home, but she is out of town today. Plan to admit pt to hospitalist for pulm. edema, r/o pneumonia, and COPD exac. Departure - Departure Time of Disposition: 12:33 (admitted to Dr. Meek) Disposition: Admitted As Inpatient 67 Condition: Fair Clinical Impression: Pulmonary edema with congestive heart failure, Acute exacerbation of chronic obstructive pulmonary disease (COPD), Noncompliance with medication regimen - Discharge Information *PRESCRIPTION DRUG MONITORING PROGRAM REVIEWED*: Not Applicable *COPY OF PRESCRIPTION DRUG MONITORING REPORT IN PATIENT [place]: Not Applicable Forms: ED Department Discharge Sepsis Event Note (ED) - Focused Exam Vital Signs: Vital Signs Temp Pulse Resp BP Pulse Ox 08/12/20 11:20 78 08/12/20 10:30 98.8 F 80 20 146/83 H 94 L - My Orders Last 24 Hours: My Active Orders 08/12/20 10:30 Sodium Chloride 0.9% [Saline Flush] 10 ml FLUSH ASDIRECTED PRN Blood Culture x2 Reflex Set [OM.PC] Stat 08/12/20 10:31 EKG 12 Lead [EKG Documentation Completion] [RC] STAT Peripheral IV Insertion Adult [OM.PC] Stat 08/12/20 10:32 Peripheral IV Care [RC] . DIRECTED UA RFX MATEUSZ AND CULT IF INDIC [URIN] Stat 08/12/20 10:35 CULTURE BLOOD [BC] Stat 08/12/20 10:37 RT Aerosol Therapy [RC] ASDIRECTED 08/12/20 10:41 CULTURE BLOOD [BC] Stat - Assessment/Plan Last 24 Hours: My Active Orders 08/12/20 10:30 Sodium Chloride 0.9% [Saline Flush] 10 ml FLUSH ASDIRECTED PRN Blood Culture x2 Reflex Set [OM.PC] Stat 08/12/20 10:31 EKG 12 Lead [EKG Documentation Completion] [RC] STAT Peripheral IV Insertion Adult [OM.PC] Stat 08/12/20 10:32 Peripheral IV Care [RC] . DIRECTED UA RFX MATEUSZ AND CULT IF INDIC [URIN] Stat 08/12/20 10:35 CULTURE BLOOD [BC] Stat 08/12/20 10:37 RT Aerosol Therapy [RC] ASDIRECTED 08/12/20 10:41 CULTURE BLOOD [BC] Stat
[2020-08-12] MEDS ORDERED: Albuterol/Ipratropium 3.0-0.5 MG/3 ML Neb Soln NEB ONE ×3 (10:37→13:33)
[2020-08-12] MEDS ORDERED: methylPREDNISolone Sodium Succinate 125 MG/2 ML SDV IVPUSH ONE (10:37)
[2020-08-12] MEDS: Sodium Chloride 0.9% 10 ML Syringe FLUSH PRN (10:48)
[2020-08-12] MEDS ORDERED: Levofloxacin/Dextrose 5%-Water 750 MG in Premix Bag 1 BAG IV ONE (10:49)
--- NOTE | 2020-08-12 10:54 | CR ---
PROCEDURE INFORMATION: Exam: XR Chest Exam date and time: 08/12/2020 10:46 AM Age: 80 years old Clinical indication: Shortness of breath; Additional info: Cough, short or breath TECHNIQUE: Imaging protocol: XR of the chest Views: 1 view. COMPARISON: CR Chest 1V Frontal 04/26/2020 11:48 AM FINDINGS: Lungs: Cardiomegaly with diffuse bilateral pulmonary interstitial prominence that could be due to edema or infiltrate. Pleural spaces: Unremarkable. No pleural effusion. No pneumothorax. Heart/Mediastinum: Cardiomegaly Vasculature: Aortic calcifications. Bones/joints: Right shoulder arthroplasty. IMPRESSION: Cardiomegaly with diffuse bilateral pulmonary interstitial prominence that could be due to edema or infiltrate
[2020-08-12 11:12] LABS: ANION GAP 15.5 mEq/L (7-13); CHLORIDE,CL 100 mmol/L (98-107); SODIUM,NA 132 mmol/L (136-145)
[2020-08-12] MEDS ORDERED: Furosemide 40 MG/4 ML VIAL IVPUSH ONE (11:24)
[2020-08-12 11:29] LABS: CORONAVIRUS COVID-19 NAA NEGATIVE (NEGATIVE)
[2020-08-12] MEDS ORDERED: Albuterol 0.083% 2.5 MG/3 ML Neb Soln NEB PRN (14:00)
[2020-08-12 14:20] LABS: BASE EXCESS ARTERIAL -7 mmol/L ((-2)-(+3)); BICARBONATE,ARTERIAL 17.7 mmol/L (22-26); O2 DELIVERY DEVICE ROOM AIR; O2 SATURATION ARTERIAL 94 % (95-100); PCO2 ARTERIAL 35 mmHg (35-45); PO2 ARTERIAL 71 mmHg (70-100)
[2020-08-12 14:23] LABS: ALLEN TEST pos
[2020-08-12] MEDS: Albuterol/Ipratropium 3.0-0.5 MG/3 ML Neb Soln NEB SCH ×3 (14:40→23:40)
[2020-08-12] MEDS: Heparin Sodium 5,000 Units/ML Vial SUBCUT SCH ×2 (14:41→21:17)
[2020-08-12] MEDS ORDERED: EYE EYERT SCH (17:00)
[2020-08-12] MEDS ORDERED: PREDNISOLONE ACET 1% EYERT SCH (17:00)
[2020-08-12] MEDS ORDERED: Furosemide 40 MG/4 ML VIAL IVPUSH SCH (17:14)
[2020-08-12] MEDS: OFLOXACIN EYERT SCH ×2 (17:38→21:22)
[2020-08-12] MEDS: hydrALAZINE 25 MG Tab PO SCH ×2 (17:39→21:15)
[2020-08-12] MEDS: Atenolol 50 MG Tab PO SCH (21:16)
[2020-08-12] MEDS: Tamsulosin 0.4 MG Cap.ER PO SCH (21:16)
[2020-08-12] MEDS: KETOROLAC 0.5% EYERT SCH (21:21)
[2020-08-12] MEDS: KETOROLAC 0.5% EYELF SCH (21:21)
--- NOTE | 2020-08-12 23:35 | HP ---
HISTORY OF PRESENT ILLNESS: This is a -[id number] male, current smoker, COPD. He also had COVID-19 in 04/2020. The patient is a poor historian, however, he presents with diffuse wheezing, respiratory distress, going on for up to 2 weeks. He reported to the ER provider that he has run out of his nebulizers approximately in that time frame. O2 sats were as low as 89% on room air in the emergency room. The patient did not improve despite a dose of Solu- Medrol and serial nebulizers. Chest x-ray revealed bibasilar infiltrates versus pneumonia. The patient is afebrile. REVIEW OF SYSTEMS: Negative for 14 systems except as specifically noted above. PAST SURGICAL HISTORY: Bilateral cataract surgery recently in the beginning of July. The patient reports AAA repair, arthroscopic procedure on his knee and shoulder surgery, as well as bilateral hip replacement. SOCIAL HISTORY: Active smoker. FAMILY HISTORY: Noncontributory due to his current episode of COPD exacerbation. PHYSICAL EXAMINATION: General: The patient is somnolent. Follows commands when awoken, HEENT: Sclerae are normal. Head is atraumatic, normocephalic. Lungs: Diffuse rhonchi and wheezing throughout. Cardiovascular: Regular rate and rhythm. No murmurs. Abdomen: Nontender and nondistended. Positive bowel sounds. Extremities: 1+ edema bilaterally. Some redness on the left carey, however, it is nontender. ASSESSMENT AND PLAN: 1. Acute hypoxic respiratory failure secondary to chronic obstructive pulmonary disease exacerbation and congestive heart failure exacerbation, type unknown. O2 supplementation as needed. 2. Chronic obstructive pulmonary disease exacerbation. The patient will be receiving scheduled and as needed nebulizers, IV steroids, and antibiotics. 3. Acute congestive heart failure exacerbation, type unknown. We will check echo. Given the elevated creatinine, the patient will require higher than usual starting Lasix dose. We will start with 40 mg IV b.i.d. We will cycle troponin. 4. Acute kidney injury on chronic kidney disease. Creatinine elevated from baseline to 2.17. Hopefully, will improve with diuresis as patient is clearly hypovolumic. 5. Acute toxic metabolic encephalopathy in the setting of all of the above. Hypercapnia was ruled out with an ABG. There is no CO2 retention. 6. Deep venous thrombosis prophylaxis. Subcutaneous heparin. 7. The patient is full code. [facility] /[id number]
[2020-08-13] MEDS: Albuterol/Ipratropium 3.0-0.5 MG/3 ML Neb Soln NEB SCH ×6 (03:48→23:13)
[2020-08-13] MEDS ORDERED: methylPREDNISolone Sodium Succinate 40 MG/1 ML SDV IVPUSH SCH (06:00)
[2020-08-13] MEDS: Heparin Sodium 5,000 Units/ML Vial SUBCUT SCH ×3 (06:28→21:24)
[2020-08-13] MEDS: Furosemide 40 MG/4 ML VIAL IVPUSH SCH ×2 (06:34→14:53)
[2020-08-13 07:10] LABS: ANION GAP 14.1 mEq/L (7-13)
--- NOTE | 2020-08-13 07:43 | CR ---
PROCEDURE INFORMATION: Exam: XR Chest Exam date and time: 08/13/2020 7:00 AM Age: 80 years old Clinical indication: Other: Pulmonary edema; Additional info: F/up pulmonary edema TECHNIQUE: Imaging protocol: XR of the chest Views: 1 view. COMPARISON: CR Chest 1V Frontal 08/12/2020 10:46 AM FINDINGS: Lungs: There is mild perihilar interstitial prominence consistent with volume overload or early congestive heart failure. Airspace disease at the medial right lung base may represent asymmetric CHF or superimposed pneumonia. Pleural spaces: Thickening of the minor fissure. There is a blunted right costophrenic angle consistent with small effusion or pleural scarring. Heart/Mediastinum: The heart is enlarged. Bones/joints: Status post right shoulder arthroplasty. IMPRESSION: 1. There is mild perihilar interstitial prominence consistent with volume overload or early congestive heart failure. 2. Airspace disease at the medial right lung base may represent asymmetric CHF or superimposed pneumonia.
[2020-08-13] MEDS: hydrALAZINE 25 MG Tab PO SCH ×4 (08:50→21:21)
[2020-08-13] MEDS: Atenolol 50 MG Tab PO SCH ×2 (08:51→21:22)
[2020-08-13] MEDS: amLODIPine 5 MG Tab PO SCH (08:51)
[2020-08-13] MEDS: Clopidogrel 75 MG Tab PO SCH (08:52)
[2020-08-13] MEDS: Tamsulosin 0.4 MG Cap.ER PO SCH ×2 (08:52→21:21)
[2020-08-13] MEDS: Finasteride 5 MG Tab PO SCH (08:52)
[2020-08-13] MEDS: KETOROLAC 0.5% EYERT SCH ×2 (08:53→22:21)
[2020-08-13] MEDS: Tiotropium Inhaler 18 MCG Inhalation Powder Cap Kit of 5 INH SCH (08:54)
[2020-08-13] MEDS: OFLOXACIN EYERT SCH ×4 (08:57→22:18)
[2020-08-13] MEDS ORDERED: EYE EYELF SCH (09:00)
[2020-08-13] MEDS ORDERED: PREDNISOLONE ACET 1% EYELF SCH (09:00)
[2020-08-13] MEDS: KETOROLAC 0.5% EYELF SCH ×2 (09:00→22:21)
[2020-08-13] MEDS ORDERED: DULOXETINE 40 MG PO SCH (09:00)
[2020-08-13] MEDS: Sodium Chloride 0.9% 10 ML Syringe FLUSH PRN ×3 (13:30→21:25)
[2020-08-13] MEDS: methylPREDNISolone Sodium Succinate 40 MG/1 ML SDV IVPUSH SCH ×2 (13:30→23:13)
--- NOTE | 2020-08-13 17:51 | PCM.PN ---
- General Info Date of Service: 08/13/20 Subjective Update: Improved work of breathing, wheezing and mental status. No fully lucid. Still wheezing somewhat but comfortable appearing. Decreasing LE edema. - Patient Data Vitals - Most Recent: Last Vital Signs Temp 98.9 F 08/13/20 16:00 Pulse 73 08/13/20 16:00 Resp 18 08/13/20 16:00 BP 134/69 08/13/20 17:23 Pulse Ox 96 08/13/20 16:00 Weight - Most Recent: 188 lb I&O - Last 24 Hours: Intake & Output 08/13/20 08/13/20 08/13/20 06:59 14:59 22:59 Intake Total 450 1580 300 Output Total 825 900 850 Balance -375 680 -550 Lab Results Last 24 Hours: Laboratory Results - last 24 hr 08/12/20 08/13/20 08/13/20 Range/Units 19:35 06:23 06:23 WBC 10.2 H (5.0-10.0) 10^3/uL RBC 3.29 L (4.6-6.2) 10^6/uL Hgb 9.4 L (14.0-18.0) g/dL Hct 29.5 L (40.0-54.0) % MCV 89.7 (80-100) fL MCH 28.6 (27.0-34.0) pg MCHC 31.9 L (33.0-35.0) g/dL Plt Count 193 (150-450) 10^3/uL Neut % (Auto) 88.1 H (42.2-75.2) % Lymph % (Auto) 5.9 L (20.5-50.1) % Wallace % (Auto) 5.9 (2-8) % Eos % (Auto) 0.0 L (1.0-3.0) % Baso % (Auto) 0.1 (0.0-1.0) % Sodium 129 L (136-145) mmol/L Potassium 4.1 (3.5-5.1) mmol/L Chloride 99 (98-107) mmol/L Carbon Dioxide 20 L (21-32) mmol/L Anion Gap 14.1 H (7-13) mEq/L BUN 49 H (7-18) mg/dL Creatinine 2.04 H (0.70-1.30) mg/dL Est Cr Clr Drug Dosing 30.79 mL/min Estimated GFR (MDRD) 32 Glucose 202 H (74-99) mg/dL Calcium 7.9 L (8.5-10.1) mg/dL Phosphorus 3.7 (2.6-4.7) mg/dL Magnesium 1.9 (1.8-2.4) mg/dL Troponin I < 0.017 (0.000-0.056) ng/mL Antoni Results Last 24 Hours: Microbiology 08/12/20 10:35 Aerobic Blood Culture - Preliminary Blood - Venous - Iv Start NO GROWTH AFTER 1 DAY Anaerobic Blood Culture - Preliminary NO GROWTH AFTER 1 DAY 08/12/20 10:41 Aerobic Blood Culture - Preliminary Blood - Arm, Left NO GROWTH AFTER 1 DAY Anaerobic Blood Culture - Preliminary NO GROWTH AFTER 1 DAY Med Orders - Current: Current Medications Acetaminophen (Tylenol) 650 mg PO Q4H PRN PRN Reason: Pain (Mild 1-3)/fever Albuterol (Proventil Neb Soln) 2.5 mg NEB Q2H PRN PRN Reason: shortness of breath/wheezing Last Admin: 08/12/20 17:45 Dose: 2.5 mg Documented by: Albuterol/Ipratropium (Duoneb 3.0-0.5 Mg/3 Ml) 3 ml NEB Q4HRRT [facility] Last Admin: 08/13/20 15:17 Dose: 3 ml Documented by: Amlodipine Besylate (Norvasc) 5 mg PO DAILY [facility] Last Admin: 08/13/20 08:51 Dose: 5 mg Documented by: Atenolol (Tenormin) 50 mg PO BID [facility] Last Admin: 08/13/20 08:51 Dose: 50 mg Documented by: Clopidogrel Bisulfate (Plavix) 75 mg PO DAILY [facility] Last Admin: 08/13/20 08:52 Dose: 75 mg Documented by: Duloxetine HCl (Cymbalta) 30 mg PO DAILY [facility] Finasteride (Proscar) 5 mg PO DAILY [facility] Last Admin: 08/13/20 08:52 Dose: 5 mg Documented by: Furosemide (Lasix) 40 mg IVPUSH 0600,1500 [facility] Last Admin: 08/13/20 14:53 Dose: 40 mg Documented by: Heparin Sodium (Porcine) (Heparin Sodium) 5,000 units SUBCUT Q8HR [facility] Last Admin: 08/13/20 13:34 Dose: 5,000 units Documented by: Hydralazine HCl (Apresoline) 50 mg PO QID [facility] Last Admin: 08/13/20 17:23 Dose: 50 mg Documented by: Levofloxacin (Levaquin) 500 mg PO Q48H [facility] Methylprednisolone Sodium Succinate (Solu-Medrol) 40 mg IVPUSH Q8HR [facility] Last Admin: 08/13/20 13:30 Dose: 40 mg Documented by: Ketorolac 0.5% Ophthalmic Soln Pt Own Med 1 drop EYELF BID [facility] Stop: 08/13/20 21:01 Last Admin: 08/13/20 09:00 Dose: 1 drop Documented by: Ketorolac 0.5% Ophthalmic Soln Pt Own Med 1 drop EYERT BID [facility] Stop: 09/03/20 21:01 Last Admin: 08/13/20 08:53 Dose: 1 drop Documented by: Ofloxacin [Ocuflox 0 .3% Ophth Soln] Pt Own Med 1 drop EYERT QID [facility] Stop: 08/13/20 21:01 Last Admin: 08/13/20 17:23 Dose: 1 drop Documented by: Prednisolone Acet 1% Eye Drop Pt Own Med 1 drop EYERT QID [facility] Sodium Chloride (Saline Flush) 10 ml FLUSH ASDIRECTED PRN PRN Reason: Keep Vein Open Last Admin: 08/13/20 14:54 Dose: 10 ml Documented by: Tamsulosin HCl (Flomax) 0.4 mg PO BID [facility] Last Admin: 08/13/20 08:52 Dose: 0.4 mg Documented by: Tiotropium [place] (Spiriva Handihaler) 18 mcg INH DAILY [facility] Last Admin: 08/13/20 08:54 Dose: 18 mcg Documented by: Discontinued Medications Albuterol/Ipratropium (Duoneb 3.0-0.5 Mg/3 Ml) 3 ml NEB ONETIME ONE Stop: 08/12/20 10:38 Last Admin: 08/12/20 10:47 Dose: 3 ml Documented by: Albuterol/Ipratropium (Duoneb 3.0-0.5 Mg/3 Ml) 3 ml NEB ONETIME ONE Stop: 08/12/20 13:32 Last Admin: 08/12/20 14:34 Dose: 3 ml Documented by: Albuterol/Ipratropium (Duoneb 3.0-0.5 Mg/3 Ml) 3 ml NEB ONETIME ONE Stop: 08/12/20 13:34 Last Admin: 08/12/20 14:35 Dose: 3 ml Documented by: Furosemide (Lasix) 40 mg IVPUSH NOW ONE Stop: 08/12/20 11:25 Last Admin: 08/12/20 11:50 Dose: 40 mg Documented by: Furosemide (Lasix) 40 mg IVPUSH 0900,1700 [facility] Last Admin: 08/12/20 17:37 Dose: 40 mg Documented by: Levofloxacin/Dextrose 750 mg/ (Premix) 150 mls @ 100 mls/hr IV ONETIME ONE Stop: 08/12/20 12:18 Last Admin: 08/12/20 11:08 Dose: 100 mls/hr Documented by: Methylprednisolone Sodium Succinate (Solu-Medrol) 125 mg IVPUSH ONETIME ONE Stop: 08/12/20 10:38 Last Admin: 08/12/20 10:47 Dose: 125 mg Documented by: Methylprednisolone Sodium Succinate (Solu-Medrol) 40 mg IVPUSH Q6H [facility] Last Admin: 08/13/20 06:29 Dose: 40 mg Documented by: Non-Formulary Medication (Duloxetine [Cymbalta]) 40 mg PO DAILY [facility] Last Admin: 08/13/20 09:48 Dose: Not Given Documented by: Prednisolone Acet 1% Eye Drop Pt Own Med 1 drop EYELF DAILY [facility] Stop: 08/13/20 09:01 Last Admin: 08/13/20 08:59 Dose: 1 drop Documented by: Prednisolone Acet 1% Eye Drop Pt Own Med 1 drop EYERT QID [facility] Stop: 08/13/20 21:01 - Exam General: Alert, Oriented HEENT: Mucous Membr. Moist/[place] Neck: Supple Lungs: Wheezing Cardiovascular: Regular Rate, Regular Rhythm, No Murmurs GI/Abdominal Exam: Normal Bowel Sounds, Soft, Non-Tender, No Distention Back Exam: Normal Inspection Extremities: Pedal Edema (1+, visible petrification signifying decreasing edema) Skin: Warm, Dry Neurological: No New Focal Deficit Psy/Mental Status: Normal Affect, Normal Mood - Patient Data Lab Results Last 24 hrs: Laboratory Results - last 24 hr 08/12/20 08/13/20 08/13/20 Range/Units 19:35 06:23 06:23 WBC 10.2 H (5.0-10.0) 10^3/uL RBC 3.29 L (4.6-6.2) 10^6/uL Hgb 9.4 L (14.0-18.0) g/dL Hct 29.5 L (40.0-54.0) % MCV 89.7 (80-100) fL MCH 28.6 (27.0-34.0) pg MCHC 31.9 L (33.0-35.0) g/dL Plt Count 193 (150-450) 10^3/uL Neut % (Auto) 88.1 H (42.2-75.2) % Lymph % (Auto) 5.9 L (20.5-50.1) % Wallace % (Auto) 5.9 (2-8) % Eos % (Auto) 0.0 L (1.0-3.0) % Baso % (Auto) 0.1 (0.0-1.0) % Sodium 129 L (136-145) mmol/L Potassium 4.1 (3.5-5.1) mmol/L Chloride 99 (98-107) mmol/L Carbon Dioxide 20 L (21-32) mmol/L Anion Gap 14.1 H (7-13) mEq/L BUN 49 H (7-18) mg/dL Creatinine 2.04 H (0.70-1.30) mg/dL Est Cr Clr Drug Dosing 30.79 mL/min Estimated GFR (MDRD) 32 Glucose 202 H (74-99) mg/dL Calcium 7.9 L (8.5-10.1) mg/dL Phosphorus 3.7 (2.6-4.7) mg/dL Magnesium 1.9 (1.8-2.4) mg/dL Troponin I < 0.017 (0.000-0.056) ng/mL Result Diagrams: 08/13/20 06:23 08/13/20 06:23 Antoni Results Last 24 hrs: Microbiology 08/12/20 10:35 Aerobic Blood Culture - Preliminary Blood - Venous - Iv Start NO GROWTH AFTER 1 DAY Anaerobic Blood Culture - Preliminary NO GROWTH AFTER 1 DAY 08/12/20 10:41 Aerobic Blood Culture - Preliminary Blood - Arm, Left NO GROWTH AFTER 1 DAY Anaerobic Blood Culture - Preliminary NO GROWTH AFTER 1 DAY Sepsis Event Note - Evaluation Sepsis Screening Result: No Definite Risk - Focused Exam Vital Signs: Vital Signs Temp Pulse Pulse Resp BP BP Pulse Ox 08/13/20 17:23 134/69 08/13/20 16:00 98.9 F 73 18 134/69 96 08/13/20 15:16 74 08/13/20 14:00 08/13/20 12:47 136/68 08/13/20 12:10 97.6 F 73 20 136/68 97 08/13/20 11:20 84 08/13/20 08:51 72 139/67 08/13/20 08:50 139/67 08/13/20 08:35 97.5 F 72 20 139/67 97 Pulse Ox 08/13/20 17:23 08/13/20 16:00 08/13/20 15:16 08/13/20 14:00 97 08/13/20 12:47 08/13/20 12:10 08/13/20 11:20 08/13/20 08:51 08/13/20 08:50 08/13/20 08:35 - Problem List Review Problem List Initiated/Reviewed/Updated: No - My Orders Last 24 Hours: My Active Orders 08/12/20 17:00 Ofloxacin [Ocuflox 0.3% Ophth Soln] 1 drop EYERT QID hydrALAZINE [Apresoline] 50 mg PO QID 08/12/20 Dinner 2 Gram Sodium Diet [DIET] 08/12/20 18:08 RT Post Treatment Assessment [RC] Click to Edit RT Pre-Treatment Assessment [RC] Click to Edit 08/12/20 21:00 Ketorolac 1 drop EYELF BID Ketorolac 1 drop EYERT BID Tamsulosin [Flomax] 0.4 mg PO BID atenoloL [Tenormin] 50 mg PO BID 08/13/20 06:00 Furosemide [Lasix] 40 mg IVPUSH 0600,1500 08/13/20 08:00 Echo Comp wo Cont [US] Routine 08/13/20 09:00 Clopidogrel [Plavix] 75 mg PO DAILY Finasteride [Proscar] 5 mg PO DAILY Tiotropium [Spiriva HandiHaler] 18 mcg INH DAILY amLODIPine [Norvasc] 5 mg PO DAILY 08/13/20 09:37 PT Evaluation and Treatment [CONS] Routine 08/13/20 14:00 methylPREDNISolone Sod Succ [Solu-MEDROL] 40 mg IVPUSH Q8HR 08/14/20 09:00 DULoxetine [Cymbalta] 30 mg PO DAILY Prednisolone Acetate/Pf [Prednisolone Acet 1% Eye Drop] 1 drop EYERT QID levoFLOXacin [Levaquin] 500 mg PO Q48H - Assessment Assessment:: #acute hypoxic respiratory failure 2/2 COPD exacerbation and acute on chronic diastolic CHF - improved rapidly clinically and radiologically on CXR - c/w spiriva, scheduled and prn nebs - taper solumedrol q6 >>> q8h - anticipate convert to PO lasix tomorrow - taper o2 as needed #JILLIAN on CKD3 - Cr bump may be due to steroids #acute toxic/metabolic encephalopathy - co2 retention was ruled out - mental status now normal PPX - [facility] Full code
[2020-08-13] MEDS: Melatonin 3 MG Tab PO PRN (23:13)
[2020-08-14] MEDS: Albuterol/Ipratropium 3.0-0.5 MG/3 ML Neb Soln NEB SCH ×4 (04:33→17:58)
[2020-08-14] MEDS: Heparin Sodium 5,000 Units/ML Vial SUBCUT SCH ×3 (06:29→21:55)
[2020-08-14] MEDS: methylPREDNISolone Sodium Succinate 40 MG/1 ML SDV IVPUSH SCH (06:29)
[2020-08-14] MEDS: Furosemide 40 MG/4 ML VIAL IVPUSH SCH (06:38)
[2020-08-14] MEDS ORDERED: Magnesium Citrate Solution 296 ML Bottle PO ONE (08:47)
[2020-08-14 08:58] LABS: ANION GAP 19.1 mEq/L (7-13)
[2020-08-14] MEDS ORDERED: Levofloxacin 500 MG Tab PO SCH (09:00)
[2020-08-14] MEDS: Finasteride 5 MG Tab PO SCH (09:20)
[2020-08-14] MEDS: DULoxetine 30 MG Cap PO SCH (09:20)
[2020-08-14] MEDS: Tamsulosin 0.4 MG Cap.ER PO SCH ×2 (09:20→21:49)
[2020-08-14] MEDS: Clopidogrel 75 MG Tab PO SCH (09:21)
[2020-08-14] MEDS: hydrALAZINE 25 MG Tab PO SCH ×4 (09:21→21:48)
[2020-08-14] MEDS: Atenolol 50 MG Tab PO SCH ×2 (09:21→21:54)
[2020-08-14] MEDS: amLODIPine 5 MG Tab PO SCH (09:21)
[2020-08-14] MEDS: KETOROLAC 0.5% EYERT SCH ×2 (09:23→21:51)
[2020-08-14] MEDS: Tiotropium Inhaler 18 MCG Inhalation Powder Cap Kit of 5 INH SCH (09:24)
[2020-08-14] MEDS: EYE EYERT SCH ×4 (09:26→21:52)
[2020-08-14] MEDS: PREDNISOLONE ACET 1% EYERT SCH ×4 (09:26→21:52)
[2020-08-14] MEDS: Docusate Sodium 100 MG Cap PO SCH ×2 (10:22→21:49)
--- NOTE | 2020-08-14 11:03 | PCM.PN ---
- General Info Date of Service: 08/14/20 Subjective Update: Improved breathing. LE edema decreasing. Constipated. - Review of Systems General: Reports: No Symptoms HEENT: Reports: No Symptoms Genitourinary: Reports: No Symptoms Musculoskeletal: Reports: No Symptoms Skin: Reports: No Symptoms Neurological: Reports: No Symptoms Psychiatric: Reports: No Symptoms - Patient Data Vitals - Most Recent: Last Vital Signs Temp 98.0 F 08/14/20 08:22 Pulse 107 H 08/14/20 09:21 Resp 20 08/14/20 08:22 BP 154/81 H 08/14/20 09:21 Pulse Ox 98 08/14/20 08:22 Weight - Most Recent: 176 lb 3.2 oz I&O - Last 24 Hours: Intake & Output 08/13/20 08/14/20 08/14/20 22:59 06:59 14:59 Intake Total 1090 400 740 Output Total 1950 550 950 Balance -860 -150 -210 Lab Results Last 24 Hours: Laboratory Results - last 24 hr 08/14/20 Range/Units 08:39 Sodium 133 L (136-145) mmol/L Potassium 4.1 (3.5-5.1) mmol/L Chloride 97 L (98-107) mmol/L Carbon Dioxide 21 (21-32) mmol/L Anion Gap 19.1 H (7-13) mEq/L BUN 63 H (7-18) mg/dL Creatinine 1.99 H (0.70-1.30) mg/dL Est Cr Clr Drug Dosing 31.57 mL/min Estimated GFR (MDRD) 33 Glucose 236 H (74-99) mg/dL Calcium 8.1 L (8.5-10.1) mg/dL Antoni Results Last 24 Hours: Microbiology 08/12/20 10:35 Aerobic Blood Culture - Preliminary Blood - Venous - Iv Start NO GROWTH AFTER 2 DAYS Anaerobic Blood Culture - Preliminary NO GROWTH AFTER 2 DAYS 08/12/20 10:41 Aerobic Blood Culture - Preliminary Blood - Arm, Left NO GROWTH AFTER 2 DAYS Anaerobic Blood Culture - Preliminary NO GROWTH AFTER 2 DAYS Med Orders - Current: Current Medications Acetaminophen (Tylenol) 650 mg PO Q4H PRN PRN Reason: Pain (Mild 1-3)/fever Albuterol (Proventil Neb Soln) 2.5 mg NEB Q2H PRN PRN Reason: shortness of breath/wheezing Last Admin: 08/12/20 17:45 Dose: 2.5 mg Documented by: Albuterol/Ipratropium (Duoneb 3.0-0.5 Mg/3 Ml) 3 ml NEB Q6HRRT [facility] Amlodipine Besylate (Norvasc) 5 mg PO DAILY [facility] Last Admin: 08/14/20 09:21 Dose: 5 mg Documented by: Atenolol (Tenormin) 50 mg PO BID [facility] Last Admin: 08/14/20 09:21 Dose: 50 mg Documented by: Clopidogrel Bisulfate (Plavix) 75 mg PO DAILY [facility] Last Admin: 08/14/20 09:21 Dose: 75 mg Documented by: Docusate Sodium (Colace) 100 mg PO BID [facility] Last Admin: 08/14/20 10:22 Dose: 100 mg Documented by: Duloxetine HCl (Cymbalta) 30 mg PO DAILY [facility] Last Admin: 08/14/20 09:20 Dose: 30 mg Documented by: Finasteride (Proscar) 5 mg PO DAILY [facility] Last Admin: 08/14/20 09:20 Dose: 5 mg Documented by: Furosemide (Lasix) 40 mg PO DAILY [facility] Heparin Sodium (Porcine) (Heparin Sodium) 5,000 units SUBCUT Q8HR [facility] Last Admin: 08/14/20 06:29 Dose: 5,000 units Documented by: Hydralazine HCl (Apresoline) 50 mg PO QID [facility] Last Admin: 08/14/20 09:21 Dose: 50 mg Documented by: Levofloxacin (Levaquin) 500 mg PO Q48H [facility] Last Admin: 08/14/20 09:21 Dose: 500 mg Documented by: Melatonin (Melatonin) 6 mg PO BEDTIME PRN PRN Reason: Sleep Last Admin: 08/13/20 23:13 Dose: 6 mg Documented by: Methylprednisolone Sodium Succinate (Solu-Medrol) 40 mg IVPUSH Q12H [facility] Stop: 08/14/20 21:00 Ketorolac 0.5% Ophthalmic Soln Pt Own Med 1 drop EYERT BID [facility] Stop: 09/03/20 21:01 Last Admin: 08/14/20 09:23 Dose: 1 drop Documented by: Prednisolone Acet 1% Eye Drop Pt Own Med 1 drop EYERT QID [facility] Last Admin: 08/14/20 09:26 Dose: 1 drop Documented by: Prednisone (Prednisone) 40 mg PO WITHBREAKFAST [facility] Senna/Docusate Sodium (Senna Plus) 2 tab PO BEDTIME [facility] Sodium Chloride (Saline Flush) 10 ml FLUSH ASDIRECTED PRN PRN Reason: Keep Vein Open Last Admin: 08/13/20 21:25 Dose: 10 ml Documented by: Tamsulosin HCl (Flomax) 0.4 mg PO BID [facility] Last Admin: 08/14/20 09:20 Dose: 0.4 mg Documented by: Tiotropium [place] (Spiriva Handihaler) 18 mcg INH DAILY [facility] Last Admin: 08/14/20 09:24 Dose: 18 mcg Documented by: Discontinued Medications Albuterol/Ipratropium (Duoneb 3.0-0.5 Mg/3 Ml) 3 ml NEB ONETIME ONE Stop: 08/12/20 10:38 Last Admin: 08/12/20 10:47 Dose: 3 ml Documented by: Albuterol/Ipratropium (Duoneb 3.0-0.5 Mg/3 Ml) 3 ml NEB ONETIME ONE Stop: 08/12/20 13:32 Last Admin: 08/12/20 14:34 Dose: 3 ml Documented by: Albuterol/Ipratropium (Duoneb 3.0-0.5 Mg/3 Ml) 3 ml NEB ONETIME ONE Stop: 08/12/20 13:34 Last Admin: 08/12/20 14:35 Dose: 3 ml Documented by: Albuterol/Ipratropium (Duoneb 3.0-0.5 Mg/3 Ml) 3 ml NEB Q4HRRT [facility] Last Admin: 08/14/20 07:47 Dose: 3 ml Documented by: Furosemide (Lasix) 40 mg IVPUSH NOW ONE Stop: 08/12/20 11:25 Last Admin: 08/12/20 11:50 Dose: 40 mg Documented by: Furosemide (Lasix) 40 mg IVPUSH 0900,1700 [facility] Last Admin: 08/12/20 17:37 Dose: 40 mg Documented by: Furosemide (Lasix) 40 mg IVPUSH 0600,1500 [facility] Last Admin: 08/14/20 06:38 Dose: 40 mg Documented by: Levofloxacin/Dextrose 750 mg/ (Premix) 150 mls @ 100 mls/hr IV ONETIME ONE Stop: 08/12/20 12:18 Last Admin: 08/12/20 11:08 Dose: 100 mls/hr Documented by: Magnesium Citrate (Citrate Of Magnesia) 296 ml PO ONETIME ONE Stop: 08/14/20 08:48 Last Admin: 08/14/20 10:22 Dose: 296 ml Documented by: Methylprednisolone Sodium Succinate (Solu-Medrol) 125 mg IVPUSH ONETIME ONE Stop: 08/12/20 10:38 Last Admin: 08/12/20 10:47 Dose: 125 mg Documented by: Methylprednisolone Sodium Succinate (Solu-Medrol) 40 mg IVPUSH Q6H [facility] Last Admin: 08/13/20 06:29 Dose: 40 mg Documented by: Methylprednisolone Sodium Succinate (Solu-Medrol) 40 mg IVPUSH Q8HR [facility] Last Admin: 08/14/20 06:29 Dose: 40 mg Documented by: Non-Formulary Medication (Duloxetine [Cymbalta]) 40 mg PO DAILY [facility] Last Admin: 08/13/20 09:48 Dose: Not Given Documented by: Ketorolac 0.5% Ophthalmic Soln Pt Own Med 1 drop EYELF BID [facility] Stop: 08/13/20 21:01 Last Admin: 08/13/20 22:21 Dose: 1 drop Documented by: Ofloxacin [Ocuflox 0 .3% Ophth Soln] Pt Own Med 1 drop EYERT QID [facility] Stop: 08/13/20 21:01 Last Admin: 08/13/20 22:18 Dose: 1 drop Documented by: Prednisolone Acet 1% Eye Drop Pt Own Med 1 drop EYELF DAILY [facility] Stop: 08/13/20 09:01 Last Admin: 08/13/20 08:59 Dose: 1 drop Documented by: Prednisolone Acet 1% Eye Drop Pt Own Med 1 drop EYERT QID [facility] Stop: 08/13/20 21:01 - Exam General: Alert, Oriented HEENT: Mucous Membr. Moist/[place] Neck: Supple Lungs: Wheezing (mild) Cardiovascular: Regular Rate, Regular Rhythm GI/Abdominal Exam: Normal Bowel Sounds, Soft, Non-Tender, No Distention Back Exam: Normal Inspection, Full Range of Motion Extremities: Normal Range of Motion, Non-Tender, Pedal Edema (trace) Skin: Warm, Dry, Intact Neurological: No New Focal Deficit Psy/Mental Status: Alert, Normal Affect, Normal Mood - Patient Data Lab Results Last 24 hrs: Laboratory Results - last 24 hr 08/14/20 Range/Units 08:39 Sodium 133 L (136-145) mmol/L Potassium 4.1 (3.5-5.1) mmol/L Chloride 97 L (98-107) mmol/L Carbon Dioxide 21 (21-32) mmol/L Anion Gap 19.1 H (7-13) mEq/L BUN 63 H (7-18) mg/dL Creatinine 1.99 H (0.70-1.30) mg/dL Est Cr Clr Drug Dosing 31.57 mL/min Estimated GFR (MDRD) 33 Glucose 236 H (74-99) mg/dL Calcium 8.1 L (8.5-10.1) mg/dL Result Diagrams: 08/13/20 06:23 08/14/20 08:39 Antoni Results Last 24 hrs: Microbiology 08/12/20 10:35 Aerobic Blood Culture - Preliminary Blood - Venous - Iv Start NO GROWTH AFTER 2 DAYS Anaerobic Blood Culture - Preliminary NO GROWTH AFTER 2 DAYS 08/12/20 10:41 Aerobic Blood Culture - Preliminary Blood - Arm, Left NO GROWTH AFTER 2 DAYS Anaerobic Blood Culture - Preliminary NO GROWTH AFTER 2 DAYS Sepsis Event Note - Evaluation Sepsis Screening Result: No Definite Risk - Focused Exam Vital Signs: Vital Signs Temp Pulse Pulse Resp BP BP Pulse Ox 08/14/20 09:21 107 H 154/81 H 08/14/20 08:22 98.0 F 107 H 20 154/81 H 98 08/14/20 07:48 108 H 08/14/20 04:00 98.0 F 78 14 151/86 H 98 08/14/20 00:12 74 08/14/20 00:00 98.5 F 74 18 151/73 H 97 08/13/20 23:13 74 Pulse Ox 08/14/20 09:21 08/14/20 08:22 08/14/20 07:48 98 08/14/20 04:00 98 08/14/20 00:12 97 08/14/20 00:00 08/13/20 23:13 97 - Problem List Review Problem List Initiated/Reviewed/Updated: No - My Orders Last 24 Hours: My Active Orders 08/13/20 22:33 Melatonin 6 mg PO BEDTIME PRN 08/14/20 09:00 DULoxetine [Cymbalta] 30 mg PO DAILY Docusate Sodium [Colace] 100 mg PO BID Prednisolone Acetate/Pf [Prednisolone Acet 1% Eye Drop] 1 drop EYERT QID levoFLOXacin [Levaquin] 500 mg PO Q48H 08/14/20 13:00 Albuterol/Ipratropium [DuoNeb 3.0-0.5 MG/3 ML] 3 ml NEB Q6HRRT 08/14/20 18:00 methylPREDNISolone Sod Succ [Solu-MEDROL] 40 mg IVPUSH Q12H 08/14/20 21:00 Docusate Sodium/Sennosides [Senna Plus] 2 tab PO BEDTIME 08/15/20 08:00 predniSONE 40 mg PO WITHBREAKFAST 08/15/20 09:00 Furosemide [Lasix] 40 mg PO DAILY - Assessment Assessment:: #acute hypoxic respiratory failure 2/2 COPD exacerbation and acute on chronic diastolic CHF - improved rapidly clinically and radiologically on CXR - c/w spiriva - space out scheduled meds - taper solumedrol q8 >>> q12h - switch to prednisone tomorrow in am - d/c IV lasix >>> 40 PO daily - anticipate d/c in am #JILLIAN on CKD3 - Cr bump may be due to steroids #acute toxic/metabolic encephalopathy - co2 retention was ruled out - mental status now normal PPX - [facility] Full code
[2020-08-14] MEDS: Sodium Chloride 0.9% 10 ML Syringe FLUSH PRN ×2 (17:55→21:57)
[2020-08-14] MEDS ORDERED: methylPREDNISolone Sodium Succinate 40 MG/1 ML SDV IVPUSH SCH (18:00)
[2020-08-14] MEDS: Acetaminophen 325 MG Tab PO PRN (19:22)
[2020-08-14] MEDS: Melatonin 3 MG Tab PO PRN (21:49)
[2020-08-15] MEDS: Albuterol/Ipratropium 3.0-0.5 MG/3 ML Neb Soln NEB SCH ×2 (00:08→07:48)
[2020-08-15] MEDS: Acetaminophen 325 MG Tab PO PRN (03:21)
[2020-08-15] MEDS: Heparin Sodium 5,000 Units/ML Vial SUBCUT SCH (05:11)
[2020-08-15] MEDS: hydrALAZINE 25 MG Tab PO SCH ×2 (07:55→09:00)
[2020-08-15] MEDS ORDERED: predniSONE 20 MG Tab PO SCH (08:00)
[2020-08-15] MEDS: Tiotropium Inhaler 18 MCG Inhalation Powder Cap Kit of 5 INH SCH (08:00)
[2020-08-15] MEDS: DULoxetine 30 MG Cap PO SCH (08:01)
[2020-08-15] MEDS: Tamsulosin 0.4 MG Cap.ER PO SCH (08:01)
[2020-08-15] MEDS: Finasteride 5 MG Tab PO SCH (08:02)
[2020-08-15] MEDS: Atenolol 50 MG Tab PO SCH (08:02)
[2020-08-15] MEDS: amLODIPine 5 MG Tab PO SCH (08:02)
[2020-08-15] MEDS: Clopidogrel 75 MG Tab PO SCH (08:03)
[2020-08-15] MEDS: Docusate Sodium 100 MG Cap PO SCH (08:03)
[2020-08-15] MEDS: KETOROLAC 0.5% EYERT SCH (08:05)
[2020-08-15] MEDS: PREDNISOLONE ACET 1% EYERT SCH (08:05)
[2020-08-15] MEDS: EYE EYERT SCH (08:05)
[2020-08-15 08:13] VITALS: BP 167/103; PULSE 100
[2020-08-15] MEDS ORDERED: Furosemide 40 MG Tab PO SCH (09:00)
--- NOTE | 2020-08-15 19:14 | PCM.DCSUM1 ---
Discharge Summary - Hospital Course Free Text/Narrative:: 80M w/ pmh COPD, COVID19 in 04/2020, active smoker p/w respiratory failure, wheezing and distress in setting of running out of his nebs at home and a grand child that was sick. Pt was hypoxic to 89% on room air in the ER and refractory to serial nebs. He was admitted and treated w/ IV steroids, scheduled nebs. He was also treated for a diastolic CHF exacerbation w/ IV lasix. He did have significant LE edema and pulmonary edema on CXR. He received empiric abx given radiologic reading of disproportionate right sided infiltrates. He improved quickly and was discharged on prednisone and PO lasix. Diagnosis: Stroke: No - Discharge Data Discharge Date: 08/15/20 Discharge Disposition: Home, Self-Care 01 Condition: Good - Referral to Home Health Primary Care Physician: PCP None - Patient Summary/Data Consults: Consultations 08/13/20 09:37 PT Evaluation and Treatment [CONS] Routine - Patient Instructions Diet: Low Sodium Activity: As Tolerated - Discharge Plan *PRESCRIPTION DRUG MONITORING PROGRAM REVIEWED*: Not Applicable *COPY OF PRESCRIPTION DRUG MONITORING REPORT IN PATIENT [place]: Not Applicable Prescriptions/Med Rec: Albuterol/Ipratropium [DuoNeb 3.0-0.5 MG/3 ML] 3 ml INH Q4H PRN #2 box PRN Reason: Shortness Of Breath Furosemide [Lasix] 40 mg PO DAILY #30 tablet levoFLOXacin [Levaquin] 500 mg PO Q48H #2 tablet predniSONE 40 mg PO WITHBREAKFAST #8 tablet Tiotropium [Spiriva HandiHaler] 18 mcg INH DAILY #1 unit Home Medications: Home Meds atenoloL [Atenolol] 50 mg PO BID 07/09/15 [History] Finasteride 5 mg PO DAILY 12/28/18 [History] Tamsulosin [Flomax] 0.4 mg PO BID 12/28/18 [History] amLODIPine [Norvasc] 5 mg PO DAILY #90 tablet 07/18/19 [Rx] Clopidogrel Bisulfate [Clopidogrel] 75 mg PO DAILY 01/19/20 [History] diphenhydrAMINE HCL [Benadryl Allergy] 25 mg PO Q6H PRN 01/19/20 [History] hydrALAZINE [Apresoline] 50 mg PO QID 01/19/20 [History] DULoxetine [Cymbalta] 40 mg PO DAILY 05/14/20 [History] Gabapentin [Neurontin] 900 mg PO TID 05/14/20 [History] traMADol [Ultram] 50 mg PO BEDTIME PRN 05/14/20 [History] Ketorolac [Acular 0.5% Ophth Soln] 1 drop EYELF BID 08/12/20 [History] Ketorolac [Acular 0.5% Ophth Soln] 1 drop EYERT BID 08/12/20 [History] Ofloxacin [Ocuflox 0.3% Ophth Soln] 1 drop EYERT QID 08/12/20 [History] Prednisolone Acetate/Pf [Prednisolone Acet 1% Eye Drop] 1 drop EYELF DAILY 08/12/20 [History] Prednisolone Acetate/Pf [Prednisolone Acet 1% Eye Drop] 1 drop EYERT TID 08/12/20 [History] Albuterol [Proventil Neb Soln] 2.5 mg NEB Q2H PRN neb 08/15/20 [Rx] Albuterol/Ipratropium [DuoNeb 3.0-0.5 MG/3 ML] 3 ml INH Q4H PRN #2 box 08/15/20 [Rx] Albuterol/Ipratropium [DuoNeb 3.0-0.5 MG/3 ML] 3 ml NEB Q6HRRT neb 08/15/20 [Rx] Docusate Sodium [Colace] 100 mg PO BID cap 08/15/20 [Rx] Docusate Sodium/Sennosides [Senna Plus] 2 tab PO BEDTIME tablet 08/15/20 [Rx] Furosemide [Lasix] 40 mg PO DAILY #30 tablet 08/15/20 [Rx] Tiotropium [Spiriva HandiHaler] 18 mcg INH DAILY #1 unit 08/15/20 [Rx] levoFLOXacin [Levaquin] 500 mg PO Q48H #2 tablet 08/15/20 [Rx] predniSONE 40 mg PO WITHBREAKFAST #8 tablet 08/15/20 [Rx] Patient Handouts: Furosemide Oral Tablets, Chronic Obstructive Pulmonary Disease, [id number], Tiotropium respiratory inhalation spray (Spiriva Respimat), Levofloxacin tablets, Ipratropium; Albuterol Inhalation Solution, Prednisone tablets Referrals: Mary Maza MD [Physician] - - Discharge Summary/Plan Comment DC Time >30 min.: Yes (35 min) - General Info Date of Service: 08/15/20 - Patient Data Vitals - Most Recent: Last Vital Signs Temp 97.4 F 08/15/20 08:08 Pulse 100 08/15/20 08:08 Resp 14 08/15/20 08:08 BP 167/103 H 08/15/20 08:08 Pulse Ox 99 08/15/20 08:08 Weight - Most Recent: 175 lb 6.4 oz I&O - Last 24 hours: Intake & Output 08/15/20 08/15/20 08/15/20 06:59 14:59 22:59 Intake Total 300 Balance 300 MATEUSZ Results - Last 24 hrs: Microbiology 08/12/20 10:35 Aerobic Blood Culture - Preliminary Blood - Venous - Iv Start NO GROWTH AFTER 3 DAYS Anaerobic Blood Culture - Preliminary NO GROWTH AFTER 3 DAYS 08/12/20 10:41 Aerobic Blood Culture - Preliminary Blood - Arm, Left NO GROWTH AFTER 3 DAYS Anaerobic Blood Culture - Preliminary NO GROWTH AFTER 3 DAYS Med Orders - Current: Current Medications Discontinued Medications Acetaminophen (Tylenol) 650 mg PO Q4H PRN PRN Reason: Pain (Mild 1-3)/fever Last Admin: 08/15/20 03:21 Dose: 650 mg Documented by: Albuterol (Proventil Neb Soln) 2.5 mg NEB Q2H PRN PRN Reason: shortness of breath/wheezing Last Admin: 08/12/20 17:45 Dose: 2.5 mg Documented by: Albuterol/Ipratropium (Duoneb 3.0-0.5 Mg/3 Ml) 3 ml NEB ONETIME ONE Stop: 08/12/20 10:38 Last Admin: 08/12/20 10:47 Dose: 3 ml Documented by: Albuterol/Ipratropium (Duoneb 3.0-0.5 Mg/3 Ml) 3 ml NEB ONETIME ONE Stop: 08/12/20 13:32 Last Admin: 08/12/20 14:34 Dose: 3 ml Documented by: Albuterol/Ipratropium (Duoneb 3.0-0.5 Mg/3 Ml) 3 ml NEB ONETIME ONE Stop: 08/12/20 13:34 Last Admin: 08/12/20 14:35 Dose: 3 ml Documented by: Albuterol/Ipratropium (Duoneb 3.0-0.5 Mg/3 Ml) 3 ml NEB Q4HRRT [facility] Last Admin: 08/14/20 07:47 Dose: 3 ml Documented by: Albuterol/Ipratropium (Duoneb 3.0-0.5 Mg/3 Ml) 3 ml NEB Q6HRRT [facility] Last Admin: 08/15/20 07:48 Dose: 3 ml Documented by: Amlodipine Besylate (Norvasc) 5 mg PO DAILY [facility] Last Admin: 08/15/20 08:02 Dose: 5 mg Documented by: Atenolol (Tenormin) 50 mg PO BID [facility] Last Admin: 08/15/20 08:02 Dose: 50 mg Documented by: Clopidogrel Bisulfate (Plavix) 75 mg PO DAILY [facility] Last Admin: 08/15/20 08:03 Dose: 75 mg Documented by: Docusate Sodium (Colace) 100 mg PO BID [facility] Last Admin: 08/15/20 08:03 Dose: Not Given Documented by: Duloxetine HCl (Cymbalta) 30 mg PO DAILY [facility] Last Admin: 08/15/20 08:01 Dose: 30 mg Documented by: Finasteride (Proscar) 5 mg PO DAILY [facility] Last Admin: 08/15/20 08:02 Dose: 5 mg Documented by: Furosemide (Lasix) 40 mg IVPUSH NOW ONE Stop: 08/12/20 11:25 Last Admin: 08/12/20 11:50 Dose: 40 mg Documented by: Furosemide (Lasix) 40 mg IVPUSH 0900,1700 [facility] Last Admin: 08/12/20 17:37 Dose: 40 mg Documented by: Furosemide (Lasix) 40 mg IVPUSH 0600,1500 [facility] Last Admin: 08/14/20 06:38 Dose: 40 mg Documented by: Furosemide (Lasix) 40 mg PO DAILY [facility] Last Admin: 08/15/20 08:01 Dose: 40 mg Documented by: Heparin Sodium (Porcine) (Heparin Sodium) 5,000 units SUBCUT Q8HR [facility] Last Admin: 08/15/20 05:11 Dose: 5,000 units Documented by: Hydralazine HCl (Apresoline) 50 mg PO QID [facility] Last Admin: 08/15/20 09:00 Dose: Not Given Documented by: Levofloxacin/Dextrose 750 mg/ (Premix) 150 mls @ 100 mls/hr IV ONETIME ONE Stop: 08/12/20 12:18 Last Admin: 08/12/20 11:08 Dose: 100 mls/hr Documented by: Levofloxacin (Levaquin) 500 mg PO Q48H [facility] Last Admin: 08/14/20 09:21 Dose: 500 mg Documented by: Magnesium Citrate (Citrate Of Magnesia) 296 ml PO ONETIME ONE Stop: 08/14/20 08:48 Last Admin: 08/14/20 10:22 Dose: 296 ml Documented by: Melatonin (Melatonin) 6 mg PO BEDTIME PRN PRN Reason: Sleep Last Admin: 08/14/20 21:49 Dose: 6 mg Documented by: Methylprednisolone Sodium Succinate (Solu-Medrol) 125 mg IVPUSH ONETIME ONE Stop: 08/12/20 10:38 Last Admin: 08/12/20 10:47 Dose: 125 mg Documented by: Methylprednisolone Sodium Succinate (Solu-Medrol) 40 mg IVPUSH Q6H [facility] Last Admin: 08/13/20 06:29 Dose: 40 mg Documented by: Methylprednisolone Sodium Succinate (Solu-Medrol) 40 mg IVPUSH Q8HR [facility] Last Admin: 08/14/20 06:29 Dose: 40 mg Documented by: Methylprednisolone Sodium Succinate (Solu-Medrol) 40 mg IVPUSH Q12H [facility] Stop: 08/14/20 21:00 Last Admin: 08/14/20 17:55 Dose: 40 mg Documented by: Non-Formulary Medication (Duloxetine [Cymbalta]) 40 mg PO DAILY [facility] Last Admin: 08/13/20 09:48 Dose: Not Given Documented by: Ketorolac 0.5% Ophthalmic Soln Pt Own Med 1 drop EYELF BID [facility] Stop: 08/13/20 21:01 Last Admin: 08/13/20 22:21 Dose: 1 drop Documented by: Ketorolac 0.5% Ophthalmic Soln Pt Own Med 1 drop EYERT BID [facility] Stop: 09/03/20 21:01 Last Admin: 08/15/20 08:05 Dose: 1 drop Documented by: Ofloxacin [Ocuflox 0 .3% Ophth Soln] Pt Own Med 1 drop EYERT QID [facility] Stop: 08/13/20 21:01 Last Admin: 08/13/20 22:18 Dose: 1 drop Documented by: Prednisolone Acet 1% Eye Drop Pt Own Med 1 drop EYELF DAILY [facility] Stop: 08/13/20 09:01 Last Admin: 08/13/20 08:59 Dose: 1 drop Documented by: Prednisolone Acet 1% Eye Drop Pt Own Med 1 drop EYERT QID [facility] Stop: 08/13/20 21:01 Prednisolone Acet 1% Eye Drop Pt Own Med 1 drop EYERT QID [facility] Last Admin: 08/15/20 08:05 Dose: 1 drop Documented by: Prednisone (Prednisone) 40 mg PO WITHBREAKFAST [facility] Last Admin: 08/15/20 07:55 Dose: 40 mg Documented by: Senna/Docusate Sodium (Senna Plus) 2 tab PO BEDTIME [facility] Last Admin: 08/14/20 21:50 Dose: Not Given Documented by: Sodium Chloride (Saline Flush) 10 ml FLUSH ASDIRECTED PRN PRN Reason: Keep Vein Open Last Admin: 08/14/20 21:57 Dose: 10 ml Documented by: Tamsulosin HCl (Flomax) 0.4 mg PO BID [facility] Last Admin: 08/15/20 08:01 Dose: 0.4 mg Documented by: Tiotropium [place] (Spiriva Handihaler) 18 mcg INH DAILY [facility] Last Admin: 08/15/20 08:00 Dose: 18 mcg Documented by: - Exam Quality Assessment: Denies: Supplemental Oxygen General: Reports: Alert, Oriented HEENT: Reports: Pupils Equal Neck: Reports: Supple Lungs: Reports: Wheezing (very mild) Cardiovascular: Reports: Regular Rate, Regular Rhythm Back Exam: Reports: Normal Inspection Extremities: Pedal Edema (trace) Skin: Reports: Warm, Dry, Intact Neurological: Reports: No New Focal Deficit Psy/Mental Status: Reports: Alert, Normal Affect, Normal Mood
== END 2020-08-15 13:05 | disposition home or self-care (01) | DRG 291 ==
LOC: DL.ED 10:23 → DL.MS 12:41 → UNDOADMIN 12:41 → DL.MS 14:00
PROVIDERS: ADMIT Internal Medicine; ATTEND Internal Medicine
DX: I13.0 Hypertensive heart and chronic kidney disease with heart failure and stage 1 through stage 4 chronic kidney disease, or unspecified chronic kidney disease (principal); I50.9 Heart failure, unspecified; I50.33 Acute on chronic diastolic (congestive) heart failure; Z91.14 Patient's other noncompliance with medication regimen; H54.7 Unspecified visual loss; Z95.1 Presence of aortocoronary bypass graft; Z95.5 Presence of coronary angioplasty implant and graft; N18.1 Chronic kidney disease, stage 1; N40.0 Benign prostatic hyperplasia without lower urinary tract symptoms; F32.9 Major depressive disorder, single episode, unspecified; M19.90 Unspecified osteoarthritis, unspecified site; D50.9 Iron deficiency anemia, unspecified; J96.01 Acute respiratory failure with hypoxia; Z79.01 Long term (current) use of anticoagulants; Z79.02 Long term (current) use of antithrombotics/antiplatelets; G92 Toxic encephalopathy; N17.9 Acute kidney failure, unspecified; J44.1 Chronic obstructive pulmonary disease with (acute) exacerbation; N18.30 Chronic kidney disease, stage 3 unspecified; Z20.822 Contact with and (suspected) exposure to COVID-19; D64.9 Anemia, unspecified; F17.210 Nicotine dependence, cigarettes, uncomplicated; Z86.16 Personal history of COVID-19; Z98.49 Cataract extraction status, unspecified eye; Z79.52 Long term (current) use of systemic steroids; Z79.899 Other long term (current) drug therapy
CPT/HCPCS: 0240U; 36415; 36600; 71045; 80048; 80053; 80307; 81001; 82803; 83605; 83735; 83880; 84100; 84484; 85025; 87040; 93005; 93010; 93306; 94640; 96365; 96375; 97162; 97530; 99284; 99285; A9270-GY; J1644; J1940; J1956; J2920; J2930; J7512; J7613-GY; J7620-GY

== ENCOUNTER 2020-10-27 21:48 | Emergency (ER) | payer MEDICARE, MEDICAID ==
[2020-10-27 22:33] VITALS: BP 196/93; PULSE 71
[2020-10-27 23:00] LABS: ANION GAP 16.2 mEq/L (7-13)
--- NOTE | 2020-10-27 23:05 | EDM.PDOC ---
ED HPI GENERAL MEDICAL PROBLEM - General Chief Complaint: Skin Complaint Stated Complaint: SWOLLEN BOTH LEGS Time Seen by Provider: 10/27/20 22:30 Source of Information: Reports: Patient, RN, RN Notes Reviewed History Limitations: Reports: No Limitations - History of Present Illness INITIAL COMMENTS - FREE TEXT/NARRATIVE: Patient is a 80-year-old male who presents to ER with complaint of swelling and itching to the lower extremities, the upper extremities, and itching to the trunk as well. Patient states he does have a history of eczema but denies history of psoriasis. Patient states the itching on his lower legs has been since he had Covid in May. Patient also relates the rash and itching to his Eliquis. He states it worsens each day after he takes the Eliquis. Otherwise denies any new lotions, body washes, laundry detergents. Onset: Gradual, Unknown/Unsure Treatments PUBLIC POLICY ANALYST: Reports: Other Medication(s) Other Treatments PUBLIC POLICY ANALYST: benadryl - Related Data Allergies Allergy/AdvReac Type Severity Reaction Status Date / Time No Known Allergies Allergy Verified 10/27/20 22:07 Home Meds: Home Meds atenoloL [Atenolol] 50 mg PO BID 07/09/15 [History] Finasteride 5 mg PO DAILY 12/28/18 [History] Tamsulosin [Flomax] 0.4 mg PO BID 12/28/18 [History] amLODIPine [Norvasc] 5 mg PO DAILY #90 tablet 07/18/19 [Rx] diphenhydrAMINE HCL [Benadryl Allergy] 25 mg PO Q6H PRN 01/19/20 [History] hydrALAZINE [Apresoline] 50 mg PO QID 01/19/20 [History] Gabapentin [Neurontin] 300 mg PO TID 05/14/20 [History] traMADol [Ultram] 50 mg PO BEDTIME PRN 05/14/20 [History] Albuterol [Proventil Neb Soln] 2.5 mg NEB Q2H PRN neb 08/15/20 [Rx] Albuterol/Ipratropium [DuoNeb 3.0-0.5 MG/3 ML] 3 ml INH Q4H PRN #2 box 08/15/20 [Rx] Albuterol/Ipratropium [DuoNeb 3.0-0.5 MG/3 ML] 3 ml NEB Q6HRRT neb 08/15/20 [Rx] Tiotropium [Spiriva HandiHaler] 18 mcg INH DAILY #1 unit 08/15/20 [Rx] Apixaban [Eliquis] 5 mg PO DAILY 10/27/20 [History] DULoxetine HCl [Duloxetine HCl] 40 mg PO DAILY 10/27/20 [History] Furosemide [Lasix] 40 mg PO 10/27/20 [History] Past Medical History HEENT History: Reports: Cataract, Impaired Vision Other HEENT History: Wears glasses. Cardiovascular History: Reports: Aneurysm, Bypass, Hypertension, Stents Respiratory History: Reports: Pneumonia, Recurrent Gastrointestinal History: Reports: Pancreatitis Genitourinary History: Reports: Prostate Disorder, Other (See Below) Other Genitourinary History: chronic kidney disease. 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 Dermatologic History: Reports: Other (See Below) Other Dermatologic History: Scarring to RLE - Infectious Disease History Infectious Disease History: Reports: Novel Coronavirus, Other (See Below) Other Infectious Disease History: Reports hepatitis as a child; - Past Surgical History HEENT Surgical History: Reports: Cataract Surgery Cardiovascular Surgical History: Reports: AAA Repair, Vascular Surgery GI Surgical History: Reports: None Male Surgical History: Reports: None Musculoskeletal Surgical History: Reports: Arthroscopic Procedure, Shoulder Surgery Other Musculoskeletal Surgeries/Procedures:: bilateral shoulder surgery and bilateral hip replacement Social & Family History - Family History Family Medical History: No Pertinent Family History - Tobacco Use Tobacco Use Status *Q: Current Every Day Tobacco User Years of Tobacco use: 50 Packs/Tins Daily: 1 - Caffeine Use Caffeine Use: Reports: Coffee, Soda - Recreational Drug Use Recreational Drug Use: No - Living Situation & Occupation Living situation: Reports: , with Spouse Occupation: Retired ED ROS GENERAL - Review of Systems Review Of Systems: Comprehensive ROS is negative, except as noted in HPI. ED EXAM, SKIN/RASH Exam: See Below Exam Limited By: No Limitations General Appearance: Alert, WD/WN, No Apparent Distress Eye Exam: Bilateral Eye: EOMI, Normal Inspection, Periorbital Changes (erythema under and around the eyes) Ears: Normal External Exam, Hearing Grossly Normal Nose: Normal Inspection Throat/Mouth: Normal Inspection, Normal Lips, Normal Teeth, Normal Gums, Normal Oropharynx, Normal Voice, No Airway Compromise Head: Atraumatic, Normocephalic Neck: Normal Inspection, Supple, Non-Tender, Full Range of Motion Respiratory/Chest: No Respiratory Distress, Normal Breath Sounds, No Accessory Muscle Use, Chest Non-Tender, Decreased Breath Sounds Cardiovascular: Normal Peripheral Pulses, Regular Rate, Rhythm, No Gallop, No JVD, No Murmur, No Rub, Other (swelling to the lower extremities bilaterally) Peripheral Pulses: 2+: Radial (L), Radial (R), Dorsalis Pedis (L), Dorsalis Pedis (R) GI/Abdominal: Normal Bowel Sounds, Soft, Non-Tender (Male) Exam: Deferred Rectal (Males) Exam: Deferred Back Exam: Normal Inspection, Full Range of Motion, NT Extremities: Redness (lower extremities) Neurological: Alert, Oriented, CN II-XII Intact, Normal Cognition, Normal Gait, Normal Reflexes, No Motor/Sensory Deficits Psychiatric: Normal Affect, Normal Mood Skin: Warm, Dry, Other (excoriation to the lower legs, arms, shoulders, back. Significant scaling to the lower extremities, open areas on the lower legs) Location, Skin: Upper Extremity, Right, Upper Extremity, Left, Lower Extremity, Right, Lower Extremity, Left Associated features: Tenderness, Swelling, Crusting, Weeping Lymphatic: No Adenopathy Course - Vital Signs Last Recorded V/S: Last Vital Signs Temp 97.9 F 10/27/20 21:59 Pulse 71 10/27/20 22:32 Resp 19 10/27/20 22:32 BP 196/93 H 10/27/20 22:32 Pulse Ox 98 10/27/20 22:32 - Orders/Labs/Meds Labs: Laboratory Tests 10/27/20 10/27/20 Range/Units 22:35 22:35 WBC 7.3 (5.0-10.0) 10^3/uL RBC 3.65 L (4.6-6.2) 10^6/uL Hgb 10.2 L (14.0-18.0) g/dL Hct 32.5 L (40.0-54.0) % MCV 89.0 (80-100) fL MCH 27.9 (27.0-34.0) pg MCHC 31.4 L (33.0-35.0) g/dL Plt Count 191 (150-450) 10^3/uL Neut % (Auto) 70.7 (42.2-75.2) % Lymph % (Auto) 15.3 L (20.5-50.1) % [place] % (Auto) 9.4 H (2-8) % Eos % (Auto) 4.5 H (1.0-3.0) % Baso % (Auto) 0.1 (0.0-1.0) % Sodium 140 (136-145) mmol/L Potassium 4.2 (3.5-5.1) mmol/L Chloride 105 (98-107) mmol/L Carbon Dioxide 23 (21-32) mmol/L Anion Gap 16.2 H (7-13) mEq/L BUN 27 H D (7-18) mg/dL Creatinine 1.83 H (0.70-1.30) mg/dL Est Cr Clr Drug Dosing 34.39 mL/min Estimated GFR (MDRD) 36 BUN/Creatinine Ratio 14.8 (No establ ref range) Glucose 120 H (70-99) mg/dL Calcium 7.6 L (8.5-10.1) mg/dL Phosphorus 3.9 (2.6-4.7) mg/dL Magnesium 2.1 (1.8-2.4) mg/dL Total Bilirubin 0.8 (0.2-1.0) mg/dL AST 20 (15-37) U/L ALT 15 L (16-63) U/L Alkaline Phosphatase 74 (46-116) U/L B-Natriuretic Peptide 487 H (0-100) pg/ml Total Protein 7.3 (6.4-8.2) g/dL Albumin 3.0 L (3.4-5.0) g/dL Globulin 4.3 Albumin/Globulin Ratio 0.70 Meds: Medications Discontinued Medications Generic Name Dose Route Start Last Admin Trade Name Freq PRN Reason Stop Dose Admin Methylprednisolone Sodium Succinate 125 mg 10/27/20 23:06 10/27/20 23:24 Methylprednisolone Sodium Succinate 125 Mg/2 Ml Sdv IM 10/27/20 23:07 125 mg ONETIME ONE Administration Methylprednisolone Sodium Succinate Confirm 10/27/20 23:20 10/27/20 23:23 Methylprednisolone Sodium Succinate 125 Mg/2 Ml Sdv Administered 10/27/20 23:21 Not Given Dose 125 mg .ROUTE .STK-MED ONE - Re-Assessments/Exams Free Text/Narrative Re-Assessment/Exam: 10/27/20 23:43 Dr. Meek also present in the ER and evaluated the patient's skin. He also feels this is allergic in nature, but unsure of the trigger. Dr. Meek will discuss the patient case tomorrow with his primary care provider Dr. Laws. Departure - Departure Time of Disposition: 23:43 Disposition: Home, Self-Care 01 Condition: Fair Clinical Impression: Contact dermatitis Qualifiers: Contact dermatitis type: allergic Contact dermatitis trigger: unspecified trigger Qualified Code(s): L23.9 - Allergic contact dermatitis, unspecified cause - Discharge Information *PRESCRIPTION DRUG MONITORING PROGRAM REVIEWED*: No *COPY OF PRESCRIPTION DRUG MONITORING REPORT IN PATIENT [place]: No Instructions: Contact Dermatitis, [id number], Pruritus Forms: ED Department Discharge Additional Instructions: RX: Prednisone 20mg, 2 tablets daily for the next 5 days Monitor your blood sugars as they may be elevated with the steroids Follow up with your primary care facility Use Aquaphor to all affected areas Sepsis Event Note (ED) - Evaluation Sepsis Screening Result: No Definite Risk - Focused Exam Vital Signs: Vital Signs Temp Pulse Resp BP Pulse Ox 10/27/20 22:32 71 19 196/93 H 98 10/27/20 21:59 97.9 F 70 20 187/99 H 100
[2020-10-27] MEDS ORDERED: methylPREDNISolone Sodium Succinate 125 MG/2 ML SDV IM ONE (23:06)
[2020-10-27] MEDS ORDERED: methylPREDNISolone Sodium Succinate 125 MG/2 ML SDV ONE (23:20)
== END 2020-10-27 23:53 | disposition home or self-care (01) ==
LOC: DL.ED 21:48
DX: L23.9 Allergic contact dermatitis, unspecified cause (principal); I12.9 Hypertensive chronic kidney disease with stage 1 through stage 4 chronic kidney disease, or unspecified chronic kidney disease; N18.9 Chronic kidney disease, unspecified; N42.9 Disorder of prostate, unspecified; Z79.01 Long term (current) use of anticoagulants; Z79.899 Other long term (current) drug therapy
CPT/HCPCS: 36415; 80053; 83735; 83880; 84100; 85025; 96372; 99283; J2930

== ENCOUNTER 2020-12-03 11:58 | Emergency (ER) | payer MEDICARE, MEDICAID ==
[2020-12-03 12:24] VITALS: BP 122/100; PULSE 105
--- NOTE | 2020-12-03 13:59 | EDM.PDOC ---
ED HPI GENERAL MEDICAL PROBLEM - General Chief Complaint: Skin Complaint Stated Complaint: ITCHING / RASH Time Seen by Provider: 12/03/20 13:00 Source of Information: Reports: Patient, RN, RN Notes Reviewed History Limitations: Reports: No Limitations - History of Present Illness INITIAL COMMENTS - FREE TEXT/NARRATIVE: Leroy is a 80 y/o male who presents to the ED via personal vehicle with complaints of diffuse rash. The patient reports he had a COVID infection several months ago and noticed the rash first developed at that time. He has been evaluated by various providers at local clinics and has been prescribed oral steroids, topical steroids, and Aquaphor, none of which have helped his rash. He denies fever, shaking chills, chest pain, palpitations, abdominal pain, nausea, vomiting, or bowel/bladder changes. He notes the rash is pruritic in nature and does not cause him pain. The patient does attest to smoking 1/4 pack of cigarettes per day; he denies alcohol or recreational drug use. - Related Data Allergies Allergy/AdvReac Type Severity Reaction Status Date / Time No Known Allergies Allergy Verified 12/03/20 12:29 Home Meds: Home Meds atenoloL [Atenolol] 50 mg PO BID 07/09/15 [History] Finasteride 5 mg PO DAILY 12/28/18 [History] Tamsulosin [Flomax] 0.4 mg PO BID 12/28/18 [History] amLODIPine [Norvasc] 5 mg PO DAILY #90 tablet 07/18/19 [Rx] diphenhydrAMINE HCL [Benadryl Allergy] 25 mg PO Q6H PRN 01/19/20 [History] hydrALAZINE [Apresoline] 50 mg PO QID 01/19/20 [History] Gabapentin [Neurontin] 300 mg PO TID 05/14/20 [History] Albuterol [Proventil Neb Soln] 2.5 mg NEB Q2H PRN neb 08/15/20 [Rx] Albuterol/Ipratropium [DuoNeb 3.0-0.5 MG/3 ML] 3 ml INH Q4H PRN #2 box 08/15/20 [Rx] Albuterol/Ipratropium [DuoNeb 3.0-0.5 MG/3 ML] 3 ml NEB Q6HRRT neb 08/15/20 [Rx] Tiotropium [Spiriva HandiHaler] 18 mcg INH DAILY #1 unit 08/15/20 [Rx] DULoxetine HCl [Duloxetine HCl] 40 mg PO DAILY 10/27/20 [History] Furosemide [Lasix] 40 mg PO DAILY 10/27/20 [History] Past Medical History HEENT History: Reports: Cataract, Impaired Vision Other HEENT History: Wears glasses. Cardiovascular History: Reports: Aneurysm, Bypass, Hypertension, Stents Respiratory History: Reports: Pneumonia, Recurrent Gastrointestinal History: Reports: Pancreatitis Genitourinary History: Reports: Prostate Disorder, Other (See Below) Other Genitourinary History: chronic kidney disease. 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 Dermatologic History: Reports: Other (See Below) Other Dermatologic History: Scarring to RLE, rash bilaterally to feet, toes, arms and legs and lower back - Infectious Disease History Infectious Disease History: Reports: Novel Coronavirus, Other (See Below) Other Infectious Disease History: Reports hepatitis as a child; - Past Surgical History HEENT Surgical History: Reports: Cataract Surgery Cardiovascular Surgical History: Reports: AAA Repair, Vascular Surgery GI Surgical History: Reports: None Male Surgical History: Reports: None Musculoskeletal Surgical History: Reports: Arthroscopic Procedure, Shoulder Surgery Other Musculoskeletal Surgeries/Procedures:: bilateral shoulder surgery and bilateral hip replacement Social & Family History - Family History Family Medical History: No Pertinent Family History - Tobacco Use Tobacco Use Status *Q: Current Every Day Tobacco User Years of Tobacco use: 40 Packs/Tins Daily: 0.1 Second Hand Smoke Exposure: No - Caffeine Use Caffeine Use: Reports: Coffee - Recreational Drug Use Recreational Drug Use: No - Living Situation & Occupation Living situation: Reports: , with Spouse Occupation: Retired ED ROS GENERAL - Review of Systems Review Of Systems: Comprehensive ROS is negative, except as noted in HPI. ED EXAM, SKIN/RASH Exam: See Below Exam Limited By: No Limitations General Appearance: Alert, No Apparent Distress ( ) Eye Exam: Bilateral Eye: EOMI, Normal Inspection, PERRL (3mm) Nose: Normal Inspection, Normal Mucosa, No Blood Throat/Mouth: Normal Inspection, Normal Oropharynx, Normal Voice, No Airway Compromise Respiratory/Chest: No Respiratory Distress, Lungs Clear, Normal Breath Sounds, No Accessory Muscle Use, Chest Non-Tender Cardiovascular: Normal Peripheral Pulses, Regular Rate, Rhythm, No Gallop, No JVD, No Murmur, No Rub. No: No Edema Peripheral Pulses: 1+: Posterior Tibial (L), Posterior Tibial (R), 2+: Radial (L), Radial (R), Dorsalis Pedis (L), Dorsalis Pedis (R) GI/Abdominal: Normal Bowel Sounds, Soft, No Distention, No Abnormal Bruit, No Mass, Pelvis Stable (Male) Exam: No Hernia, Normal Inspection. No: Penile Lesions, Rash Rectal (Males) Exam: Other (Scattered pinpoint scabs and linear scabs surrounding bilateral cleft; No erythema or edema) Back Exam: Normal Inspection, Full Range of Motion, Other (No rash appreciated) Extremities: Normal Capillary Refill, Pedal Edema (Trace to left lower extremity, circumferential from ankle to inferior knee ), Increased Warmth (Diffuse to left lower extremity), Redness (Diffuse to bilateral lower extremities). No: Joint Swelling, Leg Pain, Limited Range of Motion, Mottled, Pallor Neurological: Alert, Oriented, CN II-XII Intact, Normal Cognition, Normal Gait, Normal Reflexes, No Motor/Sensory Deficits Psychiatric: Normal Affect, Normal Mood Skin: Warm, Dry, Erythema (Diffuse to bilateral lower extremities), Increased Warmth (To left lower extremity), Petechiae (Scattered to upper extremities), Rash (Pinpoint scabs and linear scabs scattered to anterior chest, buttocks cleft, and bilateral upper extremities; Patchy, raised erythema to bilateral upper extremities), Other (Dry and flaky throughout trunk and upper extremities). No: Ecchymosis, Lymphangitis, Wound/Incision Location, Skin: Chest, Upper Extremity, Right, Upper Extremity, Left, Lower Extremity, Right, Lower Extremity, Left, Generalized Characteristics: Fine, Patchy, Linear, Urticarial, Erythematous Associated features: Warmth, Swelling, Inflammation. No: Crusting, Weeping, Rough Course - Vital Signs Last Recorded V/S: Last Vital Signs Temp 96.5 F L 12/03/20 12:22 Pulse 105 H 12/03/20 12:22 Resp 16 06/22/21 12:22 BP 122/100 H 12/03/20 12:22 Pulse Ox 98 12/03/20 12:22 - Orders/Labs/Meds Labs: Laboratory Tests 12/03/20 12/03/20 12/03/20 Range/Units 12:39 12:39 14:31 WBC 4.6 L (5.0-10.0) 10^3/uL RBC 3.89 L (4.6-6.2) 10^6/uL Hgb 10.8 L (14.0-18.0) g/dL Hct 34.3 L (40.0-54.0) % MCV 88.2 (80-100) fL MCH 27.8 (27.0-34.0) pg MCHC 31.5 L (33.0-35.0) g/dL Plt Count 225 (150-450) 10^3/uL Neut % (Auto) 62.2 (42.2-75.2) % Lymph % (Auto) 20.4 L (20.5-50.1) % [place] % (Auto) 13.7 H (2-8) % Eos % (Auto) 3.3 H (1.0-3.0) % Baso % (Auto) 0.4 (0.0-1.0) % Sodium 142 (136-145) mmol/L Potassium 4.6 (3.5-5.1) mmol/L Chloride 107 (98-107) mmol/L Carbon Dioxide 24 (21-32) mmol/L Anion Gap 15.6 H (7-13) mEq/L BUN 22 H (7-18) mg/dL Creatinine 1.64 H (0.70-1.30) mg/dL Est Cr Clr Drug Dosing 37.71 mL/min Estimated GFR (MDRD) 41 BUN/Creatinine Ratio 13.4 (No establ ref range) Glucose 126 H (70-99) mg/dL Calcium 8.1 L (8.5-10.1) mg/dL Total Bilirubin 0.6 (0.2-1.0) mg/dL AST 17 (15-37) U/L ALT 15 L (16-63) U/L Alkaline Phosphatase 80 (46-116) U/L C-Reactive Protein 8.2 H (0.0-0.9) mg/dL Total Protein 6.7 (6.4-8.2) g/dL Albumin 2.8 L (3.4-5.0) g/dL Globulin 3.9 Albumin/Globulin Ratio 0.72 Urine Color Yellow (YELLOW) Urine Appearance Clear (CLEAR) Urine pH 7.0 (5.0-9.0) Ur Specific [place] 1.015 (1.005-1.030) Urine Protein Negative (NEGATIVE) Urine Glucose (UA) Negative (NEGATIVE) Urine Ketones Negative (NEGATIVE) Urine Occult Blood Small H (NEGATIVE) Urine Nitrite Negative (NEGATIVE) Urine Bilirubin Negative (NEGATIVE) Urine Urobilinogen 0.2 (0.2-1.0) mg/dL Ur Leukocyte Esterase Negative (NEGATIVE) Urine RBC 10-20 H /HPF Urine WBC 0-5 (0-5/HPF) /HPF Ur Epithelial Cells Rare (NOT SEEN) /HPF Amorphous Sediment Occasional (NOT SEEN) /HPF Urine Bacteria Rare (0-FEW/HPF) /HPF Urine Mucus Rare (NOT SEEN) /LPF - Re-Assessments/Exams Free Text/Narrative Re-Assessment/Exam: 12/03/20 Findings of examination and lab work reviewed with patient. Will treat cellulitis to left lower extremity with amoxicillin and urticarial rash with fexofenadine. Patient advised to establish care with a pattern changer and repairer for further evaluation and management of this ongoing problem. Discussed supportive cares with patient. Red flag signs and symptoms which would warrant reevaluation reviewed. Patient verbalized understanding and agreement with the plan of care. Departure - Departure Time of Disposition: 15:45 Disposition: Home, Self-Care 01 Condition: Good Clinical Impression: Urticaria, Rash Cellulitis Qualifiers: Site of cellulitis: extremity Site of cellulitis of extremity: lower extremity Laterality: left Qualified Code(s): L03.116 - Cellulitis of left lower limb - Discharge Information *PRESCRIPTION DRUG MONITORING PROGRAM REVIEWED*: Not Applicable *COPY OF PRESCRIPTION DRUG MONITORING REPORT IN PATIENT [place]: Not Applicable Instructions: Cellulitis, Adult, Contact Dermatitis, [id number] Referrals: Mary Maza MD [Primary Care Provider] - Forms: ED Department Discharge Additional Instructions: Rx: fexofenadine Rx: amoxicillin 1.) Follow up with dermatology regarding urticarial rash refractory to t reatment. 2.) Drink plenty of water to stay hydrated while taking antibiotic. 3.) Eat yogurt, or take a probiotic, for gut health while taking an antibiotic. Sepsis Event Note (ED) - Evaluation Sepsis Screening Result: No Definite Risk
[2020-12-03 14:35] LABS: ANION GAP 15.6 mEq/L (7-13)
== END 2020-12-03 16:03 | disposition home or self-care (01) ==
LOC: DL.ED 11:58
DX: L50.9 Urticaria, unspecified (principal); L03.116 Cellulitis of left lower limb; I10 Essential (primary) hypertension; N40.0 Benign prostatic hyperplasia without lower urinary tract symptoms; Z79.899 Other long term (current) drug therapy; Z72.0 Tobacco use
CPT/HCPCS: 36415; 80053; 81001; 85025; 86140; 99283

== ENCOUNTER 2022-01-21 16:06 | Inpatient (IN) | payer MEDICARE, MEDICAID ==
[2022-01-21] MEDS ORDERED: hydrALAZINE 20 MG/ML SDV IVPUSH ONE (16:40)
[2022-01-21 18:06] LABS: ANION GAP 16.1 mEq/L (7-13)
[2022-01-21] MEDS ORDERED: Furosemide 40 MG/4 ML VIAL IVPUSH ONE (18:24)
[2022-01-21] MEDS ORDERED: Atenolol 50 MG Tab PO ONE (19:34)
[2022-01-21] MEDS ORDERED: amLODIPine 5 MG Tab PO ONE (19:35)
[2022-01-21] MEDS ORDERED: hydrALAZINE 25 MG Tab PO ONE (19:36)
[2022-01-21] MEDS ORDERED: Albuterol 0.083% 2.5 MG/3 ML Neb Soln NEB PRN (19:51)
[2022-01-21] MEDS ORDERED: Ondansetron 4 MG/2 ML SDV IVPUSH PRN (19:51)
[2022-01-21] MEDS ORDERED: Bisacodyl 5 MG Tab PO PRN (19:51)
[2022-01-21] MEDS ORDERED: Acetaminophen 325 MG Tab PO PRN (19:51)
[2022-01-21] MEDS ORDERED: Docusate Sodium 100 MG Cap PO PRN (19:51)
[2022-01-21] MEDS ORDERED: Zolpidem 5 MG Tab PO PRN (19:51)
[2022-01-21] MEDS ORDERED: diphenhydrAMINE 25 MG Tab PO PRN (19:58)
[2022-01-21] MEDS ORDERED: Aspirin 81 MG Tab.Chew PO ONE (20:45)
[2022-01-21] MEDS: Atenolol 50 MG Tab PO SCH (20:52)
[2022-01-21] MEDS: hydrALAZINE 25 MG Tab PO SCH (20:52)
[2022-01-21] MEDS: Gabapentin 300 MG Cap PO SCH (20:53)
[2022-01-21] MEDS: Tamsulosin 0.4 MG Cap.ER PO SCH (20:53)
[2022-01-22] MEDS ORDERED: hydrALAZINE 25 MG Tab PO ONE (00:18)
[2022-01-22] MEDS: Albuterol/Ipratropium 3.0-0.5 MG/3 ML Neb Soln NEB SCH ×4 (00:32→19:00)
[2022-01-22] MEDS ORDERED: Zolpidem 5 MG Tab PO ONE (04:05)
[2022-01-22 07:24] LABS: ANION GAP 17.5 mEq/L (7-13)
[2022-01-22] MEDS ORDERED: Furosemide 40 MG/4 ML VIAL IVPUSH SCH (08:00)
[2022-01-22] MEDS: Tiotropium Inhaler 18 MCG Inhalation Powder Cap Kit of 5 INH SCH (08:23)
[2022-01-22] MEDS: Enoxaparin 30 MG/0.3 ML Syringe SUBCUT SCH (08:23)
[2022-01-22] MEDS: Nicotine 21 MG/24 Hr Patch TRDERM SCH (08:23)
[2022-01-22] MEDS: Aspirin 81 MG Tab.EC PO SCH (08:24)
[2022-01-22] MEDS: Tamsulosin 0.4 MG Cap.ER PO SCH ×2 (08:24→20:57)
[2022-01-22] MEDS: Atenolol 50 MG Tab PO SCH ×2 (08:24→20:58)
[2022-01-22] MEDS: Gabapentin 300 MG Cap PO SCH ×3 (08:24→20:57)
[2022-01-22] MEDS: Finasteride 5 MG Tab PO SCH (08:24)
[2022-01-22] MEDS: amLODIPine 5 MG Tab PO SCH (08:25)
[2022-01-22] MEDS: hydrALAZINE 25 MG Tab PO SCH ×4 (08:25→20:57)
[2022-01-22] MEDS ORDERED: DULOXETINE HCL 40 MG PO SCH (09:00)
[2022-01-22] MEDS: DULoxetine 30 MG Cap PO SCH (12:07)
[2022-01-22] MEDS: Furosemide 40 MG Tab PO SCH (13:23)
[2022-01-22] MEDS ORDERED: Melatonin 3 MG Tab PO PRN (14:54)
[2022-01-23] MEDS: Albuterol/Ipratropium 3.0-0.5 MG/3 ML Neb Soln NEB SCH ×3 (01:14→13:25)
[2022-01-23 06:45] LABS: ANION GAP 15.5 mEq/L (7-13)
[2022-01-23] MEDS: Tamsulosin 0.4 MG Cap.ER PO SCH (08:29)
[2022-01-23] MEDS: DULoxetine 30 MG Cap PO SCH (08:30)
[2022-01-23] MEDS: hydrALAZINE 25 MG Tab PO SCH (08:30)
[2022-01-23] MEDS: Gabapentin 300 MG Cap PO SCH (08:30)
[2022-01-23] MEDS: Finasteride 5 MG Tab PO SCH (08:30)
[2022-01-23] MEDS: Enoxaparin 30 MG/0.3 ML Syringe SUBCUT SCH (08:31)
[2022-01-23] MEDS: Aspirin 81 MG Tab.EC PO SCH (08:31)
[2022-01-23] MEDS: Atenolol 50 MG Tab PO SCH (08:31)
[2022-01-23] MEDS: amLODIPine 5 MG Tab PO SCH (08:31)
[2022-01-23] MEDS: Nicotine 21 MG/24 Hr Patch TRDERM SCH (08:32)
[2022-01-23] MEDS: Furosemide 40 MG Tab PO SCH ×2 (08:33→15:09)
[2022-01-23] MEDS: Tiotropium Inhaler 18 MCG Inhalation Powder Cap Kit of 5 INH SCH (08:34)
[2022-01-23] MEDS ORDERED: Iopamidol 755 Mg/ML 100 ML Bottle IVPUSH ONE (10:33)
[2022-01-23 12:40] VITALS: BP 116/68
[2022-01-23 13:30] VITALS: PULSE 72
== END 2022-01-23 15:15 | disposition home or self-care (01) | DRG 292 ==
LOC: DL.ED 16:06 → DL.MS 19:22
PROVIDERS: ADMIT Internal Medicine; ATTEND Internal Medicine
DX: I13.0 Hypertensive heart and chronic kidney disease with heart failure and stage 1 through stage 4 chronic kidney disease, or unspecified chronic kidney disease (principal); N17.9 Acute kidney failure, unspecified; N18.30 Chronic kidney disease, stage 3 unspecified; F17.210 Nicotine dependence, cigarettes, uncomplicated; D64.9 Anemia, unspecified; I73.9 Peripheral vascular disease, unspecified; I50.9 Heart failure, unspecified; Z79.02 Long term (current) use of antithrombotics/antiplatelets; N18.9 Chronic kidney disease, unspecified; H54.7 Unspecified visual loss; Z95.1 Presence of aortocoronary bypass graft; Z95.5 Presence of coronary angioplasty implant and graft; Z87.01 Personal history of pneumonia (recurrent); M19.90 Unspecified osteoarthritis, unspecified site; N40.0 Benign prostatic hyperplasia without lower urinary tract symptoms; F41.9 Anxiety disorder, unspecified; Z98.49 Cataract extraction status, unspecified eye; Z98.890 Other specified postprocedural states; D50.9 Iron deficiency anemia, unspecified; Z86.16 Personal history of COVID-19; Z79.899 Other long term (current) drug therapy; Z20.822 Contact with and (suspected) exposure to COVID-19
CPT/HCPCS: 36415; 71101-LT; 80048; 80053; 83735; 83880; 84484; 85025; 85027; 93005; 93010; 94640; 96374; 96375; 99222; 99231; 99239; 99284; 99285-25; A9270-GY; J0360; J1650; J1940; J7620-GY; U0002

== ENCOUNTER 2023-09-09 03:43 | Emergency (ER) | payer MEDICAID, MEDICARE ==
[2023-09-09 03:46] LABS: BASOPHILS PERCENT AUTO 0.3 % (0.0-1.0); EOSINOPHILS PERCENT AUTO 1.2 % (1.0-3.0); HEMATOCRIT 40.4 % (40.0-54.0); HEMOGLOBIN 14.3 g/dL (14.0-18.0); LYMPHOCYTES PERCENT AUTO 17.2 % (20.5-50.1); MEAN CORPUSCULAR HEMOGLOBIN 29.2 pg (27.0-34.0); MEAN CORPUSCULAR HGB CONC 35.4 g/dL (33.0-35.0); MEAN CORPUSCULAR VOLUME 82.4 fL (80-100); NEUTROPHILS PERCENT AUTO 72.3 % (42.2-75.2); PLATELET COUNT,PLT 141 10^3/uL (150-450); WHITE BLOOD CELL COUNT,WBC 15.3 10^3/uL (5.0-10.0)
[2023-09-09] MEDS: Sodium Chloride 0.9% 1,000 ML IV SCH ×2 (03:53→05:52)
[2023-09-09] MEDS ORDERED: HYDROmorphone 2 MG/ML Syringe IVPUSH PRN (03:57)
[2023-09-09] MEDS ORDERED: Naloxone 2 MG/2 ML Syringe IVPUSH PRN (03:57)
[2023-09-09 04:07] LABS: A/G RATIO 0.77; ALANINE AMINOTRANSFERASE,ALT 203 U/L (16-63); ALBUMIN 3.3 g/dL (3.4-5.0); ALKALINE PHOSPHATASE 319 U/L (46-116); ANION GAP 17.5 mEq/L (7-13); ASPARTATE AMNIOTRANSFERASE,AST 132 U/L (15-37); BLOOD UREA NITROGEN,BUN 30 mg/dL (7-18); BUN/CREATININE RATIO 11.2 (No establ ref range); C-REACTIVE PROTEIN 6.38 ng/dL (<=0.50); CALCIUM 8.7 mg/dL (8.5-10.1); CARBON DIOXIDE,CO2 22 mmol/L (21-32); CHLORIDE,CL 99 mmol/L (98-107); CREATININE 2.67 mg/dL (0.70-1.30); EST CRCL DRUG DOSING (CG) 22.02 mL/min; GLUCOSE RANDOM 170 mg/dL (70-99); POTASSIUM,K 3.5 mmol/L (3.5-5.1); SODIUM,NA 135 mmol/L (136-145)
[2023-09-09] MEDS ORDERED: HYDROmorphone 0.5 MG/0.5 ML Syringe IVPUSH PRN (04:13)
[2023-09-09] MEDS: HYDROmorphone 0.5 MG/0.5 ML Syringe IVPUSH ONE ×2 (04:15→05:52)
[2023-09-09] MEDS ORDERED: VANCOmycin 1.75 GM/350 ML 1.75 GM in Premix Bag 1 BAG IV ONE (04:15)
[2023-09-09 04:22] LABS: ESTIMATED GFR 23 mL/min (>=60)
[2023-09-09 04:23] LABS: LIPASE > 250 U/L (16-77)
[2023-09-09 04:25] LABS: LACTIC ACID 2.1 mmol/L (0.4-2.0); PROTEIN TOTAL,TP 7.6 g/dL (6.4-8.2)
[2023-09-09] MEDS: Cefepime 1 GM Vial IVPUSH ONE (04:48)
[2023-09-09] MEDS: Vancomycin 1.75 GM in Sodium Chloride 0.9% 500 ML IV ONE (04:51)
[2023-09-09 05:08] LABS: APPEARANCE,URINE CLEAR (CLEAR); BILIRUBIN,URINE LARGE (NEGATIVE); GLUCOSE,URINE 100 (NEGATIVE); KETONES,URINE TRACE (NEGATIVE); LEUKOCYTE ESTERASE,URINE NEGATIVE (NEGATIVE); NITRITE,URINE NEGATIVE (NEGATIVE); OCCULT BLOOD,URINE MODERATE (NEGATIVE); PROTEIN,URINE >=300 (NEGATIVE)
[2023-09-09 05:10] LABS: COLOR,URINE AMBER (YELLOW)
[2023-09-09 05:20] LABS: AMORPHOUS SEDIMENT,URINE FEW /HPF (NOT SEEN); BACTERIA,URINE MODERATE /HPF (0-FEW/HPF); EPITHELIAL CELLS,URINE MODERATE /HPF (NOT SEEN); GRANULAR CASTS,URINE FEW; HYALINE CASTS,URINE RARE; MUCUS,URINE FEW /LPF (NOT SEEN); WBC,URINE 30-40 /HPF (0-5/HPF)
[2023-09-09 06:46] VITALS: BP 168/109; PULSE 68
== END 2023-09-09 06:32 ==
LOC: DL.ED 03:43
DX: A41.9 Sepsis, unspecified organism (principal); K81.0 Acute cholecystitis; I12.9 Hypertensive chronic kidney disease with stage 1 through stage 4 chronic kidney disease, or unspecified chronic kidney disease; N18.9 Chronic kidney disease, unspecified; Z79.899 Other long term (current) drug therapy; Z86.16 Personal history of COVID-19
CPT/HCPCS: 36415; 71045; 74176; 80053; 81001; 83605; 83690; 85025; 86140; 87040; 93005; 93010; 96361; 96365; 96366; 96375; 96376; 99285; J0692; J1170; J3370; J7030; J7040

== ENCOUNTER 2024-07-29 07:07 | Inpatient (IN) | payer MEDICARE ==
[2024-07-29 07:26] LABS: HEMATOCRIT 37.1 % (40.0-54.0); MEAN CORPUSCULAR HEMOGLOBIN 28.6 pg (27.0-34.0); MEAN CORPUSCULAR HGB CONC 32.3 g/dL (33.0-35.0); MEAN CORPUSCULAR VOLUME 88.5 fL (80-100); PLATELET COUNT,PLT 129 10^3/uL (150-450); RED BLOOD CELL COUNT 4.19 10^6/uL (4.6-6.2); WHITE BLOOD CELL COUNT,WBC 17.5 10^3/uL (5.0-10.0)
[2024-07-29 07:29] LABS: BASOPHILS PERCENT AUTO 0.1 % (0.0-1.0); EOSINOPHILS PERCENT AUTO 0.1 % (1.0-3.0); LYMPHOCYTES PERCENT AUTO 14.2 % (20.5-50.1); MONOCYTES PERCENT AUTO 8.3 % (2-8); NEUTROPHILS PERCENT AUTO 77.3 % (42.2-75.2)
[2024-07-29 07:46] LABS: INR 1.1 (0.9-1.2); PROTHROMBIN TIME 11.6 SEC (9.0-12.0)
[2024-07-29 07:48] LABS: B-TYPE NATRIURETIC PEPTIDE,BNP 311 pg/ml (0-100)
[2024-07-29 07:56] LABS: A/G RATIO 0.54; ALANINE AMINOTRANSFERASE,ALT 16 U/L (16-63); ALBUMIN 2.6 g/dL (3.4-5.0); ALKALINE PHOSPHATASE 167 U/L (46-116); ANION GAP 17.6 mEq/L (7-13); ASPARTATE AMNIOTRANSFERASE,AST 19 U/L (15-37); BILIRUBIN TOTAL 1.3 mg/dL (0.2-1.0); BLOOD UREA NITROGEN,BUN 49 mg/dL (7-18); BUN/CREATININE RATIO 16.1 (No establ ref range); CALCIUM 8.4 mg/dL (8.5-10.1); CARBON DIOXIDE,CO2 22 mmol/L (21-32); CHLORIDE,CL 100 mmol/L (98-107); CREATININE 3.04 mg/dL (0.70-1.30); ESTIMATED GFR 20 mL/min (>=60); GLUCOSE RANDOM 127 mg/dL (70-99); LYMPHOCYTES PERCENT MAN 14 % (20-50); MAGNESIUM 1.8 mg/dL (1.8-2.4); MONOCYTES PERCENT MAN 5 % (2-8); POTASSIUM,K 4.6 mmol/L (3.5-5.1); PROTEIN TOTAL,TP 7.4 g/dL (6.4-8.2); SEG NEUTROPHILS PERCENT MAN 81 % (42-75); SODIUM,NA 135 mmol/L (136-145)
[2024-07-29] MEDS: methylPREDNISolone Sodium Succinate 40 MG/1 ML SDV IVPUSH ONE (08:05)
[2024-07-29] MEDS: cefTRIAXone 1 GM Vial IVPUSH ONE (08:07)
[2024-07-29] MEDS: Azithromycin 500 MG in Sodium Chloride 0.9% 250 ML IV ONE (08:12)
[2024-07-29] MEDS: Sodium Chloride 0.9% 10 ML Syringe FLUSH PRN (08:13)
[2024-07-29] MEDS: Sodium Chloride 0.9% 500 ML IV ONE (08:15)
[2024-07-29] MEDS ORDERED: Metoprolol Tartrate 5 MG/5 ML SDV IVPUSH PRN (09:31)
[2024-07-29] MEDS ORDERED: Polyethylene Glycol 3350 Powder 17 GM Packet PO PRN (09:33)
[2024-07-29] MEDS ORDERED: Ondansetron 4 MG/2 ML SDV IVPUSH PRN (09:33)
[2024-07-29] MEDS ORDERED: Naloxone 2 MG/2 ML Syringe IVPUSH PRN (09:33)
[2024-07-29] MEDS ORDERED: Acetaminophen 325 MG Tab PO PRN (09:33)
[2024-07-29] MEDS ORDERED: HYDROmorphone 0.5 MG/0.5 ML Syringe IVPUSH PRN (09:33)
[2024-07-29] MEDS ORDERED: Sennosides/Docusate Sodium 50-8.6 MG Tab PO PRN (09:33)
[2024-07-29] MEDS ORDERED: Magnesium Hydroxide 400 MG/5 ML Susp 30 ML Cup PO PRN (09:33)
[2024-07-29] MEDS ORDERED: Glucagon,Human Recombinant 1 MG Vial IM PRN (09:43)
[2024-07-29] MEDS ORDERED: 50% Dextrose in Water 50 ML Syringe IVPUSH PRN (09:43)
[2024-07-29] MEDS ORDERED: guaiFENesin/Dextromethorphan 100-10 MG/5 ML Soln 5 ML Cup PO PRN (09:44)
[2024-07-29] MEDS ORDERED: Magnesium Sulfate/D5W 1 GM/100 ML BAG IV ONE (10:11)
[2024-07-29 10:16] LABS: LACTIC ACID 2.6 mmol/L (0.4-2.0)
[2024-07-29 10:45] LABS: C-REACTIVE PROTEIN > 25.00 ng/dL (<=0.50)
[2024-07-29] MEDS: guaiFENesin 600 MG Tab.ER PO ONE (10:51)
[2024-07-29] MEDS: Loratadine 10 MG Tab PO ONE (10:51)
[2024-07-29] MEDS: Atenolol 50 MG Tab PO ONE (10:51)
[2024-07-29] MEDS: Lactated Ringers 1,500 ML IV ONE (10:52)
[2024-07-29] MEDS: Nicotine 21 MG/24 Hr Patch TRDERM SCH (10:52)
[2024-07-29] MEDS: Magnesium Sulfate/D5W 1 GM IV ONE (10:52)
[2024-07-29] MEDS: Insulin Lispro 100 Units/ML 3 ML Vial SUBCUT SCH (12:51)
[2024-07-29] MEDS: methylPREDNISolone Sodium Succinate 40 MG/1 ML SDV IVPUSH SCH (12:51)
[2024-07-29] MEDS: guaiFENesin 600 MG Tab.ER PO SCH (13:00)
[2024-07-29] MEDS: Gabapentin 300 MG Cap PO SCH (13:00)
[2024-07-29] MEDS: Sodium Chloride 0.9% 1,000 ML IV SCH (15:55)
[2024-07-29] MEDS: Pantoprazole 40 MG Tab.CR PO SCH (15:58)
[2024-07-29] MEDS: Magnesium Oxide 400 MG Tab PO SCH (17:17)
[2024-07-29] MEDS: Saccharomyces Boulardii (Probiotic) 250 MG Cap PO SCH (21:29)
[2024-07-29] MEDS: Gabapentin 100 MG Cap PO SCH (21:29)
[2024-07-29] MEDS: Atenolol 50 MG Tab PO SCH (21:30)
[2024-07-29] MEDS: Apixaban 5 MG Tab PO SCH (21:30)
[2024-07-29] MEDS: Montelukast 10 MG Tab PO SCH (21:30)
[2024-07-30 06:36] LABS: BASOPHILS PERCENT AUTO 0.1 % (0.0-1.0); HEMATOCRIT 31.8 % (40.0-54.0); HEMOGLOBIN 10.8 g/dL (14.0-18.0); LYMPHOCYTES PERCENT AUTO 7.1 % (20.5-50.1); MEAN CORPUSCULAR HEMOGLOBIN 29.3 pg (27.0-34.0); MEAN CORPUSCULAR VOLUME 86.4 fL (80-100); MONOCYTES PERCENT AUTO 4.3 % (2-8); NEUTROPHILS PERCENT AUTO 88.5 % (42.2-75.2); PLATELET COUNT,PLT 105 10^3/uL (150-450); RED BLOOD CELL COUNT 3.68 10^6/uL (4.6-6.2); WHITE BLOOD CELL COUNT,WBC 13.2 10^3/uL (5.0-10.0)
[2024-07-30 06:58] LABS: ALANINE AMINOTRANSFERASE,ALT 12 U/L (16-63); ALBUMIN 1.8 g/dL (3.4-5.0); ALKALINE PHOSPHATASE 114 U/L (46-116); ANION GAP 15.8 mEq/L (7-13); ASPARTATE AMNIOTRANSFERASE,AST 11 U/L (15-37); BILIRUBIN TOTAL 0.6 mg/dL (0.2-1.0); BLOOD UREA NITROGEN,BUN 50 mg/dL (7-18); BUN/CREATININE RATIO 21.5 (No establ ref range); CALCIUM 8.3 mg/dL (8.5-10.1); CARBON DIOXIDE,CO2 21 mmol/L (21-32); CHLORIDE,CL 106 mmol/L (98-107); CREATININE 2.33 mg/dL (0.70-1.30); EST CRCL DRUG DOSING (CG) 18.55 mL/min; GLUCOSE RANDOM 179 mg/dL (70-99); MAGNESIUM 2.1 mg/dL (1.8-2.4); POTASSIUM,K 3.8 mmol/L (3.5-5.1); PROTEIN TOTAL,TP 6.1 g/dL (6.4-8.2); SODIUM,NA 139 mmol/L (136-145)
[2024-07-30 06:59] LABS: A/G RATIO 0.42; ESTIMATED GFR 27 mL/min (>=60)
[2024-07-30 07:00] LABS: C-REACTIVE PROTEIN > 25.00 ng/dL (<=0.50)
[2024-07-30] MEDS: Loratadine 10 MG Tab PO SCH (09:34)
[2024-07-30] MEDS: cefTRIAXone 1 GM Vial IVPUSH SCH (09:37)
[2024-07-30] MEDS: Azithromycin 500 MG in Sodium Chloride 0.9% 250 ML IV SCH (09:42)
[2024-07-30] MEDS: Albuterol/Ipratropium 3.0-0.5 MG/3 ML Neb Soln NEB PRN (12:13)
[2024-07-30] MEDS: Formoterol/Mometasone 200-5 MCG 8.8 GM Inhaler INH SCH (17:54)
[2024-07-30] MEDS: Albuterol/Ipratropium 3.0-0.5 MG/3 ML Neb Soln NEB SCH (17:55)
[2024-07-30] MEDS: Melatonin 3 MG Tab PO PRN (21:05)
[2024-07-31] MEDS: Tiotropium Bromide 4 GM Inhalation Spray (2.5mcg/1 dose; 10 doses) INH SCH (06:11)
[2024-07-31 06:49] LABS: HEMATOCRIT 31.2 % (40.0-54.0); HEMOGLOBIN 10.5 g/dL (14.0-18.0); MEAN CORPUSCULAR HEMOGLOBIN 29.1 pg (27.0-34.0); MEAN CORPUSCULAR HGB CONC 33.7 g/dL (33.0-35.0); MEAN CORPUSCULAR VOLUME 86.4 fL (80-100); PLATELET COUNT,PLT 135 10^3/uL (150-450); RED BLOOD CELL COUNT 3.61 10^6/uL (4.6-6.2); WHITE BLOOD CELL COUNT,WBC 10.2 10^3/uL (5.0-10.0)
[2024-07-31 06:52] LABS: LYMPHOCYTES PERCENT AUTO 7.2 % (20.5-50.1); NEUTROPHILS PERCENT AUTO 88.3 % (42.2-75.2)
[2024-07-31 06:53] LABS: BASOPHILS PERCENT AUTO 0.1 % (0.0-1.0); MONOCYTES PERCENT AUTO 4.4 % (2-8)
[2024-07-31 07:17] LABS: ALBUMIN 1.9 g/dL (3.4-5.0); ANION GAP 16.9 mEq/L (7-13); BILIRUBIN TOTAL 0.4 mg/dL (0.2-1.0); BUN/CREATININE RATIO 27.5 (No establ ref range); C-REACTIVE PROTEIN 13.91 ng/dL (<=0.50); CALCIUM 8.1 mg/dL (8.5-10.1); CREATININE 2.33 mg/dL (0.70-1.30); EST CRCL DRUG DOSING (CG) 18.55 mL/min; MAGNESIUM 2.1 mg/dL (1.8-2.4); POTASSIUM,K 3.9 mmol/L (3.5-5.1); PROTEIN TOTAL,TP 6.2 g/dL (6.4-8.2)
[2024-07-31 07:21] LABS: LYMPHOCYTES PERCENT MAN 9 % (20-50); MONOCYTES PERCENT MAN 3 % (2-8); SEG NEUTROPHILS PERCENT MAN 88 % (42-75)
[2024-07-31 07:27] LABS: A/G RATIO 0.44
[2024-07-31] MEDS: hydrALAZINE 20 MG/ML SDV IVPUSH PRN (08:12)
[2024-07-31] MEDS: methylPREDNISolone Sodium Succinate 40 MG/1 ML SDV IVPUSH SCH (14:44)
[2024-07-31] MEDS: Insulin Glarg,Human.Rec.Analog 100 Unit/ML 10 ML Vial SUBCUT SCH (20:57)
[2024-08-01 06:34] LABS: HEMATOCRIT 30.6 % (40.0-54.0); HEMOGLOBIN 10.2 g/dL (14.0-18.0); LYMPHOCYTES PERCENT AUTO 7.2 % (20.5-50.1); MEAN CORPUSCULAR HEMOGLOBIN 28.9 pg (27.0-34.0); MEAN CORPUSCULAR HGB CONC 33.3 g/dL (33.0-35.0); MEAN CORPUSCULAR VOLUME 86.7 fL (80-100); MONOCYTES PERCENT AUTO 4.8 % (2-8); PLATELET COUNT,PLT 153 10^3/uL (150-450); RED BLOOD CELL COUNT 3.53 10^6/uL (4.6-6.2); WHITE BLOOD CELL COUNT,WBC 8.4 10^3/uL (5.0-10.0)
[2024-08-01 07:05] LABS: A/G RATIO 0.5; ANION GAP 15.9 mEq/L (7-13); BILIRUBIN TOTAL 0.4 mg/dL (0.2-1.0); BUN/CREATININE RATIO 33.2 (No establ ref range); C-REACTIVE PROTEIN 6.96 ng/dL (<=0.50); CALCIUM 7.9 mg/dL (8.5-10.1); CREATININE 2.14 mg/dL (0.70-1.30); EST CRCL DRUG DOSING (CG) 20.2 mL/min; POTASSIUM,K 3.9 mmol/L (3.5-5.1)
[2024-08-01] MEDS ORDERED: Atenolol 50 MG Tab PO SCH (09:00)
[2024-08-01] MEDS ORDERED: amLODIPine 5 MG Tab PO SCH (09:00)
[2024-08-01] MEDS: Hydrochlorothiazide/Triamterene 25-37.5 Tab PO SCH (09:10)
[2024-08-01] MEDS: Emollient Combination No.71 177 ML Bottle TOP PRN (09:23)
[2024-08-01] MEDS: Insulin Glarg,Human.Rec.Analog 100 Unit/ML 10 ML Vial SUBCUT SCH (12:37)
[2024-08-01] MEDS ORDERED: Codeine/guaiFENesin 10-100 MG/5 ML Syrup 5 ML Cup PO PRN (19:06)
[2024-08-01] MEDS: amLODIPine 5 MG Tab PO SCH (21:02)
[2024-08-01] MEDS: cloNIDine 0.1 MG Tab PO ONE (21:03)
[2024-08-01] MEDS: traMADol 50 MG Tab PO PRN (21:15)
[2024-08-02 06:36] LABS: BILIRUBIN TOTAL 0.4 mg/dL (0.2-1.0); C-REACTIVE PROTEIN 4.23 ng/dL (<=0.50); CALCIUM 7.8 mg/dL (8.5-10.1); CREATININE 2.11 mg/dL (0.70-1.30); EST CRCL DRUG DOSING (CG) 20.49 mL/min; MAGNESIUM 1.9 mg/dL (1.8-2.4); PROTEIN TOTAL,TP 5.8 g/dL (6.4-8.2)
[2024-08-02 06:37] LABS: HEMATOCRIT 30.7 % (40.0-54.0); HEMOGLOBIN 10.6 g/dL (14.0-18.0); LYMPHOCYTES PERCENT AUTO 7.5 % (20.5-50.1); MEAN CORPUSCULAR HEMOGLOBIN 30.1 pg (27.0-34.0); MEAN CORPUSCULAR HGB CONC 34.5 g/dL (33.0-35.0); MEAN CORPUSCULAR VOLUME 87.2 fL (80-100); MONOCYTES PERCENT AUTO 5.3 % (2-8); NEUTROPHILS PERCENT AUTO 87.2 % (42.2-75.2); PLATELET COUNT,PLT 170 10^3/uL (150-450); RED BLOOD CELL COUNT 3.52 10^6/uL (4.6-6.2); WHITE BLOOD CELL COUNT,WBC 8.3 10^3/uL (5.0-10.0)
[2024-08-02 06:51] LABS: A/G RATIO 0.53
[2024-08-02 09:44] VITALS: BP 144/74
[2024-08-02] MEDS: cloNIDine 0.1 MG Tab PO SCH (10:03)
[2024-08-02 10:12] VITALS: PULSE 78
[2024-08-02] MEDS: Atenolol 50 MG Tab ONE (10:20)
== END 2024-08-02 11:00 | disposition home or self-care (01) | DRG 871 ==
LOC: DL.ED 07:07 → DL.MS 08:06 → UNDOADMIN 08:06 → DL.MS 09:30 → UNDOADMIN 09:30 → UNDODISIN 08-02 11:00
PROVIDERS: ADMIT Internal Medicine; ATTEND Internal Medicine
DX: J18.9 Pneumonia, unspecified organism (principal); A41.89 Other specified sepsis; D72.825 Bandemia; E43 Unspecified severe protein-calorie malnutrition; I50.9 Heart failure, unspecified; J18.1 Lobar pneumonia, unspecified organism; J15.211 Pneumonia due to Methicillin susceptible Staphylococcus aureus; I50.32 Chronic diastolic (congestive) heart failure; I13.0 Hypertensive heart and chronic kidney disease with heart failure and stage 1 through stage 4 chronic kidney disease, or unspecified chronic kidney disease; J44.1 Chronic obstructive pulmonary disease with (acute) exacerbation; J44.0 Chronic obstructive pulmonary disease with (acute) lower respiratory infection; N18.4 Chronic kidney disease, stage 4 (severe); I48.11 Longstanding persistent atrial fibrillation; N17.9 Acute kidney failure, unspecified; R65.20 Severe sepsis without septic shock; D63.1 Anemia in chronic kidney disease; M19.90 Unspecified osteoarthritis, unspecified site; F41.9 Anxiety disorder, unspecified; Z66 Do not resuscitate; H26.9 Unspecified cataract; H54.7 Unspecified visual loss; E78.5 Hyperlipidemia, unspecified; G89.29 Other chronic pain; E11.65 Type 2 diabetes mellitus with hyperglycemia; E11.51 Type 2 diabetes mellitus with diabetic peripheral angiopathy without gangrene; E11.22 Type 2 diabetes mellitus with diabetic chronic kidney disease; E88.09 Other disorders of plasma-protein metabolism, not elsewhere classified; E11.622 Type 2 diabetes mellitus with other skin ulcer; L98.419 Non-pressure chronic ulcer of buttock with unspecified severity; E11.42 Type 2 diabetes mellitus with diabetic polyneuropathy; Z87.891 Personal history of nicotine dependence; Z86.16 Personal history of COVID-19; Z79.01 Long term (current) use of anticoagulants; Z98.890 Other specified postprocedural states; Z95.5 Presence of coronary angioplasty implant and graft; Z79.51 Long term (current) use of inhaled steroids; Z79.1 Long term (current) use of non-steroidal anti-inflammatories (NSAID); Z79.899 Other long term (current) drug therapy; Z98.49 Cataract extraction status, unspecified eye
CPT/HCPCS: 36415; 71250; 80053; 80307; 83605; 83690; 83735; 83880; 84145; 84484; 85025; 85610; 86140; 87040 ×2; 87077; 87428; 93005; 99285; J2919; 76770; 82947; 87070; 87186; 87205; 93010; 93306; 94640; 96374; 97161-GP; 97165-GO; 99223; 99233; 99238; 99284; A9270-GY; J0360; J0456; J0696; J1815-GY; J3475; J7030; J7040; J7050; J7120; J7620-GY